=== PATIENT | male | born 1965 | race African-American/Black ===

== ENCOUNTER 2021-08-07 08:48 | Outpatient (REF) | payer OTHER, SELFPAY ==
--- NOTE | ~2021-08-07 | CT_ITS ---
EXAMINATION: CT ANGIOGRAM NECK WITH CONTRAST CT ANGIOGRAM BRAIN WITH CONTRAST CLINICAL INFORMATION: Occlusion and stenosis of the carotid artery. COMPARISON: Head and neck CTA 04/24/2020. TECHNIQUE: Test bolus sequences followed by intravenous administration 70 mL of Omnipaque 350. Helical imaging was performed in the axial plane from the thoracic inlet to the skull vertex. Delayed postcontrast imaging of the head was also performed. The data was processed at the nuclear medicine pet ct technologist workstation for generation of MIP sequences. Angled MIPs and volume rendered reformatted images were also generated at an offline 3D workstation under concurrent supervision. Stenoses are assessed in accordance with NASCET criteria unless otherwise indicated. This CT examination was performed using dose optimization techniques as appropriate, variously including the following: *Automated exposure control *Adjustment of mA and/or kV according to patient size (this includes techniques or standardized protocols for targeted exams where dose is matched to indication/reason for exam; i.e. extremities or head) *Use of iterative reconstruction technique FINDINGS: BRAIN: Interval development of a chronic-appearing infarct within the left frontal lobe anteriorly associated with volume loss as well as within the left precentral gyrus at the high convexity, both in the left MCA territory. There is background chronic microangiopathy. There is no intracranial hemorrhage, hydrocephalus, extra-axial surface collection, midline shift, or other herniation pattern. Nicole to white matter differentiation is diffusely maintained without evidence of an evolved acute territorial infarct. The basilar cisterns are preserved. No significant soft tissue abnormality. No acute osseous abnormality. Soft tissue within the right external auditory canal, most likely cerumen. Mild mucosal thickening within the right maxillary sinus which exhibits sclerotic wall thickening as the sequela of chronic sinusitis. CERVICAL SOFT TISSUES AND LUNG APICES: No significant soft tissue findings within the neck. Imaged upper lungs are clear. Multilevel cervical spondylosis. There is a stable enlarged submental lymph node measuring 1.3 cm in long transaxial dimension that is nonspecific. NECK CTA: [There is a classic 3 vessel configuration of the aortic arch. Proximal arch vessels are non-stenotic. The vertebral arteries are codominant. No significant ostial stenosis is visualized on either side. Both vertebral arteries are widely patent throughout their extracranial cervical course. The right common carotid artery, the right carotid bifurcation, and the right cervical internal carotid artery are widely patent. Mild partial reconstitution of the previously seen occluded left cervical internal carotid artery with faint contrast opacification seen throughout portions of the left cervical ICA which remains partially occluded. Eccentric lipid rich atherosclerotic plaque within the left common carotid artery resulting in mild luminal narrowing. BRAIN CTA: As on the previous study, the intracranial left internal carotid artery is partially occluded through the cavernous left ICA segment. Complete reconstitution of the left internal carotid artery at the level of the paraclinoid ICA segment. No acute arterial occlusions intracranially. One of the anterior left M3 MCA sylvian branches exhibits severe luminal narrowing throughout its course, new since the prior study. CT/CT angio head neck IMPRESSION: - Interval development of a chronic-appearing infarct within the left frontal lobe anteriorly associated with volume loss as well as within the left precentral gyrus at the high convexity, both in the left MCA territory. There is background chronic microangiopathy. - Mild partial reconstitution of the previously seen occluded left cervical internal carotid artery with faint contrast opacification seen throughout portions of the left cervical ICA which remains partially occluded. - As on the previous study, the intracranial left internal carotid artery is partially occluded through the cavernous left ICA segment. Complete reconstitution of the left internal carotid artery at the level of the paraclinoid ICA segment. - Eccentric lipid rich atherosclerotic plaque within the left common carotid artery resulting in mild luminal narrowing. - One of the anterior left M3 MCA sylvian branches exhibits severe luminal narrowing throughout its course, new since the prior study. - There is a stable enlarged submental lymph node measuring 1.3 cm in long transaxial dimension that is nonspecific.
[2021-08-07 10:34] LABS: Blood Urea Nitrogen 16 mg/dL (9-16); Estimated Glomerular Filt Rate > 60
[2021-08-07] MEDS: iohexoL 350 MG/ML 100 ML INFUS..BTL IV (12:07)
== END 2021-08-07 08:49 | disposition home or self-care (01) ==
LOC: HO.CT 08:48
PROVIDERS: PCP Internal Medicine; Visit Provider Internal Medicine
DX: I63.312 Cerebral infarction due to thrombosis of left middle cerebral artery (principal); I65.29 Occlusion and stenosis of unspecified carotid artery
CPT/HCPCS: 36415; 70496; 70498; 82565; 84520; Q9967

== ENCOUNTER → 2021-09-15 14:31 | Outpatient (BNVA) | payer OTHER, SELFPAY | PROVIDERS: PCP Internal Medicine; Visit Provider Surgery Vascular Surgery | DX: I63.232 Cerebral infarction due to unspecified occlusion or stenosis of left carotid arteries (principal) | CPT/HCPCS: 99202 ==

== ENCOUNTER 2021-09-18 08:00 | Outpatient (RCR) | payer OTHER, SELFPAY ==
--- NOTE | 2021-08-28 08:49 | MHC.PT.EP ---
[facility] [place] Office [place] Office [place] Office [address] Tj Heredia [address] [phone] F: [phone] F: [phone] F: [phone] F: [phone] Physical Therapy Plan of Care Date of Evaluation: Date of Surgery: N/A Diagnosis: chronic bilateral LBP without sciatica Assessment: pt's signs and symptoms consistent w/ hypomobility of PA movement of the thoracolumbar spine and weakness of the trunk extensors and upper abdominals. pt presents to physical therapy with pain, decreased range of motion, decreased strength, impaired functional mobility, impaired postural awareness, and gait deviations. pt is a good candidate for skilled PT due to age, potential remediation of impairments, typical disease/condition progression and prognosis, comorbidities, and motivation. pt would benefit from tailored strengthening and stretching exercise program, functional training, gait training, postural re-training, neuromuscular re-education, modalities as needed for pain, equipment safety demonstration. Frequency and Duration: The patient will be seen 2x/wk for 3 wks Short Term Goals: pt will be I w/ HEP to promote self-management of condition. pt will improve B thoracolumbar rotation by 25% to assist in work-related tasks. [facility]ci Goals: pt will improve upper abdominal and trunk extensor strength to 5/5 to promote functional strength for transitional movements from floor to standing. pt will report <3/10 low back pain w/ transitioning from quadruped to standing to promote ease in work-related tasks. Treatment Plan: Modalities to reduce pain, spasms and effusion. Manual therapy to restore motion and function. Therapeutic exercise to improve strength and flexibility. Neuromuscular re-education for posture and balance. Therapeutic activities to return to functional activities of daily living. Electronically signed by: Zahida Paris PT, DPT Please sign and return to therapist. Thank you for your referral.
--- NOTE | 2021-09-18 08:26 | MHC.PT.DC ---
[place] Office [place] Office [place] Office [address] Tj Heredia 140 [facility] [phone] F: [phone] F: [phone] F: [phone] F: [phone] Physical Therapy Discharge Report Diagnosis: chronic bilateral LBP without sciatica Date of Surgery: N/A Date of Evaluation: 08/28/21 Date of Discharge: 09/18/21 Treatments to Date: 7 Cancellations to Date: No Shows to Date: Discharge Status: Improved Function Independent with HEP Discharge Summary: The patient reported he has little to no pain when he has the kinesiotape applied to his low back. He is independent with his home exercise program including thoracolumbar and bilateral lower extremity stretches and core and pelvic stability exercises. He is discharged from this physical therapy plan of care. Electronically signed by: Zahida Paris PT, DPT Please sign and return to therapist. Thank you for your referral.
== END 2021-09-18 08:26 | disposition home or self-care (01) ==
LOC: HO.PT 08:00
PROVIDERS: PCP Internal Medicine; Visit Provider Internal Medicine
DX: M54.50 Low back pain, unspecified (principal)
CPT/HCPCS: 97110; 97140; 97150; 97162

== ENCOUNTER 2021-10-05 13:18 | Outpatient (REF) | payer OTHER, SELFPAY ==
--- NOTE | ~2021-10-05 | US_ITS ---
EXAMINATION: US EXTRACRANIAL CAROTID DUPLEX, BILATERAL CLINICAL INFORMATION: This is a 55-year-old male with cerebral infarction secondary to occlusion. Carotid artery disease. COMPARISON: None TECHNIQUE: Real-time ultrasound and Doppler techniques (integrating B-mode 2-D vascular images, Doppler spectral analysis and color-flow Doppler imaging) were utilized to interrogate the extracranial carotid arteries, the vertebral arteries and proximal subclavian arteries bilaterally. The degree of stenosis is determined by criteria similar to NASCET. FINDINGS: Right Side: 1. There is minimal atherosclerotic plaque seen in the bifurcation/proximal ICA region. 2. The common carotid artery PSV proximally is 122 cm/s and distally 101 cm/s. 3. The proximal internal carotid artery velocities are 107 cm/s systolic and 32 cm/s diastolic. 4. The proximal external carotid artery PSV is 128 cm/s. 5. The vertebral artery shows antegrade flow. 6. The subclavian artery waveforms are normal. Left Side: 1. There is minimal atherosclerotic plaque seen in the bifurcation/proximal ICA region. 2. The common carotid artery PSV proximally is 130 cm/s and distally 111 cm/s. 3. The proximal internal carotid artery velocities are 48 cm/s systolic and 6 cm/s diastolic. However, the mid and distal left internal carotid artery appears to be occluded. 4. The proximal external carotid artery PSV is 111 cm/s. 5. The vertebral artery shows antegrade flow. 6. The subclavian artery waveforms are normal. US/US carotid duplex BI IMPRESSION: 1. RIGHT: Minimal, non-hemodynamically significant stenosis of the proximal right internal carotid artery corresponding to a 0-49% stenosis by velocity criteria. 2. LEFT: Minimal, non-hemodynamically significant stenosis of the proximal left internal carotid artery corresponding to a 0-49% stenosis by velocity criteria. 3. The mid and distal left internal carotid artery appear to be occluded.
== END 2021-10-05 13:19 | disposition home or self-care (01) ==
LOC: HO.US 13:18
PROVIDERS: PCP Internal Medicine; Visit Provider Surgery Vascular Surgery
DX: I63.232 Cerebral infarction due to unspecified occlusion or stenosis of left carotid arteries (principal)
CPT/HCPCS: 93880

== ENCOUNTER → 2021-10-08 09:47 | Outpatient (BNVA) | payer OTHER, SELFPAY | PROVIDERS: PCP Internal Medicine; Visit Provider Surgery Vascular Surgery | DX: I63.232 Cerebral infarction due to unspecified occlusion or stenosis of left carotid arteries (principal) | CPT/HCPCS: 99212 ==

== ENCOUNTER 2021-10-26 12:18 | Outpatient (REF) | payer OTHER, SELFPAY | END 2021-10-26 12:19 | disposition home or self-care (01) | LOC: HO.XRAY 12:18 | PROVIDERS: PCP General Practice; Visit Provider General Practice | DX: Z13.89 Encounter for screening for other disorder (principal) ==

== ENCOUNTER 2021-10-26 12:21 | Outpatient (REF) | payer OTHER, SELFPAY ==
--- NOTE | ~2021-10-26 | XR_ITS ---
EXAMINATION: XR HAND, LEFT CLINICAL INFORMATION: Posterior hand swelling. COMPARISON: None TECHNIQUE: PA, lateral, and oblique views of the left hand. FINDINGS: Degenerative changes are present in the hands at the DIP joints with some osteophytes, subchondral cyst formation as well as some periarticular calcifications third and fourth digits. Degenerative changes also seen at the metacarpophalangeal joint of the fifth digit. Probable old healed boxer's fracture fifth metacarpal. No acute fracture. XR/XR hand LT min 3V IMPRESSION: Degenerative changes and old healed fracture as described above.
== END 2021-10-26 12:22 | disposition home or self-care (01) ==
LOC: HO.XRAY 12:21
PROVIDERS: PCP General Practice; Visit Provider General Practice
DX: M79.89 Other specified soft tissue disorders (principal)
CPT/HCPCS: 73130

== ENCOUNTER 2021-10-26 13:15 | Outpatient (REF) | payer OTHER, SELFPAY ==
--- NOTE | ~2021-10-26 | US_ITS ---
EXAMINATION: US VENOUS WITH DOPPLER UPPER EXTREMITY, LEFT CLINICAL INFORMATION: This is a 56-year-old male with sudden onset of left upper extremity swelling. COMPARISON: None TECHNIQUE: Ultrasound of the upper extremity is performed using compression sonography and color and pulse Doppler flow with assessment of augmentation of flow. There is also imaging and Doppler assessment of the jugular and subclavian veins. Spectral analysis with color-flow imaging is performed. FINDINGS: Respiratory variation, normal compression, and augmented flow are noted throughout the upper extremity including the axillary, brachial, cubital, and radial and ulnar veins. There is normal flow in the internal jugular and subclavian veins. There is no visible deep or superficial thrombophlebitis. If the patient's symptoms progress, a followup ultrasound in 5 -7 days might be of value to exclude proximal propagation from a nonvisualized distal arm vein. US/US venous duplex UE LT IMPRESSION: No DVT demonstrated in the left upper extremity
== END 2021-10-26 13:16 | disposition home or self-care (01) ==
LOC: HO.US 13:15
PROVIDERS: Visit Provider General Practice
DX: R60.0 Localized edema (principal); M79.89 Other specified soft tissue disorders
CPT/HCPCS: 73130; 93971

== ENCOUNTER 2022-02-04 18:43 | Emergency (ER) | payer OTHER, SELFPAY ==
--- NOTE | 2022-02-04 | ECG_ITS ---
Test Reason : dyspnea Blood Pressure : / mmHG Vent. Rate : 093 BPM Atrial Rate : 093 BPM P-R Int : 178 ms QRS Dur : 094 ms QT Int : 390 ms P-R-T Axes : 060 011 011 degrees QTc Int : 484 ms Normal sinus rhythm Prolonged QT Abnormal ECG When compared with ECG of 24-APR-2020 08:27, No significant change was found Referred By: Radha Sevilla Electronically Signed By:SOHAIL HERNANDEZ MD
--- NOTE | ~2022-02-04 | XR_ITS ---
EXAMINATION: XR CHEST CLINICAL INFORMATION: Shortness of breath. COMPARISON: 04/24/2020 TECHNIQUE: Frontal view of the chest was obtained. FINDINGS: No significant abnormality is noted involving the heart, lungs, mediastinum, bony thorax or soft tissues. XR/XR chest 1V IMPRESSION: Unremarkable examination.
[2022-02-04 18:47] VITALS: PULSE 112; RESP 28; O2SAT 96; BMI 25.7
--- NOTE | 2022-02-04 18:49 | ED.SOB ---
HPI - SOB/Dyspnea General Chief Complaint: Dyspnea Stated Complaint: SOB Time Seen by Provider: 02/04/22 18:45 Source: patient Mode of arrival: ambulatory Limitations: no limitations History of Present Illness HPI Narrative: This is a 56-year-old male past medical history significant for asthma, copd, htn,cva presenting to the emergency department shortness of breath. He tells me this feels like his typical asthma attack. He tried taking his inhaler with no relief. He is very short of breath upon his arrival, he was wheelchair it into the back room. Speaking in short sentences. He does not have history of intubation with asthma. Patient also tells me that he has been having a productive cough of white sputum for the past few days. He tells me the sputum is thick. He also reports on his way here he was vomiting because he was coughing so much. Denies chest pain, fevers, chills. MD elicited complaint: asthma attack Pertinent past history: asthma Onset (ago): hour(s) (2) Timing: constant Severity: severe Exacerbating factors: nothing Relieving factors: nothing Known history of: asthma Associated symptoms: cough Treatment prior to arrival: none Related Data Home Medications Medication Instructions Recorded Confirmed atorvastatin 40 mg tablet 40 mg PO BEDTIME 09/15/21 clopidogrel 75 mg tablet 75 mg PO DAILY 09/15/21 diltiazem HCl 180 mg 180 mg PO DAILY 09/15/21 capsule,extended release 24 hr ergocalciferol (vitamin D2) 1,250 1,250 mcg PO QWEEK 09/15/21 mcg (50,000 unit) capsule telmisartan 80 1 tab PO DAILY 09/15/21 mg-hydrochlorothiazide 25 mg tablet Previous Rx's Medication Instructions Recorded albuterol sulfate 90 mcg/actuation 2 inh INHALATION Q4-6H PRN #1 ea 02/04/22 breath activated powder inhaler prednisone 20 mg tablet 40 mg PO DAILY 5 Days #10 tab 02/04/22 Allergies Allergy/AdvReac Type Severity Reaction Status Date / Time No Known Allergies Allergy Verified 10/08/21 09:53 [No Known Allergies*] Review of Systems Review of Systems: Constitutional : No Weight loss, No Fever, No Chills, No Fatigue, No Malaise ENT/Mouth : No sore throat, No Rhinorrhea Eyes: No Eye Pain, No Swelling, No Redness Cardiovascular : No Chest Pain, + SOB, No Dyspnea on Exertion, No Orthopnea, No Edema, No Palpitations Respiratory : + Cough, + Sputum, No Wheezing Gastrointestinal : No Nausea, No Vomiting, No Diarrhea, No Constipation, No abdominal Pain, No Hematochezia, No Melena Genitourinary : No Dysuria, No Urinary Frequency, No Hematuria, Musculoskeletal : No joint pain, No Myalgias, No Joint Swelling Skin : No Skin Lesions, No rash Neuro : No Weakness, No Numbness, No Dizziness, No Headache Psych : No Anxiety/Panic, No Depression All other systems reviewed and are negative Yes all other systems are reviewed and are negative [facility] Past Medical History Attestation statement: The following information was validated with the patient. Source: old records reviewed and nursing notes reviewed Medical History Acute bilateral low back pain without sciatica Acute pain of left knee Adjustment disorder with anxious mood Allergic conjunctivitis of both eyes Chronic bilateral low back pain without sciatica COPD (chronic obstructive pulmonary disease) with chronic bronchitis CVA (cerebrovascular accident) Episodic tension-type headache, not intractable Essential hypertension Hypercholesteremia Mild intermittent asthma in adult without complication Stenosis of carotid artery Tobacco dependence Uncomplicated alcohol dependence Vitamin D deficiency Social History Social History Alcohol intake: current Alcohol intake frequency: 3 or more drinks per day Alcohol type: hard liquor Patient Tobacco Use Status: Current everyday Tobacco user Tobacco use type: Cigarette Cigarettes Per Day: 15 Use of substances other than those prescribed or required for medical reasons: No Advance Directives: No Physical Exam Vital Signs: Vital Signs: Last Vital Signs Temp 97.8 F 02/04/22 21:14 Pulse 74 02/04/22 21:14 Resp 12 02/04/22 21:14 BP 154/80 H 02/04/22 21:14 Pulse Ox 96 02/04/22 21:14 BMI result Body Mass Index 25.7 vss Appearance: Alert.? Oriented X3.? Mild respiratory distress.? Upon initial examination patient diaphoretic, increased work of breathing, labored breathing with tracheal tugging and use of accessory muscles. Head: Normocephalic, atraumatic, no step-offs or deformities Eyes: Pupils equal, round and reactive to light.? ENT: Pharynx normal.? Neck: Normal inspection.? Neck supple.? CVS: Normal heart rate and rhythm.? Pulses normal.? Respiratory: No respiratory distress.? Diminished breath sounds throughout with wheezing throughout both lung nguyễn, there also crackles noted in the right lower lobe. Abdomen: Soft and nontender.? Skin: Skin warm and dry.? Normal skin color.? Normal skin turgor.? Extremities: No lower extremity edema.? No calf ttp. 5/5 strength to bilateral upper and lower extremities Back: No midline tenderness, no C-spine tenderness, full range of motion, no CVA tenderness bilaterally Neuro: Oriented X 3.? No motor deficit.? No sensory deficit. CN 2-12 intact Course Reevaluation(s) Reevaluation #1: Patient's CBC at patient's baseline. No acute electrolyte abnormalities. Patient's alk-phos slightly elevated however he is not having abdominal pain to palpation. COVID negative. Chest x-ray is unremarkable no consolidations concerning for pneumonia. Patient with significant improvement after albuterol hour long. At this time I will order a DuoNeb. Sinus tach on the monitor. No acute distress. No able to speak in full sentences without distress. Time: 19:26 Reevaluation #2: Patient reports improvement after magnesium, Solu-Medrol, albuterol. Upon auscultation he is still wheezy and tight. Will order DuoNeb at this time. Patient tells me that he just got a phone call from [facility] stating that his medications were ready including his inhaler, nebulizers. I will give a DuoNeb. And re-evaluate patient. Time: 20:20 Reevaluation #3: Re-evaluated patient after DuoNeb. He is doing much better. He feels much better and ready to go home. His lungs with faint wheezing however much better than before. Good air movement. Patient not using accessory muscles for breathing, no longer having tracheal tugging. At this time patient will be discharged home. Will discharge him on a short course of prednisone for few days. Advised him to follow-up with his PCP. And return with new or worsening symptoms. Outlined worrisome signs and symptoms on discharge. Time: 21:47 MDM - SOB/Dyspnea MDM Narrative Medical decision making narrative: 184 56 yo m pmhx asthma, copd, htn,cva presents w/ sob, cough and post tussive emisis X2 hours. Upon initial examination patient appears diaphoretic with him labored breathing, using accessory muscles for breathing with tracheal tugging. Bilateral lung sounds diminished with wheezing and crackles to the right lower lobe. Regular rate fast rhythm likely sinus tachycardia. Abdomen soft nontender nondistended. Plan at this time is to give an hour long of albuterol. Followed by a DuoNeb. He will also be given Solu-Medrol and magnesium. Basic labs will be ordered as well. Medical Records Attestation: I reviewed the patient's medical records. Lab Data Attestation: I reviewed the patient's lab results. Result diagrams: 02/04/22 18:51 02/04/22 18:51 Labs: Lab Results 02/04/22 02/04/22 02/04/22 Range/Units 18:51 18:51 18:51 WBC 7.2 (4.8-10.8) X10*3/uL RBC 4.76 (4.60-5.80) X10*6/uL Hgb 13.9 L (14.0-18.0) g/dl Hct 41.7 L (42.0-52.0) % MCV 87.6 (80.0-98.0) fL MCH 29.2 (27.0-33.0) pg MCHC 33.3 (31.0-36.0) g/dl RDW 13.6 (11.0-16.0) % Plt Count 267 (160-400) X10*3/uL MPV 8.6 L (9.4-12.4) fL Immature Gran % (Auto) 0.1 (0.0-0.4) % Neut % (Auto) 41.8 L (45-73) % Lymph % (Auto) 43.0 H (20-40) % [place] % (Auto) 10.3 (2-11) % Eos % (Auto) 4.1 H (0-4) % Baso % (Auto) 0.7 (0-2) % Lymph # (Auto) 3.1 (1.2-4.9) X10*3/uL [place] # (Auto) 0.7 (0.1-1.2) X10*3/uL Eos # (Auto) 0.3 (0.0-0.4) X10*3/uL Baso # (Auto) 0.1 (0.0-0.2) X10*3/uL Abs Immat Gran (auto) 0.01 (0.00-0.03) X10*3/uL Absolute Neuts (auto) 3.0 (2.0-8.3) x10*3/uL Absolute Nucleated RBC 0.000 (0.0-0.012) X10*3/uL Nucleated RBC % (auto) 0.0 (0.0-0.2) /100WBC Sodium 139 (135-145) mmol/L Potassium 3.6 (3.3-5.1) mmol/L Chloride 100 (96-108) mmol/L Carbon Dioxide 29 (22-29) mmol/L Anion Gap 14 (12-20) BUN 17 H (9-16) mg/dL Creatinine 1.17 (0.5-1.4) mg/dL Estim Creat Clear Calc 75.5 Estimated GFR > 60 Random Glucose 115 (60-115) mg/dL Calcium 10.0 (8.4-10.2) mg/dL Total Bilirubin 0.9 (0.0-1.0) mg/dL AST 23 (5-37) U/L ALT 25 (0-40) U/L Alkaline Phosphatase 131 H (39-117) U/L Total Protein 8.3 H (6.5-8.0) g/dL Albumin 4.9 (3.5-5.0) g/dL COVID-19 (LEANN) Negative (Negative) COVID-19 Clin Com See Note ECG Data Attestation: I personally reviewed and interpreted this ECG as follows: ECG interpretation date: 02/04/22 ECG interpretation time: 19:02 Prior ECG tracings: available for review Interpretation: Ventricular rate of 93, CO normal, QRS normal, QT/QTC slightly prolonged. EKG shows normal sinus rhythm with poor R-wave progression which appears to be chronic. No acute findings. No ST elevations or inversions concerning for ischemia. No significant changes when compared to previous EKG from 2019 Critical Care Time Critical Care Time Critical Care Time: No Discharge Plan Discharge Clinical Impression: Asthma with exacerbation Patient Disposition: Home, Self-Care Instructions: Asthma (ED), How to Use a Breath-Activated Inhaler (ED), Wheezing (ED), How Your Lungs Work (ED) Additional Instructions: Take your medications as prescribed. If you were prescribed antibiotics today, it is important that you take your medication to their entirety, do not skip any doses, do not finish them early. Follow-up with your primary care provider this week. Return to the emergency department with new or worsening symptoms. Such as fevers, chills, chest pain, shortness of breath, nausea, vomiting, dizziness, headache, vision changes, lethargy In case of emergency call 911 Prescriptions: New albuterol sulfate 90 mcg/actuation aerosol powdr breath activated 2 inh inhalation Q4-6H PRN (Reason: shortness of breath or wheezing) Qty: 1 0RF prednisone 20 mg tablet 40 mg PO DAILY 5 Days Qty: 10 0RF Referrals: Physician,Unknown J [Primary Care Provider] - 2 days Stand Alone Forms: Work/School Release
[2022-02-04] MEDS: methylPREDNISolone Sod Succ 125 MG/2 ML VIAL IVPUSH (18:51)
[2022-02-04] MEDS: Magnesium Sulfate/H2O 2 GM/50 ML PIGGYBACK IV (18:52)
[2022-02-04 18:55] LABS: MANUAL DIFF FLAG NO
[2022-02-04] MEDS: Albuterol Sulfate (0.083%) 2.5 MG/3 ML VIAL.NEB 7.5 MG INHALE (18:55)
[2022-02-04 18:56] VITALS: PULSE 99; RESP 22; O2SAT 95
[2022-02-04 18:56] LABS: Basophils Absolute Auto 0.1 X10*3/uL (0.0-0.2); Basophils Percent Auto 0.7 % (0-2); Eosinophils Absolute Auto 0.3 X10*3/uL (0.0-0.4); Eosinophils Percent Auto 4.1 % (0-4); Hematocrit 41.7 % (42.0-52.0); Hemoglobin 13.9 g/dl (14.0-18.0); Imm Gran Abs Auto 0.01 X10*3/uL (0.00-0.03); Imm Gran Pct Auto 0.1 % (0.0-0.4); Lymphocytes Absolute Auto 3.1 X10*3/uL (1.2-4.9); Mean Corpuscular HGB Conc 33.3 g/dl (31.0-36.0); Mean Corpuscular Hemoglobin 29.2 pg (27.0-33.0); Mean Corpuscular Volume 87.6 fL (80.0-98.0); Mean Platelet Volume 8.6 fL (9.4-12.4); Monocytes Absolute Auto 0.7 X10*3/uL (0.1-1.2); Monocytes Percent Auto 10.3 % (2-11); Neutrophils Percent Auto 41.8 % (45-73); Platelet Count 267 X10*3/uL (160-400); Red Blood Count 4.76 X10*6/uL (4.60-5.80); Red Cell Distribution Width 13.6 % (11.0-16.0); White Blood Count 7.2 X10*3/uL (4.8-10.8)
[2022-02-04 19:10] LABS: COVID-19 Test Negative (Negative); IDNOW Serial# 55D5AD1C
[2022-02-04 19:12] LABS: Alanine Aminotransferase 25 U/L (0-40); Albumin Level 4.9 g/dL (3.5-5.0); Alkaline Phosphatase 131 U/L (39-117); Anion Gap 14 (12-20); Aspartate Amino Transferase 23 U/L (5-37); Bilirubin Total 0.9 mg/dL (0.0-1.0); Blood Urea Nitrogen 17 mg/dL (9-16); Carbon Dioxide 29 mmol/L (22-29); Chloride 100 mmol/L (96-108); Creatinine Clr Calc Pharmacy 75.5; Estimated Glomerular Filt Rate > 60; Glucose Random 115 mg/dL (60-115); Potassium 3.6 mmol/L (3.3-5.1); Sodium 139 mmol/L (135-145); Total Protein 8.3 g/dL (6.5-8.0)
[2022-02-04 20:30] VITALS: PULSE 99; RESP 18; O2SAT 95
[2022-02-04] MEDS: Albuterol/Iprat 2.5/0.5MG 3 ML AMPUL.NEB INHALE (20:30)
[2022-02-04 21:14] VITALS: BP 154/80; PULSE 74; RESP 12; TEMP 36.6; O2SAT 96
== END 2022-02-04 22:19 | disposition home or self-care (01) ==
PROVIDERS: Physician Assistant; Emergency Provider Emergency Medicine Emergency Medical Services
DX: J45.901 Unspecified asthma with (acute) exacerbation (principal); I10 Essential (primary) hypertension; Z86.73 Personal history of transient ischemic attack (TIA), and cerebral infarction without residual deficits; Z20.822 Contact with and (suspected) exposure to COVID-19
CPT/HCPCS: 71045; 80053; 85025; 87635; 93005; 94640; 94644; 96365; 96366; 96375; 99284; J2930; J3475

== ENCOUNTER 2022-03-09 11:13 | Outpatient (REF) | payer OTHER, SELFPAY ==
--- NOTE | ~2022-03-09 | XR_ITS ---
EXAMINATION: XR LUMBOSACRAL SPINE WITH OBLIQUES CLINICAL INFORMATION: Low back pain COMPARISON: None TECHNIQUE: AP, both oblique, and lateral views of the lumbar spine. Lateral view of the lumbosacral junction. FINDINGS: Bone alignment is normal. No fracture or dislocation is seen. There is degenerative spondylosis of the lower thoracic spine. There is lower lumbar spine facet arthritis. No pars defect is seen. XR/XR lumbar spine 4V min IMPRESSION: Degenerative changes.
== END 2022-03-09 11:14 | disposition home or self-care (01) ==
LOC: HO.XRAY 11:13
PROVIDERS: PCP Internal Medicine; Visit Provider Internal Medicine
DX: M54.50 Low back pain, unspecified (principal); S33.5XXD Sprain of ligaments of lumbar spine, subsequent encounter
CPT/HCPCS: 72110

== ENCOUNTER 2022-05-12 08:00 | Outpatient (RCR) | payer OTHER, SELFPAY ==
[2022-04-15 07:13] VITALS: BP 169/84
== END 2022-07-01 09:28 | disposition home or self-care (01) ==
LOC: HO.PT 08:00
PROVIDERS: PCP Internal Medicine; Visit Provider Internal Medicine
DX: S33.5XXD Sprain of ligaments of lumbar spine, subsequent encounter (principal)
CPT/HCPCS: 97110; 97140; 97161; 97530

== ENCOUNTER 2022-08-23 14:18 | Outpatient (REF) | payer OTHER, SELFPAY ==
--- NOTE | ~2022-08-23 | XR_ITS ---
EXAMINATION: XR LUMBOSACRAL SPINE WITH OBLIQUES CLINICAL INFORMATION: Low back pain. COMPARISON: None TECHNIQUE: AP, both oblique, and lateral views of the lumbar spine. Lateral view of the lumbosacral junction. FINDINGS: There is normal lumbar lordosis and spinal alignment. The vertebral bodies and intervertebral disc spaces are unremarkable. Moderate marginal osteophyte formation is seen in the inferior thoracic spine as well as at T12-L1. Mild bilateral facet arthropathy is seen from L3-4 and L5-S1. The neural foramina appear patent. The soft tissues are unremarkable. XR/XR lumbar spine 4V min IMPRESSION: Multilevel degenerative changes as detailed above without acute abnormality.
== END 2022-08-23 14:19 | disposition home or self-care (01) ==
LOC: HO.XRAY 14:18
PROVIDERS: Absent Provider Internal Medicine; PCP Internal Medicine; Visit Provider Internal Medicine
DX: M54.50 Low back pain, unspecified (principal)
CPT/HCPCS: 72110

== ENCOUNTER 2022-08-25 11:26 | Emergency (ER) | payer OTHER, SELFPAY ==
--- NOTE | ~2022-08-25 | XR_ITS ---
EXAMINATION: XR KNEE, RIGHT CLINICAL INFORMATION: Right knee pain and swelling. COMPARISON: None TECHNIQUE: Four views of the right knee. FINDINGS: No significant tricompartmental degenerative joint changes are seen. Mild degenerative spurring is seen off of the medial femoral condyle. There is no acute fracture or dislocation. There is a small to moderate suprapatellar joint effusion. Mild prepatellar soft tissue swelling is seen. XR/XR knee RT 3V IMPRESSION: Small to moderate suprapatellar joint effusion without acute underlying osseous abnormality. Mild degenerative spurring as detailed above.
[2022-08-25 13:06] VITALS: BP 147/74; PULSE 91; RESP 19; TEMP 37.4; O2SAT 97; BMI 31.8
--- NOTE | 2022-08-25 15:52 | ED_ITS ---
HPI - Extremity Injury (Lower) General Chief Complaint: Extremity Injury, Lower Stated Complaint: sever low back pain, R knee pain Time Seen by Provider: 08/25/22 14:48 Source: patient Mode of arrival: ambulatory History of Present Illness HPI Narrative: 56-year-old male with past medical history of back injury years ago, COPD, CVA, HTN, HLD, tobacco dependence, presenting to the ED complaining of severe right- sided low back pain radiating down RLE x days. Reports intermittent flares of back pain due to injury years ago after falling out of a dumpster. Denies new or recent injury, fall, trauma. Also reports intermittent swelling to right knee with increasing pain. Denies numbness, tingling, weakness, fever, urinary incontinence/retention. Has not taking anything for pain Onset (ago): day(s) Related Data Home Medications Medication Instructions Recorded Confirmed atorvastatin 40 mg tablet 40 mg PO BEDTIME 09/15/21 clopidogrel 75 mg tablet 75 mg PO DAILY 09/15/21 diltiazem HCl 180 mg 180 mg PO DAILY 09/15/21 capsule,extended release 24 hr ergocalciferol (vitamin D2) 1,250 1,250 mcg PO QWEEK 09/15/21 mcg (50,000 unit) capsule telmisartan 80 1 tab PO DAILY 09/15/21 mg-hydrochlorothiazide 25 mg tablet Previous Rx's Medication Instructions Recorded albuterol sulfate 90 mcg/actuation 2 inh inhalation Q4-6H PRN 02/04/22 breath activated powder inhaler shortness of breath or wheezing #1 ea prednisone 20 mg tablet 40 mg PO DAILY 5 days #10 tabs 02/04/22 cyclobenzaprine 10 mg tablet 10 mg PO TID PRN muscle spasm #14 08/25/22 tabs hydrocodone 5 mg-acetaminophen 325 1 tab PO Q8H PRN pain, severe 3 08/25/22 mg tablet days #9 tabs lidocaine 5 % topical patch 1 patch topical DAILY PRN pain #30 08/25/22 (Lidoderm) ea Allergies Allergy/AdvReac Type Severity Reaction Status Date / Time No Known Allergies Allergy Verified 10/08/21 09:53 [No Known Allergies*] Review of Systems Review of Systems: Constitutional: No Fever, No Chills ENT/Mouth: No Ear Pain, No Nasal Congestion, No Sinus Pain, No Rhinorrhea, No Swallowing Difficulty Cardiovascular: No Chest Pain, No SOB Respiratory: No Cough, No Sputum, No Wheezing Gastrointestinal: No Nausea, No Vomiting, No Diarrhea, No Constipation, No Abdominal pain Genitourinary: No Dysuria, No Urinary Frequency, No Hematuria, No Urinary Incontinence/retention, No Urgency, No Flank Pain Musculoskeletal: + joint pain, No Myalgias, + Joint Swelling Skin: No Skin Lesions, No rash Neuro: No Weakness, No Numbness, No Paresthesias Yes all other systems are reviewed and are negative Constitutional: Constitutional: Reports as per HPI Neurologic: Denies Sensory deficit (Neuro) [facility] Past Medical History Attestation statement: The following information was validated with the patient. Medical History Acute bilateral low back pain without sciatica Acute pain of left knee Adjustment disorder with anxious mood Allergic conjunctivitis of both eyes Chronic bilateral low back pain without sciatica COPD (chronic obstructive pulmonary disease) with chronic bronchitis CVA (cerebrovascular accident) Episodic tension-type headache, not intractable Essential hypertension Hypercholesteremia Mild intermittent asthma in adult without complication Stenosis of carotid artery Tobacco dependence Uncomplicated alcohol dependence Vitamin D deficiency Social History Social History Alcohol intake: current Alcohol intake frequency: 3 or more drinks per day Alcohol type: hard liquor Patient Tobacco Use Status: Current everyday Tobacco user Tobacco use type: Cigarette Cigarettes Per Day: 15 Advance Directives: No Advance Directives Information Provided: No Physical Exam Vital Signs: Vital Signs: Last Vital Signs Temp 99.3 F 08/25/22 13:06 Pulse 91 08/25/22 13:06 Resp 19 08/25/22 13:06 BP 147/74 H 08/25/22 13:06 Pulse Ox 97 08/25/22 13:06 O2 Del Method 08/25/22 13:06 BMI result Body Mass Index 31.8 Const: General: cooperative, healthy appearing and no acute distress Orientation/consciousness: patient oriented x3 Limitations: no limitations HEENT: Head: Yes normal to inspection and Yes atraumatic Ears: hearing grossly normal bilaterally General nose exam: Normal external nose present Face and sinus: Yes normal facial exam Eyes: General: appearance normal, both eyes and all related structures EOM: EOMs intact bilaterally Neck: Neck: Yes normal visual inspection and Yes no meningeal signs Resp: Effort & Inspection: normal respiratory effort and no respiratory distress Auscultation: clear to auscultation bilaterally Cardio: Rate: regular rate Heart sounds: S1 normal heart sound present and S2 normal heart sound present Peripheral pulses: Peripheral pulses 2+ throughout GI: Inspection: Yes normal to inspection Palpation (GI): Soft to palpation, nontender, no guarding and not rigid : General: Yes no CVA tenderness Back/Spine/Pelvis: Other: No midline thoracic/lumbar spinous tenderness/step-off or deformity. + right- side/lower lumbar MSK tenderness to palpation, reproducing subjective complaint Back: no CVA tenderness Skin: Rashes: no rashes Wounds: no wounds Neuro: Other: Strength intact throughout. No saddle anesthesia. Sensation intact to light touch. Neurovascular intact distally General: patient oriented x3, tone normal and no meningeal signs Motor exam (neuro): 5/5 motor strength present throughout Sensory Exam: No Sensory deficit (Neuro) Extrem: Other: Right knee mildly swollen, tender to palpation to superior aspect, full extension limited secondary to pain. Neurovascular intact distally. No erythema or warmth Course Course Course Narrative: XR lumbar spine 4V min IMPRESSION: Multilevel degenerative changes as detailed above without acute abnormality.? >> x-ray from 08/23 XR knee RT 3V IMPRESSION: Small to moderate suprapatellar joint effusion without acute underlying osseous abnormality. Mild degenerative spurring as detailed above. >> GLEN wrap applied for comfort and stability -1700--patient ambulated in the ED with slow steady limping gait MDM - Extremity Injury (Lower) MDM Narrative Medical decision making narrative: 56-year-old male with past medical history of back injury years ago, COPD, CVA, HTN, HLD, tobacco dependence, presenting to the ED complaining of severe right- sided low back pain radiating down RLE x days. On exam vital signs stable, NAD, nontoxic appearing, no midline spinous tenderness throughout, pain reproducible, right knee mildly swollen. Concern for MSK pain/strain vs sciatica. Low suspicion for cord compression, cauda equina, septic joint/arthritis or gout Plan: X-ray, pain control, reassess Medical Records Attestation: I reviewed the patient's medical records. Lab Data Attestation: I reviewed the patient's lab results. Discharge Plan Discharge Clinical Impression: Low back pain, Effusion of knee Patient Disposition: Home, Self-Care Instructions: Acute Low Back Pain (ED) Additional Instructions: Your back x-ray shows degenerative changes. Your knee x-ray shows a knee effusion, please follow-up with orthopedics and Spine Your pain is likely musculoskeletal Flexeril is a muscle relaxer, take at night as it makes you drowsy, do not driv e, drink alcohol, or operate machinery while taking it [place] is an opiate pain medication, take only when pain is severe for the next 3 days. Be aware [place] has Tylenol mixed in, do not exceed 4 g of Tylenol in 1 day Lidoderm patches are numbing patches, apply to painful area In addition take Tylenol at home If symptoms persist or worsen, pain becomes unbearable, you developed urinary retention or incontinence, or weakness return to the ED Prescriptions: New cyclobenzaprine 10 mg tablet 10 mg PO TID PRN (Reason: muscle spasm) Qty: 14 0RF hydrocodone-acetaminophen 5-325 mg tablet 1 tab PO Q8H PRN (Reason: pain, severe) 3 Days Qty: 9 0RF Rx Instructions: Partial Fill upon patient request. lidocaine [Lidoderm] 5 % adhesive patch,medicated 1 patch topical DAILY MDD remove after 12 hours PRN (Reason: pain) Qty: 30 0RF Rx Instructions: leave on most painful area for up to 12 hrs No Action albuterol sulfate 90 mcg/actuation aerosol powdr breath activated 2 inh inhalation Q4-6H PRN (Reason: shortness of breath or wheezing) Qty: 1 0RF prednisone 20 mg tablet 40 mg PO DAILY 5 Days Qty: 10 0RF Referrals: [facility] [Provider Group] Beata Hansen MD [Physician] -
[2022-08-25] MEDS: Cyclobenzaprine HCl 10 MG TABLET PO (16:18)
[2022-08-25] MEDS: oxyCODONE HCl Immed Release 5 MG TABLET PO (16:19)
[2022-08-25] MEDS: Ketorolac Tromethamine 30 MG/ML VIAL IM (16:19)
== END 2022-08-25 17:44 | disposition home or self-care (01) ==
PROVIDERS: Emergency Provider Emergency Medicine; PCP Internal Medicine
DX: M54.50 Low back pain, unspecified (principal); M25.461 Effusion, right knee; M25.561 Pain in right knee; I10 Essential (primary) hypertension; E78.5 Hyperlipidemia, unspecified; F17.210 Nicotine dependence, cigarettes, uncomplicated; Z86.73 Personal history of transient ischemic attack (TIA), and cerebral infarction without residual deficits; Z79.02 Long term (current) use of antithrombotics/antiplatelets; Z79.899 Other long term (current) drug therapy
CPT/HCPCS: 73562; 96372; 99283; 99284; J1885

== ENCOUNTER → 2022-08-31 07:54 | Outpatient (BNVA) | payer OTHER, SELFPAY | PROVIDERS: PCP Internal Medicine; Visit Provider Physician Assistant | DX: M54.50 Low back pain, unspecified (principal); M54.30 Sciatica, unspecified side; M51.36 Other intervertebral disc degeneration, lumbar region | CPT/HCPCS: 99202 ==

== ENCOUNTER → 2022-10-06 09:32 | Outpatient (BNVA) | payer OTHER, SELFPAY | PROVIDERS: PCP Internal Medicine; Visit Provider Anesthesiology | DX: M46.1 Sacroiliitis, not elsewhere classified (principal); M54.50 Low back pain, unspecified; G89.4 Chronic pain syndrome | CPT/HCPCS: 99202 ==

== ENCOUNTER 2022-10-11 14:39 | Outpatient (REF) | payer OTHER, SELFPAY ==
--- NOTE | ~2022-10-11 | US_ITS ---
EXAMINATION: US EXTRACRANIAL CAROTID DUPLEX, BILATERAL CLINICAL INFORMATION: Carotid stenosis COMPARISON: Ultrasound from 10/05/2021 and CTA from 08/07/2021 TECHNIQUE: Real-time ultrasound and Doppler techniques (integrating B-mode 2-D vascular images, Doppler spectral analysis and color-flow Doppler imaging) were utilized to interrogate the extracranial carotid arteries, the vertebral arteries and proximal subclavian arteries bilaterally. The degree of stenosis is determined by criteria similar to NASCET. FINDINGS: Right Side: 1. There is mild atherosclerotic plaque seen in the bifurcation/proximal ICA region. 2. The common carotid artery PSV proximally is 117 cm/s and distally 94 cm/s. 3. The proximal internal carotid artery velocities are 78 cm/s systolic and 11 cm/s diastolic. 4. The proximal external carotid artery PSV is 113 cm/s. 5. The vertebral artery shows antegrade flow. 6. The subclavian artery waveforms are normal. Left Side: 1. There is a large amount of noncalcified atherosclerotic plaque seen in the mid to distal ICA region. 2. The common carotid artery PSV proximally is 125 cm/s and distally 133 cm/s. 3. The proximal internal carotid artery velocities are 68 cm/s systolic and 12 cm/s diastolic. 4. The proximal external carotid artery PSV is 114 cm/s. 5. The vertebral artery shows antegrade flow. 6. The subclavian artery waveforms are 139. US/US carotid duplex BI IMPRESSION: 1. RIGHT: Minimal, non-hemodynamically significant stenosis of the proximal right internal carotid artery corresponding to a 0-49% stenosis by velocity criteria. 2. LEFT: Minimal, non-hemodynamically significant stenosis of the proximal left internal carotid artery corresponding to a 0-49% stenosis by velocity criteria. Large amount noncalcified plaque in the mid to distal internal carotid artery with normal velocities. The prior ultrasound demonstrated occlusion. Prior CTA demonstrated a string sign with critical stenosis. Given the discordant findings, further evaluation with CTA may be useful.
== END 2022-10-11 14:40 | disposition home or self-care (01) ==
LOC: HO.US 14:39
PROVIDERS: Visit Provider Surgery Vascular Surgery
DX: I63.232 Cerebral infarction due to unspecified occlusion or stenosis of left carotid arteries (principal)
CPT/HCPCS: 93880

== ENCOUNTER → 2022-10-18 10:57 | Outpatient (BNVA) | payer OTHER, SELFPAY | PROVIDERS: PCP Internal Medicine; Visit Provider Surgery Vascular Surgery | DX: I63.232 Cerebral infarction due to unspecified occlusion or stenosis of left carotid arteries (principal); M79.642 Pain in left hand | CPT/HCPCS: 99212 ==

== ENCOUNTER 2022-11-01 09:22 | Outpatient (REF) | payer OTHER, SELFPAY ==
--- NOTE | ~2022-11-01 | XR_ITS ---
EXAMINATION: XR HAND, LEFT CLINICAL INFORMATION: Pain left hand COMPARISON: Radiographs left hand 10/26/2021 TECHNIQUE: The left hand is imaged in 4 views. FINDINGS: Normal bony mineralization. No periarticular demineralization. No acute or healing fracture, dislocation, destructive process. Ulnar variance is neutral. Pronator quadratus fat pad appears normal. No carpal joint narrowing or erosive change or chondrocalcinosis. Again, there is probable old healed fracture 5th metacarpal. Narrowing of the fifth MCP joint with spurring base proximal phalanx is stable. No erosive change. Incidental tiny cyst head third metacarpal. The PIP joints are unremarkable. There are mild mild osteoarthritis involving the DIP joints. No erosive change. XR/XR hand LT min 3V IMPRESSION: 1. No acute or healing fracture, dislocation, destructive process. 2. 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 3. No erosive changes.
== END 2022-11-01 09:23 | disposition home or self-care (01) ==
LOC: HO.HOSX 09:22
PROVIDERS: Visit Provider Orthopaedic Surgery
DX: M79.642 Pain in left hand (principal)
CPT/HCPCS: 73130; 99202

== ENCOUNTER 2022-11-23 06:19 | Outpatient (REF) | payer OTHER, SELFPAY ==
--- NOTE | ~2022-11-23 | FL_ITS ---
EXAMINATION: XR FLUOROSCOPY WITH IMAGES CLINICAL INFORMATION: Sacroiliitis. COMPARISON: None. TECHNIQUE: Fluoroscopy Supervised By: Yanique Butler. Fluoroscopy Time: 0.4. Cumulative Dose: 20.5 mGy. DAP: 5.58 Gycm2. Images: 2. FINDINGS: There is a right and left needle positioned adjacent to the SI joints with contrast opacifying the soft tissues. No gross abnormality seen involving the iliac bones. FL/FL guidance in treatment room IMPRESSION: Fluoroscopy guidance was provided to referrer for bilateral SI joint injection.
== END 2022-11-23 06:20 | disposition home or self-care (01) ==
LOC: CF 06:19
PROVIDERS: Visit Provider Anesthesiology
DX: M46.1 Sacroiliitis, not elsewhere classified (principal)
CPT/HCPCS: 27096

== ENCOUNTER → 2022-11-25 10:13 | Outpatient (BNVA) | payer OTHER, SELFPAY | PROVIDERS: PCP Internal Medicine; Visit Provider Anesthesiology | DX: Z13.89 Encounter for screening for other disorder (principal) ==

== ENCOUNTER 2023-06-29 14:58 | Outpatient (REF) | payer OTHER, SELFPAY ==
--- NOTE | ~2023-06-29 | XR_ITS ---
EXAMINATION: XR KNEE, RIGHT CLINICAL INFORMATION: Acute right knee pain for 2 days. COMPARISON: None available. TECHNIQUE: Four views of the right knee. FINDINGS: Mild patellofemoral degenerative joint changes are seen with small marginal osteophyte formation. The femoral tibial joint spaces are unremarkable. There is a small to moderate spur off of the medial margin of the medial femoral condyle with no surrounding abnormality. There is a small to moderate suprapatellar joint effusion. The soft tissues are unremarkable. XR/XR knee RT 3V IMPRESSION: 1. Small to moderate suprapatellar joint effusion. No overt acute underlying osseous abnormality. 2. Mild patellofemoral degenerative joint changes. 3. Small to moderate spur off of the medial margin of the medial femoral condyle without surrounding abnormality.
== END 2023-06-29 14:59 | disposition home or self-care (01) ==
LOC: HO.HHCX 14:58
PROVIDERS: Visit Provider Student in an Organized Health Care Education/Training Program
DX: M25.561 Pain in right knee (principal)
CPT/HCPCS: 73562

== ENCOUNTER 2023-12-19 09:45 | Outpatient (REF) | payer OTHER, SELFPAY ==
--- NOTE | ~2023-12-19 | XR_ITS ---
EXAMINATION: XR CHEST CLINICAL INFORMATION: 5 week h/o productive cough, h/o COPD. COMPARISON: 02/04/2022 TECHNIQUE: 2 views of the chest were obtained. FINDINGS: Cardiac size has increased since 02/04/2022 with cardiomegaly present at this time. There is some mild increase in upper zone redistribution compared to the prior. There is a slight increase in fluid in the major and minor fissures. No pleural effusions. No focal consolidations or lung masses. The lungs are mildly hyperinflated consistent with given history of underlying COPD. XR/XR chest 2V IMPRESSION: Cardiomegaly with mild pulmonary vascular congestion.
[2023-12-19 20:13] LABS: Influenza A PCR NEGATIVE (Negative); Influenza B PCR NEGATIVE (Negative); Resp Syncy Virus RNA Qual PCR NEGATIVE (Negative); SARS COV2 PCR INHOUSE NEGATIVE (Negative)
== END 2023-12-19 09:46 | disposition home or self-care (01) ==
LOC: HO.HHCX 09:45
PROVIDERS: Visit Provider Emergency Medicine
DX: J44.1 Chronic obstructive pulmonary disease with (acute) exacerbation (principal); Z11.52 Encounter for screening for COVID-19
CPT/HCPCS: 0241U; 71046

== ENCOUNTER 2023-12-20 09:19 | Outpatient (REF) | payer OTHER, SELFPAY ==
[2023-12-20 10:45] LABS: B Type Natriuretic Peptide 1320 pg/mL (<100)
== END 2023-12-20 09:20 | disposition home or self-care (01) ==
LOC: HO.LAB 09:19
PROVIDERS: PCP Emergency Medicine; Visit Provider Emergency Medicine
DX: I10 Essential (primary) hypertension (principal); J44.1 Chronic obstructive pulmonary disease with (acute) exacerbation
CPT/HCPCS: 36415; 83880

== ENCOUNTER 2023-12-21 06:51 | Inpatient (IN) | payer OTHER, SELFPAY ==
[2023-12-21] VITALS (8 sets, daily range): BP systolic 101–154; BP diastolic 74–97; PULSE 85–108; RESP 16–26; TEMP 36.1–36.6; O2SAT 96–99; BMI 32.0
--- NOTE | ~2023-12-21 | XR_ITS ---
EXAMINATION: XR CHEST CLINICAL INFORMATION: Dyspnea COMPARISON: Chest x-ray of 12/19/2023, 02/04/2022, 04/24/2020 TECHNIQUE: Frontal view of the chest was obtained. FINDINGS: Cardiomediastinal silhouette is unchanged compared to last x-ray of 12/19/2023 with cardiomegaly. Lungs are symmetrically adequately expanded. No focal consolidation, changes of congestion, pleural effusions or pneumothorax. Visualized upper abdomen is unremarkable. XR/XR chest 1V IMPRESSION: Cardiomegaly which appears new compared to previous x-rays of 2021 and 2019. No radiographic evidence of changes of overt pulmonary edema or pneumonia. No acute pulmonary process.
--- NOTE | 2023-12-21 06:59 | ECG_ITS ---
Test Reason : DYSPNEA Blood Pressure : / mmHG Vent. Rate : 099 BPM Atrial Rate : 099 BPM P-R Int : 164 ms QRS Dur : 086 ms QT Int : 374 ms P-R-T Axes : 057 -33 072 degrees QTc Int : 479 ms Artifact Normal sinus rhythm Left axis deviation Minimal voltage criteria for LVH, may be normal variant ( [place] product ) ST & T wave abnormality, consider anterolateral ischemia Abnormal ECG When compared with ECG of 04-FEB-2022 18:51, Non-specific change in ST segment in Anterior leads T wave inversion now evident in Anterolateral leads Referred By: Generic ED Physician Electronically Signed By:Ángel Thacker
--- NOTE | 2023-12-21 07:00 | CA_ITS ---
Transthoracic Echocardiogram Patient (Last, First, Middle): Jaec Gonzales, Gender: Male Date of : 1965 Age: 58 Procedure Date: 12/21/2023 Procedure Type: Transthoracic Echocardiogram Location: ER Height: 182.88 cm Weight: 106.6 kg BSA: 2.28 m2 Heart Rate: bpm BP: 127 / 78 mmHg System Administrator: GILMER Referring MD: Naav TAYLOR Symptoms: SOB, ?CHF Study Quality: Good ECG Rhythm: Sinus Conclusions: - Mildly increased left ventricular cavity size. There is mildly increased left ventricular wall thickness. The left ventricular systolic function is mild to moderately decreased. The visually estimated ejection fraction is between 35-40%. - Elevated filling pressures. - Mildly increased right ventricular cavity size. There is normal right ventricular systolic function. - The left atrium is severely dilated. - There is mild aortic valve regurgitation. - Moderately elevated right atrial pressure. Mild pulmonary hypertension is present. - There is a small pericardial effusion. Findings Left Ventricle Mildly increased left ventricular cavity size. There is mildly increased left ventricular wall thickness. The left ventricular systolic function is mild to moderately decreased. The visually estimated ejection fraction is between 35-40%. There is no evidence of regional wall motion abnormalities. Abnormal diastolic function is noted. Spectral Doppler is indicative of a pseudonormal filling pattern. Elevated filling pressures. Right Ventricle Mildly increased right ventricular cavity size. There is normal right ventricular systolic function. Atria The left atrium is severely dilated. Aortic Valve There is a normal trileaflet aortic valve. There is no aortic valve stenosis. There is mild aortic valve regurgitation. Mitral Valve The mitral valve appears normal. There is trace mitral valve regurgitation. There is no mitral valve stenosis. Pulmonic Valve The pulmonic valve is normal. There is trace pulmonic valve regurgitation. Tricuspid Valve Normal tricuspid valve structure. There is moderate tricuspid valve regurgitation. Moderately elevated right atrial pressure. Mild pulmonary hypertension is present. Great Vessels All visible segments of the aorta are normal in size. The visualized portions of the pulmonary artery and branches are normal. Venous The inferior vena cava is dilated and collapses greater than 50% with inspiration. Pericardium/Pleural There is a small pericardial effusion. There are no definitive echocardiographic findings of tamponade physiology. Measurements 2D Linear Measurements IVSd: 1.28 0.6-0.9/0.6-1.0 cm LVIDd: 5.76 3.9-5.3/4.2-5.9 cm LVIDd Index: 2.53 2.4-3.2/2.2-3.1 cm/m2 LVIDs: 4.97 2.0-3.6 cm LVPWd: 1.30 0.7-1.1 cm Ao Root: 2.70 2.1-3.5 cm LA Diam: 5.30 2.7-3.8/3.0-4.0 cm LAIDs Index: 2.32 1.5-2.3 cm/m2 LV Mass: 404.55 67-162/88-224 g LV Mass Index: 177.43 43-95/49-115 g/m2 LVOT Diam: 2.10 3.0+(-)1.3 cm 2D Systolic Function EF 4C: 44.80 >55% EF 2C: 42.00 >55% EF BiP: 44.80 >55% Mitral Valve MV Pk E: 0.95 MV Decel Time: 180.00 E'Lateral: 8.59 E'Medial: 4.79 E/E' Med: 19.90 E/E' Lat: 11.10 PHT: 53.00 MVA PHT: 4.15 Decel Knott: 5.27 Aortic Valve AoV Pk Reji: 1.79 AoV Mn Reji: 1.22 AoV VTI: 0.35 AoV Pk Grad: 13.00 Aov Mn Grad: 7.00 NIKITA Cont.VTI: 1.87 LVOT LVOT Pk Reji: 1.07 LVOT Mn Reji: 0.72 LVOT VTI: 0.19 LVOT Pk Grad: 5.00 LVOT Mn Grad: 3.00 LVOT Diam: 2.10 LVOT Area: 3.46 Diastolic Function MV Pk E: 0.95 E'Medial: 4.79 E/E' Med: 19.90 E' Laterial: 8.59 E/E' Lat: 11.10 Right Ventricle TAPSE (mm): 27.00 TVS' Reji: 15.00 Tricuspid Valve TR Pk Reji: 2.96 TR Pk Grad: 35.00 RA Press: 3.00 RVSP: 46.00 Great Vessels Aorta Ao Root-2D: 2.70 2.0-3.7 cm Ao Asc: 3.40 2.1-3.4 cm Pulmonary Valve PV Pk Reji: 0.94 Peak PV Grad: 4.00 Updated in Other Vendor System with Status of Final Ángel Thacker MD electronically signed on 12/22/2023 3:28:35 PM with status of Final
--- NOTE | 2023-12-21 07:36 | ED.SOB ---
HPI - SOB/Dyspnea General Chief Complaint: Dyspnea Stated Complaint: xray needed for fluids in chest, sent by pcp Time Seen by Provider: 12/21/23 07:17 Source: patient Mode of arrival: ambulatory Limitations: no limitations History of Present Illness HPI Narrative: patient was told yesterday that he might have CHF, now with increasing shortness of breath. No chest pain MD elicited complaint: shortness of breath Timing: constant Severity: moderate Related Data Home Medications Medication Instructions Recorded Confirmed atorvastatin 40 mg tablet 40 mg PO BEDTIME 09/15/21 clopidogrel 75 mg tablet 75 mg PO DAILY 09/15/21 diltiazem HCl 180 mg 180 mg PO DAILY 09/15/21 capsule,extended release 24 hr ergocalciferol (vitamin D2) 1,250 1,250 mcg PO QWEEK 09/15/21 mcg (50,000 unit) capsule telmisartan 80 1 tab PO DAILY 09/15/21 mg-hydrochlorothiazide 25 mg tablet chlorzoxazone 250 mg tablet 0 mg PO 10/06/22 naproxen 500 mg tablet 500 mg PO BID 10/18/22 Previous Rx's Medication Instructions Recorded albuterol sulfate 90 mcg/actuation 2 inh inhalation Q4-6H PRN 02/04/22 breath activated powder inhaler shortness of breath or wheezing #1 ea cyclobenzaprine 10 mg tablet 10 mg PO TID PRN muscle spasm #14 08/25/22 tabs lidocaine 5 % topical patch 1 patch topical DAILY PRN pain #30 08/25/22 (Lidoderm) ea Allergies Allergy/AdvReac Type Severity Reaction Status Date / Time No Known Allergies Allergy Verified 12/21/23 06:54 [No Known Allergies*] Review of Systems Review of Systems: Yes all other systems are reviewed and are negative Neurologic: Denies Sensory deficit (Neuro) [facility] Past Medical History Medical History Vitamin D deficiency Hypercholesteremia Uncomplicated alcohol dependence Essential hypertension Mild intermittent asthma in adult without complication Stenosis of carotid artery Adjustment disorder with anxious mood Episodic tension-type headache, not intractable Chronic bilateral low back pain without sciatica Acute bilateral low back pain without sciatica CVA (cerebrovascular accident) Allergic conjunctivitis of both eyes Acute pain of left knee Tobacco dependence COPD (chronic obstructive pulmonary disease) with chronic bronchitis Social History Social History Alcohol intake: current Alcohol intake frequency: 3 or more drinks per day Alcohol type: hard liquor Patient Tobacco Use Status: Current everyday Tobacco user Tobacco use type: Cigarette Cigarettes Per Day: 15 Advance Directives: No Current occupational status: employed Current occupation: [employer] Physical Exam Vital Signs: Vital Signs: Last Vital Signs Temp 97 F 12/21/23 06:54 Pulse 95 12/21/23 07:53 Resp 18 12/21/23 07:53 BP 128/81 12/21/23 07:53 Pulse Ox 97 12/21/23 07:53 O2 Del Method Room Air 12/21/23 07:53 BMI result Body Mass Index 32.0 Const: Other: slightly short of breath General: healthy appearing Nutritional Appearance: average body habitus Orientation/consciousness: oriented to person and patient oriented x3 Limitations: no limitations HEENT: Head: Yes normal to inspection Ears: external ears normal General nose exam: Normal external nose present Mouth: Normal oral and palatal mucosa present and oropharynx normal Throat: Yes posterior oropharynx normal Eyes: General: appearance normal, both eyes and all related structures Neck: Other: supple Neck: Yes normal visual inspection Chest: Chest palpation & inspection: normal inspection of the chest Resp: Auscultation: clear to auscultation bilaterally Cardio: Jugular venous distension: no JVD Rate: regular rate Rhythm: regular rhythm Heart sounds: S1 normal heart sound present and S2 normal heart sound present GI: Inspection: Yes normal to inspection Palpation (GI): Soft to palpation, nontender and No hepatosplenomegaly present Auscultation: normal bowel sounds : General: Yes no CVA tenderness Back/Spine/Pelvis: Back: no CVA tenderness Skin: General skin exam: no rashes or lesions noted Neuro: General: oriented to person and patient oriented x3 Cranial nerves: Yes CN's II-XII intact bilaterally Motor exam (neuro): 5/5 motor strength present throughout Sensory Exam: No Sensory deficit (Neuro) Extrem: General: Yes normal to inspection Psych: Appearance: grossly normal Course Reevaluation(s) Reevaluation #1: patient with abnormal EKG, borderline troponin, large heart and edema on xray will admit Time: 10:45 Reevaluation #2: I spent 40 minutes of critical care, with interventions, assessments, speaking to patient, consultants, and family. Time: 10:49 Medications Administered Generic Name Dose Route Start Last Admin Trade Name Freq PRN Reason Stop Dose Admin Aspirin 162 mg 12/21/23 09:00 12/21/23 07:55 Aspirin Enteric Coated 81 Mg Tablet. PO 162 mg DAILY MOHAN Administration Discontinued Medications Generic Name Dose Route Start Last Admin Trade Name Freq PRN Reason Stop Dose Admin Furosemide 20 mg 12/21/23 07:27 12/21/23 07:51 Furosemide 20 Mg/2 Ml Vial IVPUSH 12/21/23 07:28 20 mg ONCE ONE Administration Protocol Nitroglycerin 1 inch 12/21/23 07:27 12/21/23 07:50 Nitroglycerin 2 % Oint 1 Gm Packet TRANSDERMA 12/21/23 07:28 1 inch ONCE ONE Administration Medical Decision Making Differential Diagnosis Differential Diagnoses: The differential diagnosis associated with the presentation includes (cardiac ischemia, CHF, pneumonia, HTN were all considered) Admission/Observation Consideration of admission/observation: Escalation of care including admission/observation considered (upon arrival admission was considered) Lab Data 12/21/23 07:30 12/21/23 07:30 Labs: Lab Results 12/21/23 Range/Units 07:30 WBC 6.6 (4.8-10.8) X10*3/uL RBC 4.35 L (4.60-5.80) X10*6/uL Hgb 13.0 L (14.0-18.0) g/dl Hct 39.1 L (42.0-52.0) % MCV 89.9 (80.0-98.0) fL MCH 29.9 (27.0-33.0) pg MCHC 33.2 (31.0-36.0) g/dl RDW 14.7 (11.0-16.0) % Plt Count 304 (160-400) X10*3/uL MPV 8.6 L (9.4-12.4) fL Immature Gran % (Auto) 0.3 (0.0-0.4) % Neut % (Auto) 73.6 H (45-73) % Lymph % (Auto) 14.4 L (20-40) % [place] % (Auto) 11.1 H (2-11) % Eos % (Auto) 0.3 (0-4) % Baso % (Auto) 0.3 (0-2) % Lymph # (Auto) 1.0 L (1.2-4.9) X10*3/uL [place] # (Auto) 0.7 (0.1-1.2) X10*3/uL Eos # (Auto) 0.0 (0.0-0.4) X10*3/uL Baso # (Auto) 0.0 (0.0-0.2) X10*3/uL Abs Immat Gran (auto) 0.02 (0.00-0.03) X10*3/uL Absolute Neuts (auto) 4.9 (2.0-8.3) x10*3/uL Absolute Nucleated RBC 0.000 (0.0-0.012) X10*3/uL Nucleated RBC % (auto) 0.0 (0.0-0.2) /100WBC Sodium 137 (135-145) mmol/L Potassium 4.7 (3.3-5.1) mmol/L Chloride 103 (96-108) mmol/L Carbon Dioxide 27 (22-29) mmol/L Anion Gap 12 (12-20) BUN 24 H (9-16) mg/dL Creatinine 1.31 (0.5-1.4) mg/dL Estim Creat Clear Calc 75.7 Estimated GFR 56 Random Glucose 129 H (60-115) mg/dL Calcium 8.9 D (8.4-10.2) mg/dL Troponin I High Sens 34.8 (<3.5-35.0) ng/L B-Natriuretic Peptide 1093 H (<100) pg/mL Independent Interpretation I performed an independent interpretation of an: EKG (sinus tachycardia rate 100, flipped ts v3-v6) and Plain X-Ray (Cardiomegally interstitial edema) External Record Review External record reviewed: Outpatient record Prescription Management I considered prescription management with: Antibiotic (no evidence of pneumonia) Chronic Conditions Patient?s care impacted by: Hypertension Discharge Plan Discharge Clinical Impression: Congestive heart failure, Acute electrocardiography changes Patient Disposition: Admitted As Inpatient Prescriptions: No Action cyclobenzaprine 10 mg tablet 10 mg PO TID PRN (Reason: muscle spasm) Qty: 14 0RF lidocaine [Lidoderm] 5 % adhesive patch,medicated 1 patch topical DAILY MDD remove after 12 hours PRN (Reason: pain) Qty: 30 0RF Rx Instructions: leave on most painful area for up to 12 hrs albuterol sulfate 90 mcg/actuation aerosol powdr breath activated 2 inh inhalation Q4-6H PRN (Reason: shortness of breath or wheezing) Qty: 1 0RF telmisartan-hydrochlorothiazid 80-25 mg tablet 1 tab PO DAILY ergocalciferol (vitamin D2) 1,250 mcg (50,000 unit) capsule 1,250 mcg PO QWEEK clopidogrel 75 mg tablet 75 mg PO DAILY atorvastatin 40 mg tablet 40 mg PO BEDTIME diltiazem HCl 180 mg capsule,extended release 24hr 180 mg PO DAILY chlorzoxazone 250 mg tablet 0 mg PO naproxen 500 mg tablet 500 mg PO BID
[2023-12-21 07:38] LABS: MANUAL DIFF FLAG NO
[2023-12-21 07:43] LABS: Basophils Percent Auto 0.3 % (0-2); Eosinophils Percent Auto 0.3 % (0-4); Hematocrit 39.1 % (42.0-52.0); Imm Gran Abs Auto 0.02 X10*3/uL (0.00-0.03); Imm Gran Pct Auto 0.3 % (0.0-0.4); Lymphocytes Percent Auto 14.4 % (20-40); Mean Corpuscular HGB Conc 33.2 g/dl (31.0-36.0); Mean Corpuscular Hemoglobin 29.9 pg (27.0-33.0); Mean Corpuscular Volume 89.9 fL (80.0-98.0); Mean Platelet Volume 8.6 fL (9.4-12.4); Monocytes Absolute Auto 0.7 X10*3/uL (0.1-1.2); Monocytes Percent Auto 11.1 % (2-11); Neutrophils Absolute Auto 4.9 x10*3/uL (2.0-8.3); Neutrophils Percent Auto 73.6 % (45-73); Platelet Count 304 X10*3/uL (160-400); Red Blood Count 4.35 X10*6/uL (4.60-5.80); Red Cell Distribution Width 14.7 % (11.0-16.0); White Blood Count 6.6 X10*3/uL (4.8-10.8)
[2023-12-21] MEDS: Nitroglycerin 2 % Oint 1 GM Packet 1 INCH TRANSDERMA (07:50)
[2023-12-21] MEDS: Furosemide 20 MG/2 ML VIAL IVPUSH (07:51)
[2023-12-21] MEDS: Aspirin Enteric Coated 81 MG TABLET.DR 162 MG PO (07:55)
[2023-12-21 08:00] LABS: Anion Gap 12 (12-20); Blood Urea Nitrogen 24 mg/dL (9-16); Calcium 8.9 mg/dL (8.4-10.2); Carbon Dioxide 27 mmol/L (22-29); Chloride 103 mmol/L (96-108); Creatinine Clr Calc Pharmacy 75.7; Estimated Glomerular Filt Rate 56; Glucose Random 129 mg/dL (60-115); Potassium 4.7 mmol/L (3.3-5.1); Sodium 137 mmol/L (135-145)
[2023-12-21 08:07] LABS: B Type Natriuretic Peptide 1093 pg/mL (<100)
[2023-12-21 08:08] LABS: Troponin-I High Sensitivity 34.8 ng/L (<3.5-35.0)
--- NOTE | 2023-12-21 11:17 | P.HPHOSP_ITS ---
<Statement entered by Reina Perkins MD - 12/21/23 16:09> the patient was seen and evaluated with BRANDON Matthew. I agree with his note, assessment and plan with the following. In summary, A 58 YO male w PMH of?HTN, HLD, CVA in 2022 secondary to carotid artery stenosis, COPD, who presents with progressive KAISER, SOB for the last 4-5 weeks. Denies any chest pain or palpitations. Admitted for treatment and further workup of cardiomegaly and new onset CHF. New onset CHF elevated BNP, CXR with new cardiomegaly and increase markings Lasix 20 mg IV b.i.d. Daily weights, low-salt diet, I\O Echo Cardiology consult Tele monitoring Rest of evaluations by BRANDON note. History of Present Illness Date of Service: 12/21/23 Attending physician on admission: Reina Perkins Chief Complaint: SOB Pt is a 58-year-old male with a PMH significant for?HTN, HLD, CVA in 2022 secondary to carotid artery stenosis, chronic lower back pain, and nicotine dependence who presents to the ED after blood work found elevated BNP of 1320. Patient states for the past 5 weeks has felt increasingly short of breath and KAISER. States this is especially apparent when walking fast or going up flights of stairs. Currently has to stop and rest after going up 1-2 flights. Patient eventually saw PCP 2 days ago on Tuesday for symptoms, where blood work found elevated BNP. Patient was called and told to present to the ED for further evaluation. Has also been having cough for the past 2 weeks occasionally productive of clear sputum. Denies orthopnea, any lower leg edema. Complains of chronic back pain and lower right and left side pain for the past 2 weeks. Chronic morning N/V that has been ongoing for years. No chest pain/pressure, palpitations. Denies fever, chills, abd pain. Pt reports currently smoking half a pack of cigarettes daily and drinking no more than two beers on most days. In the ED pt was afebrile but tachycardic up to 108, tachypneic up to 26, and slightly hypertensive at 154/97, satting at 96% on RA. Labs were significant for slightly elevated creatinine of 1.31, BNP yesterday of 1320 and today 1093, and initial troponin 34.8 with repeat flat at 30.0, otherwise largely unremarkable. No leukocytosis. Stable normocytic anemia of 13.0 39.1. No electrolyte abnormalities. CXR showed cardiomegaly which appears new compared to previous x-rays in 2021 and 2019. Did not find any radiographic evidence of overt pulmonary edema or pneumonia, no acute pulmonary process. EKG demonstrated normal sinus rhythm with T-wave inversions in anterior lateral leads, but no evidence of significant ST elevations or depressions. Pt was treated with furosemide 20 mg IV, aspirin, and nitroglycerin patch. Pt will be admitted to the hospital for treatment and further workup of cardiomegaly and new onset CHF. Review of Systems 2 Review of Systems: Increasing SOB, KAISER Cough occasionally productive clear sputum Left and right side pain Chronic lower back pain Chronic nausea and vomiting mostly in the mornings Denies orthopnea, LLE No fever, chills, abdominal pain PMFSH Medical History Vitamin D deficiency Hypercholesteremia Uncomplicated alcohol dependence Essential hypertension Mild intermittent asthma in adult without complication Stenosis of carotid artery Adjustment disorder with anxious mood Episodic tension-type headache, not intractable Chronic bilateral low back pain without sciatica Acute bilateral low back pain without sciatica CVA (cerebrovascular accident) Allergic conjunctivitis of both eyes Acute pain of left knee Tobacco dependence COPD (chronic obstructive pulmonary disease) with chronic bronchitis Social History Alcohol intake: current Alcohol intake frequency: 3 or more drinks per day Alcohol type: hard liquor Patient Tobacco Use Status: Current everyday Tobacco user Tobacco use type: Cigarette Cigarettes Per Day: 15 Advance Directives: No Current occupational status: employed Current occupation: [employer] Allergies Allergy/AdvReac Type Severity Reaction Status Date / Time No Known Allergies Allergy Verified 12/21/23 06:54 [No Known Allergies*] Active Medications: Current Medications Aspirin (Aspirin Enteric Coated 81 Mg Tablet.) 162 mg PO DAILY MOHAN Last Admin: 12/21/23 07:55 Dose: 162 mg Home Medications Medication Instructions Recorded Confirmed Last Taken Type atorvastatin 40 mg tablet 40 mg PO BEDTIME 09/15/21 12/21/23 Unknown History clopidogrel 75 mg tablet 75 mg PO DAILY 09/15/21 12/21/23 12/21/23 History aspirin 81 mg tablet,delayed 81 mg PO DAILY 12/21/23 12/21/23 12/21/23 History release cefuroxime axetil 500 mg tablet 500 mg PO BID 12/21/23 12/21/23 12/21/23 History fluticasone propionate 230 2 puff inhalation DAILY 12/21/23 12/21/23 12/21/23 History mcg-salmeterol 21 mcg/actuation HFA inhaler (Advair HFA) nicotine (polacrilex) 4 mg buccal 4 mg PO Q2H PRN Nicotine Cravings 12/21/23 12/21/23 12/21/23 History lozenge prednisone 20 mg tablet 40 mg PO DAILY 12/21/23 12/21/23 12/21/23 History tiotropium bromide 2.5 2 puff inhalation DAILY 12/21/23 12/21/23 12/21/23 History mcg/actuation mist for inhalation (Spiriva Respimat) vitamin B complex 1 cap PO DAILY 12/21/23 12/21/23 12/21/23 History Physical Exam 2 Vital Signs and Narrative: Vital Signs: Last Vital Signs Temp 97 F 12/21/23 06:54 Pulse 95 12/21/23 07:53 Resp 18 12/21/23 07:53 BP 128/81 12/21/23 07:53 Pulse Ox 97 12/21/23 07:53 O2 Del Method Room Air 12/21/23 07:53 BMI result Body Mass Index 32.0 Constitutional: Alert, in no acute distress. Mental Status: Oriented to person, place and time. Eyes: Pupils are equal, round, and reactive to light. Ear, Nose, and Throat: Oropharynx clear, mucous membranes moist. Ears and nose without deformities. Trachea midline. Respiratory: Mild diffuse bilateral expiratory wheezing. Cardiovascular: S1, S2 regular. No murmurs, rubs, or gallops. Gastrointestinal: Abdomen soft, non-tender, non-distended. Normal bowel sounds. Neurologic: Cranial nerves II-XII are grossly intact bilaterally. No focal neurological deficits. Moves all extremities spontaneously. Skin: Warm, dry. Musculoskeletal: No cyanosis or clubbing. Extremities: 1+ bilateral pitting edema. Psychiatric: Normal mood and affect. Results Labs 12/21/23 07:30 12/21/23 07:30 Labs: Laboratory Results - last 24 hr 12/21/23 07:30 MCV 89.9 MCH 29.9 MCHC 33.2 RDW 14.7 Plt Count 304 MPV 8.6 L Immature Gran % (Auto) 0.3 Neut % (Auto) 73.6 H Lymph % (Auto) 14.4 L [place] % (Auto) 11.1 H Eos % (Auto) 0.3 Baso % (Auto) 0.3 Lymph # (Auto) 1.0 L [place] # (Auto) 0.7 Eos # (Auto) 0.0 Baso # (Auto) 0.0 Abs Immat Gran (auto) 0.02 Absolute Neuts (auto) 4.9 Absolute Nucleated RBC 0.000 Nucleated RBC % (auto) 0.0 Anion Gap 12 Estim Creat Clear Calc 75.7 Estimated GFR 56 Random Glucose 129 H Calcium 8.9 D B-Natriuretic Peptide 1093 H Imaging Radiologist's Impressions: Impressions Chest X-Ray 12/21/23 07:23 IMPRESSION: Cardiomegaly which appears new compared to previous x-rays of 2021 and 2019. No radiographic evidence of changes of overt pulmonary edema or pneumonia. No acute pulmonary process. Assessment and Plan (1) Congestive heart failure: Qualifiers: Heart failure chronicity: acute Heart failure type: unspecified Qualified Code(s): I50.9 - Heart failure, unspecified Status: Acute Plan Pt is a 58-year-old male with a PMH significant for?HTN, HLD, CVA in 2022 secondary to carotid artery stenosis, COPD, chronic lower back pain, and nicotine dependence who presents to the ED after blood work found elevated BNP of 1320. Patient states for the past 5 weeks has felt increasingly short of breath and KAISER. Pt will be admitted to the hospital for treatment and further workup of cardiomegaly and new onset CHF. New onset CHF Patient with increased SOB, dyspnea, LLE, elevated BNP, CXR with new cardiomegaly, no overt edema Will treat with Lasix 20 mg IV b.i.d. Follow lytes, mag, I/O Daily weights, low-salt diet Echocardiogram Cardiology consult Monitor on telemetry HLD/CVA Continue aspirin, statin, Plavix COPD Mild wheezing, not in acute exacerbation Continue home inhalers, prednisone Nicotine dependence Continue home NRT Full Code Attending:?Dr. Perkins DVT Prophylaxis: Lovenox Pt will require a hospitalization of at least two nights for treatment of? with . Quality Stroke Does the patient have a stroke diagnosis?: No VTE Prior VTE?: No VTE Risk Level:: Medical - moderate - high VTE Device Contraindication: Treatment Not Indicated VTE Drug Contraindication: N/A - Med Ordered
--- NOTE | 2023-12-21 13:23 | PC.NURSE ---
patient is sitting up in bed, currently has no complaints or concerns. respirations equal and unlabored. patient ambulates to the bathroom with steady gait. skin warm, dry and intact. patient is on tele monitor normal sinus rhythm. IV patent, 20# R wrist. call green within reach, able to make needs known.
--- NOTE | 2023-12-21 13:23 | PHA.MEDREC ---
Pharmacy Consult ? Medication Reconciliation Pharmacy has completed the medication reconciliation. Spoke to patient at bedside, states he has a recent prescription for diltiazem as well as telmisartan/HCTZ but did not pick them up fro [facility] pharmacy yet. Provider notified.
--- NOTE | 2023-12-21 14:17 | PM.CNCAR ---
History of Present Illness History of Present Illness Date of Service: 12/21/23 Requesting physician: Nava Wilson Chief complaint: New onset CHF Narrative: [age] year gentleman who we have been asked to see for new onset congestive heart failure. He has background history of hypertension and previous stroke. He is active smoker and has history of alcohol use. He is saying that he has been drinking up to 3 beers a day and was drinking more than that before and was drinking hard liquor 2. He said that he got sick approximately for 5 weeks ago and initially it was a bronchitis which she did not recover from. He has been getting shortness of breath and cough and cough is worse when he is laying down. He also wakes up panicking and clinical story appears to be consistent with PND. He has significantly elevated BNP of 1093. He was given IV diuretics. He is denying any significant chest discomfort but has pain in both flanks currently and it appears to be musculoskeletal as it is worse with movement and moving his torso. High sensitive troponin levels are 30. EKG reviewed which is showing sinus rhythm at 99 beats per minute, left axis deviation, lateral T-wave inversions. Minimal voltage criteria for LVH. [facility] Past Medical History Medical History Vitamin D deficiency Hypercholesteremia Uncomplicated alcohol dependence Essential hypertension Mild intermittent asthma in adult without complication Stenosis of carotid artery Adjustment disorder with anxious mood Episodic tension-type headache, not intractable Chronic bilateral low back pain without sciatica Acute bilateral low back pain without sciatica CVA (cerebrovascular accident) Allergic conjunctivitis of both eyes Acute pain of left knee Tobacco dependence COPD (chronic obstructive pulmonary disease) with chronic bronchitis Social History Social History Alcohol intake: current Alcohol intake frequency: 3 or more drinks per day Alcohol type: hard liquor Patient Tobacco Use Status: Current everyday Tobacco user Tobacco use type: Cigarette Cigarettes Per Day: 15 Advance Directives: No Current occupational status: employed Current occupation: [email or web address] Allergies Allergy/AdvReac Type Severity Reaction Status Date / Time No Known Allergies Allergy Verified 12/21/23 06:54 [No Known Allergies*] Active Medications: Current Medications Acetaminophen (Acetaminophen 325 Mg Tablet) 650 mg PO Q6H PRN PRN Reason: Pain, Mild (Pain Scale 1-3) Aspirin (Aspirin Enteric Coated 81 Mg Tablet.) 162 mg PO DAILY [facility] Last Admin: 12/21/23 07:55 Dose: 162 mg Benzonatate (Benzonatate 100 Mg Capsule) 100 mg PO TID PRN PRN Reason: Cough Docusate Sodium (Docusate Sodium 100 Mg Capsule) 100 mg PO DAILY PRN PRN Reason: Constipation Enoxaparin Sodium (Enoxaparin Sodium 40 Mg/0.4 Ml Syringe) 40 mg SUBCUT Q24H [facility] Furosemide (Furosemide 20 Mg Tablet) 20 mg PO BID@0900,1800 [facility]; Protocol Melatonin (Melatonin 3 Mg Tablet) 6 mg PO BEDTIME PRN PRN Reason: Insomnia Ondansetron HCl (Ondansetron Hcl 4 Mg/2 Ml Vial) 4 mg IVPUSH Q8H PRN PRN Reason: Nausea and Vomiting Sodium Chloride (0.9 % Sodium Chloride Flush 3 Ml Syringe) 3 ml IVFLUSH QSHIFT [facility] Home Medications Medication Instructions Recorded Confirmed Last Taken Type atorvastatin 40 mg tablet 40 mg PO BEDTIME 09/15/21 12/21/23 Unknown History clopidogrel 75 mg tablet 75 mg PO DAILY 09/15/21 12/21/23 12/21/23 History aspirin 81 mg tablet,delayed 81 mg PO DAILY 12/21/23 12/21/23 12/21/23 History release cefuroxime axetil 500 mg tablet 500 mg PO BID 12/21/23 12/21/23 12/21/23 History fluticasone propionate 230 2 puff inhalation DAILY 12/21/23 12/21/23 12/21/23 History mcg-salmeterol 21 mcg/actuation HFA inhaler (Advair HFA) nicotine (polacrilex) 4 mg buccal 4 mg PO Q2H PRN Nicotine Cravings 12/21/23 12/21/23 12/21/23 History lozenge prednisone 20 mg tablet 40 mg PO DAILY 12/21/23 12/21/23 12/21/23 History tiotropium bromide 2.5 2 puff inhalation DAILY 12/21/23 12/21/23 12/21/23 History mcg/actuation mist for inhalation (Spiriva Respimat) vitamin B complex 1 cap PO DAILY 12/21/23 12/21/23 12/21/23 History Physical Exam Vital Signs: Vital Signs: Last Vital Signs Temp 97.8 F 12/21/23 13:05 Pulse 91 12/21/23 13:05 Resp 18 12/21/23 13:05 BP 127/78 12/21/23 13:05 Pulse Ox 97 12/21/23 13:05 O2 Del Method Room Air 12/21/23 13:05 BMI result Body Mass Index 32.0 GENERAL APPEARANCE: in no acute distress, pleasant. NECK: no carotid bruit, + jugular venous distention. Positive hepatojugular reflux. SKIN: no suspicious lesions, warm and dry. HEART: no murmurs, regular rate and rhythm. LUNGS: Bilateral expiratory wheezes. ABDOMEN: soft, nontender. EXTREMITIES: no edema. PERIPHERAL PULSES: equal. NEUROLOGIC: No gross deficits, AAO X 3 Objective Labs and Meds 12/21/23 07:30 12/21/23 07:30 Lab results: Laboratory Results - last 24 hr 12/21/23 12/21/23 07:30 11:05 WBC 6.6 RBC 4.35 L Hgb 13.0 L Hct 39.1 L MCV 89.9 MCH 29.9 MCHC 33.2 RDW 14.7 Plt Count 304 MPV 8.6 L Immature Gran % (Auto) 0.3 Neut % (Auto) 73.6 H Lymph % (Auto) 14.4 L [place] % (Auto) 11.1 H Eos % (Auto) 0.3 Baso % (Auto) 0.3 Lymph # (Auto) 1.0 L [place] # (Auto) 0.7 Eos # (Auto) 0.0 Baso # (Auto) 0.0 Abs Immat Gran (auto) 0.02 Absolute Neuts (auto) 4.9 Absolute Nucleated RBC 0.000 Nucleated RBC % (auto) 0.0 Sodium 137 Potassium 4.7 Chloride 103 Carbon Dioxide 27 Anion Gap 12 BUN 24 H Creatinine 1.31 Estim Creat Clear Calc 75.7 Estimated GFR 56 Random Glucose 129 H Calcium 8.9 D Troponin I High Sens 34.8 30.0 B-Natriuretic Peptide 1093 H Imaging Radiologist's impression: Impressions Chest X-Ray 12/21/23 07:23 IMPRESSION: Cardiomegaly which appears new compared to previous x-rays of 2021 and 2019. No radiographic evidence of changes of overt pulmonary edema or pneumonia. No acute pulmonary process. Assessment and Plan (1) Congestive heart failure: Status: Acute Plan [age] year gentleman with background history of tobacco use, alcohol use and previous CVA who is presenting for shortness of breath ongoing for 5 weeks. Clinical story is consistent with heart failure. He has elevated BNP also. Agree with IV diuretics. Add losartan 25 mg once a day. Do not start any beta-guille yet. We will check echocardiogram to assess for any cardiomyopathy given his history of alcohol use. We will titrate medications further based on echo findings. He has some lateral T-wave inversions and changes consistent with left ventricular hypertrophy. Do not recommend starting heparin drip currently. Thank you for allowing me to participate in the care of your patient. Please feel free to contact me if you have any questions. Procedures Date of Service Date of Service: 12/21/23
[2023-12-21] MEDS: Losartan Potassium 25 MG TABLET PO (15:31)
[2023-12-21] MEDS: Enoxaparin Sodium 40 MG/0.4 ML SYRINGE SUBCUT (15:32)
[2023-12-21] MEDS: Furosemide 20 MG TABLET PO (18:00)
[2023-12-21] MEDS: Atorvastatin Calcium 40 MG TABLET PO (22:52)
[2023-12-21] MEDS: cefuroxime axetiL 500 MG TABLET PO (22:52)
[2023-12-22] VITALS (8 sets, daily range): BP systolic 117–133; BP diastolic 74–85; PULSE 79–99; RESP 16–20; TEMP 36.2–37.3; O2SAT 95–98
[2023-12-22] MEDS: Acetaminophen 325 MG TABLET 650 MG PO ×3 (03:13→22:45)
[2023-12-22] MEDS: Tiotropium Bromide 2.5 mcg 1 PUFF/2.5 MCG MIST.INHAL 2 PUFF INHALE (07:36)
[2023-12-22] MEDS: Fluticasone/Vilanterol 200/25 BLST.W.DEV 1 PUFF INHALE (07:36)
[2023-12-22 09:17] LABS: Anion Gap 14 (12-20); Blood Urea Nitrogen 20 mg/dL (9-16); Carbon Dioxide 29 mmol/L (22-29); Chloride 102 mmol/L (96-108); Creatinine Clr Calc Pharmacy 71.4; Estimated Glomerular Filt Rate 52; Glucose Random 103 mg/dL (60-115); Magnesium 2.2 mg/dL (1.6-2.6); Potassium 4.1 mmol/L (3.3-5.1); Sodium 141 mmol/L (135-145)
[2023-12-22] MEDS: Clopidogrel Bisulfate 75 MG TABLET PO (10:13)
[2023-12-22] MEDS: Multivitamin TABLET 1 TAB PO (10:13)
[2023-12-22] MEDS: cefuroxime axetiL 500 MG TABLET PO ×2 (10:13→22:45)
[2023-12-22] MEDS: predniSONE 20 MG TABLET 40 MG PO (10:13)
[2023-12-22] MEDS: Losartan Potassium 25 MG TABLET PO (10:13)
[2023-12-22] MEDS: 0.9 % Sodium Chloride Flush 3 ML SYRINGE IVFLUSH ×2 (10:14→13:40)
[2023-12-22] MEDS: Furosemide 20 MG TABLET PO (10:14)
[2023-12-22] MEDS: Aspirin Enteric Coated 81 MG TABLET.DR PO (10:45)
--- NOTE | 2023-12-22 10:45 | PM.DS ---
DS: Providers Provider Date of Service: 12/23/23 Date of admission: 12/21/23 13:48 Primary care physician: Shell Cardenas MD Consults: 12/21/23 13:48 Consult to Cardiology Routine Consulting Provider: [facility] Reason for consultation: New cardiomegaly, likley new onset CHF DS: Diagnosis Discharge Diagnosis (1) Congestive heart failure: Status: Acute DS: Summary Hospital Course Hospital Course: Admission note HPI Pt is a 58-year-old male with a PMH significant for?HTN, HLD, CVA in 2022 secondary to carotid artery stenosis, chronic lower back pain, and nicotine dependence who presents to the ED after blood work found elevated BNP of 1320. Patient states for the past 5 weeks has felt increasingly short of breath and [place]. States this is especially apparent when walking fast or going up flights of stairs. Currently has to stop and rest after going up 1-2 flights. Patient eventually saw PCP 2 days ago on Tuesday for symptoms, where blood work found elevated BNP. Patient was called and told to present to the ED for further evaluation. Has also been having cough for the past 2 weeks occasionally productive of clear sputum. Denies orthopnea, any lower leg edema. Complains of chronic back pain and lower right and left side pain for the past 2 weeks. Chronic morning N/V that has been ongoing for years. No chest pain/pressure, palpitations. Denies fever, chills, abd pain. Pt reports currently smoking half a pack of cigarettes daily and drinking no more than two beers on most days. In the ED pt was afebrile but tachycardic up to 108, tachypneic up to 26, and slightly hypertensive at 154/97, satting at 96% on RA. Labs were significant for slightly elevated creatinine of 1.31, BNP yesterday of 1320 and today 1093, and initial troponin 34.8 with repeat flat at 30.0, otherwise largely unremarkable. No leukocytosis. Stable normocytic anemia of 13.0 39.1. No electrolyte abnormalities. CXR showed cardiomegaly which appears new compared to previous x-rays in 2021 and 2019. Did not find any radiographic evidence of overt pulmonary edema or pneumonia, no acute pulmonary process. EKG demonstrated normal sinus rhythm with T-wave inversions in anterior lateral leads, but no evidence of significant ST elevations or depressions. Pt was treated with furosemide 20 mg IV, aspirin, and nitroglycerin patch. Pt will be admitted to the hospital for treatment and further workup of cardiomegaly and new onset CHF. Hospital course The patient was admitted for evidence of New onset CHF with evidence of cardiomegaly and increase markings on CXR along with elevated BNP. Treated with Lasix IV with fair response as the patient was able to ambulate on room air with no reported dyspnea or chest heaviness. Evaluated by marble [employer]ra[employer] worker who recommended qutiing smoking and alcohol along with starting Losartan. Echo was done showing LVH and decrease EF 30-40%. Spironolactone and Jardiance were added to his medications. To follow with cardiology as outpatient. Start Losartan 25 mg daily for blood pressure control Start Furosemide 20 mg daily Spironolactone and Jardiance as prescribed Monitor your weight at home Quit smoking and drinking Follow with dr Thacker as outpatient. Time Attestation Discharge coordination time: Greater than 30 minutes Quality: Safe Use of Opioids Does Pt have an Active Cancer Diagnosis on the Problem List?: No Quality: Stroke Does the patient have a stroke diagnosis?: No Physical Exam Vital Signs: Vital Signs: Last Vital Signs Temp 98.9 F 12/22/23 07:45 Pulse 84 12/22/23 07:45 Resp 20 12/22/23 07:45 BP 124/81 12/22/23 07:45 Pulse Ox 97 12/22/23 07:45 O2 Del Method Room Air 12/22/23 07:45 BMI result Body Mass Index 32.0 Const: Other: Constitutional : Awake, interactive, not in distress Neck : Normal inspection, Supple Cardiovascular : RRR, no JVP, no lower extremity edema Respiratory : good bilateral air entry, no crackles, wheezes or rhonchi Gastrointestinal: soft, lax, Normal bowel sounds, Non tender Skin : Warm, Dry Neurological : Alert & oriented x3, No focal deficit DS: Data Data Completed and Pending Labs on day of discharge: Laboratory Results - last 24 hr 12/21/23 12/22/23 12/22/23 11:05 06:17 06:21 Hold Purple Top SEE NOTE Sodium 141 Potassium 4.1 Chloride 102 Carbon Dioxide 29 Anion Gap 14 BUN 20 H Creatinine 1.39 Estim Creat Clear Calc 71.4 Estimated GFR 52 Random Glucose 103 Calcium 9.0 Magnesium 2.2 Troponin I High Sens 30.0 Imaging Chest x-ray: Radiologist's impression: ITS Impressions Chest X-Ray 12/21/23 07:23 IMPRESSION: Cardiomegaly which appears new compared to previous x-rays of 2021 and 2019. No radiographic evidence of changes of overt pulmonary edema or pneumonia. No acute pulmonary process. Discharge Plan Discharge Anticipated Discharge Date/Time: 12/22/23 10:41 Patient Disposition: Home, Self-Care Discharge Diagnosis: Acute heart failure exacerbation Referrals: Shell Key MD [Primary Care Provider] - 1 Week Discharge Medications: New losartan 25 mg Tablet 25 mg PO DAILY Qty: 90 0RF Protocol: Hold for SBP< HOLD for SBP < : 90 furosemide 20 mg Tablet 20 mg PO DAILY Qty: 90 0RF Protocol: Hold for SBP< HOLD for SBP < : 90 spironolactone 25 mg Tablet 25 mg PO DAILY Qty: 90 0RF Protocol: Hold for SBP< HOLD for SBP < : 90 Jardiance 10 mg Tablet 10 mg PO DAILY Qty: 30 0RF Continued albuterol sulfate 90 mcg/actuation aerosol powdr breath activated 2 inh inhalation Q4-6H PRN (Reason: shortness of breath or wheezing) Qty: 1 0RF prednisone 20 mg tablet 40 mg PO DAILY cefuroxime axetil 500 mg tablet 500 mg PO BID nicotine (polacrilex) 4 mg lozenge 4 mg PO Q2H PRN (Reason: Nicotine Cravings) fluticasone propion-salmeterol [Advair HFA] 230-21 mcg/actuation HFA aerosol inhaler 2 puff inhalation DAILY Spiriva Respimat 2.5 mcg/actuation mist 2 puff inhalation DAILY aspirin 81 mg Tablet,Delayed Release (Dr/Ec) 81 mg PO DAILY vitamin B complex Capsule 1 cap PO DAILY clopidogrel 75 mg tablet 75 mg PO DAILY atorvastatin 40 mg tablet 40 mg PO BEDTIME Discharge Orders: Discharge Order (Routine); Ordered 12/23/23 Ordered By: Reina Perkins Diet: Low salt diet Activity on Discharge: As tolerated Stand Alone Forms: Patient Portal Discharge page Care Plan Goals: Read below Health Concerns: Read below Plan of Treatment: Read below Assessment: You were admitted to the hospital for evaluation of difficulties breathing. found to have evidence of heart failure exacerbation. Evaluated by marble [employer] worker and had Echo done. Start Losartan 25 mg daily for blood pressure control Start Furosemide 20 mg daily Spironolactone and Jardiance as prescribed Monitor your weight at home Quit smoking and drinking Follow with dr Thacker as outpatient.
--- NOTE | 2023-12-22 13:24 | P.PNIM_ITS ---
Subjective Subjective Date of Service: 12/22/23 Interval History: seen and evaluated feels better, not back to normal self yet denies chest pain dyspnea on exertion still Review of Systems Review of Systems: Yes all other systems are reviewed and are negative Physical Exam 2 Vital Signs: Vital Signs: Last Vital Signs Temp 97.9 F 12/22/23 12:00 Pulse 85 12/22/23 12:00 Resp 20 12/22/23 12:00 BP 126/74 12/22/23 12:00 Pulse Ox 96 12/22/23 12:00 O2 Del Method Room Air 12/22/23 12:00 BMI result Body Mass Index 32.0 Const: Other: Constitutional : Awake, interactive, not in distress Neck : Normal inspection, Supple Cardiovascular : RRR, no JVP, no lower extremity edema Respiratory : good bilateral air entry, basal fine crackles, no wheezes or rhonchi Gastrointestinal: soft, lax, Normal bowel sounds, Non tender Skin : Warm, Dry Neurological : Alert & oriented x3, No focal deficit Objective Data Active Medications Acetaminophen (Acetaminophen 325 Mg Tablet) 650 mg PO Q6H PRN PRN Reason: Pain, Mild (Pain Scale 1-3) Last Admin: 12/22/23 10:16 Dose: 650 mg Documented By: ELEANOR Albuterol Sulfate (Albuterol Sulfate 90 Mcg 8 Gm Inhaler) 2 puff INHALE Q4H PRN PRN Reason: shortness of breath or wheezing Aspirin (Aspirin Enteric Coated 81 Mg Tablet.) 81 mg PO DAILY [facility] Last Admin: 12/22/23 10:45 Dose: 81 mg Documented By: ELEANOR Atorvastatin Calcium (Atorvastatin Calcium 40 Mg Tablet) 40 mg PO BEDTIME [facility] Last Admin: 12/21/23 22:52 Dose: 40 mg Documented By: LAFLAMC Benzonatate (Benzonatate 100 Mg Capsule) 100 mg PO TID PRN PRN Reason: Cough Cefuroxime Axetil (Cefuroxime Axetil 500 Mg Tablet) 500 mg PO BID [facility] Last Admin: 12/22/23 10:13 Dose: 500 mg Documented By: ELEANOR Clopidogrel Bisulfate (Clopidogrel Bisulfate 75 Mg Tablet) 75 mg PO DAILY [facility] Last Admin: 12/22/23 10:13 Dose: 75 mg Documented By: ELEANOR Docusate Sodium (Docusate Sodium 100 Mg Capsule) 100 mg PO DAILY PRN PRN Reason: Constipation Enoxaparin Sodium (Enoxaparin Sodium 40 Mg/0.4 Ml Syringe) 40 mg SUBCUT Q24H [facility] Last Admin: 12/21/23 15:32 Dose: 40 mg Documented By: SINDY Fluticasone/Vilanterol (Fluticasone/Vilanterol 200/25 Blst.W.Dev) 1 puff [facility] Last Admin: 12/22/23 07:36 Dose: 1 puff Documented By: [facility] Furosemide (Furosemide 20 Mg Tablet) 20 mg PO BID@0900,1800 [facility]; Protocol Last Admin: 12/22/23 10:14 Dose: 20 mg Documented By: ELEANOR Losartan Potassium (Losartan Potassium 25 Mg Tablet) 25 mg PO DAILY [facility]; Protocol Last Admin: 12/22/23 10:13 Dose: 25 mg Documented By: ELEANOR Melatonin (Melatonin 3 Mg Tablet) 6 mg PO BEDTIME PRN PRN Reason: Insomnia Multivitamins/Vitamin C (Multivitamin Tablet) 1 tab PO DAILY [facility] Last Admin: 12/22/23 10:13 Dose: 1 tab Documented By: ELEANOR Nicotine Polacrilex (Nicotine Polacrilex Lozenge 4 Mg Lozenge) 4 mg BUCCAL Q2H PRN PRN Reason: Nicotine Cravings Ondansetron HCl (Ondansetron Hcl 4 Mg/2 Ml Vial) 4 mg IVPUSH Q8H PRN PRN Reason: Nausea and Vomiting Prednisone (Prednisone 20 Mg Tablet) 40 mg PO DAILY [facility] Last Admin: 12/22/23 10:13 Dose: 40 mg Documented By: ELEANOR Sodium Chloride (0.9 % Sodium Chloride Flush 3 Ml Syringe) 3 ml IVFLUSH QSHIFT [facility] Last Admin: 12/22/23 10:14 Dose: 3 ml Documented By: ELEANOR Tiotropium [place] (Tiotropium [place] 2.5 Mcg 1 Puff/2.5 Mcg Mist.Inhal) 2 puff INHALE RDAILY [facility] Last Admin: 12/22/23 07:36 Dose: 2 puff Documented By: WAI Labs 12/21/23 07:30 12/22/23 06:21 Labs: Laboratory Results - last 24 hr 12/22/23 12/22/23 06:17 06:21 Hold Purple Top SEE NOTE Anion Gap 14 Estim Creat Clear Calc 71.4 Estimated GFR 52 Random Glucose 103 Calcium 9.0 Magnesium 2.2 Assessment and Plan (1) Congestive heart failure: Status: Acute Plan Pt is a 58-year-old male with a PMH significant for?HTN, HLD, CVA in 2022 secondary to carotid artery stenosis, COPD, chronic lower back pain, and nicotine dependence who presents to the ED after blood work found elevated BNP of 1320. Patient states for the past 5 weeks has felt increasingly short of breath and [place]. Pt will be admitted to the hospital for treatment and further workup of cardiomegaly and new onset CHF. New onset CHF improving but still dyspneic with exertion Lasix IV I/O low-salt diet Echocardiogram pending Cardiology input appreciated Monitor on telemetry HLD/CVA Continue aspirin, statin, Plavix COPD Mild wheezing, not in acute exacerbation Continue home inhalers, prednisone Nicotine dependence Continue home NRT Full Code DVT Prophylaxis: Lovenox Pt will require a hospitalization of overnight for treatment of?heart failure pending ECHO and clinical improvement . Quality Stroke Does the patient have a stroke diagnosis?: No VTE Prior VTE?: No VTE Risk Level:: Medical - moderate - high VTE Device Contraindication: Treatment Not Indicated VTE Drug Contraindication: N/A - Med Ordered
[2023-12-22] MEDS: Furosemide 20 MG/2 ML VIAL IVPUSH (13:39)
[2023-12-22] MEDS: Enoxaparin Sodium 40 MG/0.4 ML SYRINGE SUBCUT (13:40)
--- NOTE | 2023-12-22 15:18 | PM.PNCARD ---
Subjective Subjective Date of Service: 12/22/23 Interval history: Seen examined at bedside. Feeling better. Physical Exam Vital Signs: Last Vital Signs Temp 97.9 F 12/22/23 12:00 Pulse 85 12/22/23 12:00 Resp 20 12/22/23 12:00 BP 126/74 12/22/23 12:00 Pulse Ox 96 12/22/23 12:00 O2 Del Method Room Air 12/22/23 12:00 BMI result Body Mass Index 32.0 GENERAL APPEARANCE: in no acute distress, pleasant. NECK: no carotid bruit, no significant JVD today. SKIN: no suspicious lesions, warm and dry. HEART: no murmurs, regular rate and rhythm. LUNGS: Clear to auscultation. ABDOMEN: soft, nontender. EXTREMITIES: no edema. PERIPHERAL PULSES: equal. NEUROLOGIC: No gross deficits, AAO X 3 Objective Labs and Meds 12/21/23 07:30 12/22/23 06:21 Lab results: Laboratory Results - last 24 hr 12/22/23 12/22/23 06:17 06:21 Hold Purple Top SEE NOTE Sodium 141 Potassium 4.1 Chloride 102 Carbon Dioxide 29 Anion Gap 14 BUN 20 H Creatinine 1.39 Estim Creat Clear Calc 71.4 Estimated GFR 52 Random Glucose 103 Calcium 9.0 Magnesium 2.2 Progress Note: A&P Assessment and plan (1) Congestive heart failure: Status: Acute Plan [age] year gentleman presenting with congestive heart failure on background of alcohol use. Clinically was overloaded and has been on IV diuretics. I think he can be changed to oral diuretics at this stage 40 mg once a day. Continue with losartan and titrate based on elevated blood pressures. He is due to get echocardiography. We will review that and give further recommendations. Thank you for allowing me to participate in the care of your patient. Please feel free to contact me if you have any questions. Time Spent With Patient Time: Total time managing care of this patient today ____ minutes. Progress Note: Quality Stroke Does the patient have a stroke diagnosis?: No Procedures Date of Service Date of Service: 12/22/23
--- NOTE | 2023-12-22 15:29 | MHC.CM.PN ---
EMR REVIEWED, CM MET W/PT WHO REPORTS HE LIVES ALONE W/HIS CAT AND DOG, PT IS FULLY INDEP AND HAS A CANE AT HOME FOR WHEN HIS KNEE ACTS UP AND HAS A NURSE CM THROUGH [facility] THAT SEE PT EVERY 2-3MOS, PT'S GOAL IS HOME W/NO SERVICES. PT VERIFIES PCP ON FILE IS CORRECT AND HAS BEEN EDUCATED AND DCLINED TO COMPLETE A HCP.
[2023-12-22] MEDS: Spironolactone 25 MG TABLET PO (17:33)
[2023-12-22] MEDS: Atorvastatin Calcium 40 MG TABLET PO (22:46)
[2023-12-23 03:15] VITALS: BP 137/87; PULSE 90; RESP 16; TEMP 36.6; O2SAT 99
[2023-12-23 07:07] VITALS: BP 130/82; PULSE 88; RESP 19; TEMP 36.6; O2SAT 94
[2023-12-23 07:22] LABS: Anion Gap 15 (12-20); Blood Urea Nitrogen 14 mg/dL (9-16); Calcium 8.8 mg/dL (8.4-10.2); Carbon Dioxide 29 mmol/L (22-29); Chloride 102 mmol/L (96-108); Creatinine Clr Calc Pharmacy 84.8; Estimated Glomerular Filt Rate > 60; Glucose Random 90 mg/dL (60-115); Magnesium 2.3 mg/dL (1.6-2.6); Sodium 142 mmol/L (135-145)
[2023-12-23 07:47] LABS: B Type Natriuretic Peptide 537 pg/mL (<100)
[2023-12-23] MEDS: Tiotropium Bromide 2.5 mcg 1 PUFF/2.5 MCG MIST.INHAL 2 PUFF INHALE (08:03)
[2023-12-23] MEDS: Fluticasone/Vilanterol 200/25 BLST.W.DEV 1 PUFF INHALE (08:03)
[2023-12-23 08:04] VITALS: PULSE 88; RESP 19; O2SAT 97
[2023-12-23] MEDS: Aspirin Enteric Coated 81 MG TABLET.DR PO (08:55)
[2023-12-23] MEDS: Furosemide 20 MG TABLET PO (08:56)
[2023-12-23] MEDS: Multivitamin TABLET 1 TAB PO (08:56)
[2023-12-23] MEDS: Losartan Potassium 25 MG TABLET PO (08:56)
[2023-12-23] MEDS: Clopidogrel Bisulfate 75 MG TABLET PO (08:56)
[2023-12-23] MEDS: cefuroxime axetiL 500 MG TABLET PO (08:56)
[2023-12-23] MEDS: Acetaminophen 325 MG TABLET 650 MG PO (08:57)
[2023-12-23] MEDS: Spironolactone 25 MG TABLET PO (08:57)
[2023-12-23] MEDS: predniSONE 20 MG TABLET 40 MG PO (08:57)
[2023-12-23] MEDS: 0.9 % Sodium Chloride Flush 3 ML SYRINGE IVFLUSH (09:08)
[2023-12-23] MEDS: Empagliflozin 10 MG TABLET PO (09:49)
--- NOTE | 2023-12-23 11:07 | MHC.CM.PN ---
PT MEDICALLY CLEARED FOR DC HOME SELF CARE AND WILL ARRANGE HIS RIDE HOME.
--- NOTE | 2023-12-23 11:54 | PM.PNCARD ---
Subjective Subjective Date of Service: 12/23/23 Interval history: Seen examined at bedside. Feeling better. ECHO showed [id number] LV dysfunction with mild LV dilation. Discussed the echo findings with him in detail. Physical Exam Vital Signs: Last Vital Signs Temp 97.8 F 12/23/23 07:07 Pulse 88 12/23/23 08:04 Resp 19 12/23/23 08:04 BP 130/82 12/23/23 07:07 Pulse Ox 94 12/23/23 07:07 O2 Del Method Room Air 12/23/23 07:07 BMI result Body Mass Index 32.0 GENERAL APPEARANCE: in no acute distress, pleasant. NECK: no carotid bruit, no significant JVD today. SKIN: no suspicious lesions, warm and dry. HEART: no murmurs, regular rate and rhythm. LUNGS: Clear to auscultation. ABDOMEN: soft, nontender. EXTREMITIES: no edema. PERIPHERAL PULSES: equal. NEUROLOGIC: No gross deficits, AAO X 3 Objective Labs and Meds 12/21/23 07:30 12/23/23 06:14 Lab results: Laboratory Results - last 24 hr 12/23/23 06:14 Sodium 142 Potassium 4.0 Chloride 102 Carbon Dioxide 29 Anion Gap 15 BUN 14 Creatinine 1.17 Estim Creat Clear Calc 84.8 Estimated GFR > 60 Random Glucose 90 Calcium 8.8 Magnesium 2.3 B-Natriuretic Peptide 537 H Progress Note: A&P Assessment and plan (1) Congestive heart failure: Status: Acute (2) Cardiomyopathy: Status: Acute Plan [age] year gentleman who is background of alcoholism presenting with shortness of breath and congestive heart failure. Echocardiography has shown [id number] LV dysfunction. He has been diuresed and has been started on spironolactone, losartan and Lasix. Added Jardiance-caused can be checked and if it is too expensive then this can be stopped. Clinically stable and improving. We can start beta-guille as outpatient. He needs to abstain completely from alcohol at this stage. This was discussed with the patient. Thank you for allowing me to participate in the care of your patient. Please feel free to contact me if you have any questions. Time Spent With Patient Time: Total time managing care of this patient today ____ minutes. Progress Note: Quality Stroke Does the patient have a stroke diagnosis?: No Procedures Date of Service Date of Service: 12/23/23
== END 2023-12-23 12:00 | disposition home or self-care (01) | DRG 194 ==
LOC: HO.ED 10:50 → HO.EDOVER 13:54 → HO.IMC 19:17
PROVIDERS: Admitting Provider Student in an Organized Health Care Education/Training Program; Emergency Provider Emergency Medicine; PCP Internal Medicine; Visit Provider Student in an Organized Health Care Education/Training Program
DX: I11.0 Hypertensive heart disease with heart failure (principal); I42.9 Cardiomyopathy, unspecified; D64.9 Anemia, unspecified; E78.5 Hyperlipidemia, unspecified; F10.20 Alcohol dependence, uncomplicated; M54.59 Other low back pain; G89.29 Other chronic pain; J44.9 Chronic obstructive pulmonary disease, unspecified; F17.210 Nicotine dependence, cigarettes, uncomplicated; J45.20 Mild intermittent asthma, uncomplicated; Z71.6 Tobacco abuse counseling; Z86.73 Personal history of transient ischemic attack (TIA), and cerebral infarction without residual deficits; Z79.51 Long term (current) use of inhaled steroids; Z79.02 Long term (current) use of antithrombotics/antiplatelets; Z79.52 Long term (current) use of systemic steroids; Z79.82 Long term (current) use of aspirin; Z79.899 Other long term (current) drug therapy
CPT/HCPCS: 36415; 71045; 80048; 83735; 83880; 84484; 85025; 93005; 93306; 94640; 99285; J1650; J1940

== ENCOUNTER → 2023-12-21 13:48 | Outpatient (BNV) | payer OTHER, SELFPAY | PROVIDERS: Admitting Provider Student in an Organized Health Care Education/Training Program; Emergency Provider Emergency Medicine; PCP Internal Medicine; Visit Provider Internal Medicine Cardiovascular Disease | DX: I50.9 Heart failure, unspecified (principal); R94.31 Abnormal electrocardiogram [ECG] [EKG] | CPT/HCPCS: 93010; 93306; 99223; 99231; 99232 ==

== ENCOUNTER → 2023-12-21 13:48 | Outpatient (BNV) | payer OTHER, SELFPAY | PROVIDERS: Admitting Provider Student in an Organized Health Care Education/Training Program; Emergency Provider Emergency Medicine; PCP Internal Medicine; Visit Provider Student in an Organized Health Care Education/Training Program | DX: I50.9 Heart failure, unspecified (principal); J44.9 Chronic obstructive pulmonary disease, unspecified | CPT/HCPCS: 99223; 99232; 99239 ==

== ENCOUNTER 2024-01-06 14:13 | Outpatient (REF) | payer OTHER, SELFPAY ==
[2024-01-06 16:32] LABS: Anion Gap 17 (12-20); Blood Urea Nitrogen 51 mg/dL (9-16); Calcium 9.6 mg/dL (8.4-10.2); Carbon Dioxide 22 mmol/L (22-29); Chloride 96 mmol/L (96-108); Estimated Glomerular Filt Rate 46; Glucose Random 114 mg/dL (60-115); Potassium 4.1 mmol/L (3.3-5.1); Sodium 131 mmol/L (135-145)
[2024-01-06 16:49] LABS: TSH reflex Free T4 0.71 uIU/mL (0.32-4.0); Vitamin D 25-OH Total 20.7 ng/mL (>30)
== END 2024-01-06 14:14 | disposition home or self-care (01) ==
LOC: HO.HHCL 14:13
PROVIDERS: Visit Provider Internal Medicine
DX: E55.9 Vitamin D deficiency, unspecified (principal); I11.0 Hypertensive heart disease with heart failure; I50.21 Acute systolic (congestive) heart failure
CPT/HCPCS: 36415; 80048; 82306; 84443

== ENCOUNTER 2024-01-09 07:03 | Outpatient (REF) | payer OTHER, SELFPAY ==
[2024-01-09 08:37] LABS: B Type Natriuretic Peptide 50 pg/mL (<100)
[2024-01-09 08:41] LABS: Cholesterol 150 mg/dL (<200); HDL Cholesterol 40 mg/dL (>40); LDL Cholesterol Calculated 95 mg/dL (<100); Triglycerides 76 mg/dL (<150)
[2024-01-09 09:58] LABS: Reflex LDLD? No
== END 2024-01-09 07:04 | disposition home or self-care (01) ==
LOC: HO.LAB 07:03
PROVIDERS: PCP Internal Medicine; Visit Provider Internal Medicine
DX: I11.0 Hypertensive heart disease with heart failure (principal); I50.21 Acute systolic (congestive) heart failure
CPT/HCPCS: 36415; 80061; 83880

== ENCOUNTER 2024-01-31 13:08 | Outpatient (REF) | payer OTHER, SELFPAY ==
[2024-01-31 16:33] LABS: Anion Gap 12 (12-20); Blood Urea Nitrogen 18 mg/dL (9-16); Calcium 9.6 mg/dL (8.4-10.2); Carbon Dioxide 27 mmol/L (22-29); Chloride 104 mmol/L (96-108); Estimated Glomerular Filt Rate > 60; Glucose Random 87 mg/dL (60-115); Potassium 4.2 mmol/L (3.3-5.1); Sodium 139 mmol/L (135-145)
== END 2024-01-31 13:09 | disposition home or self-care (01) ==
LOC: HO.HHCL 13:08
PROVIDERS: Visit Provider Internal Medicine
DX: I10 Essential (primary) hypertension (principal)
CPT/HCPCS: 36415; 80048

== ENCOUNTER 2024-02-06 10:42 | Outpatient (REF) | payer OTHER, SELFPAY ==
--- NOTE | ~2024-02-06 | US_ITS ---
EXAMINATION: US VENOUS WITH DOPPLER UPPER EXTREMITY, RIGHT CLINICAL INFORMATION: Swelling of right upper extremity. Tenderness, status post cardiac catheterization on 02/01/2024. COMPARISON: Left upper extremity venous ultrasound from 10/26/2021. TECHNIQUE: Ultrasound of the right upper extremity is performed using compression sonography and color and pulse Doppler flow with assessment of augmentation of flow. There is also imaging and Doppler assessment of the jugular and subclavian veins. Spectral analysis with color-flow imaging is performed. FINDINGS: The grayscale and color Doppler images show normal appearance of the right internal jugular, subclavian and axillary veins. The brachial, basilic and cephalic veins are patent. Incidentally noted is a duplicated appearance of the brachial vessels. The cephalic vein is seen within the forearm and it branches off of the basilic vein. The radial and ulnar veins are compressible. An elbow joint effusion is identified. US/US venous duplex UE RT IMPRESSION: * No evidence of superficial or deep vein thrombosis in the right upper extremity. * A nonspecific right elbow joint effusion is identified.
== END 2024-02-06 10:43 | disposition home or self-care (01) ==
LOC: HO.US 10:42
PROVIDERS: PCP Internal Medicine; Visit Provider Internal Medicine
DX: R22.31 Localized swelling, mass and lump, right upper limb (principal)
CPT/HCPCS: 93971

== ENCOUNTER 2024-04-03 09:48 | Outpatient (REF) | payer OTHER, SELFPAY ==
--- NOTE | ~2024-04-03 | XR_ITS ---
EXAMINATION: XR SHOULDER, RIGHT XR ELBOW, RIGHT CLINICAL INFORMATION: Right arm swelling, mass, lump, elbow effusion. Recent infection. Pain. COMPARISON: None. TECHNIQUE: AP, Grashey, scapular Y, and axillary views of the right shoulder. AP, bilateral oblique, and lateral views of the right elbow. FINDINGS: Right shoulder: No acute fracture or dislocation. Mild acromioclavicular joint space narrowing with marginal osteophytes. Lateral subacromial spurring. No glenohumeral joint space narrowing or marginal osteophytes. No osseous erosion. No abnormal soft tissue calcification. Right elbow: No acute fracture or dislocation. Mild ulnotrochlear joint space narrowing with small marginal osteophytes. Small radial head marginal osteophytes. No concerning lytic or blastic osseous lesion. No abnormal soft tissue calcification. Probable elbow joint effusion. XR/XR shoulder RT min 2V IMPRESSION: RIGHT SHOULDER: [id number] acromioclavicular osteoarthritis with lateral subacromial spurring. RIGHT ELBOW: No acute fracture or dislocation. Mild ulnotrochlear and glenohumeral osteoarthritis. Probable elbow joint effusion. If there is persistent clinical concern, cross-sectional imaging such as ultrasound or MRI could help further evaluate.
--- NOTE | ~2024-04-03 | XR_ITS ---
EXAMINATION: XR SHOULDER, RIGHT XR ELBOW, RIGHT CLINICAL INFORMATION: Right arm swelling, mass, lump, elbow effusion. Recent infection. Pain. COMPARISON: None. TECHNIQUE: AP, Grashey, scapular Y, and axillary views of the right shoulder. AP, bilateral oblique, and lateral views of the right elbow. FINDINGS: Right shoulder: No acute fracture or dislocation. Mild acromioclavicular joint space narrowing with marginal osteophytes. Lateral subacromial spurring. No glenohumeral joint space narrowing or marginal osteophytes. No osseous erosion. No abnormal soft tissue calcification. Right elbow: No acute fracture or dislocation. Mild ulnotrochlear joint space narrowing with small marginal osteophytes. Small radial head marginal osteophytes. No concerning lytic or blastic osseous lesion. No abnormal soft tissue calcification. Probable elbow joint effusion. XR/XR elbow RT min 3V IMPRESSION: RIGHT SHOULDER: [id number] acromioclavicular osteoarthritis with lateral subacromial spurring. RIGHT ELBOW: No acute fracture or dislocation. Mild ulnotrochlear and glenohumeral osteoarthritis. Probable elbow joint effusion. If there is persistent clinical concern, cross-sectional imaging such as ultrasound or MRI could help further evaluate.
== END 2024-04-03 09:49 | disposition home or self-care (01) ==
LOC: HO.HHCX 09:48
PROVIDERS: Visit Provider Internal Medicine
DX: M67.813 Other specified disorders of tendon, right shoulder (principal); M25.421 Effusion, right elbow
CPT/HCPCS: 73030; 73080

== ENCOUNTER 2024-09-13 14:00 | Outpatient (RCR) | payer OTHER, SELFPAY ==
--- NOTE | 2024-08-14 14:56 | MHC.PT.EP ---
[facility] [place] [facility] [place] Office [place] Office [address] [phone] F: [phone] F: [phone] F: [phone] F: [phone] Physical Therapy Plan of Care Date of Evaluation: 08/14/24 Date of Surgery: Diagnosis: Bilateral knee OA (RS) Assessment: Patient is a pleasant 59 y.o. male who is referred to PT by Dr. Shell Fang MD,with Dx of BILATERAL osteoarthritis of knees. Patient impairments include pain in knees, weakness in hips and knees, limited AROM in ankles and knees, antalgic gait. Patient current functional limitations are prolonged walking, kneeling, squatting, stairs. Patient will benefit from skilled PT to address aforementioned impairments and functional limitations to meet established goals. Frequency and Duration: The patient will be seen 1-2x/week for 4 weeks Short Term Goals: 2 weeks Patient demonstrates consistency and independence with HEP to self manage symptoms. 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 Patient presents with increased glute med strength 4+/5 bilaterally to improve squat mechanics for home and work tasks. Treatment Plan: Modalities to reduce pain, spasms and effusion. Manual therapy to restore motion and function. Therapeutic exercise to improve strength and flexibility. Neuromuscular re-education for posture and balance. Therapeutic activities to return to functional activities of daily living. Electronically signed by: Stewart Juarez, PT, DPT Please sign and return to therapist. Thank you for your referral.
--- NOTE | 2024-10-31 10:14 | MHC.PT.DC ---
[facility] [place] Office [place] Office [place] Office [address] [phone] F: [phone] F: [phone] F: [phone] F: [phone] Physical Therapy Discharge Report Diagnosis: Bilateral knee OA (RS) Date of Surgery: Date of Evaluation: 08/14/24 Date of Discharge: 10/31/24 Treatments to Date: 4 Cancellations to Date: 40 No Shows to Date: Discharge Status: Independent with HEP Patient Elected to Stop Discharge Summary: Jace was last seen for PT on 09/13/24, the assessment reads, Continued table exercises today with good tolerance. Progressed SLR and LAQ with 3# weights and SL clamshells to GTB. Pt required cues for decreased breath holding during exercise. Initiated standing exercise with wall sit - pt reported mild pulling at medial R knee. Continue to progress standing ex as tolerable. He did not make any more FUP appointments after this session and is therefore discharged from PT. Electronically signed by: Stewart Juarez, PT, DPT Please sign and return to therapist. Thank you for your referral.
== END 2024-10-31 10:16 | disposition home or self-care (01) ==
LOC: HO.PT 14:00
PROVIDERS: PCP Internal Medicine; Visit Provider Internal Medicine
DX: M17.10 Unilateral primary osteoarthritis, unspecified knee (principal)
CPT/HCPCS: 97110; 97161

== ENCOUNTER 2024-10-05 11:03 | Outpatient (REF) | payer OTHER, SELFPAY ==
[2024-10-05 13:55] LABS: Alanine Aminotransferase 35 U/L (0-40); Albumin Level 4.7 g/dL (3.5-5.0); Alkaline Phosphatase 132 U/L (39-117); Anion Gap 15 (12-20); Aspartate Amino Transferase 31 U/L (5-37); Bilirubin Total 0.8 mg/dL (0.0-1.0); Blood Urea Nitrogen 27 mg/dL (9-16); Calcium 9.8 mg/dL (8.4-10.2); Carbon Dioxide 25 mmol/L (22-29); Chloride 102 mmol/L (96-108); Cholesterol 146 mg/dL (<200); Estimated Glomerular Filt Rate 48; Glucose Random 196 mg/dL (60-115); HDL Cholesterol 32 mg/dL (>40); LDL Cholesterol Calculated 81 mg/dL (<100); Potassium 4.6 mmol/L (3.3-5.1); Sodium 137 mmol/L (135-145); Triglycerides 168 mg/dL (<150)
[2024-10-05 14:23] LABS: Vitamin D 25-OH Total 20.8 ng/mL (>30)
[2024-10-05 15:57] LABS: Reflex LDLD? No
== END 2024-10-05 11:04 | disposition home or self-care (01) ==
LOC: HO.HHCL 11:03
PROVIDERS: Visit Provider Internal Medicine
DX: M19.029 Primary osteoarthritis, unspecified elbow (principal); I10 Essential (primary) hypertension
CPT/HCPCS: 36415; 80053; 80061; 82306

== ENCOUNTER 2024-10-29 10:22 | Outpatient (REF) | payer OTHER, SELFPAY ==
[2024-10-29 11:58] LABS: Anion Gap 18 (12-20); Blood Urea Nitrogen 36 mg/dL (9-16); Carbon Dioxide 25 mmol/L (22-29); Chloride 98 mmol/L (96-108); Estimated Glomerular Filt Rate 37; Glucose Random 370 mg/dL (60-115); Potassium 4.1 mmol/L (3.3-5.1); Sodium 137 mmol/L (135-145)
== END 2024-10-29 10:23 | disposition home or self-care (01) ==
LOC: HO.HHCL 10:22
PROVIDERS: Visit Provider Internal Medicine
DX: I10 Essential (primary) hypertension (principal)
CPT/HCPCS: 36415; 80048

== ENCOUNTER 2024-11-01 12:41 | Outpatient (REF) | payer OTHER, SELFPAY ==
--- NOTE | ~2024-11-01 | US_ITS ---
EXAMINATION: US SOFT TISSUE HEAD/NECK CLINICAL INFORMATION: Left-sided neck/supraclavicular mass, rule out abscess. ?Other mass. COMPARISON: None available. TECHNIQUE: Linear transducer grayscale and color Doppler examination of the left neck/supraclavicular area was performed in the region of a palpable lump. Images were supplemented by color Doppler. FINDINGS: Examination of the left supraclavicular region of interest demonstrates 2, somewhat pulliam-shaped, heterogeneously hypoechoic structures demonstrating internal flow and probable compressed fatty dany. One of these measures 2.0 x 2.0 x 2.9 cm, and the other measures 3.2 x 2.4 x 2.3 cm. The findings are nonspecific. Differential diagnosis includes, but is not limited to, adenopathy. Recommend clinical correlation. If further imaging is clinically desired, CT scan with contrast may be of use. US/US soft tiss head and/or neck IMPRESSION: Findings as above. Electronically signed by: Giovani Redd MD 11/02/2024 10:49 AM [facility] [place]
== END 2024-11-01 12:42 | disposition home or self-care (01) ==
LOC: HO.US 12:41
PROVIDERS: PCP Internal Medicine; Visit Provider Internal Medicine
DX: R22.1 Localized swelling, mass and lump, neck (principal)
CPT/HCPCS: 76536

== ENCOUNTER 2024-11-06 14:57 | Inpatient (IN) | payer OTHER, SELFPAY ==
--- NOTE | ~2024-11-06 | CT_ITS ---
EXAMINATION: CT ABDOMEN AND PELVIS WITH CONTRAST CLINICAL INFORMATION: Lymphadenopathy COMPARISON: None available. TECHNIQUE: Multidetector volumetric images were obtained from the superior aspect of the liver through the pubic symphysis following administration 85 mL of Omnipaque 350 intravenous contrast. Sagittal and coronal reformatted images were obtained on the technologist's workstation. Oral contrast: No This CT examination was performed using dose optimization techniques as appropriate, variously including the following: *Automated exposure control *Adjustment of mA and/or kV according to patient size (this includes techniques or standardized protocols for targeted exams where dose is matched to indication/reason for exam; i.e. extremities or head) *Use of iterative reconstruction technique DLP: 568 mGy-cm FINDINGS: LUNG BASES: The visualized lung bases are unremarkable. LIVER, GALLBLADDER, AND BILIARY TREE: The liver is normal in size, shape, and attenuation. No focal hepatic lesion or biliary ductal dilatation is present. Small dependent gallstones observed in the gallbladder lumen. PANCREAS: Unremarkable. SPLEEN: Unremarkable. ADRENAL GLANDS: Unremarkable. KIDNEYS AND URETERS: No nephrolithiasis or hydronephrosis. Small bilateral renal cysts, for which no further follow-up recommended. BLADDER: Unremarkable. GASTROINTESTINAL TRACT: Colonic diverticula without any inflammatory changes. Distal ileum and appendix unremarkable. Small sliding type hiatal hernia. No small bowel obstructive process or abnormal omental thickening. ABDOMINAL WALL: Small bilateral fatty inguinal hernias. Small fatty umbilical hernia. LYMPH NODES: Small periportal and retroperitoneal nodes. VASCULAR: Atherosclerotic changes. PELVIC VISCERA: Unremarkable. OSSEOUS STRUCTURES: Spondylitic change without any acute compression fractures. Slight retrolisthesis L5-S1. Small sclerotic focus centrally in the right iliac wing likely representing a small bone island. CT/CT abdomen pelvis w IV con IMPRESSION: No suspiciously enlarged lymphadenopathy. Small cholelithiasis. Other incidental findings as noted above. Fleischner guidelines were followed. Electronically signed by: Lizandro Kenyon MD 11/08/2024 03:21 PM [facility] [place]
--- NOTE | ~2024-11-06 | CT_ITS ---
EXAMINATION: CT CHEST WITH CONTRAST CLINICAL INFORMATION: Cervical lymphadenopathy COMPARISON: CT soft tissue neck from 11/06/2024 TECHNIQUE: Multidetector volumetric CT imaging of the chest was obtained after the administration of 85 mL of Omnipaque 350 intravenous contrast without immediate adverse reactions. Axial MIP volume rendering provided. Sagittal and coronal reformatted images were obtained. This CT examination was performed using dose optimization techniques as appropriate, variously including the following: *Automated exposure control *Adjustment of mA and/or kV according to patient size (this includes techniques or standardized protocols for targeted exams where dose is matched to indication/reason for exam; i.e. extremities or head) *Use of iterative reconstruction technique DLP: 746 mGy-cm FINDINGS: LUNGS: The lungs are clear with no evidence of inflammation or suspicious nodules. Subpleural calcified nodules seen in the left lower lobe MEDIASTINUM: Left supraclavicular lymphadenopathy is partially visualized. Please refer to CT soft tissue neck for further details. No mediastinal or hilar lymphadenopathy. Heart is normal in size. Pericardium is normal. Thoracic aorta is normal in caliber PLEURA: There is no pleural effusion. No pleural mass or thickening. AXILLA: No lymphadenopathy. UPPER ABDOMEN: Liver is decreased in density consistent with hepatic steatosis. OSSEOUS STRUCTURES: Unremarkable. CT/CT chest w IV con IMPRESSION: 1. No acute process. No suspicious pulmonary nodules. 2. Left supraclavicular lymphadenopathy is partially visualized. 3. Hepatic steatosis. Electronically signed by: Tony Manzano MD 11/08/2024 04:44 PM [facility] [place]
--- NOTE | ~2024-11-06 | CT_ITS ---
EXAMINATION: CT SOFT TISSUE NECK WITHOUT CONTRAST CLINICAL INFORMATION: Left-sided neck mass. Recent dental procedure. COMPARISON: CTA head and neck from 08/07/2021 TECHNIQUE: Multidetector helical imaging was performed in the axial plane without intravenous contrast. Multiple axial reformats and coronal/sagittal reconstructions were created the technologist workstation for review. This CT examination was performed using dose optimization techniques as appropriate, variously including the following: *Automated exposure control. *Adjustment of mA and/or kV according to patient size (this includes techniques or standardized protocols for targeted exams where dose is matched to indication/reason for exam; i.e. extremities or head). *Use of iterative reconstruction technique. DLP: 790 mGy-cm FINDINGS: No significant cutaneous thickening or subcutaneous inflammation. Heterogeneous left supraclavicular and left level Vb lymphadenopathy, some of which appear centrally necrotic, measuring up to 2.9 cm. Moderate surrounding fat stranding in this distribution. Moderate prevertebral edema from C2-C5. No additional discrete fluid collection within the deep tissues of the neck. The premaxillary, retromaxillary, pterygopalatine fossa, orbital apical, parapharyngeal, and prelaryngeal adipose tissue is maintained. Normal appearance of the parotid, submandibular, and thyroid glands. Scattered subcentimeter lymph nodes bilaterally, none of which are pathologically enlarged. No demonstrated focal lesion or abnormal enhancement within the intrinsic tissues of the tongue or floor of mouth. Normal mucosal contours of the pharynx and larynx. Normal appearance of the hyoid bone, thyroid cartilage, or cartilaginous trachea. The airways remains widely patent. No radiopaque foreign bodies. The atlantooccipital and atlantoaxial articulations remain well aligned. Mild reversal the normal cervical lordosis centered on C5-C6. No evidence of acute fracture or subluxation of the cervical spine. The vertebral body heights are maintained. Moderate degenerative disc disease from C5-C7. Facet and uncovertebral joint arthropathy leads to osseous encroachment on the neural foramina from C2-T1. The visualized portion of the skull base is without significant abnormalities. Mild mucosal thickening of the paranasal sinuses. The mastoid air cells and middle ear cavities are clear. Persistent socket of the maxillary left 3rd molar. Additional mild multifocal odontogenic enamel erosions and periapical lucencies. CT Upper Chest: The visualized lung apices and upper mediastinum are within normal limits. CT/CT soft tissue neck wo IV con IMPRESSION: Heterogeneous left supraclavicular and left level lymphadenopathy (some of which appear centrally necrotic) measuring up to 2.9 cm. Moderate prevertebral edema from C2-C5. No demonstrated discrete fluid collection within the deep tissues of the neck. There is a persistent socket of the maxillary left 3rd molar, although is not clear that the aforementioned abnormalities represent direct sequela. The etiology of this overall picture is nonspecific and could represent an underlying infectious/inflammatory process although metastatic disease remains a consideration. No demonstrated additional discrete drainable fluid collection. Electronically signed by: Christiano Winter DO 11/06/2024 08:40 PM EST
[2024-11-06 16:02] VITALS: BP 144/72; PULSE 90; RESP 20; TEMP 37.2; O2SAT 98; BMI 33.4
[2024-11-06 16:29] LABS: MANUAL DIFF FLAG NO
[2024-11-06 16:34] LABS: Basophils Percent Auto 0.6 % (0-2); Eosinophils Absolute Auto 0.2 X10*3/uL (0.0-0.4); Eosinophils Percent Auto 2.2 % (0-4); Hematocrit 32.2 % (42.0-52.0); Hemoglobin 11.3 g/dl (14.0-18.0); Imm Gran Abs Auto 0.02 X10*3/uL (0.00-0.03); Imm Gran Pct Auto 0.3 % (0.0-0.4); Lymphocytes Percent Auto 28.8 % (20-40); Mean Corpuscular HGB Conc 35.1 g/dl (31.0-36.0); Mean Corpuscular Volume 85.4 fL (80.0-98.0); Monocytes Absolute Auto 0.8 X10*3/uL (0.1-1.2); Monocytes Percent Auto 11.6 % (2-11); Neutrophils Absolute Auto 3.9 x10*3/uL (2.0-8.3); Neutrophils Percent Auto 56.5 % (45-73); Platelet Count 255 X10*3/uL (160-400); Red Blood Count 3.77 X10*6/uL (4.60-5.80); Red Cell Distribution Width 12.2 % (11.0-16.0); White Blood Count 6.9 X10*3/uL (4.8-10.8)
[2024-11-06 16:58] LABS: Anion Gap 17 (12-20); Blood Urea Nitrogen 46 mg/dL (9-16); Calcium 9.7 mg/dL (8.4-10.2); Carbon Dioxide 23 mmol/L (22-29); Chloride 95 mmol/L (96-108); Creatinine Clr Calc Pharmacy 41.6; Estimated Glomerular Filt Rate 28; Glucose Random 569 mg/dL (60-115); Potassium 4.6 mmol/L (3.3-5.1); Sodium 130 mmol/L (135-145)
[2024-11-06 17:28] LABS: Albumin Level 4.3 g/dL (3.5-5.0); Aspartate Amino Transferase 17 U/L (5-37); Bilirubin Direct 0.1 mg/dL (0.0-0.5); Bilirubin Total 0.3 mg/dL (0.0-1.0); Total Protein 7.9 g/dL (6.5-8.0)
--- NOTE | 2024-11-06 17:36 | ED_ITS ---
HPI - General Adult General Chief complaint: General Medical Stated complaint: Swelling L side of neck Time Seen by Provider: 11/06/24 17:37 Source: patient Mode of arrival: ambulatory Limitations: no limitations History of Present Illness ED Provider: Татьяна Mathis NP HPI narrative: Patient is a 59-year-old male who presents emergency department for evaluation coming from his primary care doctor's office today. He denies a diagnosed history of diabetes. However he does admit that he has had increased thirst, increased urination as well as increased hunger recently though he can not tell me for exactly how long. He reports that he had a dental procedure done in August of 2024, reportedly around that time is having elevated blood glucose levels. He states he is not currently on any diabetes medications orally nor insulin. He states that ?my doctor ordered some. ? but is unclear whether this face from today's visit or in the past. He reports with his dental procedure in August they had removed the left upper molar, possible #16 and has been having swelling to this area ever since. Swelling has increased and is now extending to the left lateral side of his neck with a palpable lump. Areas become increasingly more painful and he endorses occasional or shortness breath associated with this. He does admit to having a ?heart attack? about 5 months ago states he was seen here at [facility] [place] for a few days and ultimately sent home, denies having any cardiac catheterization. Reports that he has been compliant with his medications as prescribed from that visit. Related Data Home Medications ?Medication ?Instructions ?Recorded ?Confirmed atorvastatin 40 mg tablet 40 mg PO DAILY 09/15/21 11/06/24 clopidogrel 75 mg tablet 75 mg PO DAILY 09/15/21 11/06/24 aspirin 81 mg tablet,delayed 81 mg PO DAILY 12/21/23 11/06/24 release tiotropium bromide 2.5 2 puff inhalation DAILY 12/21/23 11/06/24 mcg/actuation mist for inhalation (Spiriva Respimat) vitamin B complex 1 cap PO DAILY 12/21/23 11/06/24 metoprolol succinate 25 mg 25 mg PO DAILY 11/06/24 11/06/24 tablet,extended release 24 hr Previous Rx's ?Medication ?Instructions ?Recorded albuterol sulfate 90 mcg/actuation 2 inh inhalation Q4-6H PRN 02/04/22 breath activated powder inhaler shortness of breath or wheezing #1 ea furosemide 20 mg tablet 20 mg PO DAILY #90 tabs 12/22/23 losartan 25 mg tablet 25 mg PO DAILY #90 tabs 12/22/23 empagliflozin 10 mg tablet 10 mg PO DAILY #30 tabs 12/23/23 (Jardiance) spironolactone 25 mg tablet 25 mg PO DAILY #90 tabs 12/23/23 Allergies Allergy/AdvReac Type Severity Reaction Status Date / Time No Known Allergies Allergy Verified 11/06/24 16:03 [No Known Allergies*] Review of Systems 2 Review of Systems: Yes all other systems are reviewed and are negative [facility] Past Medical History Attestation statement: The following information was validated with the patient. Source: old records reviewed Medical History Congestive heart failure Vitamin D deficiency Hypercholesteremia Uncomplicated alcohol dependence Essential hypertension Mild intermittent asthma in adult without complication Stenosis of carotid artery Adjustment disorder with anxious mood Episodic tension-type headache, not intractable Chronic bilateral low back pain without sciatica Acute bilateral low back pain without sciatica CVA (cerebrovascular accident) Allergic conjunctivitis of both eyes Acute pain of left knee Tobacco dependence COPD (chronic obstructive pulmonary disease) with chronic bronchitis Social History Social History Alcohol intake: current Alcohol intake frequency: 3 or more drinks per day Alcohol type: hard liquor Comment: Pt oob and amb. ad mag, steady on feet Patient Tobacco Use Status: Tobacco use Unknown Tobacco use type: Cigarette Cigarettes Per Day: 15 Smoked in Last 30 Days: No Use of substances other than those prescribed or required for medical reasons: No Advance Directives: No Advance Directives Information Provided: No Nutrition Risks: No Nutritional Risk service: No Current occupational status: employed Current occupation: [id number] Physical Exam ED Vital Signs: Vital Signs - 24 hr 11/06/24 16:02 11/06/24 18:32 11/06/24 21:13 Temperature 98.9 F 98.0 F 98.1 F Pulse Rate 90 82 81 Respiratory Rate 20 18 16 Blood Pressure 144/72 H 145/85 H 135/79 Pulse Oximetry 98 97 97 Oxygen Delivery Method Room Air Room Air Room Air BMI result Body Mass Index 33.4 Appearance: Alert.?Oriented to person, place and time. No acute distress.?Normal affect. Eyes: Pupils equal, round and reactive to light.? ENT: Pharynx normal.??Multiple missing teeth. The patient of prior dental extraction appears to be without visible abscess or erythema to the gums. The vehicle tissue appears swollen but is soft on palpation. Lower palate is soft accordingly. No tonsillar hypertrophy or exudates. Uvula is midline. No trismus. No drooling. Neck: Normal inspection.? Neck supple.?? Full range of motion. Visibly swollen on the left. CVS: Heart sounds normal. Normal heart rate and rhythm.? Pulses normal.?? Respiratory: No respiratory distress.? Lung sounds clear to auscultation bilaterally?? Abdomen: Abdomen rounded, semifirm, nontender. Normoactive bowel sounds. ?? Skin: Skin warm and dry.? Normal skin color.? ?? Extremities: No lower extremity edema.? No calf ttp? Neuro: Moves all extremities spontaneously. Sensation intact bilaterally. CN II- XII intact. No focal neuro deficits. Ambulates with normal steady gait. Course Course Course Narrative: This is an RME: Additional HPI, ROS, PE not included below will be deferred to primary provider. RME assessment and note performed by: Kayce Brownlee PA-C This is a 59-year-old male, with a history of diabetes, who presents emergency department with complaints of left-sided neck swelling. Patient reports that he a dental procedure done in August, and has had increased swelling to the left side of his neck. Patient with palpable left-sided neck mass noted. He also reports increased shortness for breath and pain to this area. Expect his called in and there was concern for an abscess. Plan: Labs, +/- CT neck Reevaluation(s) Reevaluation #1: CT soft tissue neck revealing heterogeneous left sided lymphadenopathy some of which appear to be centrally necrotic measuring up to 2.9 cm with prevertebral edema from C2-C5 without demonstrated fluid collection in the deep tissue. There is a persistent socket of the maxillary left 3rd molar although not clear may represent direct sequela (this is the location where he had recent extraction as per HPI). Radiologist impression maybe that this is nonspecific versus underlying infectious/inflammatory process but can not exclude metastatic disease. He has full range of motion to the neck no stiffness or rigidity, no midline cervical spine tenderness, but does endorse pain to the left side with range of motion. Inflammatory markers are notably elevated with ESR of 74 and CRP 10.72. Given his new onset uncontrolled diabetes would benefit from inpatient admission for IV antibiotics further management. Will speak with hospitalist. Covering with clindamycin at this time. No lactic acidosis. Glucose is downtrending. Beta hydroxy is not elevated. Medications Administered Generic Name Dose Route Start Last Admin Trade Name Frederek PRN Reason Stop Dose Admin Ceftriaxone Sodium 2 gm 11/06/24 22:00 11/06/24 22:05 Ceftriaxone Sodium 2 Gm Vial IVPUSH 2 gm Q24H MOHAN Administration Metronidazole 500 mg in 100 mls @ 100 mls/hr 11/06/24 22:00 11/06/24 23:13 Flagyl IV Infused Q8H MOHAN Infusion Insulin Glargine 15 unit 11/06/24 21:40 11/06/24 22:06 Insulin Glargine,Hum.Rec.Anlog 100 Unit/Ml 10 Ml Vial SUBCUT 15 unit BEDTIME MOHAN Administration Oxycodone HCl 5 mg 11/06/24 21:31 11/06/24 22:26 Oxycodone Hcl Immed Release 5 Mg Tablet PO 5 mg Q6H PRN Administration Pain, Severe (Pain Scale 7-10) Sodium Chloride 3 ml 11/07/24 00:00 11/06/24 23:23 0.9 % Sodium Chloride Flush 3 Ml Syringe IVFLUSH 3 ml QSHIFT MOHAN Administration Discontinued Medications Generic Name Dose Route Start Last Admin Trade Name Freq PRN Reason Stop Dose Admin Albuterol/Ipratropium 3 ml 11/06/24 21:40 11/06/24 21:50 Albuterol/Iprat 2.5/0.5mg 3 Ml Ampul.Neb INHALE 11/06/24 21:41 3 ml ONCE STA Administration Sodium Chloride 1,000 mls @ 999 mls/hr 11/06/24 21:00 11/06/24 23:14 Ns IV 11/06/24 22:00 Infused .Q1H1M MOHAN Infusion Clindamycin Phosphate 300 mg in 50 mls @ 100 mls/hr 11/06/24 20:55 11/06/24 21:46 Cleocin IV 11/06/24 21:24 Infused ONCE ONE Infusion Insulin Human Lispro 8 unit 11/06/24 21:36 11/06/24 22:06 Insulin Lispro 100 Unit/Ml 3 Ml Vial SUBCUT 11/06/24 21:37 8 unit ONCE STA Administration Insulin Human Regular 5 unit 11/06/24 17:57 11/06/24 18:22 Insulin Regular, Human 100 Unit/Ml 10 Ml Vial IVPUSH 11/06/24 17:58 5 unit ONCE ONE Administration Medical Decision Making Medical Decision Making [facility] Narrative: Patient is a 59-year-old male with past medical history of CHF, hyperlipidemia, hypertension, asthma, carotid stenosis, CVA (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 for which she states he was seen in this hospital for, most recent hospitalization appears to be consistent with a CHF admission rather than ID. he presents today for evaluation of swelling to the left neck and increasing pain and shortness of breath as per HPI. Appears to be new onset diabetes, at least within the past 3 weeks by his account, has not been taking any medications outpatient for management of this. Will obtain CBC to evaluate for leukocytosis/ anemia, CMP and lipase to evaluate for abnormal electrolytes /abnormal renal function/ abnormal hepatic/biliary function, CT soft tissue neck, venous gas and beta hydroxybutyrate. Given point of care glucose with notable hyperglycemia, planning for insulin administration. Differential Diagnosis Differential Diagnoses: The differential diagnosis associated with the presentation includes (Dental abscess, Napoleon's angina, cellulitis, new onset diabetes, DKA) Admission/Observation Consideration of admission/observation: Escalation of care including admission/observation considered Consult Healthcare Provider Management of the patient was discussed with: Hospitalist Admitted to medicine service, spoke with hospitalist Dr. Jacobo Acevedo. Odontogenic infection new onset diabetic with uncontrolled hyperglycemia, initiated with Clinda in ED Lab Data [facility] Lab Attestation statement: I reviewed the patient's lab results. CBC is without leukocytosis, normocytic anemia that does not meet transfusion criteria, hemoglobin down approximately 2 point since 12/17/2023 no social is of active bleeding. No thrombocytopenia. Electrolytes revealing likely a pseudohyponatremia in the setting of non-anion gap hyperglycemia; serum sodium of 130, serum glucose 569, corrected sodium of 137 however will obtain urine studies including urine sodium urine osmole and serum osmolality for further clarification. New onset diabetes, not on any current treatment. KATHLEEN with BUN of 46, creatinine 2.4 (compared to 1.86 8 days ago), EGFR 28 11/06/24 16:25 11/06/24 16:25 Labs: Lab Results 11/06/24 11/06/24 11/06/24 Range/Units 16:25 18:01 18:14 WBC 6.9 (4.8-10.8) X10*3/uL RBC 3.77 L (4.60-5.80) X10*6/uL Hgb 11.3 L (14.0-18.0) g/dl Hct 32.2 L (42.0-52.0) % MCV 85.4 (80.0-98.0) fL MCH 30.0 (27.0-33.0) pg MCHC 35.1 (31.0-36.0) g/dl RDW 12.2 (11.0-16.0) % Plt Count 255 (160-400) X10*3/uL MPV 9.0 L (9.4-12.4) fL Immature Gran % (Auto) 0.3 (0.0-0.4) % Neut % (Auto) 56.5 (45-73) % Lymph % (Auto) 28.8 (20-40) % Oliver % (Auto) 11.6 H (2-11) % Eos % (Auto) 2.2 (0-4) % Baso % (Auto) 0.6 (0-2) % Lymph # (Auto) 2.0 (1.2-4.9) X10*3/uL Oliver # (Auto) 0.8 (0.1-1.2) X10*3/uL Eos # (Auto) 0.2 (0.0-0.4) X10*3/uL Baso # (Auto) 0.0 (0.0-0.2) X10*3/uL Abs Immat Gran (auto) 0.02 (0.00-0.03) X10*3/uL Absolute Neuts (auto) 3.9 (2.0-8.3) x10*3/uL Absolute Nucleated RBC 0.000 (0.0-0.012) X10*3/uL Nucleated RBC % (auto) 0.0 (0.0-0.2) /100WBC ESR 74 H (0-15) MM/HR VBG pH (7.32-7.43) VBG pCO2 mmHg VBG pO2 mmHg VBG HCO3 (22-26) mmol/L VBG O2 Saturation % VBG Base Excess mmol/L Sodium 130 L (135-145) mmol/L Potassium 4.6 (3.3-5.1) mmol/L Chloride 95 L (96-108) mmol/L Carbon Dioxide 23 (22-29) mmol/L Anion Gap 17 (12-20) BUN 46 H (9-16) mg/dL Creatinine 2.40 H (0.5-1.4) mg/dL Estim Creat Clear Calc 41.6 Estimated GFR 28 POC Glucose 450 H* (60-115) mg/dL Random Glucose 569 H* (60-115) mg/dL Osmolality 309 H (281-305) mosm/kg Lactic Acid (0.5-2.0) mmol/L Calcium 9.7 (8.4-10.2) mg/dL Total Bilirubin 0.3 (0.0-1.0) mg/dL Direct Bilirubin 0.1 (0.0-0.5) mg/dL AST 17 (5-37) U/L ALT 18 (0-40) U/L Alkaline Phosphatase 143 H (39-117) U/L C-Reactive Protein 10.72 H (< or = 0.50) mg/dL Total Protein 7.9 (6.5-8.0) g/dL Albumin 4.3 (3.5-5.0) g/dL Beta-Hydroxybutyrate 0.23 (0.02-0.27) mmol/L Urine Color Urine Appearance Urine pH (5.0-9.0) Ur Specific [place] (1.005-1.025) Urine Protein (Neg-Trace) mg/dL Urine Glucose (UA) (Negative) mg/dL Urine Ketones (Negative) mg/dL Urine Blood (Negative) Urine Nitrite (Negative) Ur Leukocyte Esterase (Negative) Urine RBC (0-2) /HPF Urine WBC (0-5) /HPF Ur Squamous Epith Cells (0-2) /HPF Urine Bacteria (None Seen) Hyaline Casts (0-2) /LPF Urine Osmolality (373-1093) mosm/kg Ur Random Sodium mmol/L 11/06/24 11/06/24 11/06/24 Range/Units 18:15 18:23 19:08 WBC (4.8-10.8) X10*3/uL RBC (4.60-5.80) X10*6/uL Hgb (14.0-18.0) g/dl Hct (42.0-52.0) % MCV (80.0-98.0) fL MCH (27.0-33.0) pg MCHC (31.0-36.0) g/dl RDW (11.0-16.0) % Plt Count (160-400) X10*3/uL MPV (9.4-12.4) fL Immature Gran % (Auto) (0.0-0.4) % Neut % (Auto) (45-73) % Lymph % (Auto) (20-40) % Oliver % (Auto) (2-11) % Eos % (Auto) (0-4) % Baso % (Auto) (0-2) % Lymph # (Auto) (1.2-4.9) X10*3/uL Oliver # (Auto) (0.1-1.2) X10*3/uL Eos # (Auto) (0.0-0.4) X10*3/uL Baso # (Auto) (0.0-0.2) X10*3/uL Abs Immat Gran (auto) (0.00-0.03) X10*3/uL Absolute Neuts (auto) (2.0-8.3) x10*3/uL Absolute Nucleated RBC (0.0-0.012) X10*3/uL Nucleated RBC % (auto) (0.0-0.2) /100WBC ESR (0-15) MM/HR VBG pH 7.36 (7.32-7.43) VBG pCO2 39 mmHg VBG pO2 188 mmHg VBG HCO3 22 (22-26) mmol/L VBG O2 Saturation 100.0 % VBG Base Excess -2.2 mmol/L Sodium (135-145) mmol/L Potassium (3.3-5.1) mmol/L Chloride (96-108) mmol/L Carbon Dioxide (22-29) mmol/L Anion Gap (12-20) BUN (9-16) mg/dL Creatinine (0.5-1.4) mg/dL Estim Creat Clear Calc Estimated GFR POC Glucose 411 H* (60-115) mg/dL Random Glucose (60-115) mg/dL Osmolality (281-305) mosm/kg Lactic Acid 0.8 (0.5-2.0) mmol/L Calcium (8.4-10.2) mg/dL Total Bilirubin (0.0-1.0) mg/dL Direct Bilirubin (0.0-0.5) mg/dL AST (5-37) U/L ALT (0-40) U/L Alkaline Phosphatase (39-117) U/L C-Reactive Protein (< or = 0.50) mg/dL Total Protein (6.5-8.0) g/dL Albumin (3.5-5.0) g/dL Beta-Hydroxybutyrate (0.02-0.27) mmol/L Urine Color Urine Appearance Urine pH (5.0-9.0) Ur Specific [place] (1.005-1.025) Urine Protein (Neg-Trace) mg/dL Urine Glucose (UA) (Negative) mg/dL Urine Ketones (Negative) mg/dL Urine Blood (Negative) Urine Nitrite (Negative) Ur Leukocyte Esterase (Negative) Urine RBC (0-2) /HPF Urine WBC (0-5) /HPF Ur Squamous Epith Cells (0-2) /HPF Urine Bacteria (None Seen) Hyaline Casts (0-2) /LPF Urine Osmolality (373-1093) mosm/kg Ur Random Sodium mmol/L 11/06/24 Range/Units 20:11 WBC (4.8-10.8) X10*3/uL RBC (4.60-5.80) X10*6/uL Hgb (14.0-18.0) g/dl Hct (42.0-52.0) % MCV (80.0-98.0) fL MCH (27.0-33.0) pg MCHC (31.0-36.0) g/dl RDW (11.0-16.0) % Plt Count (160-400) X10*3/uL MPV (9.4-12.4) fL Immature Gran % (Auto) (0.0-0.4) % Neut % (Auto) (45-73) % Lymph % (Auto) (20-40) % Oliver % (Auto) (2-11) % Eos % (Auto) (0-4) % Baso % (Auto) (0-2) % Lymph # (Auto) (1.2-4.9) X10*3/uL Oliver # (Auto) (0.1-1.2) X10*3/uL Eos # (Auto) (0.0-0.4) X10*3/uL Baso # (Auto) (0.0-0.2) X10*3/uL Abs Immat Gran (auto) (0.00-0.03) X10*3/uL Absolute Neuts (auto) (2.0-8.3) x10*3/uL Absolute Nucleated RBC (0.0-0.012) X10*3/uL Nucleated RBC % (auto) (0.0-0.2) /100WBC ESR (0-15) MM/HR VBG pH (7.32-7.43) VBG pCO2 mmHg VBG pO2 mmHg VBG HCO3 (22-26) mmol/L VBG O2 Saturation % VBG Base Excess mmol/L Sodium (135-145) mmol/L Potassium (3.3-5.1) mmol/L Chloride (96-108) mmol/L Carbon Dioxide (22-29) mmol/L Anion Gap (12-20) BUN (9-16) mg/dL Creatinine (0.5-1.4) mg/dL Estim Creat Clear Calc Estimated GFR POC Glucose (60-115) mg/dL Random Glucose (60-115) mg/dL Osmolality (281-305) mosm/kg Lactic Acid (0.5-2.0) mmol/L Calcium (8.4-10.2) mg/dL Total Bilirubin (0.0-1.0) mg/dL Direct Bilirubin (0.0-0.5) mg/dL AST (5-37) U/L ALT (0-40) U/L Alkaline Phosphatase (39-117) U/L C-Reactive Protein (< or = 0.50) mg/dL Total Protein (6.5-8.0) g/dL Albumin (3.5-5.0) g/dL Beta-Hydroxybutyrate (0.02-0.27) mmol/L Urine Color Yellow Urine Appearance Clear Urine pH 5.5 (5.0-9.0) Ur Specific [place] 1.025 (1.005-1.025) Urine Protein Negative (Neg-Trace) mg/dL Urine Glucose (UA) >=1000 H (Negative) mg/dL Urine Ketones Negative (Negative) mg/dL Urine Blood Negative (Negative) Urine Nitrite Negative (Negative) Ur Leukocyte Esterase Negative (Negative) Urine RBC 0-2 (0-2) /HPF Urine WBC 0-5 (0-5) /HPF Ur Squamous Epith Cells 0-2 (0-2) /HPF Urine Bacteria None Seen (None Seen) Hyaline Casts 0-2 (0-2) /LPF Urine Osmolality 612 (373-1093) mosm/kg Ur Random Sodium 25.0 mmol/L Radiology Impression Discussion of test interpretation with radiology: I have reviewed the radiologist's reading. Radiologist Impression: CT/CT soft tissue neck wo IV con IMPRESSION: Heterogeneous left supraclavicular and left level lymphadenopathy (some of which appear centrally necrotic) measuring up to 2.9 cm. Moderate prevertebral edema from C2-C5. No demonstrated discrete fluid collection within the deep tissues of the neck. There is a persistent socket of the maxillary left 3rd molar, although is not clear that the aforementioned abnormalities represent direct sequela. The etiology of this overall picture is nonspecific and could represent an underlying infectious/inflammatory process although metastatic disease remains a consideration. No demonstrated additional discrete drainable fluid collection. External Record Review External record reviewed: Inpatient record and Outpatient record Discharge Plan Discharge Clinical Impression: Odontogenic infection of jaw, Uncontrolled type 2 diabetes mellitus with hyperglycemia, KATHLEEN (acute kidney injury) Patient Disposition: Admitted As Inpatient
[2024-11-06 17:49] LABS: Alanine Aminotransferase 18 U/L (0-40); Alkaline Phosphatase 143 U/L (39-117)
[2024-11-06 18:10] LABS: Glucose, Whole Blood 450 mg/dL (60-115)
[2024-11-06] MEDS: Insulin Regular, Human 100 UNIT/ML 10 ML VIAL IVPUSH (18:22)
[2024-11-06 18:26] LABS: Venous Blood Gas Refer to POC result
[2024-11-06 18:28] LABS: VBG Base Excess -2.2 mmol/L; VBG HCO3 22 mmol/L (22-26); VBG pCO2 39 mmHg; VBG pH 7.36 (7.32-7.43); VBG pO2 188 mmHg
[2024-11-06 18:32] VITALS: BP 145/85; PULSE 82; RESP 18; TEMP 36.7; O2SAT 97
[2024-11-06 18:38] LABS: C Reactive Protein 10.72 mg/dL (< or = 0.50)
[2024-11-06 18:39] LABS: Beta-Hydroxybutyrate 0.23 mmol/L (0.02-0.27)
[2024-11-06 18:40] LABS: Osmolality, Serum 309 mosm/kg (281-305)
[2024-11-06 18:41] LABS: Lactic Acid 0.8 mmol/L (0.5-2.0)
[2024-11-06 19:11] LABS: Glucose, Whole Blood 411 mg/dL (60-115)
--- NOTE | 2024-11-06 19:16 | PC.NURSE ---
Patient awake and alert. skin pwd, resp even and non labored, speaking in full, clear sentences. NSR via tele. c/o swelling to left side of neck x 3 weeks, denies fevers or chills, states that the pressure from the swelling causes him to feel SOB, no tracheal deviation noted, airway patent w/no edema. patient medicated by previous RN for hyperglycemia, continuing to monitor blood sugar levels. pt aware of plan of care.
[2024-11-06 19:21] LABS: Erythrocyte Sedimentation Rate 74 MM/HR (0-15)
[2024-11-06 20:30] LABS: Appearance Urine Clear; Color Urine Yellow; Glucose Urine UA >=1000 mg/dL (Negative); Leukocyte Esterase Urine Negative (Negative); Nitrite Urine Negative (Negative); PH 5.5 (5.0-9.0); Specific Gravity - Urine 1.025 (1.005-1.025); UMIC TRIGGER UACC YES; Urine Blood Negative (Negative); Urine Ketones Negative (Negative); Urine Protein Negative (Neg-Trace)
[2024-11-06 20:36] LABS: Osmolality Urine 612 mosm/kg (373-1093)
--- NOTE | 2024-11-06 21:08 | PC.NURSE ---
clindamycin not available in ED pyxis, pharmacy called at this time to bring med.
[2024-11-06 21:13] VITALS: BP 135/79; PULSE 81; RESP 16; TEMP 36.7; O2SAT 97
[2024-11-06] MEDS: 0.9 % Sodium Chloride 1,000 ML 999 ML IV (21:13)
[2024-11-06] MEDS: Clindamycin Phosphate/D5W 300 MG/50 ML PIGGYBACK 100 MG IV (21:16)
--- NOTE | 2024-11-06 21:21 | PC.NURSE ---
IV fluids and IV antiobiotics infusing per order. patient aware and agreeable to plan of care for admission
--- NOTE | 2024-11-06 21:40 | PM.IMHP ---
History of Present Illness Date of Service: 11/06/24 Attending physician on admission: Home Acevedo Chief Complaint: Neck pain Jace Gonzales is a 59 years old man with past medical history significant for CAD, HFrEF (echo November 2023 EF 35-40%), CKD, COPD and hypertension presents to the emergency department complaining of 3 weeks history of left neck pain. He underwent a left upper teeth procedure in August. He also complaining of frontal headache. Denies fever or chills. Denies difficulty swallowing or shortness on breath. He did complain of occasional cough and some shortness of breath. He stated that he has a history of diabetes but has not been taking anything for this. He denied any acute gastrointestinal genitourinary symptoms except for increased urinary frequency. He has been very thirsty daily. He is a tobacco smoker smoked 1 pack every 2 days. Denied illicit drug use or alcohol abuse. In the ED, he was found to have stable vital signs. Blood workup showed no leukocytosis. Hemoglobin is 11.3 and platelets are normal. Venous blood gases normal. Creatinine is 2.40 (1.86 -8 days ago). Glucose was initially 411 most recent 1 is 365. Osmolality 309. There are no significant electrolyte imbalances. LFTs are normal except for mildly elevated alk-phos 143. UA showed no evidence of UTI. Soft tissue neck CT scan showed heterogeneous lispro clavicular and left level lymphadenopathy supple which appears centrally necrotic and periventricular edema (C2-C5); etiology is nonspecific and could represent underlying infectious/inflammatory process without discrete drainable fluid collection. It also showed persistent socket of the left 3rd molar. ED tx: Insulin R 5 mg IV, NS 1 L bolus, clindamycin 300 mg IV Review of Systems Review of Systems: All 12 systems were reviewed and normal except as noted in HPI. [facility] Medical History Congestive heart failure Vitamin D deficiency Hypercholesteremia Uncomplicated alcohol dependence Essential hypertension Mild intermittent asthma in adult without complication Stenosis of carotid artery Adjustment disorder with anxious mood Episodic tension-type headache, not intractable Chronic bilateral low back pain without sciatica Acute bilateral low back pain without sciatica CVA (cerebrovascular accident) Allergic conjunctivitis of both eyes Acute pain of left knee Tobacco dependence COPD (chronic obstructive pulmonary disease) with chronic bronchitis Social History Alcohol intake: current Alcohol intake frequency: 3 or more drinks per day Alcohol type: hard liquor Comment: Pt oob and amb. ad mag, steady on feet Patient Tobacco Use Status: Tobacco use Unknown Tobacco use type: Cigarette Cigarettes Per Day: 15 Smoked in Last 30 Days: No Use of substances other than those prescribed or required for medical reasons: No Advance Directives: No Advance Directives Information Provided: No service: No Current occupational status: employed Current occupation: [employer] Allergies Allergy/AdvReac Type Severity Reaction Status Date / Time No Known Allergies Allergy Verified 11/06/24 16:03 [No Known Allergies*] Active Medications: Current Medications Acetaminophen (Acetaminophen 325 Mg Tablet) 975 mg PO Q6H PRN PRN Reason: Pain, Mild (Pain Scale 1-3), fever or headache Albuterol/Ipratropium (Albuterol/Iprat 2.5/0.5mg 3 Ml Ampul.Neb) 3 ml INHALE ONCE STA Stop: 11/06/24 21:41 Ceftriaxone Sodium (Ceftriaxone Sodium 2 Gm Vial) 2 gm IVPUSH Q24H MOHAN Glucose (Glucose Gel 15 Gm Gel..Gram.) 15 gm PO Q15M PRN; Protocol PRN Reason: per Hypoglycemia Standing Ord. Sodium Chloride (Ns) 1,000 mls @ 999 mls/hr IV .Q1H1M MOHAN Stop: 11/06/24 22:00 Last Admin: 11/06/24 21:13 Dose: 999 mls/hr Metronidazole (Flagyl) 500 mg in 100 mls @ 100 mls/hr IV Q8H MOHAN Sodium Chloride (Ns) 1,000 mls @ 999 mls/hr IV .Q1H1M MOHAN Stop: 11/06/24 22:45 Dextrose (D10) 250 mls @ 750 mls/hr IV Q15M PRN; Protocol PRN Reason: per Hypoglycemia Standing Ord. Insulin Glargine (Insulin Glargine,Hum.Rec.Anlog 100 Unit/Ml 10 Ml Vial) 15 unit SUBCUT BEDTIME MOHAN Insulin Human Lispro (Insulin Lispro 100 Unit/Ml 3 Ml Vial) 0 unit SUBCUT QIDACHS MOHAN; Protocol Melatonin (Melatonin 3 Mg Tablet) 6 mg PO BEDTIME PRN PRN Reason: Insomnia Oxycodone HCl (Oxycodone Hcl Immed Release 5 Mg Tablet) 5 mg PO Q6H PRN PRN Reason: Pain, Severe (Pain Scale 7-10) Sodium Chloride (0.9 % Sodium Chloride Flush 3 Ml Syringe) 3 ml IVFLUSH QSHIFT [facility] Home Medications ?Medication ?Instructions ?Recorded ?Confirmed ?Last Taken ?Type atorvastatin 40 mg tablet 40 mg PO BEDTIME 09/15/21 12/21/23 Unknown History clopidogrel 75 mg tablet 75 mg PO DAILY 09/15/21 12/21/23 12/21/23 History aspirin 81 mg tablet,delayed 81 mg PO DAILY 12/21/23 12/21/23 12/21/23 History release cefuroxime axetil 500 mg tablet 500 mg PO BID 12/21/23 12/21/23 12/21/23 History fluticasone propionate 230 2 puff inhalation DAILY 12/21/23 12/21/23 12/21/23 History mcg-salmeterol 21 mcg/actuation HFA inhaler (Advair HFA) nicotine (polacrilex) 4 mg buccal 4 mg PO Q2H PRN Nicotine Cravings 12/21/23 12/21/23 12/21/23 History lozenge prednisone 20 mg tablet 40 mg PO DAILY 12/21/23 12/21/23 12/21/23 History tiotropium bromide 2.5 2 puff inhalation DAILY 12/21/23 12/21/23 12/21/23 History mcg/actuation mist for inhalation (Spiriva Respimat) vitamin B complex 1 cap PO DAILY 12/21/23 12/21/23 12/21/23 History metoprolol succinate 25 mg 25 mg PO DAILY 11/06/24 Unknown History tablet,extended release 24 hr Physical Exam Vital Signs and Narrative: Vital Signs: Last Vital Signs Temp 98.1 F 11/06/24 21:13 Pulse 81 11/06/24 21:13 Resp 16 11/06/24 21:13 BP 135/79 11/06/24 21:13 Pulse Ox 97 11/06/24 21:13 O2 Del Method Room Air 11/06/24 21:13 BMI result Body Mass Index 33.4 Constitutional - Awake and Alert, No apparent distress. Afebrile. Pleasant and cooperative. HEENT - PER, EOMI. Left neck swelling and tender to palpation. Supraclavicular lymph node palpable. Heart - RRR, No murmurs. Lungs - Normal lung expansion, Normal respiratory effort, No respiratory distress. Mildly tachypneic. End expiratory wheezes. No crackles. No wheezing. Abdomen - NT / ND; +BS; No rebound or guarding Extremities - no calf tenderness bilaterally, no swelling Musculoskeletal - Normal inspection, normal ROM Skin - Warm/Dry Neurological - Alert & oriented x3. No focal weakness grossly noted. Normal speech. Psychological - Appropriate affect Results Labs 11/06/24 16:25 11/06/24 16:25 Labs: Laboratory Results - last 24 hr 11/06/24 11/06/24 11/06/24 16:25 18:01 18:14 MCV 85.4 MCH 30.0 MCHC 35.1 RDW 12.2 Plt Count 255 MPV 9.0 L Immature Gran % (Auto) 0.3 Neut % (Auto) 56.5 Lymph % (Auto) 28.8 Hall % (Auto) 11.6 H Eos % (Auto) 2.2 Baso % (Auto) 0.6 Lymph # (Auto) 2.0 Hall # (Auto) 0.8 Eos # (Auto) 0.2 Baso # (Auto) 0.0 Abs Immat Gran (auto) 0.02 Absolute Neuts (auto) 3.9 Absolute Nucleated RBC 0.000 Nucleated RBC % (auto) 0.0 ESR 74 H VBG pH VBG pCO2 VBG pO2 VBG HCO3 VBG O2 Saturation VBG Base Excess Anion Gap 17 Estim Creat Clear Calc 41.6 Estimated GFR 28 POC Glucose 450 H* Random Glucose 569 H* Osmolality 309 H Lactic Acid Calcium 9.7 Total Bilirubin 0.3 Direct Bilirubin 0.1 AST 17 ALT 18 Alkaline Phosphatase 143 H C-Reactive Protein 10.72 H Total Protein 7.9 Albumin 4.3 Beta-Hydroxybutyrate 0.23 Urine Color Urine Appearance Urine pH Ur Specific [place] Urine Protein Urine Glucose (UA) Urine Ketones Urine Blood Urine Nitrite Ur Leukocyte Esterase Urine Osmolality Ur Random Sodium 11/06/24 11/06/24 11/06/24 18:15 18:23 19:08 MCV MCH MCHC RDW Plt Count MPV Immature Gran % (Auto) Neut % (Auto) Lymph % (Auto) Hall % (Auto) Eos % (Auto) Baso % (Auto) Lymph # (Auto) Hall # (Auto) Eos # (Auto) Baso # (Auto) Abs Immat Gran (auto) Absolute Neuts (auto) Absolute Nucleated RBC Nucleated RBC % (auto) ESR VBG pH 7.36 VBG pCO2 39 VBG pO2 188 VBG HCO3 22 VBG O2 Saturation 100.0 VBG Base Excess -2.2 Anion Gap Estim Creat Clear Calc Estimated GFR POC Glucose 411 H* Random Glucose Osmolality Lactic Acid 0.8 Calcium Total Bilirubin Direct Bilirubin AST ALT Alkaline Phosphatase C-Reactive Protein Total Protein Albumin Beta-Hydroxybutyrate Urine Color Urine Appearance Urine pH Ur Specific [place] Urine Protein Urine Glucose (UA) Urine Ketones Urine Blood Urine Nitrite Ur Leukocyte Esterase Urine Osmolality Ur Random Sodium 11/06/24 20:11 MCV MCH MCHC RDW Plt Count MPV Immature Gran % (Auto) Neut % (Auto) Lymph % (Auto) Hall % (Auto) Eos % (Auto) Baso % (Auto) Lymph # (Auto) Hall # (Auto) Eos # (Auto) Baso # (Auto) Abs Immat Gran (auto) Absolute Neuts (auto) Absolute Nucleated RBC Nucleated RBC % (auto) ESR VBG pH VBG pCO2 VBG pO2 VBG HCO3 VBG O2 Saturation VBG Base Excess Anion Gap Estim Creat Clear Calc Estimated GFR POC Glucose Random Glucose Osmolality Lactic Acid Calcium Total Bilirubin Direct Bilirubin AST ALT Alkaline Phosphatase C-Reactive Protein Total Protein Albumin Beta-Hydroxybutyrate Urine Color Yellow Urine Appearance Clear Urine pH 5.5 Ur Specific [place] 1.025 Urine Protein Negative Urine Glucose (UA) >=1000 H Urine Ketones Negative Urine Blood Negative Urine Nitrite Negative Ur Leukocyte Esterase Negative Urine Osmolality 612 Ur Random Sodium 25.0 Imaging Radiologist's Impressions: Impressions Soft Tissue Neck CT 11/06/24 18:05 IMPRESSION: Heterogeneous left supraclavicular and left level lymphadenopathy (some of which appear centrally necrotic) measuring up to 2.9 cm. Moderate prevertebral edema from C2-C5. No demonstrated discrete fluid collection within the deep tissues of the neck. There is a persistent socket of the maxillary left 3rd molar, although is not clear that the aforementioned abnormalities represent direct sequela. The etiology of this overall picture is nonspecific and could represent an underlying infectious/inflammatory process although metastatic disease remains a consideration. No demonstrated additional discrete drainable fluid collection. Electronically signed by: Christiano Winter DO 11/06/2024 08:40 PM EST Assessment and Plan (1) Odontogenic infection of jaw: Status: Acute (2) Uncontrolled type 2 diabetes mellitus with hyperglycemia: Status: Acute Plan Jace Gonzales is a 59 y/o man admitted with: Left neck swelling secondary to odontogenic infection. Admit to hospitalist service. Start IV antibiotic therapy with Flagyl and ceftriaxone. Blood cultures obtained -will follow results. Uncontrolled type 2 diabetes mellitus. BG checks every 3 hours x2 than before meals at bedtime. Start treatment with Lantus and insulin sliding scale. Continue glimepiride Check hemoglobin A1c. Acute on chronic kidney disease, likely multifactorial: Increased urinary frequency due to hyperglycemia + use combination of spironolactone, furosemide and losartan. Hold meds for now. Received 1 L NS in ED. Continue to monitor renal function. Avoid nephrotoxic agents such as NSAIDs. Hyperlipidemia. Continue statin. Essential hypertension. Continue metoprolol. Restart losartan spironolactone after renal function improvement. HFrEF (echo November 2023 EF 35-40%). Furosemide on hold due to KATHLEEN. Continue metoprolol. COPD. Currently mild wheezing. Bronchodilator therapy. Continue Spiriva. CAD. Continue Plavix and statin. DVT prophylaxis: Only SCDs as the patient takes Plavix Code status: Full Patient will need hospitalization for at least 2 midnights for odontogenic infection treatment with IV antibiotic therapy in the setting of uncontrolled diabetes (immunocompromised state) Quality Stroke Does the patient have a stroke diagnosis?: No VTE Prior VTE?: No VTE Risk Level:: Medical - moderate - high VTE Device Contraindication: Treatment Not Indicated VTE Drug Contraindication: N/A - Med Ordered
[2024-11-06] MEDS: Albuterol/Iprat 2.5/0.5MG 3 ML AMPUL.NEB INHALE (21:50)
[2024-11-06 21:51] LABS: Glucose, Whole Blood 365 mg/dL (60-115)
[2024-11-06 21:52] VITALS: PULSE 82; RESP 18; O2SAT 95
[2024-11-06 21:56] LABS: Bacteria Urine None Seen (None Seen); Hyaline Casts Urine 0-2 /LPF (0-2); RBC Urine 0-2 /HPF (0-2); Squamous Epithelial Cell Urine 0-2 /HPF (0-2); WBC Urine 0-5 /HPF (0-5)
[2024-11-06] MEDS: metroNIDAZOLE/NS 500 MG/100 ML PIGGYBACK 100 MG IV (22:05)
[2024-11-06] MEDS: cefTRIAXone sodium 2 GM VIAL IVPUSH (22:05)
[2024-11-06] MEDS: Insulin Lispro 100 UNIT/ML 3 ML VIAL 8 UNIT SUBCUT (22:06)
[2024-11-06] MEDS: Insulin Glargine,Hum.rec.anlog 100 UNIT/ML 10 ML VIAL 15 UNIT SUBCUT (22:06)
[2024-11-06] MEDS: oxyCODONE HCl Immed Release 5 MG TABLET PO (22:26)
[2024-11-06 22:27] VITALS: BP 136/82; PULSE 89; RESP 18; O2SAT 97
--- NOTE | 2024-11-06 22:27 | PHA.MEDREC ---
Addendum entered by Devonte Nguyen [facility] 11/06/24 22:37: MED REC CHECKED BY [facility] Original Note: Pharmacy Consult ? Medication Reconciliation Pharmacy has completed the medication reconciliation. Spoke with rico and he confirmed his medications. He confirmed he has not started taking the Glimperide 1mg tab and that it is still waiting for him at the pharmacy. I asked about the Metoprolol Succinate 25mg tab he was not so sure if he was taking that medication or not, looking in claims it was filled in February for 90 days, June for 90 days and September for 90 days, I confirmed that on the med rec since it has been consistently filled. He confirmed he took his medications this morning.
[2024-11-06 23:22] VITALS: BP 131/77; PULSE 87; RESP 16; TEMP 36.6; O2SAT 95
[2024-11-06] MEDS: 0.9 % Sodium Chloride Flush 3 ML SYRINGE IVFLUSH (23:23)
[2024-11-06 23:28] LABS: Glucose, Whole Blood 337 mg/dL (60-115)
--- NOTE | 2024-11-06 23:33 | PC.NURSE ---
report given to Lola GARCIA in ED overflow for patient transfer
[2024-11-07 04:29] LABS: MANUAL DIFF FLAG NO
[2024-11-07 04:30] LABS: Basophils Percent Auto 0.7 % (0-2); Eosinophils Absolute Auto 0.1 X10*3/uL (0.0-0.4); Eosinophils Percent Auto 3.1 % (0-4); Hemoglobin 11.1 g/dl (14.0-18.0); Imm Gran Abs Auto 0.01 X10*3/uL (0.00-0.03); Imm Gran Pct Auto 0.2 % (0.0-0.4); Lymphocytes Absolute Auto 1.2 X10*3/uL (1.2-4.9); Lymphocytes Percent Auto 27.3 % (20-40); Mean Corpuscular HGB Conc 34.7 g/dl (31.0-36.0); Mean Corpuscular Hemoglobin 29.8 pg (27.0-33.0); Monocytes Absolute Auto 0.5 X10*3/uL (0.1-1.2); Monocytes Percent Auto 11.9 % (2-11); Neutrophils Absolute Auto 2.5 x10*3/uL (2.0-8.3); Neutrophils Percent Auto 56.8 % (45-73); Platelet Count 263 X10*3/uL (160-400); Red Blood Count 3.72 X10*6/uL (4.60-5.80); Red Cell Distribution Width 12.3 % (11.0-16.0); White Blood Count 4.5 X10*3/uL (4.8-10.8)
[2024-11-07 04:46] LABS: Anion Gap 12 (12-20); Blood Urea Nitrogen 32 mg/dL (9-16); Calcium 9.3 mg/dL (8.4-10.2); Carbon Dioxide 22 mmol/L (22-29); Chloride 105 mmol/L (96-108); Creatinine Clr Calc Pharmacy 74.6; Estimated Glomerular Filt Rate 54; Glucose Random 264 mg/dL (60-115); Potassium 4.2 mmol/L (3.3-5.1); Sodium 135 mmol/L (135-145)
[2024-11-07] MEDS: metroNIDAZOLE/NS 500 MG/100 ML PIGGYBACK 100 MG IV ×3 (05:14→21:36)
[2024-11-07 05:40] VITALS: BP 133/79; PULSE 73; RESP 18; TEMP 37; O2SAT 97
[2024-11-07 07:14] LABS: Estimated Average Glucose 255 mg/dL; Hemoglobin A1C 255.8168 umol/L; Hemoglobin A1c % 10.5 % (<6.0); Total Hemoglobin (HGBA1C) 2809.1505 umol/L
[2024-11-07 07:34] LABS: Glucose, Whole Blood 240 mg/dL (60-115)
[2024-11-07] MEDS: Insulin Lispro 100 UNIT/ML 3 ML VIAL SUBCUT ×4 (07:53→21:35)
[2024-11-07] MEDS: 0.9 % Sodium Chloride Flush 3 ML SYRINGE IVFLUSH ×2 (07:55→17:03)
[2024-11-07 08:56] VITALS: BP 136/73; PULSE 87; RESP 20; O2SAT 98
[2024-11-07] MEDS: Furosemide 20 MG TABLET PO (09:17)
[2024-11-07] MEDS: Tiotropium Bromide 2.5 mcg 1 PUFF/2.5 MCG MIST.INHAL 2 PUFF INHALE (09:17)
[2024-11-07] MEDS: Clopidogrel Bisulfate 75 MG TABLET PO (09:17)
[2024-11-07] MEDS: Spironolactone 25 MG TABLET PO (09:18)
[2024-11-07] MEDS: Multivitamin TABLET 1 TAB PO (09:19)
[2024-11-07] MEDS: Aspirin Enteric Coated 81 MG TABLET.DR PO (09:19)
[2024-11-07] MEDS: Metoprolol Succinate ER 25 MG TAB.ER.24H PO (09:19)
[2024-11-07] MEDS: Atorvastatin Calcium 40 MG TABLET PO (09:20)
[2024-11-07 09:23] VITALS: PULSE 97; RESP 16; O2SAT 100
[2024-11-07] MEDS: vancomycin/NS 2,000 MG/500 ML PLAST..BAG 250 MG IV (09:37)
[2024-11-07] MEDS: Losartan Potassium 25 MG TABLET PO (09:40)
--- NOTE | 2024-11-07 10:36 | PHA.PROG ---
Admission Date/Time: November 06, 2024 21:32 Indication: Skin Weight in k.584 kg Serum Creatinine - Last 168 Hours 11/06/24 11/07/24 16:25 03:56 Creatinine 2.40 H 1.34 Estimated CrCl and GFR - Last 168 Hours 11/06/24 11/07/24 16:25 03:56 Estim Creat Clear Calc 41.6 74.6 Estimated GFR 28 54 Vancomycin Loading Dose: 2,000 mg Current Vancomycin Dosing Regimen: 1,500 mg q24h Vancomycin Monitoring using AUC goal of 400 - 600 range with trough as surrogate marker: 410, predicted trough 11.8 Date and Time for next Vancomycin Level to be drawn: 11/10 @ 0700 Pharmacist Comments on Vancomycin Plan: Vancomycin dosing will take advantage of [employer] as a clinical decision support tool that uses Bayesian modeling to calculate individual patient's pharmacokinetic parameters and forecast the patient's drug concentration time course with the target goal AUC 24 range of 400 - 600 mg/L/hr.
[2024-11-07 11:28] LABS: Glucose, Whole Blood 262 mg/dL (60-115)
[2024-11-07 11:39] VITALS: BP 136/71; PULSE 77; RESP 17; TEMP 36.8; O2SAT 97
--- NOTE | 2024-11-07 12:51 | MHC.CM.PN ---
PT LIVES ALONE IS INDEPENDENT WILL NOT NEED SERVIES WHEN DCD HAS OWN RIDE HOME
--- NOTE | 2024-11-07 13:09 | P.PNIM_ITS ---
Subjective Subjective Date of Service: 11/07/24 Interval History: Seen and evaluated feels better but still reporting pain and decrease ROM to left of his neck no fever or chills no swallowing\breathing problems Review of Systems Review of Systems: Yes all other systems are reviewed and are negative Physical Exam 2 Vital Signs: Vital Signs: Last Vital Signs Temp 98.3 F 11/07/24 11:39 Pulse 77 11/07/24 11:39 Resp 17 11/07/24 11:39 BP 136/71 11/07/24 11:39 Pulse Ox 97 11/07/24 11:39 O2 Del Method Room Air 11/07/24 11:39 BMI result Body Mass Index 33.4 Const: Other: Constitutional : Awake, interactive, not in distress Neck : Normal inspection, Supple, enlarged left sided lymph nodes and swelling in left side of neck, no tenderness , erythema or drainage noted Cardiovascular : RRR, no JVP, no lower extremity edema Respiratory : good bilateral air entry, no crackles, wheezes or rhonchi Gastrointestinal: soft, lax, Normal bowel sounds, Non tender Skin : Warm, Dry Neurological : Alert & oriented x3, No focal deficit Objective Data Active Medications Acetaminophen (Acetaminophen 325 Mg Tablet) 975 mg PO Q6H PRN PRN Reason: Pain, Mild (Pain Scale 1-3), fever or headache Albuterol Sulfate (Albuterol Sulfate 90 Mcg 8 Gm Inhaler) 2 puff INHALE Q4H PRN PRN Reason: shortness of breath or wheezing Aspirin (Aspirin Enteric Coated 81 Mg Tablet.) 81 mg PO DAILY [facility] Last Admin: 11/07/24 09:19 Dose: 81 mg Documented By: FERNANDO Atorvastatin Calcium (Atorvastatin Calcium 40 Mg Tablet) 40 mg PO DAILY [facility] Last Admin: 11/07/24 09:20 Dose: 40 mg Documented By: FERNANDO Ceftriaxone Sodium (Ceftriaxone Sodium 2 Gm Vial) 2 gm IVPUSH Q24H [facility] Last Admin: 11/06/24 22:05 Dose: 2 gm Documented By: MATTY Clopidogrel Bisulfate (Clopidogrel Bisulfate 75 Mg Tablet) 75 mg PO DAILY [facility] Last Admin: 11/07/24 09:17 Dose: 75 mg Documented By: FERNANDO Furosemide (Furosemide 20 Mg Tablet) 20 mg PO DAILY [facility]; Protocol Last Admin: 11/07/24 09:17 Dose: 20 mg Documented By: FERNANDO Glucose (Glucose Gel 15 Gm Gel..Gram.) 15 gm PO Q15M PRN; Protocol PRN Reason: per Hypoglycemia Standing Ord. Metronidazole (Flagyl) 500 mg in 100 mls @ 100 mls/hr IV Q8H [facility] Last Infusion: 11/07/24 06:14 Dose: Infused Documented By: BRODY Dextrose (D10) 250 mls @ 750 mls/hr IV Q15M PRN; Protocol PRN Reason: per Hypoglycemia Standing Ord. Vancomycin HCl 1,500 mg/ (Sodium Chloride) 500 mls @ 333.333 mls/hr IV Q24H [facility] Insulin Glargine (Insulin Glargine,Hum.Rec.Anlog 100 Unit/Ml 10 Ml Vial) 15 unit SUBCUT BEDTIME [facility] Last Admin: 11/06/24 22:06 Dose: 15 unit Documented By: MATTY Insulin Human Lispro (Insulin Lispro 100 Unit/Ml 3 Ml Vial) 0 unit SUBCUT QIDACHS [facility]; Protocol Last Admin: 11/07/24 11:33 Dose: 6 unit Documented By: FERNANDO Losartan Potassium (Losartan Potassium 25 Mg Tablet) 25 mg PO DAILY [facility]; Protocol Last Admin: 11/07/24 09:40 Dose: 25 mg Documented By: FERNANDO Melatonin (Melatonin 3 Mg Tablet) 6 mg PO BEDTIME PRN PRN Reason: Insomnia Metoprolol Succinate (Metoprolol Succinate Er 25 Mg Tab.Er.24h) 25 mg PO DAILY [facility]; Protocol Last Admin: 11/07/24 09:19 Dose: 25 mg Documented By: FERNANDO Multivitamins/Vitamin C (Multivitamin Tablet) 1 tab PO DAILY [facility] Last Admin: 11/07/24 09:19 Dose: 1 tab Documented By: FERNANDO Oxycodone HCl (Oxycodone Hcl Immed Release 5 Mg Tablet) 5 mg PO Q6H PRN PRN Reason: Pain, Severe (Pain Scale 7-10) Last Admin: 11/06/24 22:26 Dose: 5 mg Documented By: MATTY Pharmacy Consult (Consult Rx Vancomycin Dosing) 1 each MISCELLANE DAILY PRN PRN Reason: Consult order Sodium Chloride (0.9 % Sodium Chloride Flush 3 Ml Syringe) 3 ml IVFLUSH QSHIFT [facility] Last Admin: 11/07/24 07:55 Dose: 3 ml Documented By: FERNANDO Spironolactone (Spironolactone 25 Mg Tablet) 25 mg PO DAILY [facility]; Protocol Last Admin: 11/07/24 09:18 Dose: 25 mg Documented By: FERNANDO Tiotropium Tony (Tiotropium Tony 2.5 Mcg 1 Puff/2.5 Mcg Mist.Inhal) 2 puff INHALE RDAILY [facility] Last Admin: 11/07/24 09:17 Dose: 2 puff Documented By: FERNANDO Labs 11/07/24 03:56 11/07/24 03:56 Labs: Laboratory Results - last 24 hr 11/06/24 11/06/24 11/06/24 16:25 18:01 18:14 MCV 85.4 MCH 30.0 MCHC 35.1 RDW 12.2 Plt Count 255 MPV 9.0 L Immature Gran % (Auto) 0.3 Neut % (Auto) 56.5 Lymph % (Auto) 28.8 [place] % (Auto) 11.6 H Eos % (Auto) 2.2 Baso % (Auto) 0.6 Lymph # (Auto) 2.0 [place] # (Auto) 0.8 Eos # (Auto) 0.2 Baso # (Auto) 0.0 Abs Immat Gran (auto) 0.02 Absolute Neuts (auto) 3.9 Absolute Nucleated RBC 0.000 Nucleated RBC % (auto) 0.0 ESR 74 H VBG pH VBG pCO2 VBG pO2 VBG HCO3 VBG O2 Saturation VBG Base Excess Anion Gap 17 Estim Creat Clear Calc 41.6 Estimated GFR 28 POC Glucose 450 H* Random Glucose 569 H* Estimat Average Glucose Hemoglobin A1c % Osmolality 309 H Lactic Acid Calcium 9.7 Total Bilirubin 0.3 Direct Bilirubin 0.1 AST 17 ALT 18 Alkaline Phosphatase 143 H C-Reactive Protein 10.72 H Total Protein 7.9 Albumin 4.3 Beta-Hydroxybutyrate 0.23 Urine Color Urine Appearance Urine pH Ur Specific [place] Urine Protein Urine Glucose (UA) Urine Ketones Urine Blood Urine Nitrite Ur Leukocyte Esterase Urine RBC Urine WBC Ur Squamous Epith Cells Urine Bacteria Hyaline Casts Urine Osmolality Ur Random Sodium 11/06/24 11/06/24 11/06/24 18:15 18:23 19:08 MCV MCH MCHC RDW Plt Count MPV Immature Gran % (Auto) Neut % (Auto) Lymph % (Auto) [place] % (Auto) Eos % (Auto) Baso % (Auto) Lymph # (Auto) [place] # (Auto) Eos # (Auto) Baso # (Auto) Abs Immat Gran (auto) Absolute Neuts (auto) Absolute Nucleated RBC Nucleated RBC % (auto) ESR VBG pH 7.36 VBG pCO2 39 VBG pO2 188 VBG HCO3 22 VBG O2 Saturation 100.0 VBG Base Excess -2.2 Anion Gap Estim Creat Clear Calc Estimated GFR POC Glucose 411 H* Random Glucose Estimat Average Glucose Hemoglobin A1c % Osmolality Lactic Acid 0.8 Calcium Total Bilirubin Direct Bilirubin AST ALT Alkaline Phosphatase C-Reactive Protein Total Protein Albumin Beta-Hydroxybutyrate Urine Color Urine Appearance Urine pH Ur Specific [place] Urine Protein Urine Glucose (UA) Urine Ketones Urine Blood Urine Nitrite Ur Leukocyte Esterase Urine RBC Urine WBC Ur Squamous Epith Cells Urine Bacteria Hyaline Casts Urine Osmolality Ur Random Sodium 11/06/24 11/06/24 11/06/24 20:11 21:45 23:21 MCV MCH MCHC RDW Plt Count MPV Immature Gran % (Auto) Neut % (Auto) Lymph % (Auto) [place] % (Auto) Eos % (Auto) Baso % (Auto) Lymph # (Auto) [place] # (Auto) Eos # (Auto) Baso # (Auto) Abs Immat Gran (auto) Absolute Neuts (auto) Absolute Nucleated RBC Nucleated RBC % (auto) ESR VBG pH VBG pCO2 VBG pO2 VBG HCO3 VBG O2 Saturation VBG Base Excess Anion Gap Estim Creat Clear Calc Estimated GFR POC Glucose 365 H* 337 H Random Glucose Estimat Average Glucose Hemoglobin A1c % Osmolality Lactic Acid Calcium Total Bilirubin Direct Bilirubin AST ALT Alkaline Phosphatase C-Reactive Protein Total Protein Albumin Beta-Hydroxybutyrate Urine Color Yellow Urine Appearance Clear Urine pH 5.5 Ur Specific [place] 1.025 Urine Protein Negative Urine Glucose (UA) >=1000 H Urine Ketones Negative Urine Blood Negative Urine Nitrite Negative Ur Leukocyte Esterase Negative Urine RBC 0-2 Urine WBC 0-5 Ur Squamous Epith Cells 0-2 Urine Bacteria None Seen Hyaline Casts 0-2 Urine Osmolality 612 Ur Random Sodium 25.0 11/07/24 11/07/24 11/07/24 03:56 07:30 11:24 MCV 86.0 MCH 29.8 MCHC 34.7 RDW 12.3 Plt Count 263 MPV 9.0 L Immature Gran % (Auto) 0.2 Neut % (Auto) 56.8 Lymph % (Auto) 27.3 [place] % (Auto) 11.9 H Eos % (Auto) 3.1 Baso % (Auto) 0.7 Lymph # (Auto) 1.2 [place] # (Auto) 0.5 Eos # (Auto) 0.1 Baso # (Auto) 0.0 Abs Immat Gran (auto) 0.01 Absolute Neuts (auto) 2.5 Absolute Nucleated RBC 0.000 Nucleated RBC % (auto) 0.0 ESR VBG pH VBG pCO2 VBG pO2 VBG HCO3 VBG O2 Saturation VBG Base Excess Anion Gap 12 Estim Creat Clear Calc 74.6 Estimated GFR 54 POC Glucose 240 H 262 H Random Glucose 264 H Estimat Average Glucose 255 Hemoglobin A1c % 10.5 H Osmolality Lactic Acid Calcium 9.3 Total Bilirubin Direct Bilirubin AST ALT Alkaline Phosphatase C-Reactive Protein Total Protein Albumin Beta-Hydroxybutyrate Urine Color Urine Appearance Urine pH Ur Specific [place] Urine Protein Urine Glucose (UA) Urine Ketones Urine Blood Urine Nitrite Ur Leukocyte Esterase Urine RBC Urine WBC Ur Squamous Epith Cells Urine Bacteria Hyaline Casts Urine Osmolality Ur Random Sodium Assessment and Plan (1) KATHLEEN (acute kidney injury): Status: Acute (2) Odontogenic infection of jaw: Status: Acute (3) Uncontrolled type 2 diabetes mellitus with hyperglycemia: Status: Acute (4) Odontogenic infection of jaw: Status: Acute Plan Jace Gonzales is a 59 y/o man admitted with: Left neck swelling secondary to odontogenic infection CT reported Heterogeneous left supraclavicular and left level lymphadenopathy measuring up to 2.9 cm. Moderate prevertebral edema from C2-C5. No demonstrated discrete fluid collection within the deep tissues of the neck IV antibiotic therapy with Vancomycin, Flagyl and ceftriaxone. Blood cultures pending Vancomycin trough Uncontrolled type 2 diabetes mellitus with hyperglycemia Lantus and insulin sliding scale. Continue glimepiride hemoglobin A1c. 10.7 Acute on chronic kidney disease, likely multifactorial: improving use combination of spironolactone, furosemide and losartan. Hold Avoid nephrotoxic agents such as NSAIDs. Hyperlipidemia. Continue statin. Essential hypertension. Continue metoprolol. Restart losartan spironolactone after renal function improvement. HFrEF (echo November 2023 EF 35-40%). Furosemide on hold due to KATHLEEN. Continue metoprolol. COPD. Currently mild wheezing. Bronchodilator therapy. Continue Spiriva. CAD. Continue Plavix and statin. DVT prophylaxis: Lovenox Code status: Full Patient will need hospitalization overnight for odontogenic infection treatment with IV antibiotic therapy in the setting of uncontrolled diabetes Quality Stroke Does the patient have a stroke diagnosis?: No VTE Prior VTE?: No VTE Risk Level:: Medical - moderate - high VTE Device Contraindication: Treatment Not Indicated VTE Drug Contraindication: N/A - Med Ordered
[2024-11-07] MEDS: Enoxaparin Sodium 40 MG/0.4 ML SYRINGE SUBCUT (14:00)
[2024-11-07 17:02] LABS: Glucose, Whole Blood 183 mg/dL (60-115)
[2024-11-07 21:09] LABS: Glucose, Whole Blood 266 mg/dL (60-115)
[2024-11-07] MEDS: Insulin Glargine,Hum.rec.anlog 100 UNIT/ML 10 ML VIAL 15 UNIT SUBCUT (21:35)
[2024-11-07] MEDS: cefTRIAXone sodium 2 GM VIAL IVPUSH (21:35)
--- NOTE | 2024-11-07 21:52 | PC.NURSE ---
Pt medicated per [facility] Plan of care ongoing.
[2024-11-07 22:00] VITALS: BP 142/74; PULSE 75; RESP 16; TEMP 37.2; O2SAT 97
[2024-11-07] MEDS: Nicotine 21 MG PATCH.TD24 TRANSDERMA (22:45)
--- NOTE | 2024-11-07 22:47 | PC.NURSE ---
Pt requested and nicotine patch given Plan of care ongoing.
[2024-11-08] VITALS (10 sets, daily range): BP systolic 118–160; BP diastolic 58–97; PULSE 65–102; RESP 16–18; TEMP 36.1–37.3; O2SAT 94–98; BMI 33.5
[2024-11-08] MEDS: metroNIDAZOLE/NS 500 MG/100 ML PIGGYBACK 100 MG IV ×3 (05:51→21:06)
[2024-11-08 05:56] LABS: Basophils Percent Auto 0.5 % (0-2); Eosinophils Absolute Auto 0.1 X10*3/uL (0.0-0.4); Eosinophils Percent Auto 1.9 % (0-4); Hematocrit 34.4 % (42.0-52.0); Imm Gran Abs Auto 0.02 X10*3/uL (0.00-0.03); Imm Gran Pct Auto 0.3 % (0.0-0.4); Lymphocytes Absolute Auto 1.5 X10*3/uL (1.2-4.9); Lymphocytes Percent Auto 21.1 % (20-40); MANUAL DIFF FLAG NO; Mean Corpuscular HGB Conc 34.9 g/dl (31.0-36.0); Mean Corpuscular Hemoglobin 29.9 pg (27.0-33.0); Mean Corpuscular Volume 85.6 fL (80.0-98.0); Mean Platelet Volume 8.4 fL (9.4-12.4); Monocytes Absolute Auto 0.9 X10*3/uL (0.1-1.2); Monocytes Percent Auto 11.8 % (2-11); Neutrophils Absolute Auto 4.7 x10*3/uL (2.0-8.3); Neutrophils Percent Auto 64.4 % (45-73); Platelet Count 288 X10*3/uL (160-400); Red Blood Count 4.02 X10*6/uL (4.60-5.80); Red Cell Distribution Width 12.3 % (11.0-16.0); White Blood Count 7.3 X10*3/uL (4.8-10.8)
[2024-11-08] MEDS: oxyCODONE HCl Immed Release 5 MG TABLET PO ×2 (05:58→23:08)
--- NOTE | 2024-11-08 06:01 | PC.NURSE ---
Pt reporting 7/10 headache and right hand pain. Plan of care ongoing.
[2024-11-08 06:11] LABS: Anion Gap 14 (12-20); Blood Urea Nitrogen 19 mg/dL (9-16); Calcium 9.7 mg/dL (8.4-10.2); Carbon Dioxide 24 mmol/L (22-29); Chloride 107 mmol/L (96-108); Estimated Glomerular Filt Rate > 60; Glucose Random 179 mg/dL (60-115); Potassium 4.3 mmol/L (3.3-5.1); Sodium 141 mmol/L (135-145)
--- NOTE | 2024-11-08 06:45 | PC.NURSE ---
Pt requested and given warm blanket Plan of care ongoing.
[2024-11-08 07:48] LABS: Glucose, Whole Blood 190 mg/dL (60-115)
[2024-11-08 07:59] LABS: Glucose, Whole Blood 177 mg/dL (60-115)
--- NOTE | 2024-11-08 08:30 | HE.PHANOTE ---
Vanco dose adjustment based on scr dose continued at 1500 q 24h. Next level 11/09 @ 0700
[2024-11-08] MEDS: Furosemide 20 MG TABLET PO (08:36)
[2024-11-08] MEDS: vancomycin HCL 1,500 MG in 0.9 % Sodium Chloride 500 ML 333.33 MG IV (08:36)
[2024-11-08] MEDS: Insulin Lispro 100 UNIT/ML 3 ML VIAL SUBCUT ×4 (08:36→20:54)
[2024-11-08] MEDS: Losartan Potassium 25 MG TABLET PO (08:36)
[2024-11-08] MEDS: Atorvastatin Calcium 40 MG TABLET PO (08:36)
[2024-11-08] MEDS: Multivitamin TABLET 1 TAB PO (08:36)
[2024-11-08] MEDS: Aspirin Enteric Coated 81 MG TABLET.DR PO (08:36)
[2024-11-08] MEDS: Metoprolol Succinate ER 25 MG TAB.ER.24H PO (08:37)
[2024-11-08] MEDS: Clopidogrel Bisulfate 75 MG TABLET PO (08:37)
[2024-11-08] MEDS: Spironolactone 25 MG TABLET PO (08:37)
[2024-11-08] MEDS: 0.9 % Sodium Chloride Flush 3 ML SYRINGE IVFLUSH ×3 (08:42→23:10)
[2024-11-08] MEDS: Tiotropium Bromide 2.5 mcg 1 PUFF/2.5 MCG MIST.INHAL 2 PUFF INHALE (09:05)
--- NOTE | 2024-11-08 11:30 | HO.PM.IMPN ---
Subjective Subjective Date of Service: 11/08/24 Interval History: Seen and evaluated reporting pain and decrease ROM to left of his neck no fever or chills no swallowing\breathing problems Review of Systems Review of Systems: Yes all other systems are reviewed and are negative Physical Exam Vital Signs: Vital Signs: Last Vital Signs Temp 98.6 F 11/08/24 08:10 Pulse 97 11/08/24 09:06 Resp 16 11/08/24 09:06 BP 145/80 H 11/08/24 08:10 Pulse Ox 98 11/08/24 08:10 O2 Del Method Room Air 11/08/24 08:10 BMI result Body Mass Index 33.5 Const: Other: Constitutional : Awake, interactive, not in distress Neck : Normal inspection, Supple, enlarged left sided lymph nodes and swelling in left side of neck, no tenderness , erythema or drainage noted Cardiovascular : RRR, no JVP, no lower extremity edema Respiratory : good bilateral air entry, no crackles, wheezes or rhonchi Gastrointestinal: soft, lax, Normal bowel sounds, Non tender Skin : Warm, Dry Neurological : Alert & oriented x3, No focal deficit Objective Data Active Medications Acetaminophen (Acetaminophen 325 Mg Tablet) 975 mg PO Q6H PRN PRN Reason: Pain, Mild (Pain Scale 1-3), fever or headache Albuterol Sulfate (Albuterol Sulfate 90 Mcg 8 Gm Inhaler) 2 puff INHALE Q4H PRN PRN Reason: shortness of breath or wheezing Aspirin (Aspirin Enteric Coated 81 Mg Tablet.) 81 mg PO DAILY [facility] Last Admin: 11/08/24 08:36 Dose: 81 mg Documented By: FERNANDO Atorvastatin Calcium (Atorvastatin Calcium 40 Mg Tablet) 40 mg PO DAILY [facility] Last Admin: 11/08/24 08:36 Dose: 40 mg Documented By: FERNANDO Ceftriaxone Sodium (Ceftriaxone Sodium 2 Gm Vial) 2 gm IVPUSH Q24H [facility] Last Admin: 11/07/24 21:35 Dose: 2 gm Documented By: MILEY Clopidogrel Bisulfate (Clopidogrel Bisulfate 75 Mg Tablet) 75 mg PO DAILY [facility] Last Admin: 11/08/24 08:37 Dose: 75 mg Documented By: FERNANDO Enoxaparin Sodium (Enoxaparin Sodium 40 Mg/0.4 Ml Syringe) 40 mg SUBCUT Q24H [facility] Last Admin: 11/07/24 14:00 Dose: 40 mg Documented By: FERNANDO Furosemide (Furosemide 20 Mg Tablet) 20 mg PO DAILY [facility]; Protocol Last Admin: 11/08/24 08:36 Dose: 20 mg Documented By: FERNANDO Glucose (Glucose Gel 15 Gm Gel..Gram.) 15 gm PO Q15M PRN; Protocol PRN Reason: per Hypoglycemia Standing Ord. Metronidazole (Flagyl) 500 mg in 100 mls @ 100 mls/hr IV Q8H [facility] Last Infusion: 11/08/24 06:54 Dose: Infused Documented By: MILEY Dextrose (D10) 250 mls @ 750 mls/hr IV Q15M PRN; Protocol PRN Reason: per Hypoglycemia Standing Ord. Vancomycin HCl 1,500 mg/ (Sodium Chloride) 500 mls @ 333.333 mls/hr IV Q24H [facility] Last Infusion: 11/08/24 10:08 Dose: Infused Documented By: FERNANDO Insulin Glargine (Insulin Glargine,Hum.Rec.Anlog 100 Unit/Ml 10 Ml Vial) 15 unit SUBCUT BEDTIME [facility] Last Admin: 11/07/24 21:35 Dose: 15 unit Documented By: MILEY Insulin Human Lispro (Insulin Lispro 100 Unit/Ml 3 Ml Vial) 0 unit SUBCUT QIDACHS [facility]; Protocol Last Admin: 11/08/24 08:36 Dose: 2 unit Documented By: FERNANDO Losartan Potassium (Losartan Potassium 25 Mg Tablet) 25 mg PO DAILY [facility]; Protocol Last Admin: 11/08/24 08:36 Dose: 25 mg Documented By: FERNANDO Melatonin (Melatonin 3 Mg Tablet) 6 mg PO BEDTIME PRN PRN Reason: Insomnia Metoprolol Succinate (Metoprolol Succinate Er 25 Mg Tab.Er.24h) 25 mg PO DAILY [facility]; Protocol Last Admin: 11/08/24 08:37 Dose: 25 mg Documented By: FERNANDO Multivitamins/Vitamin C (Multivitamin Tablet) 1 tab PO DAILY [facility] Last Admin: 11/08/24 08:36 Dose: 1 tab Documented By: FERNANDO Oxycodone HCl (Oxycodone Hcl Immed Release 5 Mg Tablet) 5 mg PO Q6H PRN PRN Reason: Pain, Severe (Pain Scale 7-10) Last Admin: 11/08/24 05:58 Dose: 5 mg Documented By: MILEY Pharmacy Consult (Consult Rx Vancomycin Dosing) 1 each MISCELLANE DAILY PRN PRN Reason: Consult order Sodium Chloride (0.9 % Sodium Chloride Flush 3 Ml Syringe) 3 ml IVFLUSH QSHIFT [facility] Last Admin: 11/08/24 08:42 Dose: 3 ml Documented By: FERNANDO Spironolactone (Spironolactone 25 Mg Tablet) 25 mg PO DAILY [facility]; Protocol Last Admin: 11/08/24 08:37 Dose: 25 mg Documented By: FERNANDO Tiotropium [place] (Tiotropium [place] 2.5 Mcg 1 Puff/2.5 Mcg Mist.Inhal) 2 puff INHALE RDAILY [facility] Last Admin: 11/08/24 09:05 Dose: 2 puff Documented By: NATHANIEL Labs 11/08/24 05:47 11/08/24 05:47 Labs: Laboratory Results - last 24 hr 11/07/24 11/07/24 11/08/24 16:56 21:02 05:47 MCV 85.6 MCH 29.9 MCHC 34.9 RDW 12.3 Plt Count 288 MPV 8.4 L Immature Gran % (Auto) 0.3 Neut % (Auto) 64.4 Lymph % (Auto) 21.1 [place] % (Auto) 11.8 H Eos % (Auto) 1.9 Baso % (Auto) 0.5 Lymph # (Auto) 1.5 [place] # (Auto) 0.9 Eos # (Auto) 0.1 Baso # (Auto) 0.0 Abs Immat Gran (auto) 0.02 Absolute Neuts (auto) 4.7 Absolute Nucleated RBC 0.000 Nucleated RBC % (auto) 0.0 Anion Gap 14 Estim Creat Clear Calc 84.0 Estimated GFR > 60 POC Glucose 183 H 266 H Random Glucose 179 H Calcium 9.7 11/08/24 11/08/24 07:05 07:56 MCV MCH MCHC RDW Plt Count MPV Immature Gran % (Auto) Neut % (Auto) Lymph % (Auto) [place] % (Auto) Eos % (Auto) Baso % (Auto) Lymph # (Auto) [place] # (Auto) Eos # (Auto) Baso # (Auto) Abs Immat Gran (auto) Absolute Neuts (auto) Absolute Nucleated RBC Nucleated RBC % (auto) Anion Gap Estim Creat Clear Calc Estimated GFR POC Glucose 190 H 177 H Random Glucose Calcium Microbiology Microbiology Results: Microbiology 11/06/24 18:16 Blood Culture - Preliminary Blood - Venous No growth after 24 hours. 11/06/24 18:13 Blood Culture - Preliminary Blood - Venous No growth after 24 hours. Assessment and Plan (1) KATHLEEN (acute kidney injury): Status: Acute (2) Odontogenic infection of jaw: Status: Acute (3) Uncontrolled type 2 diabetes mellitus with hyperglycemia: Status: Acute (4) Lymphadenopathy of head and neck: Status: Acute Plan Jace Gonzales is a 59 y/o man admitted with: Left neck swelling secondary to odontogenic infection\possible underlying malignancy CT reported Heterogeneous left supraclavicular and left level lymphadenopathy measuring up to 2.9 cm. Moderate prevertebral edema from C2-C5. No demonstrated discrete fluid collection within the deep tissues of the neck IV antibiotic therapy with Vancomycin, Flagyl and ceftriaxone. Blood cultures pending Vancomycin trough To do CT chest\Abd with IV contrast to r\o any possible malignancy Uncontrolled type 2 diabetes mellitus with hyperglycemia Lantus and insulin sliding scale. Continue glimepiride hemoglobin A1c. 10.7 Acute on chronic kidney disease, likely multifactorial: improving use combination of spironolactone, furosemide and losartan. Hold Avoid nephrotoxic agents such as NSAIDs. Hyperlipidemia. Continue statin. Essential hypertension. Continue metoprolol. Restart losartan spironolactone after renal function improvement. HFrEF (echo November 2023 EF 35-40%). Furosemide on hold due to KATHLEEN. Continue metoprolol. COPD. Currently mild wheezing. Bronchodilator therapy. Continue Spiriva. CAD. Continue Plavix and statin. DVT prophylaxis: Lovenox Code status: Full Patient will need hospitalization overnight for odontogenic infection treatment with IV antibiotic therapy in the setting of uncontrolled diabetes pending CT scans and further work up Quality Stroke Does the patient have a stroke diagnosis?: No VTE Prior VTE?: No VTE Risk Level:: Medical - moderate - high VTE Device Contraindication: Treatment Not Indicated VTE Drug Contraindication: N/A - Med Ordered
[2024-11-08 11:53] LABS: Glucose, Whole Blood 276 mg/dL (60-115)
[2024-11-08] MEDS: iohexoL 350 MG/ML 75 ML INFUS..BTL 85 ML IV (12:17)
[2024-11-08] MEDS: Enoxaparin Sodium 40 MG/0.4 ML SYRINGE SUBCUT (14:05)
[2024-11-08 16:32] LABS: Glucose, Whole Blood 178 mg/dL (60-115)
[2024-11-08 20:30] LABS: Glucose, Whole Blood 241 mg/dL (60-115)
[2024-11-08] MEDS: Insulin Glargine,Hum.rec.anlog 100 UNIT/ML 10 ML VIAL 15 UNIT SUBCUT (20:54)
[2024-11-08] MEDS: cefTRIAXone sodium 2 GM VIAL IVPUSH (21:02)
[2024-11-08] MEDS: Albuterol Sulfate 90 MCG 8 GM INHALER 2 PUFF INHALE (21:55)
[2024-11-09 03:51] VITALS: BP 129/68; PULSE 76; RESP 16; TEMP 36.6; O2SAT 98
[2024-11-09] MEDS: metroNIDAZOLE/NS 500 MG/100 ML PIGGYBACK 100 MG IV (05:06)
[2024-11-09 06:13] LABS: MANUAL DIFF FLAG NO
[2024-11-09 06:20] LABS: Basophils Percent Auto 0.7 % (0-2); Eosinophils Absolute Auto 0.1 X10*3/uL (0.0-0.4); Eosinophils Percent Auto 2.5 % (0-4); Hematocrit 31.6 % (42.0-52.0); Hemoglobin 10.7 g/dl (14.0-18.0); Imm Gran Abs Auto 0.01 X10*3/uL (0.00-0.03); Imm Gran Pct Auto 0.2 % (0.0-0.4); Lymphocytes Absolute Auto 1.5 X10*3/uL (1.2-4.9); Lymphocytes Percent Auto 25.8 % (20-40); Mean Corpuscular HGB Conc 33.9 g/dl (31.0-36.0); Mean Corpuscular Volume 85.6 fL (80.0-98.0); Mean Platelet Volume 8.9 fL (9.4-12.4); Monocytes Absolute Auto 0.9 X10*3/uL (0.1-1.2); Monocytes Percent Auto 15.1 % (2-11); Neutrophils Absolute Auto 3.1 x10*3/uL (2.0-8.3); Neutrophils Percent Auto 55.7 % (45-73); Platelet Count 287 X10*3/uL (160-400); Red Blood Count 3.69 X10*6/uL (4.60-5.80); Red Cell Distribution Width 12.4 % (11.0-16.0); White Blood Count 5.6 X10*3/uL (4.8-10.8)
[2024-11-09 06:33] LABS: Creatinine Clr Calc Pharmacy 81.4; Estimated Glomerular Filt Rate 60
[2024-11-09 06:36] LABS: Anion Gap 13 (12-20); Blood Urea Nitrogen 14 mg/dL (9-16); Calcium 9.2 mg/dL (8.4-10.2); Carbon Dioxide 20 mmol/L (22-29); Chloride 104 mmol/L (96-108); Creatinine Clr Calc Pharmacy 84.9; Estimated Glomerular Filt Rate > 60; Glucose Random 217 mg/dL (60-115); Sodium 133 mmol/L (135-145)
[2024-11-09 06:55] VITALS: BP 136/74; PULSE 82; RESP 17; TEMP 36.5; O2SAT 94
[2024-11-09 07:04] LABS: Glucose, Whole Blood 176 mg/dL (60-115)
[2024-11-09] MEDS: Insulin Lispro 100 UNIT/ML 3 ML VIAL SUBCUT (07:35)
[2024-11-09] MEDS: Spironolactone 25 MG TABLET PO (07:36)
[2024-11-09] MEDS: Multivitamin TABLET 1 TAB PO (07:36)
[2024-11-09] MEDS: Atorvastatin Calcium 40 MG TABLET PO (07:36)
[2024-11-09] MEDS: Metoprolol Succinate ER 25 MG TAB.ER.24H PO (07:36)
[2024-11-09] MEDS: Clopidogrel Bisulfate 75 MG TABLET PO (07:37)
[2024-11-09] MEDS: Furosemide 20 MG TABLET PO (07:37)
[2024-11-09] MEDS: Aspirin Enteric Coated 81 MG TABLET.DR PO (07:37)
[2024-11-09] MEDS: Losartan Potassium 25 MG TABLET PO (07:37)
[2024-11-09] MEDS: 0.9 % Sodium Chloride Flush 3 ML SYRINGE IVFLUSH (07:38)
[2024-11-09] MEDS: vancomycin HCL 1,500 MG in 0.9 % Sodium Chloride 500 ML 333.3 MG IV (07:43)
[2024-11-09] MEDS: Tiotropium Bromide 2.5 mcg 1 PUFF/2.5 MCG MIST.INHAL 2 PUFF INHALE (08:12)
[2024-11-09 08:13] VITALS: PULSE 82; RESP 17; O2SAT 97
--- NOTE | 2024-11-09 08:49 | HE.PHANOTE ---
IV to PO Conversion Reviewed 11/09/24 @ 0800 Metronidazole IV 500 mg Q8H Currently Afebrile, WBC WNL, tolerating diet and PO medications Switch to Metronidazole 500 mg Q8H starting 11/09 @ 1300 Aby Muniz, NishD
--- NOTE | 2024-11-09 10:44 | PM.DS ---
DS: Providers Provider Date of Service: 11/09/24 Date of admission: 11/06/24 21:32 Date of discharge: 11/09/24 Primary care physician: Shell Fang MD DS: Diagnosis Discharge Diagnosis (1) KATHLEEN (acute kidney injury): Status: Acute (2) Odontogenic infection of jaw: Status: Acute (3) Uncontrolled type 2 diabetes mellitus with hyperglycemia: Status: Acute (4) Lymphadenopathy of head and neck: Status: Acute DS: Summary Hospital Course Hospital Course: Admission note HPI Jace Gonzales is a 59 years old man with past medical history significant for CAD, HFrEF (echo November 2023 EF 35-40%), CKD, COPD and hypertension presents to the emergency department complaining of 3 weeks history of left neck pain. He underwent a left upper teeth procedure in August. He also complaining of frontal headache. Denies fever or chills. Denies difficulty swallowing or shortness on breath. He did complain of occasional cough and some shortness of breath. He stated that he has a history of diabetes but has not been taking anything for this. He denied any acute gastrointestinal genitourinary symptoms except for increased urinary frequency. He has been very thirsty daily. He is a tobacco smoker smoked 1 pack every 2 days. Denied illicit drug use or alcohol abuse. In the ED, he was found to have stable vital signs. Blood workup showed no leukocytosis. Hemoglobin is 11.3 and platelets are normal. Venous blood gases normal. Creatinine is 2.40 (1.86 -8 days ago). Glucose was initially 411 most recent 1 is 365. Osmolality 309. There are no significant electrolyte imbalances. LFTs are normal except for mildly elevated alk-phos 143. UA showed no evidence of UTI. Soft tissue neck CT scan showed heterogeneous lispro clavicular and left level lymphadenopathy supple which appears centrally necrotic and periventricular edema (C2-C5); etiology is nonspecific and could represent underlying infectious/inflammatory process without discrete drainable fluid collection. It also showed persistent socket of the left 3rd molar. Hospital course The patient was admitted to the hospital for evaluation of Left neck swelling secondary to odontogenic infection post teeth procedure in August. CT reported Heterogeneous left supraclavicular and left level lymphadenopathy measuring up to 2.9 cm. Moderate prevertebral edema from C2-C5. No demonstrated discrete fluid collection within the deep tissues of the neck with no reported abscess formation. treated with IV antibiotic therapy with Vancomycin, Flagyl and ceftriaxone with fair response over the course of hospital stay as Blood cultures remained negative with improvement in pain and neck range of motion. CT chest\Abd with IV contrast was done to evaluate for any possible malignancy which came back negative for any masses or suspecious growth. Will continue antibiotic treatment with Doxycycline and Augmentin for 1 more week. He was also noted to have Uncontrolled type 2 diabetes mellitus with hyperglycemia with HbA1c of 10.7. better controlled with Lantus and insulin sliding scale along with home medication Jardiance. To be discharged on Insulin lantus 15 units, sliding scale insulin and Metformin with a plan to follow with PCP for further adjustments. He was also noted to have Acute on chronic kidney disease, likely multifactorial from use combination of spironolactone, furosemide and losartan which were held with good response as Creatinine improved back to baseline. Discharge plan Continue antibiotics for 1 more week Start Insulin as prescribed Start Metformin twice a day Can use Ibuprofen\Tylenol for pain Follow with Dentist as needed Follow with PCP for further adjustments of home medications come back to ED for any fever, swallowing problem or increase neck pain Time Attestation Discharge Coordination Time (in mins): 36 Quality: Safe Use of Opioids Does Pt have an Active Cancer Diagnosis on the Problem List?: No Quality: Stroke Does the patient have a stroke diagnosis?: No Physical Exam Vital Signs: Vital Signs: Last Vital Signs Temp 97.7 F 11/09/24 06:55 Pulse 82 11/09/24 08:13 Resp 17 11/09/24 08:13 BP 136/74 11/09/24 06:55 Pulse Ox 94 11/09/24 06:55 O2 Del Method Room Air 11/09/24 06:55 BMI result Body Mass Index 33.5 Const: Other: Constitutional : Awake, interactive, not in distress Neck : Normal inspection, Supple, improved ROM to left side, enlarged left sided lymph nodes in left side of neck, no tenderness , erythema or drainage noted Cardiovascular : RRR, no JVP, no lower extremity edema Respiratory : good bilateral air entry, no crackles, wheezes or rhonchi Gastrointestinal: soft, lax, Normal bowel sounds, Non tender Skin : Warm, Dry Neurological : Alert & oriented x3, No focal deficit DS: Data Data Completed and Pending Labs on day of discharge: Laboratory Results - last 24 hr 11/08/24 11/08/24 11/08/24 11:25 16:07 20:16 WBC RBC Hgb Hct MCV MCH MCHC RDW Plt Count MPV Immature Gran % (Auto) Neut % (Auto) Lymph % (Auto) [place] % (Auto) Eos % (Auto) Baso % (Auto) Lymph # (Auto) [place] # (Auto) Eos # (Auto) Baso # (Auto) Abs Immat Gran (auto) Absolute Neuts (auto) Absolute Nucleated RBC Nucleated RBC % (auto) Sodium Potassium Chloride Carbon Dioxide Anion Gap BUN Creatinine Estim Creat Clear Calc Estimated GFR POC Glucose 276 H 178 H 241 H Random Glucose Calcium 11/09/24 11/09/24 11/09/24 05:40 05:40 05:40 WBC 5.6 RBC 3.69 L Hgb 10.7 L Hct 31.6 L MCV 85.6 MCH 29.0 MCHC 33.9 RDW 12.4 Plt Count 287 MPV 8.9 L Immature Gran % (Auto) 0.2 Neut % (Auto) 55.7 Lymph % (Auto) 25.8 [place] % (Auto) 15.1 H Eos % (Auto) 2.5 Baso % (Auto) 0.7 Lymph # (Auto) 1.5 [place] # (Auto) 0.9 Eos # (Auto) 0.1 Baso # (Auto) 0.0 Abs Immat Gran (auto) 0.01 Absolute Neuts (auto) 3.1 Absolute Nucleated RBC 0.000 Nucleated RBC % (auto) 0.0 Sodium 133 L Potassium 4.0 Chloride 104 Carbon Dioxide 20 L Anion Gap 13 BUN 14 Creatinine 1.23 1.18 Estim Creat Clear Calc 81.4 84.9 Estimated GFR 60 POC Glucose Random Glucose Calcium 11/09/24 11/09/24 05:40 06:59 WBC RBC Hgb Hct MCV MCH MCHC RDW Plt Count MPV Immature Gran % (Auto) Neut % (Auto) Lymph % (Auto) [place] % (Auto) Eos % (Auto) Baso % (Auto) Lymph # (Auto) [place] # (Auto) Eos # (Auto) Baso # (Auto) Abs Immat Gran (auto) Absolute Neuts (auto) Absolute Nucleated RBC Nucleated RBC % (auto) Sodium Potassium Chloride Carbon Dioxide Anion Gap BUN Creatinine Estim Creat Clear Calc Estimated GFR > 60 POC Glucose 176 H Random Glucose 217 H Calcium 9.2 Preliminary micro results at discharge 11/06/24 18:16 Blood Culture - Preliminary Blood - Venous No growth after 48 hours. 11/06/24 18:13 Blood Culture - Preliminary Blood - Venous No growth after [address] scan - chest: Radiologist's impression: ITS Impressions Soft Tissue Neck CT 11/06/24 18:05 IMPRESSION: Heterogeneous left supraclavicular and left level lymphadenopathy (some of which appear centrally necrotic) measuring up to 2.9 cm. Moderate prevertebral edema from C2-C5. No demonstrated discrete fluid collection within the deep tissues of the neck. There is a persistent socket of the maxillary left 3rd molar, although is not clear that the aforementioned abnormalities represent direct sequela. The etiology of this overall picture is nonspecific and could represent an underlying infectious/inflammatory process although metastatic disease remains a consideration. No demonstrated additional discrete drainable fluid collection. Electronically signed by: Christiano Winter DO 11/06/2024 08:40 PM [facility] CT[facility] CHEST IMPRESSION: 1. No acute process. No suspicious pulmonary nodules. 2. Left supraclavicular lymphadenopathy is partially visualized. 3. Hepatic steatosis. CT Abdomen IMPRESSION: No suspiciously enlarged lymphadenopathy. Small cholelithiasis. Discharge Plan Discharge Anticipated Discharge Date/Time: 11/09/24 10:25 Patient Disposition: Home, Self-Care Discharge Diagnosis: Infection of molar and jaw Uncontrolled diabetes type 2 Referrals: Shell Fang MD [Primary Care Provider] - 1 Week Discharge Medications: New amoxicillin-pot clavulanate 875-125 mg tablet 1 tab PO BID Qty: 14 0RF doxycycline monohydrate 100 mg capsule 100 mg PO BID Qty: 14 0RF insulin glargine 100 unit/mL (3 mL) insulin pen 15 unit subcut QAM Qty: 15 0RF metformin 500 mg tablet 500 mg PO BIDWMEAL Qty: 60 0RF insulin lispro [Humalog KwikPen Insulin] 100 unit/mL insulin pen See Protocol subcut USEASDIRECTD Qty: 15 0RF Protocol: Insulin Correction Scale Less than or equal to 110 ---- Give (units): 0 111 to 150 Give (units): 0 151 to 200 Give (units): 2 201 to 250 Give (units): 4 251 to 300 Give (units): 6 301 to 350 Give (units): 8 Greater than 350 Give (units): 10 Call MD if Blood Glucose > : 350 (DME) blood-glucose meter [FreeStyle Lite Meter] Kit See Rx Instructions .ROUTE .MEDSUPPLY Qty: 1 0RF Rx Instructions: As directed (DME) lancets Misc See Rx Instructions .ROUTE .MEDSUPPLY Qty: 100 0RF Rx Instructions: 4 times daily (DME) pen needle, diabetic [Pen Needle] 31 gauge x 5/16 needle See Rx Instructions .ROUTE .MEDSUPPLY Qty: 1200 0RF Rx Instructions: As directed, QID (DME) FreeStyle Lite Strips Strip See Rx Instructions .ROUTE .MEDSUPPLY Qty: 100 0RF Rx Instructions: QID Continued albuterol sulfate 90 mcg/actuation aerosol powdr breath activated 2 inh inhalation Q4-6H PRN (Reason: shortness of breath or wheezing) Qty: 1 0RF Spiriva Respimat 2.5 mcg/actuation mist 2 puff inhalation DAILY aspirin 81 mg Tablet,Delayed Release (Dr/Ec) 81 mg PO DAILY vitamin B complex Capsule 1 cap PO DAILY losartan 25 mg Tablet 25 mg PO DAILY Qty: 90 0RF Protocol: Hold for SBP< HOLD for SBP < : 90 furosemide 20 mg Tablet 20 mg PO DAILY Qty: 90 0RF Protocol: Hold for SBP< HOLD for SBP < : 90 spironolactone 25 mg Tablet 25 mg PO DAILY Qty: 90 0RF Protocol: Hold for SBP< HOLD for SBP < : 90 Jardiance 10 mg Tablet 10 mg PO DAILY Qty: 30 0RF metoprolol succinate 25 mg tablet extended release 24 hr 25 mg PO DAILY clopidogrel 75 mg tablet 75 mg PO DAILY atorvastatin 40 mg tablet 40 mg PO DAILY Discharge Orders: Discharge Order (Routine); Ordered 11/09/24 Ordered By: Reina Perkins Diet: Diabetic diet Activity on Discharge: As tolerated Stand Alone Forms: Patient Portal Discharge page Print Language: Jamaican Care Plan Goals: Continue antibiotics for 1 more week Start Insulin as prescribed Start Metformin twice a day Can use Ibuprofen\Tylenol for pain Follow with Dentist as needed Follow with PCP for further adjustments of home medications come back to ED for any fever, swallowing problem or increase neck pain Health Concerns: Jaw infection Uncontrolled diabetes Plan of Treatment: Antibiotics Insulin Assessment: as above Patient Instructions: Foot Care for People with Diabetes (DC), Type 2 Diabetes in Adults: New Diagnosis (DC), Meal Planning with Diabetes Exchanges (DC), Diabetes and Exercise (DC), Type 2 Diabetes Management for Adults (DC)
--- NOTE | 2024-11-09 10:55 | MHC.CM.PN ---
PT DCD HOME SELF CARE
--- NOTE | 2024-11-09 13:16 | P.CDIM_ITS ---
PROVIDER RESPONSE TEXT: To clarify, the appropriate diagnosis supported by the clinical indicators: CKD, please provide stage: CKD2 QUERY TEXT: PHYSICIAN'S DOCUMENTATION REQUEST Date of Query: 11/08/2024 11:51 AM EST Patient Name: Jace Gonzales Admit Date: 11/07/2024 Dear Reina Perkins MD, A review of the medical record indicates additional documentation may be needed. Please review below and update the documentation accordingly. Clinical Indicators: Progress notes within the Plan: Acute on chronic kidney disease, likely multifactorial. Improving. Use combination of spironolactone, furosemide and losartan. Avoid nephrotoxic agents such as NSAIDS. Please clarify which of the following accurately represents the patient's stage of the noted CKD: CKD, please provide stage 1, 2, 3a, 3b, 4 etc. Other (explain) Clinically unable to determine (explain) Thank you, Jaleesa Hernandez, CCS, CDIS Use of terms such as suspected, likely, concern for, or probable (associated with a specific diagnosi s that is being evaluated, monitored, or treated as if it exists) are acceptable and can be coded in the inpatient se tting, when documented at the time of discharge. Please use your independent medical judgment in providing your response. THIS QUERY IS PART OF THE PERMANENT MEDICAL RECORD
== END 2024-11-09 11:03 | disposition home or self-care (01) | DRG 721 ==
LOC: HO.ED 18:37 → HO.EDOVER 22:11 → HO.S3 11-08 07:27
PROVIDERS: Nurse Practitioner Family; Physician Assistant Medical; Admitting Provider Internal Medicine; Emergency Provider Emergency Medicine; PCP Internal Medicine; Visit Provider Student in an Organized Health Care Education/Training Program
DX: T81.40XA Infection following a procedure, unspecified, initial encounter (principal); N17.9 Acute kidney failure, unspecified; I13.0 Hypertensive heart and chronic kidney disease with heart failure and stage 1 through stage 4 chronic kidney disease, or unspecified chronic kidney disease; E11.22 Type 2 diabetes mellitus with diabetic chronic kidney disease; I50.22 Chronic systolic (congestive) heart failure; M27.2 Inflammatory conditions of jaws; F17.210 Nicotine dependence, cigarettes, uncomplicated; J44.9 Chronic obstructive pulmonary disease, unspecified; E11.65 Type 2 diabetes mellitus with hyperglycemia; N18.2 Chronic kidney disease, stage 2 (mild); E78.5 Hyperlipidemia, unspecified; I25.10 Atherosclerotic heart disease of native coronary artery without angina pectoris; Z71.6 Tobacco abuse counseling; Z79.02 Long term (current) use of antithrombotics/antiplatelets; Z79.82 Long term (current) use of aspirin; Z79.84 Long term (current) use of oral hypoglycemic drugs; Z79.899 Other long term (current) drug therapy
CPT/HCPCS: 36415; 70490; 71260; 74177; 80048; 80076; 81001; 82010; 82565; 82803; 82947; 83036; 83605; 83930; 83935; 84300; 85025; 85652; 86140; 87040; 94640; 99285; J0696; J0736; J1650; J1836; J3370; J3371; Q9967

== ENCOUNTER → 2024-11-06 21:32 | Outpatient (BNV) | payer OTHER, SELFPAY | PROVIDERS: Admitting Provider Internal Medicine; Emergency Provider Emergency Medicine; PCP Internal Medicine; Visit Provider Internal Medicine | DX: M27.2 Inflammatory conditions of jaws (principal); E11.65 Type 2 diabetes mellitus with hyperglycemia; N17.9 Acute kidney failure, unspecified | CPT/HCPCS: 99222; 99232 ==

== ENCOUNTER 2024-11-19 10:50 | Outpatient (REF) | payer OTHER, SELFPAY ==
[2024-11-19 13:51] LABS: MANUAL DIFF FLAG NO
[2024-11-19 14:06] LABS: Basophils Absolute Auto 0.1 X10*3/uL (0.0-0.2); Basophils Percent Auto 1.3 % (0-2); Eosinophils Absolute Auto 0.1 X10*3/uL (0.0-0.4); Eosinophils Percent Auto 2.1 % (0-4); Hematocrit 35.5 % (42.0-52.0); Hemoglobin 11.6 g/dl (14.0-18.0); Imm Gran Abs Auto 0.01 X10*3/uL (0.00-0.03); Imm Gran Pct Auto 0.2 % (0.0-0.4); Lymphocytes Absolute Auto 1.6 X10*3/uL (1.2-4.9); Lymphocytes Percent Auto 30.3 % (20-40); Mean Corpuscular HGB Conc 32.7 g/dl (31.0-36.0); Mean Corpuscular Hemoglobin 28.9 pg (27.0-33.0); Mean Corpuscular Volume 88.5 fL (80.0-98.0); Mean Platelet Volume 8.5 fL (9.4-12.4); Monocytes Absolute Auto 0.5 X10*3/uL (0.1-1.2); Monocytes Percent Auto 8.7 % (2-11); Neutrophils Absolute Auto 3.1 x10*3/uL (2.0-8.3); Neutrophils Percent Auto 57.4 % (45-73); Platelet Count 432 X10*3/uL (160-400); Red Blood Count 4.01 X10*6/uL (4.60-5.80); Red Cell Distribution Width 12.7 % (11.0-16.0); White Blood Count 5.3 X10*3/uL (4.8-10.8)
[2024-11-19 14:26] LABS: Anion Gap 14 (12-20); Blood Urea Nitrogen 15 mg/dL (9-16); Calcium 10.2 mg/dL (8.4-10.2); Carbon Dioxide 25 mmol/L (22-29); Chloride 103 mmol/L (96-108); Estimated Glomerular Filt Rate > 60; Glucose Random 166 mg/dL (60-115); Lactate Dehydrogenase 397 U/L (118-273); Potassium 4.2 mmol/L (3.3-5.1); Sodium 138 mmol/L (135-145)
[2024-11-19 17:27] LABS: Erythrocyte Sedimentation Rate 58 MM/HR (0-15)
[2024-11-19 23:45] LABS: Thyroid Stimulating Hormone 0.68 uIU/mL (0.32-4.0)
[2024-11-20 00:30] LABS: Free T4 (Free Thyroxine) 1.13 ng/dL (0.71-1.85); T4 Thyroxine 7.4 ug/dL (4.5-12.0)
[2024-11-21 06:53] LABS: Triiodothyronine T3 Free 3.6 pg/mL (2.3-4.2); Triiodothyronine T3 Total 97 ng/dL (76-181)
[2024-11-22 01:57] LABS: TSpotTB Invalid (Negative)
[2024-11-22 14:06] LABS: Syphilis Screen Nonreactive (Nonreactive)
[2024-11-22 14:45] LABS: HIV AB/AG Nonreactive (Nonreactive); HIV Num 1 0.06 S/CO (0.00-0.99)
== END 2024-11-19 10:51 | disposition home or self-care (01) ==
LOC: HO.HHCL 10:50
PROVIDERS: Visit Provider Internal Medicine
DX: E11.8 Type 2 diabetes mellitus with unspecified complications (principal); R22.1 Localized swelling, mass and lump, neck
CPT/HCPCS: 36415; 80048; 83615; 84436; 84439; 84443; 84480; 84481; 85025; 85652; 86481; 86780; 87389

== ENCOUNTER 2024-12-07 10:32 | Outpatient (REF) | payer OTHER, SELFPAY ==
[2024-12-07 11:41] LABS: MANUAL DIFF FLAG NO
[2024-12-07 11:49] LABS: Basophils Percent Auto 0.7 % (0-2); Eosinophils Absolute Auto 0.2 X10*3/uL (0.0-0.4); Hematocrit 34.1 % (42.0-52.0); Hemoglobin 11.3 g/dl (14.0-18.0); Imm Gran Abs Auto 0.01 X10*3/uL (0.00-0.03); Imm Gran Pct Auto 0.2 % (0.0-0.4); Lymphocytes Absolute Auto 1.5 X10*3/uL (1.2-4.9); Lymphocytes Percent Auto 28.1 % (20-40); Mean Corpuscular HGB Conc 33.1 g/dl (31.0-36.0); Mean Corpuscular Hemoglobin 29.4 pg (27.0-33.0); Mean Corpuscular Volume 88.6 fL (80.0-98.0); Mean Platelet Volume 8.8 fL (9.4-12.4); Monocytes Absolute Auto 0.6 X10*3/uL (0.1-1.2); Monocytes Percent Auto 10.6 % (2-11); Neutrophils Absolute Auto 3.1 x10*3/uL (2.0-8.3); Neutrophils Percent Auto 57.4 % (45-73); Platelet Count 270 X10*3/uL (160-400); Red Blood Count 3.85 X10*6/uL (4.60-5.80); Red Cell Distribution Width 13.7 % (11.0-16.0); White Blood Count 5.4 X10*3/uL (4.8-10.8)
[2024-12-07 11:53] LABS: Rheumatoid Factor < 13.0 IU/mL (<15.0)
[2024-12-07 11:56] LABS: C Reactive Protein 3.57 mg/dL (< or = 0.50); Uric Acid 6.6 mg/dL (3.4-7.0)
[2024-12-07 12:27] LABS: Erythrocyte Sedimentation Rate 45 MM/HR (0-15)
[2024-12-07 12:28] LABS: HBS Num1 48.11 mIU/mL (0-7.99); HBc Num1 9.53 S/CO (0.00-0.79); HBsAGNum1 0.53 S/CO (0.00-0.99); Hepatitis A Antibody IgM 0.19 Index (0-0.79); Hepatitis B Surface Antigen Negative (Negative); ~HepC Num1 0.11 S/CO (0.00-0.79); ~Hepatitis A Antibody IgM Nonreactive (Nonreactive); ~Hepatitis B Surface Antibody REACTIVE (Nonreactive); ~Hepatitis C Antibody Nonreactive (Nonreactive)
[2024-12-07 13:43] LABS: HBc Num2 9.51 S/CO; HBc Num3 10.06 S/CO; Hepatitis B Core Antibody Reactive (Nonreactive)
[2024-12-09 02:58] LABS: Hepatitis B Core Antibody IgM NON-REACTIVE (NON-REACTIVE)
[2024-12-10 14:43] LABS: Anti Nuclear Antibody Screen NEGATIVE (NEGATIVE)
== END 2024-12-07 10:33 | disposition home or self-care (01) ==
LOC: HO.HHCL 10:32
PROVIDERS: Visit Provider Internal Medicine
DX: M13.0 Polyarthritis, unspecified (principal); Z11.59 Encounter for screening for other viral diseases; Z72.89 Other problems related to lifestyle
CPT/HCPCS: 36415; 84550; 85025; 85652; 86038; 86140; 86431; 86704; 86705; 86706; 86709; 86803; 87340

== ENCOUNTER 2024-12-24 09:36 | Emergency (ER) | payer OTHER, SELFPAY ==
--- NOTE | ~2024-12-24 | CT_ITS ---
CLINICAL HISTORY: L neck swelling, r o edema vs abscess CT SOFT TISSUE NECK WITH CONTRAST Comparison: CT/SR - CT SOFT TISSUE NECK WO IV CON - 11/06/24 18:05 EST Findings: There is an old left MCA territory infarct. Known occluded left intracranial ICA segments. No prevertebral fluid. Epiglottis is within normal limits. Pharyngeal mucosal space and parapharyngeal fat are intact. Multiple enlarged lymph nodes in the left supraclavicular region are smaller and appear fewer in number. There is less edema in the surrounding fat. 1.8 cm in short axis dimension lymph node on coronal image 38 previously measured 4.2 cm. 1.5 cm lymph node on axial image 298 measured 1.9 cm on prior study. Stable 2 cm lymph node on axial image 362. Grossly patent internal jugular veins. Salivary glands are within normal limits. No sialoliths. No suspicious thyroid nodules. Visualized lung apices are clear. No acute fracture or dislocation. IMPRESSION: 1. No wall enhancing fluid collection to suggest the presence of an abscess. 2. Persistent left supraclavicular lymphadenopathy with mild improvement. The largest lymph node currently measures 2 cm in short axis dimension. Inflammatory/infectious etiology, metastatic disease or hematologic malignancy is included in the differential. This document has been electronically signed by: Dia Vyas DO on 12/24/2024 18:52:40
[2024-12-24 10:12] VITALS: BP 131/73; PULSE 85; RESP 16; TEMP 36.1; O2SAT 100; BMI 32.4
[2024-12-24 11:07] LABS: MANUAL DIFF FLAG NO
[2024-12-24 11:09] LABS: Basophils Absolute Auto 0.1 X10*3/uL (0.0-0.2); Basophils Percent Auto 0.9 % (0-2); Eosinophils Absolute Auto 0.2 X10*3/uL (0.0-0.4); Eosinophils Percent Auto 2.6 % (0-4); Hematocrit 36.6 % (42.0-52.0); Hemoglobin 12.1 g/dl (14.0-18.0); Imm Gran Abs Auto 0.01 X10*3/uL (0.00-0.03); Imm Gran Pct Auto 0.2 % (0.0-0.4); Lymphocytes Absolute Auto 1.6 X10*3/uL (1.2-4.9); Lymphocytes Percent Auto 28.1 % (20-40); Mean Corpuscular HGB Conc 33.1 g/dl (31.0-36.0); Mean Corpuscular Hemoglobin 29.4 pg (27.0-33.0); Mean Corpuscular Volume 88.8 fL (80.0-98.0); Mean Platelet Volume 8.4 fL (9.4-12.4); Monocytes Absolute Auto 0.5 X10*3/uL (0.1-1.2); Monocytes Percent Auto 9.3 % (2-11); Neutrophils Absolute Auto 3.4 x10*3/uL (2.0-8.3); Neutrophils Percent Auto 58.9 % (45-73); Platelet Count 286 X10*3/uL (160-400); Red Blood Count 4.12 X10*6/uL (4.60-5.80); White Blood Count 5.8 X10*3/uL (4.8-10.8)
[2024-12-24 11:24] LABS: Alanine Aminotransferase 26 U/L (0-40); Albumin Level 4.4 g/dL (3.5-5.0); Alkaline Phosphatase 120 U/L (39-117); Anion Gap 10 (12-20); Aspartate Amino Transferase 18 U/L (5-37); Bilirubin Direct 0.2 mg/dL (0.0-0.5); Bilirubin Total 0.6 mg/dL (0.0-1.0); Blood Urea Nitrogen 15 mg/dL (9-16); C Reactive Protein 1.54 mg/dL (< or = 0.50); Calcium 9.7 mg/dL (8.4-10.2); Carbon Dioxide 26 mmol/L (22-29); Chloride 108 mmol/L (96-108); Creatinine Clr Calc Pharmacy 99.6; Estimated Glomerular Filt Rate > 60; Glucose Random 105 mg/dL (60-115); Magnesium 1.9 mg/dL (1.6-2.6); Sodium 140 mmol/L (135-145); Total Protein 7.9 g/dL (6.5-8.0)
[2024-12-24 11:47] LABS: Erythrocyte Sedimentation Rate 25 MM/HR (0-15)
[2024-12-24 11:48] LABS: Monotest Negative (Negative)
--- NOTE | 2024-12-24 16:18 | ED.NECK ---
HPI - Neck Pain/Injury General Chief Complaint: Neck Pain/Injury Stated Complaint: neck pain sent from [facility] walk in care Time Seen by Provider: 12/24/24 16:16 Source: patient, RN notes reviewed and old records reviewed Mode of arrival: ambulatory History of Present Illness ED Provider: Essie Espinosa PA-C HPI Narrative: 59-year-old male with a past medical history of diabetes, HLD, ETOH dependence, HTN, CVA, COPD, asthma, carotid artery stenosis, presenting to the ED sent in from [facility] complaining of left-sided neck pain and swelling x 6 days. Admits to similar symptoms in the past, was admitted to our hospital last month for similar symptoms, s/p found to have odontogenic infection s/p dental procedure. Denies fever, chills, difficulty or inability to swallow, ear pain, recent dental procedures, sore throat, SOB, trauma. Related Data Home Medications ?Medication ?Instructions ?Recorded ?Confirmed atorvastatin 40 mg tablet 40 mg PO DAILY 09/15/21 11/06/24 clopidogrel 75 mg tablet 75 mg PO DAILY 09/15/21 11/06/24 aspirin 81 mg tablet,delayed 81 mg PO DAILY 12/21/23 11/06/24 release tiotropium bromide 2.5 2 puff inhalation DAILY 12/21/23 11/06/24 mcg/actuation mist for inhalation (Spiriva Respimat) vitamin B complex 1 cap PO DAILY 12/21/23 11/06/24 metoprolol succinate 25 mg 25 mg PO DAILY 11/06/24 11/06/24 tablet,extended release 24 hr Previous Rx's ?Medication ?Instructions ?Recorded albuterol sulfate 90 mcg/actuation 2 inh inhalation Q4-6H PRN 02/04/22 breath activated powder inhaler shortness of breath or wheezing #1 ea furosemide 20 mg tablet 20 mg PO DAILY #90 tabs 12/22/23 losartan 25 mg tablet 25 mg PO DAILY #90 tabs 12/22/23 empagliflozin 10 mg tablet 10 mg PO DAILY #30 tabs 12/23/23 (Jardiance) spironolactone 25 mg tablet 25 mg PO DAILY #90 tabs 12/23/23 amoxicillin 875 mg-potassium 1 tab PO BID #14 tabs 11/09/24 clavulanate 125 mg tablet blood sugar diagnostic (FreeStyle #100 ea 11/09/24 Lite Strips) blood-glucose meter (FreeStyle #1 ea 11/09/24 Lite Meter kit) doxycycline monohydrate 100 mg 100 mg PO BID #14 caps 11/09/24 capsule insulin glargine 100 unit/mL (3 15 unit (0.15 mL) subcut QAM #15 mL 11/09/24 mL) subcutaneous pen insulin regular human 100 unit/mL See Protocol subcut USEASDIRECTD 11/09/24 (3 mL) subcutaneous pen (Novolin R #15 mL FlexPen) lancets #100 ea 11/09/24 metformin 500 mg tablet 500 mg PO BIDWMEAL #60 tabs 11/09/24 pen needle, diabetic 31 gauge x #1,200 ea 11/09/2404/12 (Pen Needle) Allergies Allergy/AdvReac Type Severity Reaction Status Date / Time No Known Allergies Allergy Verified 12/24/24 10:16 [No Known Allergies*] Review of Systems Review of Systems: Yes all other systems are reviewed and are negative Constitutional: Constitutional: Reports as per [facility] Past Medical History Attestation statement: The following information was validated with the patient. Source: old records reviewed Medical History Uncontrolled type 2 diabetes mellitus with hyperglycemia Congestive heart failure Vitamin D deficiency Hypercholesteremia Uncomplicated alcohol dependence Essential hypertension Mild intermittent asthma in adult without complication Stenosis of carotid artery Adjustment disorder with anxious mood Episodic tension-type headache, not intractable Chronic bilateral low back pain without sciatica Acute bilateral low back pain without sciatica CVA (cerebrovascular accident) Allergic conjunctivitis of both eyes Acute pain of left knee Tobacco dependence COPD (chronic obstructive pulmonary disease) with chronic bronchitis Social History Social History Household Members: None Housing: Apartment Do you presently have visiting nurse or other home services: No Alcohol intake: current Alcohol intake frequency: 3 or more drinks per day Alcohol type: hard liquor Comment: Pt oob and amb. ad mag, steady on feet Patient Tobacco Use Status: Current everyday Tobacco user Tobacco use type: Cigarette Cigarettes Per Day: 10 Smoked in Last 30 Days: Yes Use of substances other than those prescribed or required for medical reasons: No Advance Directives: No Advance Directives Information Provided: No Do you have a plan to hurt others: No Plan service: No Current occupational status: employed Current occupation: [employer] Physical Exam Vital Signs: Vital Signs: Last Vital Signs Temp 98.2 F 12/24/24 18:53 Pulse 72 12/24/24 18:53 Resp 14 12/24/24 18:53 BP 131/66 12/24/24 18:53 Pulse Ox 96 12/24/24 18:53 O2 Del Method Room Air 12/24/24 18:53 BMI result Body Mass Index 32.4 Const: General: cooperative, healthy appearing and no acute distress Orientation/consciousness: patient oriented x3 Limitations: no limitations HEENT: Other: Poor dentition. No appreciable dental/gingival cellulitis, inflammation, fluctuance or induration Head: Yes normal to inspection and Yes atraumatic Ears: hearing grossly normal bilaterally, external ears normal, TM's normal bilaterally, mastoids normal and periauricular adenopathy on the left General nose exam: Normal external nose present Face and sinus: Yes normal facial exam Mouth: no drooling, no trismus and No restricted motion Teeth and gingiva: poor dentition Throat: Yes posterior oropharynx normal, Yes tonsils normal, Yes uvula midline, No peritonsillar mass, No uvula laterally displaced and No uvular edema Eyes: General: appearance normal, both eyes and all related structures EOM: EOMs intact bilaterally Neck: Other: + left-sided anterior cervical lymphadenopathy and superficial clavicular mobile lymph node palpated. Nontender. No erythema No overt swelling appreciated Neck: Yes normal visual inspection, Yes no meningeal signs and Yes lymphadenopathy Resp: Effort & Inspection: normal respiratory effort, not labored, no respiratory distress and no stridor Auscultation: clear to auscultation bilaterally and no wheezes Cardio: Rate: regular rate Heart sounds: S1 normal heart sound present and S2 normal heart sound present Skin: Rashes: no rashes Wounds: no wounds Neuro: General: patient oriented x3, tone normal and no meningeal signs Cranial nerves: Yes CN's II-XII intact bilaterally Gait exam (Neuro): Normal gait present Extrem: General: Yes normal to inspection Course Course Course Narrative: -no leukocytosis. H&H at patient's baseline. ESR/CRP mildly elevated, however improved from priors. -Monospot negative -1900--CT soft tissue neck w IV con IMPRESSION: 1. No wall enhancing fluid collection to suggest the presence of an abscess. 2. Persistent left supraclavicular lymphadenopathy with mild improvement. The largest lymph node currently measures 2 cm in short axis dimension. Inflammatory/infectious etiology, metastatic disease or hematologic malignancy is included in the differential. Results discussed with patient, will discharge home with p.o. Augmentin and close ENT/PCP follow-up. Patient was supplied with copy of CT results. Discussed worrisome signs and symptoms and strict return precautions, and when to return to the emergency department. They verbalized understanding and feel safe for discharge at this time. Medications Administered Discontinued Medications Generic Name Dose Route Start Last Admin Trade Name Freq PRN Reason Stop Dose Admin Ampicillin Sodium/Sulbactam 100 mls @ 200 mls/hr 12/24/24 16:34 12/24/24 18:44 Sodium 3 gm/ Sodium Chloride IV 12/24/24 17:03 Infused ONCE ONE Infusion Iohexol 65 ml 12/24/24 17:35 12/24/24 17:35 Iohexol 350 Mg/Ml 100 Ml Infus..Btl IV 12/24/24 17:36 65 ml ONCE ONE Administration Medical Decision Making Medical Decision Making [facility] Narrative: 59-year-old male with a past medical history of diabetes, HLD, ETOH dependence, HTN, CVA, COPD, asthma, carotid artery stenosis, presenting to the ED sent in from [facility] complaining of left-sided neck pain and swelling x 6 days. On exam vital signs stable, NAD, nontoxic appearing, no over neck swelling appreciated. + left-sided preauricular and anterior cervical chain lymphadenopathy noted with supraclavicular inflamed mobile lymph node. Talking in complete sentences. No stridor. No respiratory distress. Concern for lymphadenopathy vs deeper infection including cellulitis/edema or abscess. No evidence of BUNDLE PACKER/retropharyngeal abscess. No evidence of intraoral infection or abscess at this time Plan: Labs, neck CT, empiric IV antibiotics, re-evaluate Please refer to course for remaining clinical decision making, interpretation of labs/imaging results, and discussions with consultants and/or family members. Differential Diagnosis Differential Diagnoses: The differential diagnosis associated with the presentation includes As above Admission/Observation Consideration of admission/observation: Escalation of care including admission/observation considered Lab Data [facility] Lab Attestation statement: I reviewed the patient's lab results. 12/24/24 11:03 12/24/24 11:03 Labs: Lab Results 12/24/24 Range/Units 11:03 WBC 5.8 (4.8-10.8) X10*3/uL RBC 4.12 L (4.60-5.80) X10*6/uL Hgb 12.1 L (14.0-18.0) g/dl Hct 36.6 L (42.0-52.0) % MCV 88.8 (80.0-98.0) fL MCH 29.4 (27.0-33.0) pg MCHC 33.1 (31.0-36.0) g/dl RDW 14.0 (11.0-16.0) % Plt Count 286 (160-400) X10*3/uL MPV 8.4 L (9.4-12.4) fL Immature Gran % (Auto) 0.2 (0.0-0.4) % Neut % (Auto) 58.9 (45-73) % Lymph % (Auto) 28.1 (20-40) % [place] % (Auto) 9.3 (2-11) % Eos % (Auto) 2.6 (0-4) % Baso % (Auto) 0.9 (0-2) % Lymph # (Auto) 1.6 (1.2-4.9) X10*3/uL [place] # (Auto) 0.5 (0.1-1.2) X10*3/uL Eos # (Auto) 0.2 (0.0-0.4) X10*3/uL Baso # (Auto) 0.1 (0.0-0.2) X10*3/uL Abs Immat Gran (auto) 0.01 (0.00-0.03) X10*3/uL Absolute Neuts (auto) 3.4 (2.0-8.3) x10*3/uL Absolute Nucleated RBC 0.000 (0.0-0.012) X10*3/uL Nucleated RBC % (auto) 0.0 (0.0-0.2) /100WBC ESR 25 H (0-15) MM/HR Sodium 140 (135-145) mmol/L Potassium 4.0 (3.3-5.1) mmol/L Chloride 108 (96-108) mmol/L Carbon Dioxide 26 (22-29) mmol/L Anion Gap 10 L (12-20) BUN 15 (9-16) mg/dL Creatinine 0.99 (0.5-1.4) mg/dL Estim Creat Clear Calc 99.6 Estimated GFR > 60 Random Glucose 105 (60-115) mg/dL Calcium 9.7 (8.4-10.2) mg/dL Magnesium 1.9 (1.6-2.6) mg/dL Total Bilirubin 0.6 (0.0-1.0) mg/dL Direct Bilirubin 0.2 (0.0-0.5) mg/dL AST 18 (5-37) U/L ALT 26 (0-40) U/L Alkaline Phosphatase 120 H (39-117) U/L C-Reactive Protein 1.54 H (< or = 0.50) mg/dL Total Protein 7.9 (6.5-8.0) g/dL Albumin 4.4 (3.5-5.0) g/dL Monoscreen Negative (Negative) Independent Interpretation I performed an independent interpretation of an: CT Scan Radiology Impression Discussion of test interpretation with radiology: I have reviewed the radiologist's reading. External Record Review External record reviewed: Inpatient record, Office record, Outpatient record, Prior outpatient labs, Prior outpatient radiology, Primary care record and Outside ED record Tests considered The following testing was considered but not selected: As above Prescription Management I considered prescription management with: Pain Medication and Antibiotic Chronic Conditions Patient?s care impacted by: Hypertension and Other Social Determinants Patient?s care significantly limited by Social Determinants of Health including: Other Social Determinant of Health Discharge Plan Discharge Clinical Impression: Lymphadenopathy Patient Disposition: Still a Patient Instructions: Lymphadenopathy (ED) Additional Instructions: Your blood work is reassuring Please take antibiotics until completion Please have close follow-up with your doctor If her symptoms persist or worsen, you have fever, difficulty or inability to swallow return to the emergency department Prescriptions: No Action albuterol sulfate 90 mcg/actuation aerosol powdr breath activated 2 inh inhalation Q4-6H PRN (Reason: shortness of breath or wheezing) Qty: 1 0RF Spiriva Respimat 2.5 mcg/actuation mist 2 puff inhalation DAILY aspirin 81 mg Tablet,Delayed Release (Dr/Ec) 81 mg PO DAILY vitamin B complex Capsule 1 cap PO DAILY losartan 25 mg Tablet 25 mg PO DAILY Qty: 90 0RF Protocol: Hold for SBP< HOLD for SBP < : 90 furosemide 20 mg Tablet 20 mg PO DAILY Qty: 90 0RF Protocol: Hold for SBP< HOLD for SBP < : 90 spironolactone 25 mg Tablet 25 mg PO DAILY Qty: 90 0RF Protocol: Hold for SBP< HOLD for SBP < : 90 Jardiance 10 mg Tablet 10 mg PO DAILY Qty: 30 0RF metoprolol succinate 25 mg tablet extended release 24 hr 25 mg PO DAILY amoxicillin-pot clavulanate 875-125 mg tablet 1 tab PO BID Qty: 14 0RF doxycycline monohydrate 100 mg capsule 100 mg PO BID Qty: 14 0RF insulin glargine 100 unit/mL (3 mL) insulin pen 15 unit subcut QAM Qty: 15 0RF metformin 500 mg tablet 500 mg PO BIDWMEAL Qty: 60 0RF (DME) blood-glucose meter [FreeStyle Lite Meter] Kit See Rx Instructions .ROUTE .MEDSUPPLY Qty: 1 0RF Rx Instructions: As directed (DME) lancets Misc See Rx Instructions .ROUTE .MEDSUPPLY Qty: 100 0RF Rx Instructions: 4 times daily (DME) pen needle, diabetic [Pen Needle] 31 gauge x 5/16 needle See Rx Instructions .ROUTE .MEDSUPPLY Qty: 1200 0RF Rx Instructions: As directed, QID (DME) FreeStyle Lite Strips Strip See Rx Instructions .ROUTE .MEDSUPPLY Qty: 100 0RF Rx Instructions: QID Novolin R FlexPen 100 unit/mL (3 mL) insulin pen See Protocol subcut USEASDIRECTD Qty: 15 0RF Protocol: Insulin Correction Scale Less than or equal to 110 ---- Give (units): 0 111 to 150 Give (units): 0 151 to 200 Give (units): 2 201 to 250 Give (units): 4 251 to 300 Give (units): 6 301 to 350 Give (units): 8 Greater than 350 Give (units): 10 Call MD if Blood Glucose > : 350 clopidogrel 75 mg tablet 75 mg PO DAILY atorvastatin 40 mg tablet 40 mg PO DAILY Referrals: Shell Fang MD [Primary Care Provider] - 3 days Armando Powell [Physician] - 1 week Print Language: Citizen Of [place]
[2024-12-24 16:33] VITALS: BP 137/76; PULSE 86; RESP 15; TEMP 36.7; O2SAT 100
[2024-12-24] MEDS: iohexoL 350 MG/ML 100 ML INFUS..BTL 65 ML IV (17:35)
[2024-12-24] MEDS: Ampicillin Sodium/Sulbactam Na 3 GM in 0.9 % Sodium Chloride 100 ML IV (18:05)
[2024-12-24 18:53] VITALS: BP 131/66; PULSE 72; RESP 14; TEMP 36.8; O2SAT 96
--- OUTSIDE RECORDS SUMMARY | 2024-12-24 19:54 | XMS_ITS | Encounter Summary ---
Author Organization [employer] Address [address] [facility] 7t [place] [address] Care Team Providers Care Hyperion Essbase Developer Name Role Phone Shell Fang MD Primary Care Provider + Reason for Visit * Reason Onset Date Comments insurance 12/07/2024 Encounter Details Date Type Department Care Team ([facility] st Contact Info) Description 12/07/2024 Telephone [facility] MEDICINE [address] [place], [place] [phone] Shell Fang MD [address] [place], [place] [phone] insurance Social History Tobacco Use Types Packs/Day Years Used Date Smoking Tobacco: Every Day Cigarettes Passive Smoke Exposure: Past Smokeless Tobacco: Never Alcohol Use Standard Drinks/Week Comments Yes 7 (1 standard drink = 0.6 oz pur e alcohol) Housing Stability Answer Date Recorded What is your housing situation today? I have merrill freeman 01/03/[address] you li ve. Do you have problems with any of the following? None of the above 01/03/2024 Food Insecurity Answer Date Recorded Within the past 12 months, y ou worried that your food would run out before you got money to buy more: Often true 01/03/2024 Within the past 12 months,th e food you bought just didn't last and you didn't have enough money to get more: Often true 04/2024 Transportation Answer Date Recorded In the past 12 months, has l ack of transportation kept you from medical appts, meetings, work or from getting things needed for daily living? No 01/03/2024 Utilities Answer Date Recorded In the past 12 months, has t he electric, gas, oil or water company threatened to shut off services in your home? No 01/03/2024 Depression Answer Date Recorded Patient Health Questionnaire-2 Score 0 01/06/2024 Sex and Gender Information Value Date Recorded Sex Assigned at Male 09/27/2022 10:16 AM EDT Legal Sex Male 10:16 AM EDT Gender Identity Male 09/27/2022 10:16 AM EDT Sexual Orientation Straight 09/27/2022 10 :16 AM EDT documented as of this encounter Miscellaneous Notes * Telephone Encounter - Brenna Jhonny - 12/07/2024 9:29 AM EST Pt walked in with [facility] insurance , pt says it wont be active until the , I told pt he wont beable to seen today and we would need to rs appt , pt went to insurance enrollment and Sherlyn came and said to add hsn partial that he has and he can be seen today. * Telephone Encounter - Danielle Sherry - 12/07/2024 8:53 AM EST Fd called pt. Pt informed me he has a new health insurance and that he will be bringing on his new insurance card so we can scan it on our system. documented in this encounter Plan of Treatment Upcoming Encounters Date Type Department Care Team (Late st Contact Info) Description 01/24/2025 9:00 AM EST Office Visit [facility] ADULT DENTAL [address] [place] [address] Rachelle Lindsay 01/31/2025 9:00 AM EST Office Visit [facility] ADULT DENTAL [address] [place] [address] Rachelle Lindsay 02/07/2025 11:15 AM EDT Office Visit [facility] [address] [place] [address] Shell Fang MD [address] [place] [address] documented as of this encounter Visit Diagnoses Not on filedocumented in this encounter Care Teams Hyperion Essbase Developer Relationship Specialty Start Date End Date Shell Fang MD [address] [place] [phone] PCP - General Family Medicine 07/21/18 documented as of this encounter
--- OUTSIDE RECORDS SUMMARY | 2024-12-24 19:54 | XMS_ITS | Encounter Summary ---
Author Organization [employer] Address [address] [facility] 7t [place] [address] Care Team Providers Care Cycle Manager Name Role Phone Shell Fang MD Primary Care Provider + Encounter Details Date Type Department Care Team (Latest Contact Info) Description 12/07/2024 Travel Social History Tobacco Use Types Packs/Day Years [...] AM EDT documented as of this encounter Plan of Treatment Upcoming Encounters Date Type Department Care Team (Late st Contact Info) Description 01/24/2025 9:00 AM EST Office Visit [facility] ADULT DENTAL [address] [place] [address] Angélica Rachelle 01/31/2025 9:00 AM EST Office Visit [facility] ADULT DENTAL [address] [place] [address] Lindsay, Rachelle 02/07/2025 11:15 AM EDT Office Visit [facility] MEDICINE [address] [place] [phone] Shell Fang MD [address] [place] [phone] documented as of this encounter Visit Diagnoses Not on filedocumented in this encounter Care Teams Cycle Manager Relationship Specialty Start Date End Date Shell Fang MD [address] [place] [phone] PCP - General Family Medicine 07/21/18 documented as of this encounter
--- OUTSIDE RECORDS SUMMARY | 2024-12-24 19:54 | XMS_ITS | Encounter Summary ---
Author Organization [employer] Address [address] [facility] 7t [place] [address] Care Team Providers Care Cycle Analyst Name Role Phone Shell Fang MD Primary Care Provider + Encounter Details Date Type Department Care Team (Late st Contact Info) Description 02/08/[address] [facility] [address] [place] [address] Alfa Mcwilliams MD [address] [place] [address] Social History Tobacco Use Types Packs/Day Years Used Date Smoking Tobacco: Every Day Cigarettes Passive Smoke Exposure: Past Smokeless Tobacco: Never Alcohol Use Standard Drinks/Week Comments Yes 2 (1 standard drink = 0.6 oz pur e alcohol) every day Housing Stability Answer Date Recorded What is [...] Description 01/24/2025 9:00 AM EST Office Visit [facility] [address] [place] [address] Rachelle Lindsay 01/31/2025 9:00 AM EST Office Visit [facility] [address] [place] [address] Rachelle Lindsay 02/07/2025 11:15 AM EDT Office Visit [facility] [address] [place] [phone] Shell Fang MD [address] [place] [phone] documented as of this encounter Visit Diagnoses Not on filedocumented in this encounter Care Teams Cycle Analyst Relationship Specialty Start Date End Date Shell Fang MD [address] [place] [phone] PCP - General Family Medicine 07/21/18 documented as of this encounter
--- OUTSIDE RECORDS SUMMARY | 2024-12-24 19:54 | XMS_ITS | Encounter Summary ---
Author Organization [employer] Address [address] [facility] 7t [place] [address] Care Team Providers Care Bandsaw Operator Name Role Phone Shell Fang MD Primary Care Provider + Encounter Details Date Type Department Care Team (Late st Contact Info) Description 05/12/2023 Abstract [facility] MEDICINE [address] [place] [phone] Shell Fang MD [address] [place] [address] [phone] Social History Tobacco Use Types Packs/Day Years Used Date Smoking Tobacco: Never Assessed Sex and Gender Information Value Date Recorded Sex Assigned at Male 09/27/2022 10:16 AM EDT Legal Sex Male 10:16 AM EDT Gender Identity Male 09/27/2022 10:16 AM EDT Sexual Orientation Straight 09/27/2022 10 :16 AM EDT documented as of this encounter Plan of Treatment Upcoming Encounters Date Type Department Care Team (Late st Contact Info) Description 01/24/2025 9:00 AM EST Office Visit [facility] ADULT DENTAL [address] [place] [phone] Rachelle Lindsay 01/31/2025 9:00 AM EST Office Visit [facility] ADULT DENTAL [address] [place] [phone] Rachelle Lindsay 02/07/2025 11:15 AM EDT Office Visit [facility] MEDICINE [address] [place] [phone] Shell Fang MD [address] [place] [phone] documented as of this encounter Procedures Procedure Name Priority Date/Time Associated Diagnosis Comments COLONOSCOPY Routine 07/12/2015 1:55 PM EDT documented in this encounter Results * Colonoscopy (07/12/2015 1:55 PM EDT) Colonoscopy Normal Normal Narrative Cherie Infante - 07/12/2015 1:55 PM EDT Recommended 5 year follow up ( [facility]) us Historical Provider HEALTH MAINTENANCE Edited Result - Final documented in this encounter Visit Diagnoses Not on filedocumented in this encounter Care Teams Bandsaw Operator Relationship Specialty Start Date End Date Shell Fang MD [address] [place] [phone] PCP - General Family Medicine 07/21/18 documented as of this encounter
--- OUTSIDE RECORDS SUMMARY | 2024-12-24 19:54 | XMS_ITS | Encounter Summary ---
Author Organization [employer] Address [address] [facility] 7t [place] [address] Care Team Providers Care Community Sports Coordinator Name Role Phone Shell Fang MD Primary Care Provider + Reason for Visit * Reason Comments Med Refill Encounter Details Date Type Department Care Team ([facility] st Contact Info) Description 03/05/2024 Refill [facility] MEDICINE [address] [place], [place] [phone] Shell Fang MD [address] [place], [place] [phone] Mixed hyperlipidemia Social History Tobacco Use Types Packs/Day Years [...] t he electric, gas, oil or water [employer] threatened to shut off services in your [...] Description 01/24/2025 9:00 AM EST Office Visit [facility] ADULT DENTAL [address] [place] [phone] Rachelle Lindsay 01/31/2025 9:00 AM EST Office Visit [facility] ADULT DENTAL [address] [place] [address] Rachelle Lindsay 02/07/2025 11:15 AM EDT Office Visit [facility] MEDICINE [address] [place] [phone] Shell Fang MD [address] [place] [phone] documented as of this encounter Visit Diagnoses Diagnosis Mixed hyperlipidemia documented in this encounter Care Teams Community Sports Coordinator Relationship Specialty Start Date End Date Shell Fang MD [address] [place] [phone] PCP - General Family Medicine 07/21/18 documented as of this encounter
--- OUTSIDE RECORDS SUMMARY | 2024-12-24 19:54 | XMS_ITS | Encounter Summary ---
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) (Primary Dx); Primary hypertension; Polyarthritis; Flexural eczema; Acute systolic congestive heart failure (CMS/HCC); 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); Alcohol dependence with unspecified alcohol-induced disorder (CMS/HCC) Social History Tobacco Use Types Packs/Day Years Used Date Smoking Tobacco: Every Day Cigarettes Passive Smoke Exposure: Past Smokeless Tobacco: Never Tobacco Cessation:Ready to Q uit: Not Asked; Counseling Given: Not Answered Alcohol Use Standard Drinks/Week Comments Yes 7 [...] AM EDT documented as of this encounter Last Filed Vital Signs Vital Sign Reading Time Taken Comments Blood Pressure 127/75 12/07/2024 9:37 AM EST Pulse 85 12/07/2024 9:37 AM EST Temperature 35.7 ??C (96.3 ??F) 12/07/2024 9:37 AM ES T Respiratory Rate - - Oxygen Saturation 99% 12/07/2024 9:37 AM EST Inhaled Oxygen Concentration - - Weight 110 kg (242 lb 2 oz) 12/07/2024 9:[address] Height 175.3 cm (5' 9 ) 12/07/2024 9:37 AM EST Body Mass Index 35.76 12/07/2024 9:37 AM EST documented in this encounter Progress Notes * Shell Fang MD - 12/07/2024 9:45 AM EST SUBJECTIVE: Jace Gonzales is a 59 y.o. year old male who presents for follow up HTN and DM. Denies recentillness, injury, or hospitalization. Patient mentions to be taking all of his medication. He states to be unsure if he has been taking Atorvastatin. At home his FBS range from 80-140 and RBS 190s. Patient states to take every morning his Spiriva medication and Albuterol occasionally. He mentions to smoke half a pack of cigarettes per day and he drinks a pack of beer occasionally. Acute Concerns: Patient states to have inflammation on knees, hands and elbow. He states to be sleeping a flat position and denies chest pain, shortness of breath. He mentions to take Tylenol OTC to help with the pain. 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 ([facility]) Chronic low back pain Acute low back pain Carotid artery stenosis Allergic conjunctivitis Alcohol dependence ([facility]) Adjustment disorder with anxious mood Essential hypertension Pure hypercholesterolemia Tobacco dependence syndrome Acute systolic congestive heart failure ([facility]) Tendinosis of right shoulder Right elbow pain Arthritis of elbow Arthritis of knee Severe dental caries Non-restorable tooth Neck mass Diabetes mellitus type 2 with complications ([facility]) Uncomplicated asthma Stage 3b chronic kidney disease ([facility]) Dental abscess KATHLEEN (acute kidney injury) ([facility]) Polyarthritis Flexural eczema No family history on file. Review of Systems Constitutional: Negative for chills, fatigue and fever. HENT: Negative for congestion, ear pain, nosebleeds, rhinorrhea, sinus pressure, sore throat and trouble swallowing. Eyes: Negative for pain and discharge. Respiratory: Negative for cough, chest tightness and shortness of breath. Cardiovascular: Negative for chest pain, palpitations and leg swelling. Gastrointestinal: Negative for blood in stool, constipation, diarrhea and nausea. Endocrine: Negative for polydipsia and polyuria. Genitourinary: Negative for difficulty urinating, frequency and genital sores. Musculoskeletal: Positive for arthralgias and joint swelling. Negative for back pain and neck pain. Skin: Negative for rash. Allergic/Immunologic: Negative for environmental allergies. Neurological: Negative for dizziness, seizures, weakness, light-headedness and headaches. Hematological: Negative for adenopathy. Psychiatric/Behavioral: Negative for agitation, behavioral problems, self-injury and suicidal ideas. OBJECTIVE: Vitals: 12/07/24 0937 BP: 127/75 Pulse: 85 Temp: 96.3 ??F (35.7 ??C) SpO2: 99% Physical Exam Constitutional: Appearance: Normal appearance. HENT: Right Ear: Tympanic membrane and ear canal normal. Left Ear: Tympanic membrane and ear canal normal. Mouth/Throat: Mouth: Mucous membranes are moist. Pharynx: No oropharyngeal exudate or posterior oropharyngeal erythema. Eyes: Pupils: Pupils are equal, round, and reactive to light. Cardiovascular: Rate and Rhythm: Normal rate and regular rhythm. Heart sounds: No murmur heard. Pulmonary: Breath sounds: Normal breath sounds. No wheezing. Abdominal: General: Bowel sounds are normal. Palpations: Abdomen is soft. Tenderness: There is no abdominal tenderness. Musculoskeletal: General: Normal range of motion. Right elbow: Swelling present. Tenderness present in medial epicondyle. Right hand: Swelling and bony tenderness (mcp joints) present. Left hand: Swelling and bony tenderness (mcp joints) present. Cervical back: Normal range of motion. No tenderness. Right knee: Swelling present. Tenderness present over the patellar tendon. Skin: General: Skin is warm. Neurological: General: No focal deficit present. Mental Status: He is alert and oriented to person, place, and time. Psychiatric: Mood and Affect: Mood normal. 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 A1c FU at next visit. Lantus was recently increased to 8 units. Continue on metformin, Amaryl, and Jardiance. Counseled re more frequent low calorie/carb meals. Check fgstk once daily Encouraged physical activity as tolerated. FU in 3 months. Relevant Orders POCT Glucose (Completed) HTN (hypertension) Controlled. Compliant w/meds Continue Losartan + Metoprolol + Spironolactone + Lasix. Counseled re low salt diet/increase moderate physical activity. Check home BP BIW and prn CP/HOUSE/[facility] Non smoking patient. Follow up in 3 months. Polyarthritis Patient has significant swelling of elbow MCP, rule out inflammatory arthritis, gout? Ordered labs and FU results. Take Tylenol 650 TID PRN pain. Relevant Orders SHELL Screen,IFA, with Reflex to Titer and Pattern (Completed) Sed Rate by Modified Westergren (Completed) C-reactive Protein (Completed) Rheumatoid Factor (Completed) Uric acid (Completed) CBC auto differential (Completed) Hepatitis Panel, General (Completed) Flexural eczema Most likely due to cold, dry weather. Use OTC moisturizer plus steroid cream PRN. Acute systolic congestive heart failure ([facility]) No S/S of CHF at this time. FU Cardiology. Continue on Lasix, Losartan, Spironolactone, and Metoprolol. 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) Patient seems to be doing well on Spiriva. Use Albuterol PRN cough or SOB. I advised him to quit smoking. Prescription for nicotine patch sent to pharmacy. Pt will have Covid and Influenza vaccine today. Alcohol dependence ([facility]) Counseled to cut down on alcohol intake including beer. I discussed AUD program but the patient is not interested at this time. Follow Up: Current Outpatient Medications on File Prior to Visit Medication Sig Dispense Refill Alcohol Swabs 70 % pads Use to test blood sugar 1x times daily 100 each 0 atorvastatin (Lipitor) 40 MG tablet TAKE 1 TABLET BY MOUTH EVERY DAY IN THE MORNING (Patient not taking: Reported on 11/30/2024) 90 tablet 1 B-D ULTRAFINE III SHORT PEN 31G X 8 MM misc Use four times a day as directed with insulin (Patient not taking: Reported on 11/30/2024) Blood Glucose Monitoring Suppl (CloutStyle [place] Lite) w/Device kit Use to test blood sugar 1x times daily 1 kit 0 chlorhexidine (Peridex) 0.12 % solution Use 15ml twice daily to swish the mouth ensuring it comes in contact with all tooth surfaces and gums. Do not swallow the rinse. 473 mL 0 clopidogrel (Plavix) 75 MG tablet TAKE 1 TABLET (75 MG) BY MOUTH IN THE MORNING 90 tablet 1 empagliflozin (Jardiance) 10 MG Take 1 tablet (10 mg) by mouth Once per day. 30 tablet 11 fluticasone-salmeterol (Advair HFA) 230-21 MCG/ACT inhaler TAKE 2 PUFFS BY MOUTH TWICE A DAY IN THEMORNING AND IN THE EVENING 12 g 3 FREESTYLE LITE test strip Use to test blood sugar 1x times daily 100 each 11 furosemide (Lasix) 20 MG tablet Take 1 tablet (20 mg) by mouth in the morning. 30 tablet 11 glimepiride (Amaryl) 1 MG tablet Take 1 tablet (1 mg) by mouth with breakfast and with evening meal. 60 tablet 3 insulin glargine (Lantus) 100 UNIT/ML pen Inject 15 Units under the skin in the morning. Lancets misc Use to test blood sugar 1x times daily 100 each 11 losartan (Cozaar) 50 MG tablet Take 1 tablet (50 mg) by mouth Once per day. 90 tablet 3 metFORMIN (Glucophage) 500 MG tablet Take 1 tablet by mouth with breakfast and with evening meal. metoprolol succinate XL (Toprol-XL) 25 MG 24 hr tablet Take 1 tablet by mouth Once per day. nicotine polacrilex (Commit) 4 MG lozenge Dissolve 1 lozenge (4 mg) in the mouth every 2 (two) hours if needed for smoking cessation. 100 lozenge 0 Spacer/Aero-Holding Chambers (OptiChamber Cyndi) misc 1 each every 4 (four) hours if needed (asthma). 1 each 0 spironolactone (Aldactone) 25 MG tablet Take 1 tablet (25 mg) by mouth in the morning. 30 tablet 11 tiotropium (Spiriva Respimat) 2.5 MCG/ACT inhaler Inhale 2 puffs Once per day. 4 each 11 Ventolin HFA 108 (90 Base) MCG/ACT inhaler TAKE 2 PUFFS BY MOUTH EVERY 4 TO 6 HOURS NEEDED 18 g 5 [DISCONTINUED] Acetaminophen Extra Strength 500 MG tablet TAKE 1 TABLET BY MOUTH EVERY 6 HOURS NEEDED FOR PAIN 120 tablet 0 [DISCONTINUED] naproxen (Naprosyn) 500 MG tablet TAKE 1 TABLET BY MOUTH TWICE A DAY NEEDED FOR PAIN WITH FOOD (Patient not taking: Reported on 11/30/2024) 40 tablet 0 No current facility-administered medications on file prior to visit. I, Tessa Jimenez, am serving as a scribe to document services personally performed by Dr. Shell Fang, based on the patient's response to questions by provider and provider's statements to me. documented in this encounter Miscellaneous Notes * Patient Education Note - Shell Fang MD - 12/07/2024 2:59 PM EST Images from the original note were not included. Patient Education Table of Contents Hemoglobin A1C Test To view videos and all your education online visit, [email or web address] or scan this QR code with your smartphone. Access to this content will in one year. Hemoglobin A1C Test Why am I having this test? You may have the hemoglobin A1C test (A1C test) done to: Check your risk for developing diabetes. Diagnose diabetes. Check the long-term control of blood sugar (glucose) in people who have diabetes and help make treatment decisions. This test may be done with other blood glucose tests, such as fasting blood glucose and oral glucose tolerance tests. What is being tested? Hemoglobin is a type of protein in the blood that carries oxygen. Glucose attaches to hemoglobin toform glycated hemoglobin. This test checks the amount of glycated hemoglobin in your blood. This soha good indicator of the average amount of glucose in your blood during the past 2?3 months. What kind of sample is taken? A blood sample is required for this test. It is usually collected by inserting a needle into a blood vessel. Tell a health care provider about: All medicines you are taking, including vitamins, herbs, eye drops, creams, and rfcx-shj-qjztjdq medicines. Any blood disorders you have. Any surgeries you have had. Any medical conditions you have. Whether you are or may be . How are the results reported? Your results will be reported as a percentage indicating how much of your hemoglobin has glucose attached to it. Your health care provider will compare your results to normal ranges established aftertesting a large group of people (reference ranges). Reference ranges may vary among labs and hospitals. For this test, common reference ranges are: Adult or child without diabetes: 4?5.6%. Adult or child with prediabetes: 5.7%?6.4%. Adult or child with diabetes: 6.5% or higher. What do the results mean? If you do not have diabetes: A result within the reference range means that you are not at high risk for diabetes. A result of 5.7?6.4% means that you have a high risk of developing diabetes, and you have prediabetes. Having prediabetes puts you at risk for developing type 2 diabetes. You may have more tests, including a repeat A1C test. Results of 6.5% or higher on two separate A1C tests mean that you have diabetes. You may have more tests to confirm the diagnosis. If you have diabetes: A result of 7% usually means that your diabetes is under control. A result of less than 7% also means that diabetes is under control. This result may be an appropriate goal for those for whom there is a low risk of low blood sugar (hypoglycemia). A result of less than 8% may also mean that diabetes is under control. This result may be an appropriate goal for those who do not benefit from more blood glucose control or who are at high risk for hypoglycemia. Abnormally low A1C values may be caused by: . Severe blood loss. Receiving donated blood (transfusions). Low red blood cell count (anemia). Long-term kidney failure. Some unusual forms (variants) of hemoglobin. Talk with your health care provider about what your results mean. Questions to ask your health care provider Ask your health care provider, or the department that is doing the test: When will my results be ready? How will I get my results? What are my treatment options? What other tests do I need? What are my next steps? Summary The A1C test is done to check your risk for developing diabetes, diagnose diabetes, and check the long-term control of blood sugar (glucose) in people who have diabetes and help make treatment decisions. Hemoglobin is a type of protein in the blood that carries oxygen. Glucose attaches to hemoglobin toform glycated hemoglobin. This test checks the amount of glycated hemoglobin in your blood. Talk with your health care provider about what your results mean. This information is not intended to replace advice given to you by your health care provider. Make sure you discuss any questions you have with your health care provider. Document Released: 2005-12-06 Document Updated: 2023-06-21 Document Reviewed: 2022-12-29 [employer] Patient Education ? 2023 [employer] * Assessment & Plan Note - Nancy Fernandez - 12/07/2024 1:02 PM ESTAssociated Problem(s): HTN (hypertension) Controlled. Compliant w/meds Continue Losartan + Metoprolol + Spironolactone + Lasix. Counseled re low salt diet/increase moderate physical activity. Check home BP BIW and prn CP/HOUSE/[facility] Non smoking patient. Follow up in 3 months. * Assessment & Plan Note - Tessa Jimenez MA - 12/07/2024 11:14 AM EST Associated Problem(s): Alcohol dependence (CMS/HCC) Counseled to cut down on alcohol intake including beer. I discussed AUD program but the patient is not interested at this time. * Assessment & Plan Note - Tessa Jimenez MA - 12/07/2024 11:12 AM EST Associated Problem(s): Flexural eczema Most likely due to cold, dry weather. Use OTC moisturizer plus steroid cream PRN. * Assessment & Plan Note - Tessa Jimenez MA - 12/07/2024 11:11 AM EST Associated Problem(s): 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) Better controlled. A1c FU at next visit. Lantus was recently increased to 8 units. Continue on metformin, Amaryl, and Jardiance. Counseled re more frequent low calorie/carb meals. Check fgstk once daily Encouraged physical activity as tolerated. FU in 3 months. * Assessment & Plan Note - Tessa Jimenez MA - 12/07/2024 11:08 AM EST Associated Problem(s): Polyarthritis Patient has significant swelling of elbow MCP, rule out inflammatory arthritis, gout? Ordered labs and FU results. Take Tylenol 650 TID PRN pain. * Assessment & Plan Note - Tessa Jimenez MA - 12/07/2024 11:06 AM EST Associated Problem(s): Acute systolic congestive heart failure (CMS/HCC) No S/S of CHF at this time. FU Cardiology. Continue on Lasix, Losartan, Spironolactone, and Metoprolol. * Assessment & Plan Note - Tessa Jimenez MA - 12/07/2024 11:05 AM EST Associated Problem(s): 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) Patient seems to be doing well on Spiriva. Use Albuterol PRN cough or SOB. I advised him to quit smoking. Prescription for nicotine patch sent to pharmacy. Pt will have Covid and Influenza vaccine today. documented in this encounter Plan of Treatment Upcoming Encounters Date Type Department Care Team (Late st Contact Info) Description 01/24/2025 9:00 AM EST Office Visit [facility] ADULT DENTAL [address] [place] [address] Rachelle Lindsay 01/31/2025 9:00 AM EST Office Visit [facility] ADULT DENTAL [address] [place] [address] Rachelle Lindsay 02/07/2025 11:15 AM EDT Office Visit [facility] MEDICINE [address] [place] [address] Shell Fang MD [address] [place] [address] documented as of this encounter Procedures Procedure Name Priority Date/Time Associated Diagnosis Comments HEPATITIS PANEL, GENERAL Routine 12/07/2024 10:40 AM EST Polyarthritis CBC WITH AUTO DIFFERENTIAL Routine 12/07/2024 10:40 AM EST Polyarthritis SED RATE BY MODIFIED WESTERGREN Routine 12/07/2024 10:40 AM EST Polyarthritis RHEUMATOID FACTOR Routine 12/07/2024 10: 40 AM EST Polyarthritis C-REACTIVE PROTEIN Routine 12/07/2024 10 :40 AM EST Polyarthritis SHELL SCREEN, IFA, W/REFL TITER AND PATTERN Routine 12/07/2024 10:40 AM EST Polyarthritis URIC ACID Routine 12/07/2024 10:40 AM EST Polyarthritis POCT GLUCOSE Routine 12/07/2024 9:38 AM EST 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) documented in this encounter Results * Hepatitis Panel, General (12/07/2024 10:40 AM EST) Hepatitis A IgM Nonreactive Nonreactive [facility] Comment:IgM antibodies to HOUSE V not detected; does not exclude earlyacute or recovered HAV infection. ~Hepatitis B Surface Antibody REACTIVE Nonreactive [facility] Comment:REACTIVE: > 11.99 mI U/mL Hepatitis B Core Antibody Reactive Nonreactive [facility] Comment:Presumptive evidence of anti-HBc. Hepatitis C Antibody Nonreactive Nonreactive [facility] Comment:Antibodies to HCV no t detected; does not exclude early acuteHCV infection. Hepatitis B Surface Ag Negative Negative [facility] Blood 12/07/2024 10:4 0 AM EST 12/07/2024 11:38 AM EST us Shell Fang MD LAB BLOOD ORDERABLES Fin al Result [facility] [address] [place] [phone] * (ABNORMAL) CBC auto differential (12/07/2024 10:40 AM EST) White Blood Count 5.4 4.8 - 10.8 X10*3/uL [facility] Red Blood Count 3.85(L) 4.60 - 5.80 X10*6/uL [facility] Hemoglobin 11.3(L) 14.0 - 18.0 g/dl [facility] Hematocrit 34.1(L) 42.0 - 52.0 % [facility] Mean Corpuscular Volume 88.6 80.0 - 98.0 fL [facility] Mean Corpuscular Hemoglobin 29.4 27.0 - 33.0 pg [facility] Mean Corpuscular HGB Conc 33.1 31.0 - 36.0 g/dl [facility] Red Cell Distribution Width 13.7 11.0 - 16.0 % [facility] Platelet Count 270 160 - 400 X10*3/uL [facility] Mean Platelet Volume 8.8(L) 9.4 - 12.4 fL [facility] Neutrophils Percent Auto 57.4 45 - 73 % [facility] Imm Gran Pct Auto 0.2 0.0 - 0.4 % [facility] Lymphocytes Percent Auto 28.1 20 - 40 % [facility] Monocytes Percent Auto 10.6 2 - 11 % [facility] Eosinophils Percent Auto 3.0 0 - 4 % [facility] Basophils Percent Auto 0.7 0 - 2 % [facility] NRBC Pct Auto 0.0 0.0 - 0.2 /100WBC [facility] Neutrophils Absolute Auto 3.1 2.0 - 8.3 x10*3/uL [facility] Imm Gran Abs Auto 0.01 0.00 - 0.03 X10*3/uL [facility] Lymphocytes Absolute Auto 1.5 1.2 - 4.9 X10*3/uL [facility] Monocytes Absolute Auto 0.6 0.1 - 1.2 X10*3/uL [facility] Eosinophils Absolute Auto 0.2 0.0 - 0.4 X10*3/uL [facility] Basophils Absolute Auto 0.0 0.0 - 0.2 X10*3/uL [facility] NRBC Abs Auto 0.000 0.0 - 0.012 X10*3/uL [facility] Blood Venous blood specimen / Unknown 12/07/2024 10:40 AM EST 12/07/2024 11:38 AM EST Shell Fang MD LAB BLOOD ORDERABLES Fin al Result Performing Organization Address [facility] Co de Phone Number [facility] [address] [place] [phone] * Uric acid (12/07/2024 10:40 AM EST) Uric Acid 6.6 3.4 - 7.0 mg/dL [facility] Blood Venous blood specimen / Unknown 12/07/2024 10:40 AM EST 12/07/2024 11:38 AM EST Shell Fang MD LAB BLOOD ORDERABLES Fin al Result Performing Organization Address [facility] Co de Phone Number [facility] [address] [place] [phone] * Rheumatoid Factor (12/07/2024 10:40 AM EST) Rheumatoid Factor <13.0 <15.0 IU/mL [facility] Blood Venous blood specimen / Unknown 12/07/2024 10:40 AM EST 12/07/2024 11:38 AM EST Shell Fang MD LAB BLOOD ORDERABLES Fin al Result Performing Organization Address [facility] Co de Phone Number [facility] [address] [place] [phone] * (ABNORMAL) C-reactive Protein (12/07/2024 10:40 AM EST) C Reactive Protein 3.57(H) < or = 0.50 mg/dL [facility] Blood Venous blood specimen / Unknown 12/07/2024 10:40 AM EST 12/07/2024 11:38 AM EST Shell Fang MD LAB BLOOD ORDERABLES Fin al Result Performing Organization Address [facility] Co de Phone Number [facility] [address] [place] [phone] * (ABNORMAL) Sed Rate by Modified Westergren (12/07/2024 10:40 AM EST) Erythrocyte Sedimentation Rate 45(H) 0 - 15 MM/HR [facility] [facility] Comment:Patients with polycy themia and many hemoglobin abnormalitiesmay have depressed sed rates whereas patients with anemiamay have elevated sed rates. Blood Venous blood specimen / Unknown 12/07/2024 10:40 AM EST 12/07/2024 11:38 AM EST Shell Fang MD LAB BLOOD ORDERABLES Fin al Result Performing Organization Address [facility] de Phone Number [facility] [address] [place] [address] [phone] * SHELL Screen,IFA, with Reflex to Titer and Pattern (12/07/2024 10:40 AM EST) Anti Nuclear Antibody Screen NEGATIVE NEGATIVE [facility] Comment:SHELL IFA is a first l ine screen for detecting thepresence of up to approximately 150 autoantibodies invarious autoimmune diseases. A negative SHELL IFA resultsuggests an SHELL-associated autoimmune disease is notpresent at this time, but is not definitive. If thereis high clinical suspicion for Sjogren's syndrome,testing for anti-SS-A/Ro antibody should be considered.Anti-Dayana-1 antibody should be considered for clinicallysuspected inflammatory myopathies.AC-0: NegativeInternational Consensus on SHELL Patterns(https://doi.org/10.1515/vjts-0367-4767)For additional information, please refer tohttp://education.MyRepublic/faq/MUF983(This link is being provided for informational/educational purposes only.)THIS TEST WAS PERFORMED AT:[employer] [place] [phone] ABARCA MD SHELL Titer TNP [facility] SHELL Pattern TNP [facility] SHELL TITER 2 (REF LAB) [facility] 2 [facility] 3 [facility] SHELL PATTERN 3 [facility] Blood Venous blood specimen / Unknown 12/07/2024 10:40 AM EST 12/07/2024 11:38 AM EST Shell Fang MD LAB BLOOD ORDERABLES Fin al Result [facility] [address] [place] [phone] * POCT Glucose (12/07/2024 9:38 AM EST) Glucose Blood, POC 113 60 - 200 mg/dL QC Media Lot # [id number] Lot# Expiration Date Blood Capillary blood specimen / Unknown 12/07/2024 9:38 AM EST Shell Fang MD POINT OF CARE TEST ENTER /EDIT ORDERABLES Final Result documented in this encounter Visit Diagnoses Diagnosis 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)- Primary Primary hypertension Unspecified essential hypertension Polyarthritis Unspecified polyarthropathy or polyarthritis, site unspecified Flexural eczema Other atopic dermatitis and related conditions Acute systolic congestive heart failure (CMS/HCC) 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
--- OUTSIDE RECORDS SUMMARY | 2024-12-24 19:54 | XMS_ITS | Encounter Summary ---
Author Organization [employer] Address [address] [facility] 7t [place] [address] Care Team Providers Care Grit Removal Operator Name Role Phone Shell Fnag MD Primary Care Provider + Encounter Details Date Type Department Care Team (Late st Contact Info) Description 02/03/2023 Orders Only [facility] [address] [place] [address] Marija Carlson LPN Social History Tobacco Use Types Packs/Day Years [...] Description 01/24/2025 9:00 AM EST Office Visit [facility] [address] [place] [address] Rachelle Lindsay 01/31/2025 9:00 AM EST Office Visit [facility] [address] [place] [address] Rachelle Lindsay 02/07/2025 11:15 AM EDT Office Visit [facility] [address] [place] [address] Shell Fang MD [address] [place] [address] documented as of this encounter Visit Diagnoses Not on filedocumented in this encounter Care Teams Grit Removal Operator Relationship Specialty Start Date End Date Shell Fang MD [address] [place] [phone] PCP - General Family Medicine 07/21/18 documented as of this encounter
--- OUTSIDE RECORDS SUMMARY | 2024-12-24 19:54 | XMS_ITS | Encounter Summary ---
Author Organization [employer] Address 75 [facility] 7t [place] [address] Care Team Providers Care Pump Machine Operator Name Role Phone Shell Fang MD Primary Care Provider + Reason for Visit * Reason Onset Date Comments Medication Question 11/16/2024 Encounter Details Date Type Department Care Team ([facility] Contact Info) Description 11/16/2024 Telephone [facility] [address] [place] [address] Lo Bowman DDS [address] [place], [place] [phone] Medication Question Social History Tobacco Use Types Packs/Day Years Used Date Smoking Tobacco: Every Day Cigarettes Passive Smoke Exposure: Past Smokeless Tobacco: Never Alcohol Use Standard Drinks/Week Comments Yes 3 (1 standard drink = 0.6 oz pur [...] encounter Miscellaneous Notes * Telephone Encounter - Peña Ferrer - 11/16/2024 5:13 PM EST Tc from patients states was seen today by Dr Matta and was to get prescribed Oral Rinse. Patient states that she needs it corinne . Out reach call made to adult road consultant- no supervisor picking crew . VM left and text sent aswell . documented in this encounter Plan of Treatment Upcoming Encounters Date Type Department Care Team (Late st Contact Info) Description 01/24/2025 9:00 AM EST Office Visit [facility] [address] [place] [address] Rachelle Lindsay 01/31/2025 9:00 AM EST Office Visit [facility] [address] [place] [address] Rachelle Lindsay 02/07/2025 11:15 AM EDT Office Visit [facility] [address] [place] [phone] Shell Fang MD [address] [place] [address] documented as of this encounter Visit Diagnoses Not on filedocumented in this encounter Care Teams Pump Machine Operator Relationship Specialty Start Date End Date Shell Fang MD [address] [place] [phone] PCP - General Family Medicine 07/21/18 documented as of this encounter
--- OUTSIDE RECORDS SUMMARY | 2024-12-24 19:54 | XMS_ITS | Encounter Summary ---
Author Organization [employer] Address [address] [facility] 7t [place] [address] Care Team Providers Care Student Outreach Coordinator Name Role Phone Shell Fang MD Primary Care Provider + Reason for Visit * Reason Comments Med Refill Encounter Details Date Type Department Care Team ([facility] st Contact Info) Description 12/09/2024 Refill [facility] [address] [place], [place] [phone] Shell Fang MD [address] [place], [place] [phone] Cerebrovascular accident (CVA) due to thrombosis of left middle cerebral artery (CMS/HCC) Social History Tobacco Use Types Packs/Day [...] Description 01/24/2025 9:00 AM EST Office Visit [facility] [address] [place] [address] Rachelle Lindsay 01/31/2025 9:00 AM EST Office Visit [facility] [address] [place] [phone] Rachelle Lindsay 02/07/2025 11:15 AM EDT Office Visit [facility] [address] [place] [phone] Shell Fang MD [address] [place] [phone] documented as of this encounter Visit Diagnoses Diagnosis Cerebrovascular accident (CVA) due to thrombosis of left middle cerebral artery (CMS/HCC) documented in this encounter Care Teams Student Outreach Coordinator Relationship Specialty Start Date End Date Shell Fang MD [address] [place] [phone] PCP - General Family Medicine 07/21/18 documented as of this encounter
--- OUTSIDE RECORDS SUMMARY | 2024-12-24 19:54 | XMS_ITS | Encounter Summary ---
Author Organization [employer] Address [address] [place] [address] 7t [place] [address] Care Team Providers Care Teacher Of The Emotionally Disturbed Name Role Phone Shell Fang MD Primary Care Provider + Encounter Details Date Type Department Care Team (Late st Contact Info) Description 11/19/2022 Orders Only [facility] [address] [place] [address] Yanique Leigh LPN Social History Tobacco Use Types Packs/Day [...] Description 01/24/2025 9:00 AM EST Office Visit [facility] ADULT DENT[facility] [address] [place] [address] Rachelle Lindsay 01/31/2025 9:00 AM EST Office Visit [facility] AD[facility] [address] [place] [address] Rachelle Lindsay 02/07/2025 11:15 AM EDT Office Visit [facility] [address] [place] [address] Shell Fang MD [address] [place] [address] documented as of this encounter Visit Diagnoses Not on filedocumented in this encounter Care Teams Teacher Of The Emotionally Disturbed Relationship Specialty Start Date End Date Shell Fang MD [address] [place] [phone] PCP - General Family Medicine 07/21/18 documented as of this encounter
--- OUTSIDE RECORDS SUMMARY | 2024-12-24 19:54 | XMS_ITS | Encounter Summary ---
Author Organization [employer] Address 75 [facility] 7t [place] [address] Care Team Providers Care Ambulance Driver Name Role Phone Shell Fang MD Primary Care Provider + Reason for Visit * Reason Onset Date Comments Chart prep 12/06/2024 Encounter Details Date Type Department Care Team ([facility] st Contact Info) Description 12/06/2024 Telephone [facility] [address] [place], [place] [phone] Pamela Jean MA Chart prep Social History Tobacco Use Types Packs/Day Years [...] encounter Miscellaneous Notes * Telephone Encounter - Pamela Jean MA - 12/06/2024 1:40 PM EST Chart Prep Labs: done Images: done Vaccines due: yes Referrals: pending appt Screenings: eye exam , Foot Exam Overdue care gaps: Glucose documented in this encounter Plan of Treatment Upcoming Encounters Date Type Department Care Team (Late st Contact Info) Description 01/24/2025 9:00 AM EST Office Visit [facility] ADULT DENTAL [address] [place] [phone] Rachelle Lindsay 01/31/2025 9:00 AM EST Office Visit [facility] ADULT DENTAL [address] [place] [phone] Rachelle Lindsay 02/07/2025 11:15 AM EDT Office Visit [facility] MED[facility] [address] [place] [phone] Shell Fang MD [address] [place] [phone] documented as of this encounter Visit Diagnoses Not on filedocumented in this encounter Care Teams Ambulance Driver Relationship Specialty Start Date End Date Shell Fang MD [address] [place] [phone] PCP - General Family Medicine 07/21/18 documented as of this encounter
--- OUTSIDE RECORDS SUMMARY | 2024-12-24 19:54 | XMS_ITS | Encounter Summary ---
Author Organization [employer] Address [address] [facility] 7t [place] [address] Care Team Providers Care Cryogenics Engineer Name Role Phone Shell Fang MD Primary Care Provider + Encounter Details Date Type Department Care Team ([facility] st Contact Info) Description 12/07/2024 Orders Only [facility] MED[facility] [address] [place], [place] [phone] Shell Fang MD [address] [place] [address] Social History Tobacco Use Types Packs/Day Years [...] Description 01/24/2025 9:00 AM EST Office Visit [facility] ADULT DENTAL [address] [place] [phone] Angélica Rachelle 01/31/2025 9:00 AM EST Office Visit [facility] ADULT DENTAL [address] [place] [phone] Angélica, Rachelle 02/07/2025 11:15 AM EDT Office Visit [facility] MEDICINE [address] [place] [address] [phone] Shell Fang MD [address] [place] [phone] documented as of this encounter Procedures Procedure Name Priority Date/Time Associated Diagnosis Comments HEPATITIS B CORE ANTIBODY (IGM) Routine 12/07/2024 10:40 AM EST documented in this encounter Results * Hepatitis B Core??Antibody (IgM) (12/07/2024 10:40 AM EST) Hepatitis B Core Antibody IgM NON-REACTI VE NON-REACTI VE [facility] Comment:For additional infor mation, please refer tohttp://education.[employer]/faq/SMV047(This link is being provided for informational/educational purposes only.)THIS TEST WAS PERFORMED AT:[employer] [place] [id number] ABARCA MD 12/07/2024 10:4 0 AM EST 12/07/2024 11:38 AM EST us Shell Fang MD LAB BLOOD ORDERABLES Fin al Result [facility] [address] [place] [phone] [phone] documented in this encounter Visit Diagnoses Not on filedocumented in this encounter Care Teams Cryogenics Engineer Relationship Specialty Start Date End Date Shell Fang MD [address] [place] [phone] PCP - General Family Medicine 07/21/18 documented as of this encounter
--- OUTSIDE RECORDS SUMMARY | 2024-12-24 19:54 | XMS_ITS | Encounter Summary ---
Author Organization [employer] Address [address] [facility] 7t [place] [address] Care Team Providers Care Word Processing Specialist Name Role Phone Shell Fang MD Primary Care Provider + Encounter Details Date Type Department Care Team (Late st Contact Info) Description 04/03/2024 Orders Only [facility] [address] [place] [address] Katherin Patricia MA Effusion of right elbow Social History Tobacco Use Types Packs/Day Years Used Date Smoking Tobacco: Every Day Cigarettes Passive Smoke Exposure: Past Smokeless Tobacco: Never Alcohol Use Standard Drinks/Week Comments Yes 5 (1 standard drink = 0.6 oz pur [...] Description 01/24/2025 9:00 AM EST Office Visit [facility] [address] [place] [address] Rachelle Lindsay 01/31/2025 9:00 AM EST Office Visit [facility] [address] [place] [address] Adi Lindsaysa 02/07/2025 11:15 AM EDT Office Visit [facility] [address] [place] [address] Shell Fang MD [address] [place] [phone] Scheduled Orders Name Type Priority Associated Diagnoses Orde r Schedule XR Elbow 3+ Views Right Imaging Routine Effusion of right elbow Expected: 04/03/2024, Expires: 04/03/2025 documented as of this encounter Visit Diagnoses Diagnosis Effusion of right elbow documented in this encounter Care Teams Word Processing Specialist Relationship Specialty Start Date End Date Shell Fang MD [address] [place] [phone] PCP - General Family Medicine 07/21/18 documented as of this encounter
--- OUTSIDE RECORDS SUMMARY | 2024-12-24 19:54 | XMS_ITS | Encounter Summary ---
Author Organization [employer] Address [address] [place] [address] 7[place] [address] Care Team Providers Care Bread Supervisor Name Role Phone Shell Fang MD Primary Care Provider + Reason for Visit * Reason Onset Date Comments Med Refill 02/03/2023 Encounter Details Date Type Department Care Team ([facility] st Contact Info) Description 02/03/2023 Telephone [facility] [address] [place], [place] [phone] Shell Fang MD [address] [place] [address] Med Refill Social History Tobacco Use Types Packs/Day Years Used Date Smoking Tobacco: Never Assessed Sex and Gender Information Value Date Recorded Sex Assigned at Male 09/27/2022 10:16 AM EDT Legal Sex Male 10:16 AM EDT Gender Identity Male 09/27/2022 10:16 AM EDT Sexual Orientation Straight 09/27/2022 10 :16 AM EDT documented as of this encounter Miscellaneous Notes * Telephone Encounter - Marija Carlson LPN - 02/03/2023 4:10 PM EST Medication queued to provider awaiting approval. * Telephone Encounter - Kimber Sanchez - 02/03/2023 4:07 PM EST Tc elizabeth houser requesting status med refill on Ventolin HFA 108 (90 Base) MCG/ACT inhaler Please sent to [facility]/pharmacy #[id number] - [place] - [address] [facility] documented in this encounter Plan of Treatment Upcoming Encounters Date Type Department Care Team (Late st Contact Info) Description 01/24/2025 9:00 AM EST Office Visit [facility] [address] [place] [address] Angélica, Rachelle 01/31/2025 9:00 AM EST Office Visit [facility] [address] [place] [address] Angélica, Rachelle 02/07/2025 11:15 AM EDT Office Visit [facility] [address] [place] [address] Shell Fang MD [address] [place] [phone] documented as of this encounter Visit Diagnoses Not on filedocumented in this encounter Care Teams Bread Supervisor Relationship Specialty Start Date End Date Shell Fang MD [address] [place] [phone] PCP - General Family Medicine 07/21/18 documented as of this encounter
--- OUTSIDE RECORDS SUMMARY | 2024-12-24 19:55 | XMS_ITS | Encounter Summary ---
Author Organization [employer] Address [address] [place] [address] 7t [place] [address] Care Team Providers Care Assistant Produce Manager Name Role Phone Shell Fang MD Primary Care Provider + Encounter Details Date Type Department Care Team (Late st Contact Info) Description 06/20/2023 Orders Only [facility] [address] [place] [phone] Yanique Leigh LPN Social History Tobacco Use [...] Description 01/24/2025 9:00 AM EST Office Visit [facility] [address] [place] [address] Rachelle Lindsay 01/31/2025 9:00 AM EST Office Visit [facility] [address] [place] [address] Rachelle Lindsay 02/07/2025 11:15 AM EDT Office Visit [facility] [address] [place] [phone] Shell Fang MD [address] [place] [phone] documented as of this encounter Visit Diagnoses Not on filedocumented in this encounter Care Teams Assistant Produce Manager Relationship Specialty Start Date End Date Shell Fang MD [address] [place] [phone] PCP - General Family Medicine 07/21/18 documented as of this encounter
--- OUTSIDE RECORDS SUMMARY | 2024-12-24 19:55 | XMS_ITS | Encounter Summary ---
Author Organization [employer] Address [address] [facility] 7t [place] [address] Care Team Providers Care Linter Saw Sharpener Name Role Phone Shell Fang MD Primary Care Provider + Reason for Visit * Reason Comments Routine Cleaning Dental Exam Encounter Details Date Type Department Care Team ([facility] st Contact Info) Description 11/30/2024 2:00 PM EST Office Visit [facility] ADULT DENTAL [address], [place] [phone] Rachelle Lindsay Dental calculus (Primary Dx); Dental plaque Social History Tobacco Use Types Packs/Day Years [...] Sign Reading Time Taken Comments Blood Pressure 170/82 11/30/2024 2:05 PM EST Pulse - - Temperature - - Respiratory Rate - - Oxygen Saturation - - Inhaled Oxygen Concentration - - Weight - - Height - - Body Mass Index - - documented in this encounter Progress Notes * Irvin Gonzáles DMD - 11/30/2024 2:00 PM EST C/C: dental exam I.O.E: erythematous and edematous gingiva, gen plaque and calculus accumulation, mobile #17, brokentooth#2 E.O.E: wnl OCS: wnl Head and neck: wnl Radiographic: gen moderate to localized advanced periodontal bone loss, gen calculus accumulation, broken tooth with carious tooth#2 Dx: gen chronic moderate to localized advanced periodontitis, broken tooth with carious tooth#2 Tx: prophy, recall exam, filling #2, exo#17 with O.S. Wendy * Rachelle Lindsay - 11/30/2024 2:00 PM EST Patient ID: Jace Gonzales is a 59 y.o. male. Time Out: Timeout Date: 11/30/24, Timeout Time: 1403 (Dental Prophy Adult) Location: [facility] Tooth: Maxilla and Mandible Procedure: Exam, X-rays, and Prophylaxis Verified the above with patient, engineer first assistant, and provider. Confirmed via patient's chart, intraorally and by radiographs. Fusing Machine Tender: not applicable Medical Hx: Vitals: Blood pressure (!) 170/82. Medications, Med Hx reviewed with patient and updated in chart. Treatment Provided Dental procedures in this visit D1110 - PROPHYLAXIS - ADULT (Completed) Service provider: Rachelle Lindsay Billing provider: Irvin Gonzáles DMD D0210 - INTRAORAL - COMPLETE SERIES OF RADIOGRAPHIC IMAGES (Completed) Service provider: Rachelle Lindsay Billing provider: Irvin Gonzáles DMD D1330 - ORAL HYGIENE INSTRUCTIONS (Completed) Service provider: Rachelle Lindsay Billing provider: Irvin Gonzáles DMD D9450 - CASE PRESENTATION, DETAILED AND EXTENSIVE TREATMENT PLANNING (Completed) Service provider: Rachelle Lindsay Billing provider: Irvin Gonzáles DMD D0120 - PERIODIC ORAL EVALUATION - ESTABLISHED PATIENT (Completed) Service provider: Irvin Gonzáles DMD Billing provider: Irvin Gonzáles DMD Instruments Used: Ultrasonic Scalers and Prophy angle Fluoride: N/A Oral Cancer Screening: No lesions Head/Neck Exam: Lower left mandibular swelling along the sternocleidomastoid muscle. Patient has appointment on 12/07/2024 with primary care to follow up. Calculus: Moderate, Generalized, and Subgingival Plaque: Light and Generalized Stain: Heavy and Generalized Bleeding: Light and Generalized Gingiva: Perio Charting Completed, Recession- generalized, and Erythematous OH: Poor Perio Chart: Completed Patient presents with periodontal disease. Calculus present Subgingivally, Supragingivally, and Generalized that can be seen radiographically. BOP: Generalized and Moderate Exudate: Not Present Mobility: Grade II and On teeth # 17 Generalized Probing Depths Range: 4 to 7 mm Recession: Generalized ranging from 2 to 5 mm. Gingiva: Inflamed and Rolled margins Bone loss visible radiographically: Generalized Pre Authorization requested for SRP. SRP treatment needed to promote gingival health, arrest disease progression of periodontal disease and prevent tooth loss. Provider: Rachelle Lindsay Oral hygiene instructions provided to patient including brushing technique and flossing. Recommendations: [place] two times daily, modified ascencio technique, Floss daily, Electric toothbrush, Soft bristle toothbrush, [place] Tongue, Anti-sensitivity toothpaste Recall Frequency: 6 mo NV: 6mrc Hygienist: Rachelle Lindsay RDH Cosigned by Irvin Gonzáles DMD at 12/03/2024 8:09 AM EST documented in this encounter Plan of Treatment Upcoming Encounters Date Type Department Care Team (Late st Contact Info) Description 01/24/2025 9:00 AM EST Office Visit [facility] ADULT DENTAL [address] [place] [address] Rachelle Lindsay 01/31/2025 9:00 AM EST Office Visit [facility] ADULT DENTAL [address] [place] [address] Rachelle Lindsay 02/07/2025 11:15 AM EDT Office Visit [facility] MEDICINE [address] [place] [address] Shell Fang MD [address] [place] [address] Scheduled Orders Name Type Priority Associated Diagnoses Orde r Schedule 2 DO 2 DO AMALGAM - 2 SURFACES, PRIMARY OR PERMANENT Dental Routine [address] arting 11/30/2024 UR UR PERIODONTAL SCALING AND ROOT PLANING - 1 TO 3 TEETH PER QUADRANT Dental Routine [address] arting 11/30/2024 UL UL PERIODONTAL SCALING AND ROOT PLANING - 1 TO 3 TEETH PER QUADRANT Dental Routine [address] arting 11/30/2024 LL LL PERIODONTAL SCALING AND ROOT PLANING - 1 TO 3 TEETH PER QUADRANT Dental Routine [address] arting 11/30/2024 LR LR PERIODONTAL SCALING AND ROOT PLANING - 1 TO 3 TEETH PER QUADRANT Dental Routine [address] arting 11/30/2024 17 17 EXTRACTION, ERUPTED TOOTH OR EXPOSED ROOT (ELEVATION AND/OR FORCEPS REMOVAL) Dental Routine 1 Occurrences s tarting 11/30/2024 documented as of this encounter Procedures Procedure Name Priority Date/Time Associated Diagnosis Comments PROPHYLAXIS - ADULT Routine 11/30/2024 2 :00 PM EST Dental calculus Dental plaque PERIODIC ORAL EVALUATION - ESTABLISHED PATIENT Routine 11/30/2024 2:00 PM EST ORAL HYGIENE INSTRUCTIONS Routine 2024 2:00 PM EST Dental calculus Dental plaque DIAGNOSTIC - DIAGNOSTIC IMAGING - INTRAORAL - COMPREHENSIVE SERIES OF RADIOGRAPHIC IMAGES Routine 11/30/2024 2:00 PM EST ADJUNCTIVE GENERAL SERVICES - PROFESSIONAL VISITS - CASE PRESENTATION, SUBSEQUENT TO DETAILED AND EXTENSIVE TREATMENT PLANNING Routine 11/30/2024 2:00 PM EST documented in this encounter Visit Diagnoses Diagnosis Dental calculus- Primary Accretions on teeth Dental plaque Accretions on teeth documented in this encounter Care Teams Linter Saw Sharpener Relationship Specialty Start Date End Date Shell Fang MD [address] [place] [phone] PCP - General Family Medicine 07/21/18 documented as of this encounter
--- OUTSIDE RECORDS SUMMARY | 2024-12-24 19:55 | XMS_ITS | Encounter Summary ---
Author Organization [employer] Address [address] [facility] 7 [place] [address] Care Team Providers Care Bowling Ball Grader And Marker Name Role Phone Shell Fang MD Primary Care Provider + Reason for Visit * Reason Comments Med Refill Encounter Details Date Type Department Care Team ([facility] st Contact Info) Description 11/22/2024 Refill [facility] MEDICINE [address] [place], [place] [phone] Shell Fang MD [address] [place] [address] Cerebrovascular accident (CVA) due to thrombosis of [...] Description 01/24/2025 9:00 AM EST Office Visit [facility] ADULT DENTAL [address] [place] [address] Rachelle Lindsay 01/31/2025 9:00 AM EST Office Visit [facility] ADULT DENTAL [address] [place] [address] Rachelle Lindsay 02/07/2025 11:15 AM EDT Office Visit [facility] MEDICINE [address] [place] [address] Shell Fang MD [address] [place] [phone] documented as of this encounter Visit Diagnoses Diagnosis Cerebrovascular accident (CVA) due to thrombosis of left middle cerebral artery (CMS/HCC) documented in this encounter Care Teams Bowling Ball Grader And Marker Relationship Specialty Start Date End Date Shell Fang MD [address] [place] [phone] PCP - General Family Medicine 07/21/18 documented as of this encounter
--- OUTSIDE RECORDS SUMMARY | 2024-12-24 19:55 | XMS_ITS | Encounter Summary ---
Author Organization [employer] Address [address] [place] [address] 7t [place] [address] Care Team Providers Care Flexographic Press Set Up Operator Name Role Phone Shell Fang MD Primary Care Provider + Reason for Visit * Reason Comments Med Refill Encounter Details Date Type Department Care Team (Late st Contact Info) Description 06/29/2023 Refill [facility] [address] [place] [phone] Marija Taylor DO [address] [place] [address] Uncomplicated asthma, unspecified asthma severity, unspecified whether persistent Social History Tobacco Use Types Packs/Day Years Used Date Smoking Tobacco: Every Day Cigarettes Passive Smoke Exposure: Past Smokeless Tobacco: Never Sex and Gender Information Value Date Recorded Sex Assigned at Male 09/27/2022 10:16 AM EDT Legal Sex Male 10:16 AM EDT Gender Identity Male 09/27/2022 10:16 AM EDT Sexual Orientation Straight 09/27/2022 10 :16 AM EDT documented as of this encounter Plan of Treatment Upcoming Encounters Date Type Department Care Team (Late st Contact Info) Description 01/24/2025 9:00 AM EST Office Visit [facility] ADULT DENTAL [address] [place] [address] Rachelle Lindsay 01/31/2025 9:00 AM EST Office Visit [facility] [address] [place] [address] Rachelle Lindsay 02/07/2025 11:15 AM EDT Office Visit [facility] [address] [place] [address] Shell Fang MD [address] [place] [address] documented as of this encounter Visit Diagnoses Diagnosis Uncomplicated asthma, unspecified asthma severity, unspecified whether persistent documented in this encounter Care Teams Flexographic Press Set Up Operator Relationship Specialty Start Date End Date Shell Fang MD [address] [place] [address] PCP - General Family Medicine 07/21/18 documented as of this encounter
--- OUTSIDE RECORDS SUMMARY | 2024-12-24 19:55 | XMS_ITS | Encounter Summary ---
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 At last appointment ([facility] on 11/19/24), pt's BS noted to be 249. Recommendations made on that day were: Lantus to 6 then 10u in the next 2w, he's to fu with RN in 2w to continue adjusting med if tolerated. Hold off on Short acting insulin now (he hasn't even picked it up from pharmacy yet) Continue metformin 500 mg bid and Amaryl (plan to dc in the future as we adjust other meds, if possible) Start Jardiance 10mg for cardiorenal protection, will adjust to GFR . Pt reports compliance with Diabetes medication regimen. Pt denies any excessive thirst, dizziness, increased urination or feelingshaky. O: Last A1C was 10.4 on 11/19/2024. Patient presented with BS home readings (did not bring BS meter): 11/19/24: at 9am 156 11/20/24: at 6:45am 157 At 1:15pm at 115 11/21/24: at 7am 134 11/22/24: at 7:15am 115 at 12pm 96 at 4pm 61 at 5:30pm 115 at 8:30pm 92 11/23/24: at 7am 126 at 11:30am at 156 11/24/24: at 9am 137 at 1pm 96 at 2:15pm 97 at 4pm 93 11/25/24: at 10:30am 120 at 3pm 69 11/26/24: at 6am 115 Patient confirms reading this AM was fasting. Patient had been taking 6U of lantus from 11/19-11/25and this morning 11/26/24 patient took 10U lantus. A: Compliance with Diabetes Medication Regimen. P: Today's findings reviewed with PCP (Dr. Fang). Orders for patient are: Lantus at 8U every morning, continue metformin 500 mg BID, Amaryl 1mg BID and Jardiance 10mg daily. Patient is to follow up with PCP on 12/07/24. Patient advised to follow a low sugar/fat diet, exercise as tolerated, monitor blood sugar daily and bring glucometer to PCP appointment on 12/07/24 for review. Signs and symptoms of hypo/hyperglycemia reviewed. Patient agrees with plan and verbalized understanding. Fadumo Gallagher RN documented in this encounter Plan of Treatment Upcoming Encounters Date Type Department Care Team (Late st Contact Info) Description 01/24/2025 9:00 AM EST Office Visit [facility] ADULT D[facility] [address] [place] [address] Rachelle Lindsay 01/31/2025 9:00 AM EST Office Visit [facility] [address] [place] [address] Angélica Rachelle 02/07/2025 11:15 AM EDT Office Visit [facility] [address] [place] [address] Shell Fang MD [address] [place] [phone] documented as of this encounter Visit Diagnoses Diagnosis Diabetes mellitus type 2 with complications (CMS/[facility]ER[facility]) documented in this encounter Care Teams Ems Coordinator Relationship Specialty Start Date End Date Shell Fang MD [address] [place] [phone] PCP - General Family Medicine 07/21/18 documented as of this encounter
--- OUTSIDE RECORDS SUMMARY | 2024-12-24 19:55 | XMS_ITS | Encounter Summary ---
Author Organization [employer] Address [address] [facility] 7t [place] [address] Care Team Providers Care Associate Professor Of Geology Name Role Phone Shell Fang MD Primary Care Provider + Encounter Details Date Type Department Care Team (Late st Contact Info) Description 12/19/2023 Orders Only [facility] [address] [place] [phone] Alfa Mcwilliams MD [address] [place] [address] Hypertension, unspecified type (Primary Dx); Chronic obstructive pulmonary disease with acute exacerbation (CMS/HCC) Social History Tobacco Use Types Packs/Day [...] Description 01/24/2025 9:00 AM EST Office Visit [facility] ADULT DENTAL [address] [place] [address] Rachelle Lindsay 01/31/2025 9:00 AM EST Office Visit [facility] ADULT DENTAL [address] [place] [address] Rachelle Lindsay 02/07/2025 11:15 AM EDT Office Visit [facility] MEDICINE [address] [place] [address] Shell Fang MD [address] [place] [address] documented as of this encounter Procedures Procedure Name Priority Date/Time Associated Diagnosis Comments B TYPE NATRIURETIC PEPTIDE (BNP) Routine 12/20/2023 9:33 AM EST Hypertension, unspecified type Chronic obstructive pulmonary disease with acute exacerbation (CMS/HCC) documented in this encounter Results * (ABNORMAL) B Type Natriuretic Peptide (BNP) (12/20/2023 9:33 AM EST) B Type Natriuretic Peptide 1,320(H) <100 pg/mL [facility] Comment:For those patients w ho are being treated with Natrecor(nesiritide, recombinant BNP), BNP testing should beperformed at least two hours post treatment in order toensure that only endogenous levels of BNP are detected. Blood Venous blood specimen / Unknown 12/20/2023 9:33 AM EST 12/20/2023 9:33 AM EST us Alfa Mcwilliams MD LAB BLOOD ORDERABLES Final Resul t [facility] [address] [place] [phone] documented in this encounter Visit Diagnoses Diagnosis Hypertension, unspecified type- Primary Chronic obstructive pulmonary disease with acute exacerbation (CMS/HCC) documented in this encounter Care Teams Associate Professor Of Geology Relationship Specialty Start Date End Date Shell Fang MD [address] [place] [address] PCP - General Family Medicine 07/21/18 documented as of this encounter
--- OUTSIDE RECORDS SUMMARY | 2024-12-24 19:55 | XMS_ITS | Encounter Summary ---
Author Organization [employer] Address [address] [facility] 7t [place] [address] Care Team Providers Care Cook Relief Name Role Phone Shell Fang MD Primary Care Provider + Encounter Details Date Type Department Care Team (Latest Contact Info) Description 11/26/2024 Travel Social History Tobacco Use Types Packs/Day [...] 01/24/2025 9:00 AM EST Office Visit [facility] [address] [place] [address] Lindsay, Rachelle 01/31/2025 9:00 AM EST Office Visit [facility] [address] [place] [address] Lindsay, Rachelle 02/07/2025 11:15 AM EDT Office Visit [facility] [address] [place] [address] Shell Fang MD [address] [place] [address] documented as of this encounter Visit Diagnoses Not on filedocumented in this encounter Care Teams Cook Relief Relationship Specialty Start Date End Date Shell Fang MD [address] [place] [phone] PCP - General Family Medicine 07/21/18 documented as of this encounter
--- OUTSIDE RECORDS SUMMARY | 2024-12-24 19:55 | XMS_ITS | Encounter Summary ---
Author Organization [employer] Address [address] [facility] 7 [place] [address] Care Team Providers Care Flea Market Seller Name Role Phone Shell Fang MD Primary Care Provider + Reason for Visit * Reason Comments Pre-visit Planning SDOH screening compl eted on 01/03/2024 Encounter Details Date Type Department Care Team ([facility] st Contact Info) Description 11/29/2024 Patient Outreach [facility] MED[facility]INE [address] [place] [address] Shell Fang MD [address] [place] [address] Pre-visit Planning (SDOH screening completed on 01/03/2024) Social History Tobacco Use Types Packs/Day Years [...] as of this encounter Progress Notes * Soledad Araiza - 11/29/2024 2:57 PM EST CC Soledad placed successful outbound call to patient for pre-visit planning. Patient name and confirmed. Patient confirms appt date and time, and has transportation. Biggest concern for appointment at this time is none Patient advised to bring to appointment a photo id and insurance card. Appropriate screenings completed in anticipation of appointment. documented in this encounter Plan of Treatment Upcoming Encounters Date Type Department Care Team (Late st Contact Info) Description 01/24/2025 9:00 AM EST Office Visit [facility] ADULT DENTAL [address] [place] [address] Rachelle Lindsay 01/31/2025 9:00 AM EST Office Visit [facility] ADULT DENTAL [address] [place] [phone] Rachelle Lindsay 02/07/2025 11:15 AM EDT Office Visit [facility] MED[facility]INE [address] [place] [address] Shell Fang MD [address] [place] [address] documented as of this encounter Visit Diagnoses Not on filedocumented in this encounter Care Teams Flea Market Seller Relationship Specialty Start Date End Date Shell Fang MD [address] [place] [phone] PCP - General Family Medicine 07/21/18 documented as of this encounter
--- OUTSIDE RECORDS SUMMARY | 2024-12-24 19:55 | XMS_ITS | Encounter Summary ---
Author Organization [employer] Address [address] [facility] 7t [place] [address] Care Team Providers Care Second Crusher Name Role Phone Shell Fang MD Primary Care Provider + Encounter Details Date Type Department Care Team ([facility] st Contact Info) Description 11/27/2024 Telephone [facility] MEDICINE [address] [place], [place] [phone] Shell Fang MD [address] [place] [address] Social History Tobacco Use Types Packs/Day Years [...] Telephone Encounter - Pamela Jean MA - 11/27/2024 9:59 AM EST Tc to [facility] re message, new lab order will be needed. Will inform PCP. * Telephone Encounter - Pamela Jean MA - 11/27/2024 9:57 AM EST ----- Message from Shell Fang MD sent at 11/26/2024 5:49 PM EST ----- Tb test is invalid due to test control failure. Please call [facility] labs and tell them to fu with patient to repeat lab. documented in this encounter Plan of Treatment Upcoming Encounters Date Type Department Care Team (Late st Contact Info) Description 01/24/2025 9:00 AM EST Office Visit [facility] ADULT DENTAL [address] [place] [address] Rachelle Lindsay 01/31/2025 9:00 AM EST Office Visit [facility] ADULT DENTAL [address] [place] [address] Rachelle Lindsay 02/07/2025 11:15 AM EDT Office Visit [facility] MEDICINE [address] [place] [address] Shell Fang MD [address] [place] [address] documented as of this encounter Visit Diagnoses Not on filedocumented in this encounter Care Teams Second Crusher Relationship Specialty Start Date End Date Shell Fang MD [address] [place] [address] PCP - General Family Medicine 07/21/18 documented as of this encounter
--- OUTSIDE RECORDS SUMMARY | 2024-12-24 19:55 | XMS_ITS | Encounter Summary ---
Author Organization [employer] Address 75 [facility] 7 [place] [address] Care Team Providers Care Research Study Assistant Name Role Phone Shell Fang MD Primary Care Provider + Reason for Visit * Reason Comments Med Refill Encounter Details Date Type Department Care Team ([facility] st Contact Info) Description 11/27/2024 Refill [facility] MEDICINE [address] [place], [place] [phone] Shell Fang MD [address] [place] [address] Cerebrovascular accident (CVA) due to thrombosis of [...] Description 01/24/2025 9:00 AM EST Office Visit [facility] ADULT DENTAL [address] [place] [address] Rachelle Lindsay 01/31/2025 9:00 AM EST Office Visit [facility] ADULT DENTAL [address] [place] [address] Rachelle Lindsay 02/07/2025 11:15 AM EDT Office Visit [facility] MEDICINE [address] [place] [phone] Shell Fang MD [address] [place] [address] documented as of this encounter Visit Diagnoses Diagnosis Cerebrovascular accident (CVA) due to thrombosis of left middle cerebral artery (CMS/HCC) documented in this encounter Care Teams Research Study Assistant Relationship Specialty Start Date End Date Shell Fang MD [address] [place] [phone] PCP - General Family Medicine 07/21/18 documented as of this encounter
--- OUTSIDE RECORDS SUMMARY | 2024-12-24 19:55 | XMS_ITS | Encounter Summary ---
Author Organization [employer] Address [address] [facility] [address] [place] [address] Care Team Providers Care Security Operations Center Operator Name Role Phone Shell Fang MD Primary Care Provider + Encounter Details Date Type Department Care Team (Late st Contact Info) Description 12/24/2024 Orders Only GENERIC EXTERNAL DATA DEPARTMENT Provider, Generic External Data Social History Tobacco Use Types Packs/Day Years [...] Description 01/24/2025 9:00 AM EST Office Visit [facility] [address] [place] [address] Rachelle Lindsay 01/31/2025 9:00 AM EST Office Visit [facility] [address] [place] [address] Rachelle Lindsay 02/07/2025 11:15 AM EDT Office Visit [facility] [address] [place] [address] Shell Fang MD [address] [place], [place] [phone] documented as of this encounter Procedures Procedure Name Priority Date/Time Associated Diagnosis Comments CT SOFT TISSUE NECK W CONTRAST Routine 12/24/2024 6:52 PM EST CBC WITH AUTO DIFFERENTIAL Routine 12/24/2024 11:03 AM EST MONONUCLEOSIS TEST, QUALITATIVE Routine 12/24/2024 11:03 AM EST SED RATE BY MODIFIED WESTERGREN Routine 12/24/2024 11:03 AM EST C-REACTIVE PROTEIN Routine 12/24/2024 11 :03 AM EST MAGNESIUM Routine 12/24/2024 11:03 AM EST HEPATIC FUNCTION PANEL Routine 11:03 AM EST BASIC METABOLIC PANEL Routine 12/24/2024 11:03 AM EST documented in this encounter Results * CT Soft Tissue Neck w/ Contrast (12/24/2024 6:52 PM EST) Anatomical Region Laterality Modality Head, Neck Computed Tomogra phy 12/24/2024 6:52 PM EST Narrative 12/24/2024 6:54 PM EST ? [facility] ?[address] ?[place] [address] ? CT Scan Report ? Signed ? Patient: Christian,Jace ?MR#: [id number] ?? [id number] ? : 1965 ?Acct:[id number] ? Age/Sex: 59 / M ?ADM Date: 12/24/24 ? Loc: HO.ED ? Attending Dr: ? Ordering Physician: Essie Espinosa ?? Date of Service: 12/24/24 ?? Procedure(s): CT soft tissue neck w IV con ?? Accession Number(s): [id number] ? cc: Shell Fang MD; Essie Espinosa ? Report Number: ?? [id number]: Total DLP = ??805.00 mGy-cm ? CLINICAL HISTORY: L neck swelling, r o edema vs abscess ? CT SOFT TISSUE NECK WITH CONTRAST ? Comparison: CT/SR - CT SOFT TISSUE NECK WO IV CON - 11/06/24 18:05 EST ? Findings: ?? There is an old left MCA territory infarct. 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 ?? No prevertebral fluid. Epiglottis is within normal limits. Pharyngeal ?? mucosal space and parapharyngeal fat are intact. ?? Multiple enlarged lymph nodes in the left supraclavicular region are ?? smaller and appear fewer in number. There is less edema in the surrounding ?? fat. 1.8 cm in short axis dimension lymph node on coronal image 38 ?? previously measured 4.2 cm. 1.5 cm lymph node on axial image 298 measured ?? 1.9 cm on prior study. Stable 2 cm lymph node on axial image 362. ?? Grossly patent internal jugular veins. ?? Salivary glands are within normal limits. No sialoliths. ?? No suspicious thyroid nodules. ? Visualized lung apices are clear. ?? No acute fracture or dislocation. ? IMPRESSION: ?? 1. No wall enhancing fluid collection to suggest the presence of an ?? abscess. ?? 2. Persistent left supraclavicular lymphadenopathy with mild improvement. ?? The largest lymph node currently measures 2 cm in short axis dimension. ?? Inflammatory/infectious etiology, metastatic disease or hematologic ?? malignancy is included in the differential. ? This document has been electronically signed by: Dia Vyas, DO on ?? 12/24/2024 18:52:40 ? Dictated By: ?Dia Vyas MD ? Signed By: ?<Electronically signed by Dia Vyas MD in OV> ?12/24/241852 ? DD/ 51 ? TD/TT: 12/24/241851 ? Pharmacovigilance Specialist: ? Procedure Note Donotuseinterpreter, Image - 12/24/[address] [address] [address] Scan Report Signed Patient: Kole Gonzales#: [id number] : 1965Acct:[id number] Age/Sex: 59 / MADM Date: 12/24/24 Loc: HO.ED Attending Dr: Ordering Physician: Essie Espinosa Date of Service: 12/24/24 Procedure(s): CT soft tissue neck w IV con Accession Number(s): [id number] cc: Shell Fang MD; Essie Espinosa Report Number: [id number]: Total DLP = 805.00 mGy-cm CLINICAL HISTORY: L neck swelling, r o edema vs abscess CT SOFT TISSUE NECK WITH CONTRAST Comparison: CT/SR - CT SOFT TISSUE NECK WO IV CON - 11/06/24 18:05 EST Findings: There is an old left MCA territory infarct. Known occluded left intracranial ICA segments. No prevertebral fluid. Epiglottis is within normal limits. Pharyngeal mucosal space and parapharyngeal fat are intact. Multiple enlarged lymph nodes in the left supraclavicular region are smaller and appear fewer in number. There is less edema in the surrounding fat. 1.8 cm in short axis dimension lymph node on coronal image 38 previously measured 4.2 cm. 1.5 cm lymph node on axial image 298 measured 1.9 cm on prior study. Stable 2 cm lymph node on axial image 362. Grossly patent internal jugular veins. Salivary glands are within normal limits. No sialoliths. No suspicious thyroid nodules. Visualized lung apices are clear. No acute fracture or dislocation. IMPRESSION: 1. No wall enhancing fluid collection to suggest the presence of an abscess. 2. Persistent left supraclavicular lymphadenopathy with mild improvement. The largest lymph node currently measures 2 cm in short axis dimension. Inflammatory/infectious etiology, metastatic disease or hematologic malignancy is included in the differential. This document has been electronically signed by: Dia Vyas DO on 12/24/2024 18:52:40 Dictated By: Dia Vyas MD Signed By: <Electronically signed by Dia Vyas MD in OV> 12/24/241852 DD/ 51 TD/TT: 12/24/241851 Pharmacovigilance Specialist: [facility] External Provider IMG CT PROCEDURES Final Result * Mononucleosis Test, Qualitative (12/24/2024 11:03 AM EST) Monotest Negative Negative [facility] 12/24/2024 11:0 3 AM EST 12/24/2024 11:06 AM EST Generic External Data Provider LAB BLOOD ORDERAB LES Final Result Performing Organization Address [facility] Co de Phone Number [facility] [address] [place] [address] [phone] * (ABNORMAL) Sed Rate by Modified Regisren (12/24/2024 11:03 AM EST) Erythrocyte Sedimentation Rate 25(H) 0 - 15 MM/HR [facility] Comment:Patients with polycy themia and many hemoglobin abnormalitiesmay have depressed sed rates whereas patients with anemiamay have elevated sed rates. 12/24/2024 11:0 3 AM EST 12/24/2024 11:06 AM EST Generic External Data Provider LAB BLOOD ORDERAB LES Final Result Performing Organization Address [facility] Co de Phone Number [facility] [address] [place] [phone] * (ABNORMAL) C-reactive Protein (12/24/2024 11:03 AM EST) [facility] C Reactive Protein 1.54(H) < or = 0.50 mg/dL [facility] 12/24/2024 11:0 3 AM EST 12/24/2024 11:06 AM EST Generic External Data Provider LAB BLOOD ORDERAB LES Final Result Performing Organization Address [facility] Co de Phone Number [facility] [address] [place] [phone] * Magnesium (12/24/2024 11:03 AM EST) [facility] Magnesium 1.9 1.6 - 2.6 mg/dL [facility] 12/24/2024 11:0 3 AM EST 12/24/2024 11:06 AM EST Generic External Data Provider LAB BLOOD ORDERAB LES Final Result Performing Organization Address [facility] de Phone Number [facility] [address] [place] [phone] * (ABNORMAL) Basic Metabolic Panel (12/24/2024 11:03 AM EST) [facility] Sodium 140 135 - 145 mmol/L [facility] Potassium 4.0 3.3 - 5.1 mmol/L [facility] Chloride 108 96 - 108 mmol/L [facility] Carbon Dioxide 26 22 - 29 mmol/L [facility] Anion Gap 10(L) 12 - 20 [facility] Urea Nitrogen (BUN) 15 9 - 16 mg/dL [facility] Creatinine, Serum 0.99 0.5 - 1.4 mg/dL [facility] Creatinine Clr Calc Pharmacy 99.6 [facility] Comment:eGFR (calculated fro m the MDRD study equation) and eCrCl(calculated from the Cockcroft-Gault equation) are based ondifferent parameters and may not yield comparable results.If eCrCl result is absurd, please check patient'sheight/weight. Estimated Glomerular Filt Rate >60 [facility] Comment:Chronic Kidney Disea se: Estimated GFR < 60 mL/min/1.74p4Umtppw Kidney Disease: Estimated GFR < 15 mL/min/1.73m2 Glucose 105 60 - 115 mg/dL [facility] Calcium 9.7 8.4 - 10.2 mg/dL [facility] 12/24/2024 11:0 3 AM EST 12/24/2024 11:06 AM EST Generic External Data Provider LAB BLOOD ORDERAB LES Final Result Performing Organization Address [facility] de Phone Number [facility] [address] [place] [phone] * (ABNORMAL) Hepatic Function Panel (12/24/2024 11:03 AM EST) Bilirubin, Total 0.6 0.0 - 1.0 mg/dL [facility] Bilirubin, Direct 0.2 0.0 - 0.5 mg/dL [facility] Aspartate Amino Transferase 18 5 - 37 U/L [facility] Alanine Aminotransferase 26 0 - 40 U/L [facility] Total Protein 7.9 6.5 - 8.0 g/dL [facility] Albumin Level 4.4 3.5 - 5.0 g/dL [facility] Alkaline Phosphatase 120(H) 39 - 117 U/L [facility] 12/24/2024 11:0 3 AM EST 12/24/2024 11:06 AM EST Generic External Data Provider LAB BLOOD ORDERAB LES Final Result Performing Organization Address [facility] Co de Phone Number [facility] [address] [place] [phone] * (ABNORMAL) CBC auto differential (12/24/2024 11:03 AM EST) White Blood Count 5.8 4.8 - 10.8 X10*3/uL [facility] Red Blood Count 4.12(L) 4.60 - 5.80 X10*6/uL [facility] Hemoglobin 12.1(L) 14.0 - 18.0 g/dl [facility] Hematocrit 36.6(L) 42.0 - 52.0 % [facility] Mean Corpuscular Volume 88.8 80.0 - 98.0 fL [facility] Mean Corpuscular Hemoglobin 29.4 27.0 - 33.0 pg [facility] Mean Corpuscular HGB Conc 33.1 31.0 - 36.0 g/dl [facility] Red Cell Distribution Width 14.0 11.0 - 16.0 % [facility] Platelet Count 286 160 - 400 X10*3/uL [facility] Mean Platelet Volume 8.4(L) 9.4 - 12.4 fL [facility] Neutrophils Percent Auto 58.9 45 - 73 % [facility] Imm Gran Pct Auto 0.2 0.0 - 0.4 % [facility] Lymphocytes Percent Auto 28.1 20 - 40 % [facility] Monocytes Percent Auto 9.3 2 - 11 % [facility] Eosinophils Percent Auto 2.6 0 - 4 % [facility] Basophils Percent Auto 0.9 0 - 2 % [facility] NRBC Pct Auto 0.0 0.0 - 0.2 /100WBC [facility] Neutrophils Absolute Auto 3.4 2.0 - 8.3 x10*3/uL [facility] Imm Gran Abs Auto 0.01 0.00 - 0.03 X10*3/uL [facility] Lymphocytes Absolute Auto 1.6 1.2 - 4.9 X10*3/uL [facility] Monocytes Absolute Auto 0.5 0.1 - 1.2 X10*3/uL [facility] Eosinophils Absolute Auto 0.2 0.0 - 0.4 X10*3/uL [facility] Basophils Absolute Auto 0.1 0.0 - 0.2 X10*3/uL [facility] NRBC Abs Auto 0.000 0.0 - 0.012 X10*3/uL [facility] 12/24/2024 11:0 3 AM EST 12/24/2024 11:06 AM EST us Generic External Data Provider LAB BLOOD ORDERAB LES Final Result Performing Organization Address City/State/[facility] Co de Phone Number [facility] [address] [place] [phone] documented in this encounter Visit Diagnoses Not on filedocumented in this encounter Care Teams Security Operations Center Operator Relationship Specialty Start Date End Date Shell Fang MD [address] [place] [phone] PCP - General Family Medicine 07/21/18 documented as of this encounter
--- OUTSIDE RECORDS SUMMARY | 2024-12-24 19:55 | XMS_ITS | Encounter Summary ---
Author Organization [employer] Address [address] [facility] [address] [place] [address] Care Team Providers Care Skill Labor Name Role Phone Shell Fang MD Primary Care Provider + Reason for Visit * Reason Onset Date Comments Med Refill 10/30/2024 Encounter Details Date Type Department Care Team ([facility] st Contact Info) Description 10/30/2024 Telephone [facility] [address] [place], [place] [phone] Shell Fang MD [address] [place] [address] Med Refill Social History Tobacco Use Types [...] encounter Miscellaneous Notes * Telephone Encounter - Floridalma Kovacs RN - 11/06/2024 1:13 PM EST RN called pt, pt is c/o voice changes and sore throat. SOB on exertion and elevate BS in 300s, Pt will come in to be seen today in [facility] to review elevated BS and SOB on exertion wiper below message from PCP ----- Message from Shell Fang MD sent at 11/06/2024 12:49 PM EST ----- Neck US on 11/01 showed neck nodules likely c/w lymphadenopathies. Please call patient and tell him that they seem to be lymph nodes that sometimes come up with infections around the area or other inflammatory processes. Please ask him re sxs pain, fever, chills, voice changes, worsening SOB, if he has anything that can not wait until next appt, please schedule a sick visit on that regard, otherwise I will fu next month and evaluate if he needs surgical referral vs additional imaging. Please tell him to get new set of labs before his appt w me so that we can review POC. * Telephone Encounter - Marija Carlson LPN - 10/30/2024 8:56 AM EST Medications were sent to [facility] #[id number] on 10/29/24. * Telephone Encounter - Alvino Nguyen - 10/30/2024 8:36 AM EST TC from pt requesting medication refill. 1- Medications needing refill : fluticasone-salmeterol (Advair HFA) 230-21 MCG/ACT inhaler 2-Ventolin HFA 108 (90 Base) MCG/ACT inhaler 3-tiotropium (Spiriva Respimat) 2.5 MCG/ACT inhaler To be sent to: [facility]/pharmacy #[id number] documented in this encounter Plan of Treatment Upcoming Encounters Date Type Department Care Team (Late st Contact Info) Description 01/24/2025 9:00 AM EST Office Visit [facility] [address] [place] [phone] Rachelle Lindsay 01/31/2025 9:00 AM EST Office Visit [facility] [address] [place] [phone] Rachelle Lindsay 02/07/2025 11:15 AM EDT Office Visit [facility] [address] [place] [phone] Shell Fang MD [address] [place] [phone] documented as of this encounter Visit Diagnoses Not on filedocumented in this encounter Care Teams Skill Labor Relationship Specialty Start Date End Date Shell Fang MD [address] [place] [phone] PCP - General Family Medicine 07/21/18 documented as of this encounter
--- OUTSIDE RECORDS SUMMARY | 2024-12-24 19:55 | XMS_ITS | Clinical Summary ---
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 100 lozenge 024 Active Spacer/Aero-Holdi ng Chambers (OptiChamber Cyndi) misc 1 each every 4 (four) hours if needed (asthma). 1 each 024 Active furosemide (Lasix) 20 MG tabletIndications :Acute systolic congestive heart failure (CMS/HCC) Take 1 tablet (20 mg) by mouth in the morning. 30 tablet 11 024 2024 Active spironolactone (Aldactone) 25 MG tablet Take 1 tablet (25 mg) by mouth in the morning. 30 tablet 11 024 2024 Active atorvastatin (Lipitor) 40 MG tabletIndications :Mixed hyperlipidemia TAKE 1 TABLET BY MOUTH EVERY DAY IN THE MORNING 90 tablet 1 Active Additional Information Patient not taking.Reported on 11/30/2024 losartan (Cozaar) 50 MG tablet Take 1 tablet (50 mg) by mouth Once per day. 90 tablet 3 024 2024 Active FREESTYLE LITE test strip Use to test blood sugar 1x times daily 100 each 11 024 2024 Active Lancets misc Use to test blood sugar 1x times daily 100 each 11 Active Alcohol Swabs 70 % pads Use to test blood sugar 1x times daily 100 each Active Blood Glucose Monitoring Suppl (Framebench Hyden Lite) w/Device kit Use to test blood sugar 1x times daily 1 kit Active fluticasone-salme terol (Advair HFA) 230-21 MCG/ACT inhalerIndication s:Moderate asthma without complication, unspecified whether persistent TAKE 2 PUFFS BY MOUTH TWICE A DAY IN THE MORNING AND IN THE EVENING 12 g 3 Active Ventolin HFA 108 (90 Base) MCG/ACT inhalerIndication s:Uncomplicated asthma, unspecified asthma severity, unspecified whether persistent TAKE 2 PUFFS BY MOUTH EVERY 4 TO 6 HOURS NEEDED 18 g 5 Active tiotropium (Spiriva Respimat) 2.5 MCG/ACT inhaler Inhale 2 puffs Once per day. 4 each 11 024 2024 Active glimepiride (Amaryl) 1 MG tablet Take 1 tablet (1 mg) by mouth with breakfast and with evening meal. 60 tablet 3 024 2024 Active insulin glargine (Lantus) 100 UNIT/ML pen Inject 15 Units under the skin in the morning. Active B-D ULTRAFINE III SHORT PEN 31G X 8 MM misc Use four times a day as directed with insulin Active metoprolol succinate XL (Toprol-XL) 25 MG 24 hr tablet Take 1 tablet by mouth Once per day. Active chlorhexidine (Peridex) 0.12 % solution Use 15ml twice daily to swish the mouth ensuring it comes in contact with all tooth surfaces and gums. Do not swallow the rinse. 473 mL Active nicotine (Nicoderm CQ) 14 MG/24HR patch Place 1 patch on the skin 1 (one) time each day at the same time. 30 patch 025 2024 Active betamethasone valerate (Valisone) 0.1 % cream Apply topically if needed in the morning and at bedtime (dryness). 45 g 2 Active nicotine (Nicoderm CQ) 21 MG/24HR patch Place 1 patch on the skin 1 (one) time each day at the same time. 42 patch Active nicotine (Nicoderm CQ) 14 MG/24HR patch Place 1 patch on the skin 1 (one) time each day at the same time. 14 patch 025 2024 Active nicotine (Nicoderm CQ) 7 MG/24HR patch Place 1 patch on the skin 1 (one) time each day at the same time. 14 patch 025 2024 Active nicotine polacrilex (Commit) 4 MG lozenge Dissolve 1 lozenge (4 mg) in the mouth every 2 (two) hours if needed for smoking cessation. 100 lozenge 025 2024 Active clopidogrel (Plavix) 75 MG tabletIndications :Cerebrovascular accident (CVA) due to thrombosis of left middle cerebral artery (CMS/HCC) Take 1 tablet (75 mg) by mouth Once per day. 90 tablet 1 Active metFORMIN (Glucophage) 500 MG tablet Take 1 tablet (500 mg) by mouth with breakfast and with evening meal. 180 tablet 1 Active empagliflozin (Jardiance) 10 MG Take 1 tablet (10 mg) by mouth Once per day. 30 tablet 1 025 2025 Active naproxen (Naprosyn) 500 MG tabletIndications :Arthritis TAKE 1 TABLET BY MOUTH TWICE A DAY NEEDED FOR PAIN WITH FOOD 40 tablet 023 2024 Discontinued(T herapy completed) Acetaminophen Extra Strength 500 MG tablet TAKE 1 TABLET BY MOUTH EVERY 6 HOURS NEEDED FOR PAIN 120 tablet 024 2024 Discontinued clopidogrel (Plavix) 75 MG tabletIndications :Cerebrovascular accident (CVA) due to thrombosis of left middle cerebral artery (CMS/HCC) TAKE 1 TABLET (75 MG) BY MOUTH IN THE MORNING 90 tablet 1 024 2024 Discontinued(R eorder (will not trigger notification to Pharmacy)) metFORMIN (Glucophage) 500 MG tablet Take 1 tablet by mouth with breakfast and with evening meal. 024 2024 Discontinued(R eorder (will not trigger notification to Pharmacy)) empagliflozin (Jardiance) 10 MG Take 1 tablet (10 mg) by mouth Once per day. 30 tablet 11 024 2024 Discontinued(R eorder (will not trigger notification to Pharmacy)) acetaminophen (Tylenol 8 Hour Arthritis Pain) 650 MG ER tablet Take 1 tablet (650 mg) by mouth every 8 (eight) hours if needed for mild pain for up to 10 days. Do not crush, chew, or split. 60 tablet 025 2024 Active Problems Problem Noted Date Diagnosed Date Polyarthritis 12/07/2024 Assessment & Plan (12/07/2024 11:13 AM EST): Patient has significant swelling of elbow MCP, rule out inflammatory arthritis, gout? Ordered labs and FU results. Take Tylenol 650 TID PRN pain. Flexural eczema 12/07/2024 Assessment & Plan (12/07/2024 11:12 AM EST): Most likely due to cold, dry weather. Use OTC moisturizer plus steroid cream PRN. Dental abscess 11/19/2024 Assessment & Plan (11/19/2024 3:54 PM EST): Sp abs rx, he has appt at dental clinic on 11/30/23 Advised to rinse mouth daily with fluoride mouth wash and as directed by dentist. Re consult prn fever, worsening dental pain KATHLEEN (acute kidney injury) 11/19/2024 Assessment & Plan (11/19/2024 3:45 PM EST): Sp Dental abscess/ new onset DM Its improving, will order BMP and adjust meds if needed according to GFR Neck mass 10/29/2024 Assessment & Plan (11/06/2024 4:32 PM EST): Mass has significantly increased in size within few days and he's more symptomatic,. I told him to go to ED for further evaluation and ro neck abscess, he agreed with POC. I spoke with BRANDON Brownlee at [facility] for a soft sign out and she will fu when he arrives. He tells me he's able to drive to ED. Assessment & Plan (10/29/2024 12:17 PM EST): On left side, it seems to be a cervical lymphadenopathy, unclear if there is an abscess underneath or maybe form tooth infection? Unclear if he has an abscess vs soft tissue mass? Order CT scan neck and BMP Diabetes mellitus type 2 with complications 12/2023 Assessment & Plan (12/07/2024 1:04 PM EST): Better controlled. A1c FU at next visit. Lantus was recently increased to 8 units. Continue on metformin, Amaryl, and Jardiance. Counseled re more frequent low calorie/carb meals. Check fgstk once daily Encouraged physical activity as tolerated. FU in 3 months. Assessment & Plan (11/19/2024 3:50 PM EST): Uncontrolled. I went over the different types of insulin and since he doesn't have Novolin R, I will slowly increase Lantus to 6 then 10u in the [...] for cardiorenal protection, will adjust to GFR FU w me on 12/07 Declined nutrition referral. Assessment & Plan (11/06/2024 3:21 PM EST): Farxiga isn't covered by insurance. Will switch to Amaryl 1mg bid and fu next month. Assessment & Plan (10/29/2024 12:16 PM EST): New onset, I discussed with patient re new dx, treatment and potential complications including hypoglycemia and worsening of CV co morbidities, I gave him written infor re DM care. Counseled re more frequent low calorie/carb meals. Encouraged physical activity as tolerated. Start Farxiga 5mg due to hx CHF and CVA, will improve CV morbidity and mortality. Check fgstk 1x/d and fu with RN in 1-2w to check fgstks Uncomplicated asthma 10/29/2024 Assessment & Plan (10/29/2024 12:13 PM EST): Refills for meds sent Stage 3b chronic kidney disease 10/29/2024 Assessment & Plan (10/29/2024 12:23 PM EST): Likely related to [facility] uncontrolled DM, smoking, already existing CV disease. I will repeat BMP today, if GFR is worse, I will do neck US instead of a CT scan. Severe dental caries 09/26/2024 Non-restorable tooth 09/26/2024 Arthritis of elbow 07/05/2024 Arthritis of knee 07/05/2024 Assessment & Plan (11/30/2024 8:40 PM EST): Advised to take Tylenol prn, continue PT Assessment & Plan (07/05/2024 4:12 PM EDT): Agreed to start PT Take tylenol prn FU in 2-3m Right elbow pain 04/04/2024 Overview (04/04/2024): Xray elbow 04/03/24 : Mild ulnotrochlear and glenohumeral osteoarthritis Tendinosis of right shoulder 04/03/2024 Overview (04/04/2024): Xray 04/03/24 : AC joint DJD + subacromial spurring Assessment & Plan (07/05/2024 4:12 PM EDT): Improved with home based exercises Take tylenol prn and re consult prn. Assessment & Plan (04/03/2024 10:02 AM EDT): - reminded him to get Xrays - continue Tylenol TID - refer to PT Acute systolic congestive heart failure 01/06/20 Assessment & Plan (12/07/2024 1:03 PM EST): No S/S of CHF at this time. FU Cardiology. Continue on Lasix, Losartan, Spironolactone, and Metoprolol. Assessment & Plan (11/30/2024 8:39 PM EST): Doing better, he's fairly asymptomatic despite high BP. Advised to take all meds daily, including atorvastatin, metoprolol, losartan and lasix. FU BP w RN in 2-3w and w me in 6-8w Advised to quit smoking Assessment & Plan (07/05/2024 4:12 PM EDT): Clinically improving, he's off ARB x few weeks Advised to restart losartan as above. Continue diuretics and fu with cardiology ([facility]), needs to call to check on fu appt. Advised re importance of HTN control, quit smoking and ETOH Assessment & Plan (02/02/2024 10:59 AM EST): Seems to be improving, will obtain records for recent cardiac cath Continue spironolactone and medications as above for tighter control of HTN LDL goal is 70 Counseled to quit smoking and EtOH use. Assessment & Plan (01/06/2024 1:44 PM EST): Probably due to uncontrolled HTN Cont Lasix 20mg + spironolactone 25mg + losartan 50mg Dc telmisartan/HCTZ and diltiazem from previous medication regimen Start jardiance 10mg, will do PA due to cardioprotective effect Needs to schedule appointment w/ cardiology Counseled to quit smoking and EtOH Order labs prior to next appointment Vitamin D deficiency 01/04/2024 01/04/2024 Assessment & Plan (02/02/2024 10:56 AM EST): Pt was started on Vit D x 6 months Assessment & Plan (01/06/2024 1:42 PM EST): Recheck vit d levels Lumbar sprain 01/04/2024 01/04/2024 Knee pain 01/04/2024 01/04/2024 Episodic tension-type headache 01/04/2024 0 01/04/2024 Disorder of joint of spine 01/04/202401/04 Chronic low back pain 01/04/2024 01/04/2024 Acute low back pain 01/04/2024 01/04/2024 Carotid artery stenosis 01/04/2024 01/04/20 24 Allergic conjunctivitis 01/04/2024 01/04/20 24 Adjustment disorder with anxious mood 01/04/2024 01/04/2024 Pure hypercholesterolemia 01/04/20242023 HTN (hypertension) 12/19/2023 Assessment & Plan (12/07/2024 1:02 PM EST): Controlled. Compliant w/meds Continue Losartan + Metoprolol + Spironolactone + Lasix. Counseled re low salt diet/increase moderate physical activity. Check home BP BIW and prn CP/HOUSE/[facility] Non smoking patient. Follow up in 3 months. Assessment & Plan (11/30/2024 8:40 PM EST): Uncontrolled. Advised to quit smoking Take losartan + Lasix + Metoprolol daily and fu w RN in 2-3w then w me in 6-8w Assessment & Plan (10/29/2024 9:33 AM EST): Uncontrolled. Advised to restart losartan 50mg/d, dc Telmisartan/hctz Continue Metoprolol ER 25mg (per Cards) + Lasix 20mg + Spironolactone 25mg Fu with me in 1m Assessment & Plan (07/05/2024 4:10 PM EDT): Uncontrolled. Advised to restart losartan 50mg/d. Continue Metoprolol ER 25mg (per Cards) + Lasix 20mg + Spironolactone 25mg Fu with me in 2m with labs Advised to quit smoking/ETOH (beer) Assessment & Plan (04/03/2024 10:00 AM EDT): - fairly controlled today, discussed with pt importance of checking BP at home at least twice per week - continue Losartan, Lasix, Spironolactone - f/u in 3 months - Counseled re low salt diet/increase moderate physical activity. - Check home BP BIW and prn CP/HOUSE/[facility] Assessment & Plan (02/02/2024 10:58 AM EST): Not optimally controlled, pt will bring BP readings to next appointment Continue losartan 50 mg + lasix 20 mg + spironolactone 25 mg and fu with me in 6 wks Counseled to quit smoking and EtOH Counseled re low salt diet/increase moderate physical activity. Check home BP BIW and prn CP/HOUSE/[facility] Assessment & Plan (01/06/2024 1:41 PM EST): Controlled today, unfortunately pt has been overdosing inadvertently w/ medications Reconciliation done, will cont losartan 50mg + lasix 20mg + spirolactone, and check labs prior to next appointment FU BP w/ nurse in 1 wk and w/ me in 2-3 wks Continue to cut down smoking Chronic obstructive pulmonar y disease with acute exacerbation 12/19/2023 Assessment & Plan (01/06/2024 1:41 PM EST): Doing well on advair once /day + Spiriva Use albuterol PRN Continue to cut down smoking Tobacco dependence 12/19/2023 Assessment & Plan (04/03/2024 10:01 AM EDT): - not ready for nicotine replacement therapy - he wants to continue cutting down on smoking Assessment & Plan (02/02/2024 10:57 AM EST): Counseled to quit smoking, he hasn't used nicotine patch Reminded to use nicotine patch Hypercholesterolemia 12/19/2023 Assessment & Plan (01/06/2024 1:42 PM EST): Check lipid profile, LDL goal is 70 Cerebrovascular accident (CV A) due to thrombosis of left middle cerebral artery 12/19/2023 COPD (chronic obstructive pu lmonary disease) with chronic bronchitis 09/01/2018 01/04/2024 Assessment & Plan (12/07/2024 1:01 PM EST): Patient seems to be doing well on Spiriva. Use Albuterol PRN cough or SOB. I advised him to quit smoking. Prescription for nicotine patch sent to pharmacy. Pt will have Covid and Influenza vaccine today. Tobacco dependence syndrome 09/01/2018 02/0 05/2024 Mild intermittent asthma 07/21/2018 024 Alcohol dependence 07/21/2018 01/04/2024 Assessment & Plan (12/07/2024 11:14 AM EST): Counseled to cut down on alcohol intake including beer. I discussed AUD program but the patient is not interested at this time. Assessment & Plan (04/03/2024 10:01 AM EDT): - slowly cutting down for over a year - declined referral to AUD program - advised to continue cutting down on alcohol - f/u in 6 months Essential hypertension 07/21/2018 4 Encounters Date Type Department Care Team Description 12/24/2024 8:40 AM EST Office Visit [facility] [address] [place] [phone] Alfa Mcwilliams MD Essential hypertension (Primary Dx); Neck mass; Tobacco dependence; Cerebrovascular accident (CVA) due to thrombosis of left middle cerebral artery (CMS/HCC) 12/24/2024 Orders Only GENERIC EXTERNAL DATA DEPARTMENT Provider, Generic External Data 12/09/2024 Refill [facility] [address] [place] [phone] Clau Fang MD Cerebrovascular accident (CVA) due to thrombosis of left middle cerebral artery (CMS/HCC) 12/07/2024 9:45 AM EST Office Visit [facility] [address] [place] [address] Clau Fang MD 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) (Primary Dx); Primary hypertension; Polyarthritis; Flexural eczema; Acute systolic congestive heart failure (CMS/HCC); 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); Alcohol dependence with unspecified alcohol-induced disorder (CMS/HCC) 12/07/2024 Orders Only [facility] [address] [place] [phone] Clau Fang MD 12/07/2024 Travel 12/07/2024 Telephone [facility] [address] [place] [phone] Clau Fang MD insurance 12/06/[address] [phone] Pamela Jean [place] Chart prep 11/30/2024 2:00 PM EST Office Visit [facility] [address] [place] [phone] Rachelle Lindsay Dental calculus (Primary Dx); Dental plaque 11/29/2024 Patient Outreach [address] [phone] Clau Fang MD Pre-visit Planning (SDOH screening completed on 01/03/2024) 11/27/[address] [address] Clau Fang MD 11/27/[address] [address] Clau Fang MD Cerebrovascular accident (CVA) due to thrombosis of left middle cerebral artery (CMS/HCC) 11/26/2024 11:00 AM EST Clinical Support [address] [address] Fadumo Gallagher, insurance biller mellitus type 2 with complications ([facility]/HCC) 11/26/2024 Travel 11/22/[address] [phone] Clau Fang MD Cerebrovascular accident (CVA) due to thrombosis of left middle cerebral artery (CMS/HCC) 11/19/2024 9:40 AM EST Office Visit [facility] [address] [place] [phone] Clau Fang MD Diabetes mellitus type 2 with complications ([facility]/HCC) (Primary Dx); Dental abscess; KATHLEEN (acute kidney injury) (CMS/HCC) 11/19/2024 Telephone [facility] [address] [place] [phone] Stevenson Byrd, DDS 11/18/[address] [address] Clau Fang MD Cerebrovascular accident (CVA) due to thrombosis of left middle cerebral artery ([facility]/HCC) 11/16/[address] [phone] Lo Bowman, DDS Medication Question 11/16/[address] [address] Clau Fang MD FYI 11/06/2024 2:40 PM EST Office Visit [facility] [address] [place] [phone] Clau Fang MD Neck mass (Primary Dx); Diabetes mellitus type 2 with complications ([facility]/HCC) 11/06/2024 Orders Only [address] [address] Clau Fang MD Neck mass (Primary Dx) 11/05/[address] [address] Fadumo Gallagher, RADHA DM testing supplies 11/05/2024 Travel 10/30/[address] [address] Clau Fang MD Med Refill 10/29/2024 9:20 AM EST Office Visit [facility] [address] [place] [phone] Clau Fang MD Neck mass (Primary Dx); Primary hypertension; Diabetes mellitus type 2 with complications ([facility]); Moderate asthma without complication, unspecified whether persistent; Uncomplicated asthma, unspecified asthma severity, unspecified whether persistent; Stage 3b chronic kidney disease (CMS/HCC) 10/29/[address] [address] Clau Fang MD CRITICAL RESULT 10/29/2024 Travel 10/12/2024 1:00 PM EST Clinical Support [address] [phone] Marcia Coronel RN Essential hypertension 10/12/[address] [address] Marcia Coronel, RADHA BP nurse visit 10/12/2024 Travel 10/05/2024 10:30 AM EST Office Visit [address] [address] Clau Fang MD Primary hypertension (Primary Dx); Acute systolic congestive heart failure (CMS/HCC); Arthritis of knee 10/05/[address] [address] Marcia Coronel RN Results 10/05/2024 Travel 10/03/2024 Telephone [facility] [address] [place] [phone] Arnold Flores DDS 10/02/[address] [phone] Veronica Agarwal MA CHART PREP 09/26/2024 8:00 AM EDT Office Visit [facility] [address] [place] [phone] Arnold Flores DDS Severe dental caries (Primary Dx); Non-restorable tooth 09/26/2024 Patient Outreach [address] [address] Clau Fang MD Pre-visit Planning ([facility] screening completed on 01/03/2024) from Last 3 Months Immunizations Name Administration Dates Next Due Influenza injectable quadriv alent IIV4 with preservative 10/10/2019,09/01/2018 Influenza injectable quadrivalent preservative f ree 10/04/2022,08/25/2020 Influenza, IIV3, injectable 10/29/2015 Influenza, seasonal, injectable, preservative fr ee 12/07/2024 Moderna Covid-19 Vaccine 12+ 07/26/2022 Pfizer Covid-19 Vaccine 12+ 12/07/2024 Td (adult), 5 Lf tetanus tox oid, preservative free, adsorbed 06/03/2012 Tdap 05/28/2021,04/02/2015 Zoster, Recombinant 07/31/2021 Social History Tobacco Use Types Packs/Day Years [...] Orientation Straight 09/27/2022 10 :16 AM EDT Last Filed Vital Signs Vital Sign Reading Time Taken Comments Blood Pressure 163/88 12/24/2024 8:40 AM EST Pulse 92 12/24/2024 8:40 AM EST Temperature 36.8 ??C (98.3 ??F) 12/24/2024 8:40 AM ES T Respiratory Rate 17 12/24/2024 8:40 AM EST Oxygen Saturation 98% 12/24/2024 8:40 AM EST Inhaled Oxygen Concentration - - Weight 109 kg (239 lb 6.4 oz) 12/24/2024 8:40 AM EST Height 175.3 cm (5' 9 ) 12/07/2024 9:37 AM EST Body Mass Index 35.35 12/07/2024 9:37 AM EST Plan of Treatment Upcoming Encounters Date Type Department Care Team (Late st Contact Info) Description 01/24/2025 9:00 AM EST Office Visit [facility] [address] [place] [address] Rachelle Lindsay 01/31/2025 9:00 AM EST Office Visit [facility] [address] [place] [address] Rachelle Lindsay 02/07/2025 11:15 AM EDT Office Visit [facility] [address] [place], [place] [phone] Clau Fang MD [address] [place], [place] [phone] Health Maintenance Due Date Last Done Comments CT Colonography 1963 FIT DNA/Cologuard 1963 FIT 1963 FOBT 1963 Sigmoidoscopy 1963 Pneumococcal Vaccine: Pediatrics (0 to 5 Years) and At-Risk Patients (6 to 64 Years) (1 of 2 - PCV) 1969 Diabetes: Foot Exam 1973 Eye Exam 1973 Diabetes: Urine Protein Screening 1982 Hepatitis A Vaccines (1 of 2 - Risk 2-dose series) 1982 Colonoscopy 07/12/2020 07/12/2015 Colorectal Cancer Screening 07/12/2020 Zoster Vaccines (2 of 2) 09/25/2021 07/31/2021 RSV Patients and Patients Aged 60 years or older (1 - Risk 60-74 years 1-dose series) 2023 SDOH Screening 01/03/2025 01/03/2024 Depression Screening 01/06/2025 01/06/2024, 01/06/20 24 Diabetes: Hemoglobin A1C 02/17/2025 11/19/2024, 12/0 12/2023 Dental Oral Exam 05/31/2025 11/30/2024, 12/16/2010 Dental Prophylaxis 05/31/2025 11/30/2024 Alcohol/Substance Use Screening 07/05/2025 07/05/2024 Lipid Panel 10/05/2025 10/05/2024, 12/29, 12/24/2020 Dental X-Ray: Bitewings 12/01/2025 11/30/19, 01/18/2019, 12/16/2010 Tobacco Screening 12/24/2025 12/24/2024 Dental X-Ray: Full Mouth 12/01/2027 11/30/2024, 11/28 DTaP/Tdap/Td Vaccines (3 - Td or Tdap) 05/28/2031 05/28/2021, 04/02/2015, 06/03/2012 HIV Screening Completed 11/19/2024 COVID-19 Vaccine Completed 12/07/2024, , 04/03/2021, Additional history exists Hepatitis C Screening Completed 12/07/2024 Influenza Vaccine Completed 12/07/2024, , 08/25/2020, Additional history exists HIB Vaccines Aged Out No longer eligi ble based on patient's age to complete this topic HPV Vaccines Aged Out No longer eligi ble based on patient's age to complete this topic Hepatitis B Vaccines Aged Out No long er eligible based on patient's age to complete this topic IPV Vaccines Aged Out No longer eligi ble based on patient's age to complete this topic Meningococcal Vaccine Aged Out No juli mike eligible based on patient's age to complete this topic RSV under 20 months Aged Out No longe r eligible based on patient's age to complete this topic Rotavirus Vaccines Aged Out No longer eligible based on patient's age to complete this topic Procedures Procedure Name Priority Date/Time Associated Diagnosis Comments CT SOFT TISSUE NECK W CONTRAST Routine 12/24/2024 6:52 PM EST MONONUCLEOSIS TEST, QUALITATIVE Routine 12/24/2024 11:03 AM EST SED RATE BY MODIFIED WESTERGREN Routine 12/24/2024 11:03 AM EST C-REACTIVE PROTEIN Routine 12/24/2024 11 :03 AM EST MAGNESIUM Routine 12/24/2024 11:03 AM EST BASIC METABOLIC PANEL Routine 12/24/2024 11:03 AM EST HEPATIC FUNCTION PANEL Routine 11:03 AM EST CBC WITH AUTO DIFFERENTIAL Routine 12/24/2024 11:03 AM EST HEPATITIS B CORE ANTIBODY (IGM) Routine 12/07/2024 10:40 AM EST HEPATITIS PANEL, GENERAL Routine 12/07/2024 10:40 AM EST Polyarthritis CBC WITH AUTO DIFFERENTIAL Routine 12/07/2024 10:40 AM EST Polyarthritis URIC ACID Routine 12/07/2024 10:40 AM EST Polyarthritis RHEUMATOID FACTOR Routine 12/07/2024 10: 40 AM EST Polyarthritis C-REACTIVE PROTEIN Routine 12/07/2024 10 :40 AM EST Polyarthritis SED RATE BY MODIFIED WESTERGREN Routine 12/07/2024 10:40 AM EST Polyarthritis CLAU SCREEN, IFA, W/REFL TITER AND PATTERN Routine 12/07/2024 10:40 AM EST Polyarthritis POCT GLUCOSE Routine 12/07/2024 9:38 AM EST 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) ORAL HYGIENE INSTRUCTIONS Routine 11/30/2024 2:00 PM EST Dental calculus Dental plaque DIAGNOSTIC - DIAGNOSTIC IMAGING - INTRAORAL - COMPREHENSIVE SERIES OF RADIOGRAPHIC IMAGES Routine 11/30/2024 2:00 PM EST PROPHYLAXIS - ADULT Routine 11/30/2024 2 :00 PM EST Dental calculus Dental plaque ADJUNCTIVE GENERAL SERVICES - PROFESSIONAL VISITS - CASE PRESENTATION, SUBSEQUENT TO DETAILED AND EXTENSIVE TREATMENT PLANNING Routine 11/30/2024 2:00 PM EST PERIODIC ORAL EVALUATION - ESTABLISHED PATIENT Routine 11/30/2024 2:00 PM EST BASIC METABOLIC PANEL Routine 11/19/2024 10:53 AM EST 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) T4 (THYROXINE), TOTAL Routine 11/19/2024 10:53 AM EST Neck mass TSH Routine 11/19/2024 10:53 AM EST Neck mass T4, FREE Routine 11/19/2024 10:53 AM EST Neck mass T3, TOTAL Routine 11/19/2024 10:53 AM EST Neck mass T3, FREE Routine 11/19/2024 10:53 AM EST Neck mass SYPHILIS SCREEN Routine 11/19/2024 10:53 AM EST Neck mass T-SPOT(R).TB Routine 11/19/2024 10:53 AM EST Neck mass LD Routine 11/19/2024 10:53 AM EST Neck mass SED RATE BY MODIFIED WESTERGREN Routine 11/19/2024 10:53 AM EST Neck mass CBC WITH AUTO DIFFERENTIAL Routine 11/19/2024 10:53 AM EST Neck mass HIV 1/2 ANTIGEN/ANTIBODY, FOURTH GENERATION W/RFL Routine 11/19/2024 10:53 AM EST Neck mass POCT URINALYSIS DIPSTICK Routine 11/19/2024 9:58 AM EST 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) POCT GLYCATED HEMOGLOBIN, TOTAL Routine 11/19/2024 9:58 AM EST 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) POCT GLUCOSE Routine 11/19/2024 9:58 AM EST 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) CT CHEST W CONTRAST Routine 11/08/2024 1 1:[address] ABDOMEN PELVIS W CONTRAST Routine 11/08/2024 11:59 AM EST GLUCOSE, WHOLE BLOOD Routine 11/06/2024 9:45 PM EST Neck mass SODIUM W/O CREATININE, RANDOM URINE Routine 11/06/2024 8:11 PM EST Neck mass OSMOLALITY (U) Routine 11/06/2024 8:11 PM EST Neck mass URINALYSIS, COMPLETE, WITH REFLEX TO CULTURE Routine 11/06/2024 8:11 PM EST Neck mass GLUCOSE, WHOLE BLOOD Routine 11/06/2024 7:08 PM EST Neck mass VENOUS BLOOD GAS Routine 11/06/2024 6:23 PM EST Neck mass LACTIC ACID Routine 11/06/2024 6:15 PM EST Neck mass SED RATE BY MODIFIED WESTERGREN Routine 11/06/2024 6:14 PM EST Neck mass OSMOLALITY (SERUM) Routine 11/06/2024 6: 14 PM EST Neck mass BETA-HYDROXYBUTYRATE Routine 11/06/2024 6:14 PM EST Neck mass C-REACTIVE PROTEIN Routine 11/06/2024 6: 14 PM EST Neck mass CT SOFT TISSUE NECK WO CONTRAST Routine 11/06/2024 6:05 PM EST GLUCOSE, WHOLE BLOOD Routine 11/06/2024 6:01 PM EST Neck mass HEPATIC FUNCTION PANEL Routine 4:25 PM EST Neck mass BASIC METABOLIC PANEL Routine 11/06/2024 4:25 PM EST Neck mass CBC WITH AUTO DIFFERENTIAL Routine 11/06/2024 4:25 PM EST Neck mass US HEAD NECK SOFT TISSUE Urgent 11/01/2024 1:09 PM EST Neck mass POCT GLYCATED HEMOGLOBIN, TOTAL Routine 10/29/2024 11:13 AM EST 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) POCT GLUCOSE Routine 10/29/2024 11:13 AM EST 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) BASIC METABOLIC PANEL Routine 10/29/2024 10:23 AM EST Primary hypertension VITAMIN D,25-OH,TOTAL,IA Routine 10/05/2024 11:07 AM EST Arthritis of elbow COMPREHENSIVE METABOLIC PANEL Routine 10/05/2024 11:07 AM EST Primary hypertension LIPID PANEL WITH REFLEX TO DIRECT LDL Routine 10/05/2024 11:07 AM EST Primary hypertension ADJUNCTIVE GENERAL SERVICES - PROFESSIONAL VISITS - CASE PRESENTATION, SUBSEQUENT TO DETAILED AND EXTENSIVE TREATMENT PLANNING Routine 09/26/2024 8:00 AM EDT 16 EXTRACTION, ERUPTED TOOTH REQUIRING REMOVAL OF BONE AND/OR SECTIONING OF TOOTH, AND INCLUDING ELEVATION OF MUCOPERIOSTEAL FLAP IF INDICATED Routine 09/26/2024 8:00 AM EDT HM COLONOSCOPY Routine 07/12/2015 1:55 PM EDT from Last 3 Months or Most Recently Relevant to Health Maintenance Results * CT Soft Tissue Neck w/ Contrast (12/24/2024 6:52 PM EST) Anatomical Region Laterality Modality Head, Neck Computed Tomogra phy 12/24/2024 6:52 PM EST Narrative 12/24/2024 6:54 PM EST ? [facility] ?[address] ?[place] [address] ? CT Scan Report ? Signed ? Patient: Christian,Jace ?MR#: [id number] ?? [id number] ? : 1965 ?Acct:[id number] ? Age/Sex: 59 / M ?ADM Date: 12/24/24 ? Loc: HO.ED ? Attending Dr: ? Ordering Physician: Essie Espinosa ?? Date of Service: 12/24/24 ?? Procedure(s): CT soft tissue neck w IV con ?? Accession Number(s): [id number] ? cc: Clau Fang MD; Essie Espinosa ? Report Number: ?? [id number]: Total DLP = ??805.00 mGy-cm ? CLINICAL [...] OV> ?12/24/241852 ? DD/ 51 ? TD/TT: 12/24/24 1852 ? Premium Cancellation Clerk: ? Procedure Note Donotuseinterpreter, Image - 12/24/[address] [place] [address] [address] Scan Report Signed Patient: Jace GonzalesMR#: [id number] : 1965Acct:[id number] Age/Sex: 59 / MADM Date: 12/24/24 Loc: HO.ED Attending Dr: Ordering Physician: Essie Espinosa Date of Service: 12/24/24 Procedure(s): CT soft tissue neck w IV con Accession Number(s): [id number] cc: Clau Fang MD; Essie Espinosa Report Number: [id number]: Total DLP = 805.00 mGy-cm CLINICAL HISTORY: [...] in OV> 12/24/241852 DD/ 51 TD/TT: 12/24/241851 Premium Cancellation Clerk: [facility] External Provider IMG CT PROCEDURES Final Result * (ABNORMAL) CBC auto differential (12/24/2024 11:03 AM EST) Only the most recent of4 resultswithin the time period is included. White Blood Count 5.8 4.8 - 10.8 X10*3/uL [facility] Red Blood Count 4.12(L) 4.60 - 5.80 X10*6/uL [facility] Hemoglobin 12.1(L) 14.0 - 18.0 g/dl [facility] Hematocrit 36.6(L) 42.0 - 52.0 % [facility] Mean Corpuscular Volume 88.8 80.0 - 98.0 fL [facility] Mean Corpuscular Hemoglobin 29.4 27.0 - 33.0 pg [facility] Mean Corpuscular HGB Conc 33.1 31.0 - 36.0 g/dl [facility] Red Cell Distribution Width 14.0 11.0 - 16.0 % [facility] Platelet Count 286 160 - 400 X10*3/uL [facility] Mean Platelet Volume 8.4(L) 9.4 - 12.4 fL [facility] Neutrophils Percent Auto 58.9 45 - 73 % [facility] Imm Gran Pct Auto 0.2 0.0 - 0.4 % [facility] Lymphocytes Percent Auto 28.1 20 - 40 % [facility] Monocytes Percent Auto 9.3 2 - 11 % [facility] Eosinophils Percent Auto 2.6 0 - 4 % [facility] Basophils Percent Auto 0.9 0 - 2 % [facility] NRBC Pct Auto 0.0 0.0 - 0.2 /100WBC [facility] Neutrophils Absolute Auto 3.4 2.0 - 8.3 x10*3/uL [facility] Imm Gran Abs Auto 0.01 0.00 - 0.03 X10*3/uL [facility] Lymphocytes Absolute Auto 1.6 1.2 - 4.9 X10*3/uL [facility] Monocytes Absolute Auto 0.5 0.1 - 1.2 X10*3/uL [facility] Eosinophils Absolute Auto 0.2 0.0 - 0.4 X10*3/uL [facility] Basophils Absolute Auto 0.1 0.0 - 0.2 X10*3/uL [facility] NRBC Abs Auto 0.000 0.0 - 0.012 X10*3/uL [facility] 12/24/2024 11:0 3 AM EST 12/24/2024 11:06 AM EST Generic External Data Provider LAB BLOOD ORDERAB LES Final Result Performing Organization Address [facility]/ZIP Co de Phone Number [facility] [address] [place] [phone] [phone] * Mononucleosis Test, Qualitative (12/24/2024 11:03 AM EST) Pathologist [facility] Monotest Negative Negative [facility] 12/24/2024 11:0 3 AM EST 12/24/2024 11:06 AM EST Generic External Data Provider LAB BLOOD ORDERAB LES Final Result Performing Organization Address [facility] Co de Phone Number [facility] [address] [place] [phone] * (ABNORMAL) Sed Rate by Rosa M Ramires (12/24/2024 11:03 AM EST) Only the most recent of4 resultswithin the time period is included. Erythrocyte Sedimentation Rate 25(H) 0 - 15 MM/HR [facility] Comment:Patients with polycy themia and many hemoglobin abnormalitiesmay have depressed sed rates whereas patients with anemiamay have elevated sed rates. 12/24/2024 11:0 3 AM EST 12/24/2024 11:06 AM EST Generic External Data Provider LAB BLOOD ORDERAB LES Final Result Performing Organization Address [facility] Co de Phone Number [facility] [address] [place] [phone] * (ABNORMAL) C-reactive Protein (12/24/2024 11:03 AM EST) Only the most recent of3 resultswithin the time period is included. C Reactive Protein 1.54(H) < or = 0.50 mg/dL [facility] 12/24/2024 11:0 3 AM EST 12/24/2024 11:06 AM EST Generic External Data Provider LAB BLOOD ORDERAB LES Final Result Performing Organization Address [facility] de Phone Number [facility] [address] [place] [phone] * Magnesium (12/24/2024 11:03 AM EST) Magnesium 1.9 1.6 - 2.6 mg/dL [facility] 12/24/2024 11:0 3 AM EST 12/24/2024 11:06 AM EST Generic External Data Provider LAB BLOOD ORDERAB LES Final Result Performing Organization Address [facility] de Phone Number [facility] [address] [place] [phone] * (ABNORMAL) Hepatic Function Panel (12/24/2024 11:03 AM EST) Only the most recent of2 resultswithin the time period is included. Bilirubin, Total 0.6 0.0 - 1.0 mg/dL [facility] Bilirubin, Direct 0.2 0.0 - 0.5 mg/dL [facility] Aspartate Amino Transferase 18 5 - 37 U/L [facility] Alanine Aminotransferase 26 0 - 40 U/L [facility] Total Protein 7.9 6.5 - 8.0 g/dL [facility] Albumin Level 4.4 3.5 - 5.0 g/dL [facility] Alkaline Phosphatase 120(H) 39 - 117 U/L [facility] 12/24/2024 11:0 3 AM EST 12/24/2024 11:06 AM EST us Generic External Data Provider LAB BLOOD ORDERAB LES Final Result [facility] [address] [place] [phone] * (ABNORMAL) Basic Metabolic Panel (12/24/2024 11:03 AM EST) Only the most recent of4 resultswithin the time period is included. Sodium 140 135 - 145 mmol/L [facility] Potassium 4.0 3.3 - 5.1 mmol/L [facility] Chloride 108 96 - 108 mmol/L [facility] Carbon Dioxide 26 22 - 29 mmol/L [facility] Anion Gap 10(L) 12 - 20 [facility] Urea Nitrogen (BUN) 15 9 - 16 mg/dL [facility] Creatinine, Serum 0.99 0.5 - 1.4 mg/dL [facility] Creatinine Clr Calc Pharmacy 99.6 [facility] Comment:eGFR (calculated fro m the MDRD study equation) and eCrCl(calculated from the Cockcroft-Gault equation) are based ondifferent parameters and may not yield comparable results.If eCrCl result is absurd, please check patient'sheight/weight. Estimated Glomerular Filt Rate >60 [facility] Comment:Chronic Kidney Disea se: Estimated GFR < 60 mL/min/1.71n2Efnmmi Kidney Disease: Estimated GFR < 15 mL/min/1.73m2 Glucose 105 60 - 115 mg/dL [facility] Calcium 9.7 8.4 - 10.2 mg/dL [facility] 12/24/2024 11:0 3 AM EST 12/24/2024 11:06 AM EST Generic External Data Provider LAB BLOOD ORDERAB LES Final Result Performing Organization Address [facility] de Phone Number [facility] [address] [place] [phone] * Hepatitis Panel, General (12/07/2024 10:40 AM EST) Hepatitis A IgM Nonreactive Nonreactive [facility] Comment:IgM antibodies to HOUSE V not detected; does not exclude earlyacute or recovered HAV infection. ~Hepatitis B Surface Antibody REACTIVE Nonreactive [facility] Comment:REACTIVE: > 11.99 mI U/mL Hepatitis B Core Antibody Reactive Nonreactive [facility] Comment:Presumptive evidence of anti-HBc. Hepatitis C Antibody Nonreactive Nonreactive [facility] Comment:Antibodies to HCV no t detected; does not exclude early acuteHCV infection. Hepatitis B Surface Ag Negative Negative [facility] Blood 12/07/2024 10:4 0 AM EST 12/07/2024 11:38 AM EST Clau Fang MD LAB BLOOD ORDERABLES Fin al Result Performing Organization Address [facility] de Phone Number [facility] [address] [place] [phone] * Hepatitis B Core??Antibody (IgM) (12/07/2024 10:40 AM EST) Hepatitis B Core Antibody IgM NON-REACTI VE NON-REACTI VE [facility] Comment:For additional infor matamy, please refer tohttp://education.[employer]/faq/IWF915(This link is being provided for informational/educational purposes only.)THIS TEST WAS PERFORMED AT:[facility] [place] [phone] ABARCA MD 12/07/2024 10:4 0 AM EST 12/07/2024 11:38 AM EST Clau Fang MD LAB BLOOD ORDERABLES Fin al Result Performing Organization Address [facility]/ZIP Co de Phone Number [facility] [address] [place] [phone] * Rheumatoid Factor (12/07/2024 10:40 AM EST) Pathologist [facility] Rheumatoid Factor <13.0 <15.0 IU/mL [facility] Blood Venous blood specimen / Unknown 12/07/2024 10:40 AM EST 12/07/2024 11:38 AM EST Clau Fang MD LAB BLOOD ORDERABLES Fin al Result Performing Organization Address [facility] de Phone Number [facility] [address] [place] [phone] * CLAU Screen,IFA, with Reflex to Titer and Pattern (12/07/2024 10:40 AM EST) Anti Nuclear Antibody Screen NEGATIVE NEGATIVE [facility] Comment:CLAU IFA is a first l ine screen for detecting thepresence of up to approximately 150 autoantibodies invarious autoimmune diseases. A negative CLAU IFA resultsuggests an CLAU-associated autoimmune disease is notpresent at this time, but is not definitive. If thereis high clinical suspicion for Sjogren's syndrome,testing for anti-SS-A/Ro antibody should be considered.Anti-Dayana-1 antibody should be considered for clinicallysuspected inflammatory myopathies.AC-0: NegativeInternational Consensus on CLAU Patterns(https://doi.org/10.1515/mtca-3655-0820)For additional information, please refer tohttp://education.[employer]/faq/DFZ135(This link is being provided for informational/educational purposes only.)THIS TEST WAS PERFORMED AT:[facility] [place] [phone] ABARCA MD CLAU Titer TNP [facility] CLAU Pattern [facility] CLAU TITER 2 (REF LAB) [facility] CLAU Pattern 2 [facility] CLAU TITER 3 [facility] CLAU PATTERN 3 [facility] Blood Venous blood specimen / Unknown 12/07/2024 10:40 AM EST 12/07/2024 11:38 AM EST Clau Fang MD LAB BLOOD ORDERABLES Fin al Result Performing Organization Address [facility]/ZIP Co de Phone Number [facility] [address] [place] [phone] * Uric acid (12/07/2024 10:40 AM EST) Uric Acid 6.6 3.4 - 7.0 mg/dL [facility] Blood Venous blood specimen / Unknown 12/07/2024 10:40 AM EST 12/07/2024 11:38 AM EST Clau Fang MD LAB BLOOD ORDERABLES Fin al Result Performing Organization Address [facility]/ZIP Co de Phone Number [facility] [address] [place] [phone] * POCT Glucose (12/07/2024 9:38 AM EST) Only the most recent of3 resultswithin the time period is included. Glucose Blood, POC 113 60 - 200 mg/dL QC Media Lot # [id number] Lot# Expiration Date Blood Capillary blood specimen / Unknown 12/07/2024 9:38 AM EST Clau Fang MD POINT OF CARE TEST ENTER /EDIT ORDERABLES Final Result * Syphilis Screen (11/19/2024 10:53 AM EST) Syphilis Screen Nonreactive Nonreactive [facility] Blood 11/19/2024 10:5 3 AM EST 11/19/2024 1:46 PM EST Clau Fang MD LAB BLOOD ORDERABLES Fin al Result [facility] [address] [place] [phone] * T-SPOT??.TB (11/19/2024 10:53 AM EST) T Spot TB Invalid Negative [facility] Comment:The test result is i nvalid (not interpretable) due toa test control failure. Invalid results are uncommonand may be related to factors such as the immune statusof the patient, inappropriate blood storage conditions,delay in sample transport, or other technicaldifficulties. Retesting by collecting another sampleis recommended. If the test result remains invalid,consider the individual's epidemiological history,current medical status, and results of otherdiagnostic evaluations to help determine the TBinfection status of the patient.For additional information, please refer tohttp://education.[employer]/faq/FXW880(This link is being provided for informational/educational purposes only.)THIS TEST WAS PERFORMED AT:[employer] [id number] [place] [phone] STAPLES MD,PHD TS PANEL A [facility] Comment:NOTIFIED ANDI Stewart [facility] 11/26 AT 1243. TS PANEL B [facility] Comment:NOTIFIED ANDI DAWN M [facility] 11/26 AT 1243. Negative Control [facility] Comment:NOTIFIED ANDI FRO M [facility] 11/26 AT 1243. Positive Control [facility] Comment:NOTIFIED ANDI DAWN M [facility] 11/26 AT 1243. 11/19/2024 10:5 3 AM EST 11/19/2024 1:44 PM EST Clau Fang MD LAB BLOOD ORDERABLES Fin al Result Performing Organization Address [facility] Co de Phone Number [facility] [address] [place] [phone] * HIV-1/2 Antigen and Antibodies, Fourth Generation, with Reflexes (11/19/2024 10:53 AM EST) Pathologist [facility] HIV AB/AG Nonreactive Nonreactive [facility] Comment:HIV-1 p24 Ag and/or HIV-1/HIV-2 Ab not detected.A test result that is nonreactive does not exclude thepossibility of exposure to or infection with HIV-1 and/orHIV-2. Nonreactive results in this assay for individualswith prior exposure to HIV-1 and/or HIV-2 may be due toantigen and antibody levels that are below the limit ofdetection of this assay.[employer] HIV Ag/Ab Combo assay result andsupplemental assay results should be interpreted inconjunction with the patient's clinical presentation,history and other laboratory results. If the results areinconsistent with clinical evidence, additional testing issuggested to confirm the result. Blood Venous blood specimen / Unknown 11/19/2024 10:53 AM EST 11/19/2024 1:46 PM EST Clau Fang MD LAB BLOOD ORDERABLES Fin al Result Performing Organization Address [facility]/ZIP Co de Phone Number [facility] [address] [place] [phone] * T3, Free (11/19/2024 10:53 AM EST) T3, Free 3.6 2.3 - 4.2 pg/mL [facility] Comment:THIS TEST WAS PERFOR MED AT:[employer] [address] [id number] ABARCA MD Blood Venous blood specimen / Unknown 11/19/2024 10:53 AM EST 11/19/2024 1:46 PM EST Clau Fang MD LAB BLOOD ORDERABLES Fin al Result Performing Organization Address City/[facility]/ZIP Co de Phone Number [facility] [address] [place] [phone] * T3, Total (11/19/2024 10:53 AM EST) T3, Total 97 76 - 181 ng/dL [facility] Comment:THIS TEST WAS PERFOR MED AT:[facility] [place] [phone] ABARCA MD Blood Venous blood specimen / Unknown 11/19/2024 10:53 AM EST 11/19/2024 1:46 PM EST Clau Fang MD LAB BLOOD ORDERABLES Fin al Result Performing Organization Address [facility] Co de Phone Number [facility] [address] [place] [phone] * TSH (11/19/2024 10:53 AM EST) Thyroid Stimulating Hormone 0.68 0.32 - 4.0 uIU/mL [facility] Comment:TSH 3rd Generation ( [facility]) Blood Venous blood specimen / Unknown 11/19/2024 10:53 AM EST 11/19/2024 1:46 PM EST Clau Fang MD LAB BLOOD ORDERABLES Fin al Result Performing Organization Address [facility] Co de Phone Number [facility] [address] [place] [phone] * T4, Free (11/19/2024 10:53 AM EST) Free T4 (Free Thyroxine) 1.13 0.71 - 1.85 ng/dL [facility] Blood Venous blood specimen / Unknown 11/19/2024 10:53 AM EST 11/19/2024 1:46 PM EST Clau Fang MD LAB BLOOD ORDERABLES Fin al Result Performing Organization Address City/[facility] Co de Phone Number [facility] [address] [place] [phone] * T4 (Thyroxine), Total (11/19/2024 10:53 AM EST) T4 Thyroxine 7.4 4.5 - 12.0 ug/dL [facility] Blood Venous blood specimen / Unknown 11/19/2024 10:53 AM EST 11/19/2024 1:46 PM EST Clau Fang MD LAB BLOOD ORDERABLES Fin al Result Performing Organization Address [facility] Co de Phone Number [facility] [address] [place] [address] [phone] * (ABNORMAL) Lactate Dehydrogenase (LD) (11/19/2024 10:53 AM EST) Lactate Dehydrogenase 397(H) 118 - 273 U/L [facility] Blood Venous blood specimen / Unknown 11/19/2024 10:53 AM EST 11/19/2024 1:46 PM EST Clau Fang MD LAB BLOOD ORDERABLES Fin al Result Performing Organization Address [facility] Co de Phone Number [facility] [address] [place] [address] [phone] * (ABNORMAL) POCT A1C (11/19/2024 9:58 AM EST) Only the most recent of2 resultswithin the time period is included. Hemoglobin A1C 10.4(A) 4.0 - 6.0 % Blood 11/19/2024 9:58 AM EST us Clau Fang MD POINT OF CARE TEST ENTER /EDIT ORDERABLES Final Result * POCT urinalysis dipstick manually resulted (11/19/2024 9:58 AM EST) Color, UA Yellow Clarity, UA Clear Glucose, UA Negative Bilirubin, UA Negative Ketones, UA Negative Spec Grav, UA 1.010 Blood, UA Negative Negative, None Detected pH, UA 5.5 Protein, UA Negative Urobilinogen, UA 0.2 Leukocytes, UA Negative Negative, Rare, Trace Nitrite, UA Negative Negative, None Detected Urine 11/19/2024 9:58 AM EST us Clau Fang MD POINT OF CARE TEST ENTER /EDIT ORDERABLES Final Result * CT Abdomen Pelvis w/ Contrast (11/08/2024 11:59 AM EST) Anatomical Region Laterality Modality Body, Pelvis, Abdomen Computed T omography 11/08/2024 11:5 9 AM EST Narrative 11/08/2024 3:23 PM EST ? [facility] ?[address] ?[place] [address] ? CT Scan Report ? Signed ? Patient: Christian,Jace ?MR#: [id number] ?? [id number] ? : 1965 ?Acct:[id number] ? Age/Sex: 59 / M ?ADM Date: 11/06/24 ? Loc: HO.S3 ?344-1 ? Attending Dr: Reina Perkins MD ? Ordering Physician: Reina Perkins MD ?? Date of Service: 11/08/24 ?? Procedure(s): CT abdomen pelvis w IV con ?? Accession Number(s): [id number] ? cc: Reina Perkins MD; Clau Fang MD ? EXAMINATION: ?? CT ABDOMEN AND PELVIS WITH CONTRAST ? CLINICAL INFORMATION: ?? Lymphadenopathy ? COMPARISON: ?? None available. ? TECHNIQUE: ?? Multidetector volumetric images were obtained from the superior aspect ?? of the liver through the pubic symphysis following administration 85 mL ?? of Omnipaque 350 intravenous contrast. Sagittal and coronal reformatted ?? images were obtained on the technologist's workstation. ? Oral contrast: No ? This CT examination was performed using dose optimization techniques as ?? appropriate, variously including the following: ?? *Automated exposure control ?? *Adjustment of mA and/or kV according to patient size (this includes ?? techniques or standardized protocols for targeted exams where dose is ?? matched to indication/reason for exam; i.e. extremities or head) ?? *Use of iterative reconstruction technique ? DLP: ?? 568 mGy-cm ? FINDINGS: ?? LUNG BASES: The visualized lung bases are unremarkable. ? LIVER, GALLBLADDER, AND BILIARY TREE: The liver is normal in size, ?? shape, and attenuation. No focal hepatic lesion or biliary ductal ?? dilatation is present. Small dependent gallstones observed in the ?? gallbladder lumen. ? PANCREAS: Unremarkable. ? SPLEEN: Unremarkable. ? ADRENAL GLANDS: Unremarkable. ? KIDNEYS AND URETERS: No nephrolithiasis or hydronephrosis. Small ?? bilateral renal cysts, for which no further follow-up recommended. ? BLADDER: Unremarkable. ? GASTROINTESTINAL TRACT: Colonic diverticula without any inflammatory ?? changes. Distal ileum and appendix unremarkable. Small sliding type ?? hiatal hernia. No small bowel obstructive process or abnormal omental ?? thickening. ? ABDOMINAL WALL: Small bilateral fatty inguinal hernias. Small fatty ?? umbilical hernia. ? LYMPH NODES: Small periportal and retroperitoneal nodes. ? VASCULAR: Atherosclerotic changes. ? PELVIC VISCERA: Unremarkable. ? OSSEOUS STRUCTURES: Spondylitic change without any acute compression ?? fractures. Slight retrolisthesis L5-S1. Small sclerotic focus centrally ?? in the right iliac wing likely representing a small bone island. ? CT/CT abdomen pelvis w IV con ?? IMPRESSION: ?? No suspiciously enlarged lymphadenopathy. ? Small cholelithiasis. ? Other incidental findings as noted above. ? Fleischner guidelines were followed. ? Electronically signed by: ??Lizandro Kenyon MD ??11/08/2024 03:21 PM EST ?? RP ? Dictated By: ?Lizandro Kenyon ? Signed By: ?<Electronically signed by Lizandro Kenyon in OV> ?11/08/24 1521 ? DD/ 1159 ? TD/TT: 11/08/24 1210 ? Premium Cancellation Clerk: ? Procedure Note Donchristopher, Ayan - 11/09/[address] [address] [address] Scan Report Signed Patient: Kole Gonzales#: [id number] : 1965Acct:[id number] Age/Sex: 59 / MADM Date: 11/06/24 Loc: .S3 344-[address]: Reina Perkins MD Ordering Physician: Reina Perkins MD Date of Service: 11/08/24 Procedure(s): CT abdomen pelvis w IV con Accession Number(s): [id number] cc: Reina Perkins MD; Clau Fang MD EXAMINATION: CT ABDOMEN AND PELVIS WITH CONTRAST CLINICAL INFORMATION: Lymphadenopathy COMPARISON: None available. TECHNIQUE: Multidetector volumetric images were obtained from the superior aspect of the liver through the pubic symphysis following administration 85 mL of Omnipaque 350 intravenous contrast. Sagittal and coronal reformatted images were obtained on the technologist's workstation. Oral contrast: No This CT examination was performed using dose optimization techniques as appropriate, variously including the following: *Automated exposure control *Adjustment of mA and/or kV according to patient size (this includes techniques or standardized protocols for targeted exams where dose is matched to indication/reason for exam; i.e. extremities or head) *Use of iterative reconstruction technique DLP: 568 mGy-cm FINDINGS: LUNG BASES: The visualized lung bases are unremarkable. LIVER, GALLBLADDER, AND BILIARY TREE: The liver is normal in size, shape, and attenuation. No focal hepatic lesion or biliary ductal dilatation is present. Small dependent gallstones observed in the gallbladder lumen. PANCREAS: Unremarkable. SPLEEN: Unremarkable. ADRENAL GLANDS: Unremarkable. KIDNEYS AND URETERS: No nephrolithiasis or hydronephrosis. Small bilateral renal cysts, for which no further follow-up recommended. BLADDER: Unremarkable. GASTROINTESTINAL TRACT: Colonic diverticula without any inflammatory changes. Distal ileum and appendix unremarkable. Small sliding type hiatal hernia. No small bowel obstructive process or abnormal omental thickening. ABDOMINAL WALL: Small bilateral fatty inguinal hernias. Small fatty umbilical hernia. LYMPH NODES: Small periportal and retroperitoneal nodes. VASCULAR: Atherosclerotic changes. PELVIC VISCERA: Unremarkable. OSSEOUS STRUCTURES: Spondylitic change without any acute compression fractures. Slight retrolisthesis L5-S1. Small sclerotic focus centrally in the right iliac wing likely representing a small bone island. CT/CT abdomen pelvis w IV con IMPRESSION: No suspiciously enlarged lymphadenopathy. Small cholelithiasis. Other incidental findings as noted above. Fleischner guidelines were followed. Electronically signed by: Lizandro Kenyon MD 11/08/2024 03:21 PM EST RP Dictated By: Lizandro Kenyon Signed By: <Electronically signed by Lizandro Kenyon in OV> 11/08/24 1521 DD/ 1159 TD/TT: 11/08/24 1210 Premium Cancellation Clerk: [facility] External Provider IMG CT PROCEDURES Edited Result - Final * CT Chest w/ Contrast (11/08/2024 11:59 AM EST) Anatomical Region Laterality Modality Body, Chest Computed Tomogra phy 11/08/2024 11:5 9 AM EST Narrative 11/08/2024 4:47 PM EST ? [facility] ?[address] ?[place] [address] ? CT Scan Report ? Signed ? Patient: Jace Gonzales ?MR#: [id number] ?? [id number] ? : 1965 ?Acct:[id number] ? Age/Sex: 59 / M ?ADM Date: 12/10/24 ? Loc: HO.S3 ?344-1 ? Attending Dr: Reina Perkins MD ? Ordering Physician: Reina Perkins MD ?? Date of Service: 11/08/24 ?? Procedure(s): CT chest w IV con ?? Accession Number(s): [id number] ? cc: Reina Perkins MD; Clau Fang MD ? EXAMINATION: ?? CT CHEST WITH CONTRAST ? CLINICAL INFORMATION: ?? Cervical lymphadenopathy ? COMPARISON: ?? CT soft tissue neck from 11/06/2024 ? TECHNIQUE: ?? Multidetector volumetric CT imaging of the chest was obtained after the ?? administration of 85 mL of Omnipaque 350 intravenous contrast without ?? immediate adverse reactions. Axial MIP volume rendering provided. ?? Sagittal and coronal reformatted images were obtained. ? This CT examination was performed using dose optimization techniques as ?? appropriate, variously including the following: ?? *Automated exposure control ?? *Adjustment of mA and/or kV according to patient size (this includes ?? techniques or standardized protocols for targeted exams where dose is ?? matched to indication/reason for exam; i.e. extremities or head) ?? *Use of iterative reconstruction technique ? DLP: ?? 746 mGy-cm ? FINDINGS: ? LUNGS: The lungs are clear with no evidence of inflammation or ?? suspicious nodules. ??Subpleural calcified nodules seen in the left ?? lower lobe ? MEDIASTINUM: Left supraclavicular lymphadenopathy is partially ?? visualized. Please refer to CT soft tissue neck for further details. No ?? mediastinal or hilar lymphadenopathy. Heart is normal in size. ?? Pericardium is normal. Thoracic aorta is normal in caliber ? PLEURA: There is no pleural effusion. No pleural mass or thickening. ? AXILLA: No lymphadenopathy. ? UPPER ABDOMEN: Liver is decreased in density consistent with hepatic ?? steatosis. ? OSSEOUS STRUCTURES: Unremarkable. ? CT/CT chest w IV con ?? IMPRESSION: ?? 1. ??No acute process. No suspicious pulmonary nodules. ?? 2. ??Left supraclavicular lymphadenopathy is partially visualized. ?? 3. ??Hepatic steatosis. ? Electronically signed by: ??Tony Manzano MD ??11/08/2024 04:44 PM EST RP ? Dictated By: ?Tony Manzano MD ? Signed By: ?<Electronically signed by Tony Manzano MD in OV> ? 11/08/24 1644 ? DD/ 1159 ? TD/TT: 11/08/24 1210 ? Premium Cancellation Clerk: ? Procedure Note Donotdannyter, Image - 11/09/[address] [address] [address] Scan Report Signed Patient: Jace GonzalesMR#: [id number] : 1965Acct:[id number] Age/Sex: 59 / MADM Date: 11/06/24 Loc: .S3 344-[address]: Reina Perkins MD Ordering Physician: Reina Perkins MD Date of Service: 11/08/24 Procedure(s): CT chest w IV con Accession Number(s): [id number] cc: Reina Perkins MD; Clau Fang MD EXAMINATION: CT CHEST WITH CONTRAST CLINICAL INFORMATION: Cervical lymphadenopathy COMPARISON: CT soft tissue neck from 11/06/2024 TECHNIQUE: Multidetector volumetric CT imaging of the chest was obtained after the administration of 85 mL of Omnipaque 350 intravenous contrast without immediate adverse reactions. Axial MIP volume rendering provided. Sagittal and coronal reformatted images were obtained. This CT examination was performed using dose optimization techniques as appropriate, variously including the following: *Automated exposure control *Adjustment of mA and/or kV according to patient size (this includes techniques or standardized protocols for targeted exams where dose is matched to indication/reason for exam; i.e. extremities or head) *Use of iterative reconstruction technique DLP: 746 mGy-cm FINDINGS: LUNGS: The lungs are clear with no evidence of inflammation or suspicious nodules. Subpleural calcified nodules seen in the left lower lobe MEDIASTINUM: Left supraclavicular lymphadenopathy is partially visualized. Please refer to CT soft tissue neck for further details. No mediastinal or hilar lymphadenopathy. Heart is normal in size. Pericardium is normal. Thoracic aorta is normal in caliber PLEURA: There is no pleural effusion. No pleural mass or thickening. AXILLA: No lymphadenopathy. UPPER ABDOMEN: Liver is decreased in density consistent with hepatic steatosis. OSSEOUS STRUCTURES: Unremarkable. CT/CT chest w IV con IMPRESSION: 1. No acute process. No suspicious pulmonary nodules. 2. Left supraclavicular lymphadenopathy is partially visualized. 3. Hepatic steatosis. Electronically signed by: Tony Manzano MD 11/08/2024 04:44 PM EST Dictated By: Tony Manzano MD Signed By: <Electronically signed by Tony Manzano MD in OV> 11/08/24 1644 DD/ 1159 TD/TT: 11/08/24 1210 Premium Cancellation Clerk: [facility] External Provider IMG CT PROCEDURES Edited Result - Final * (ABNORMAL) Glucose, Whole Blood (11/06/2024 9:45 PM EST) Only the most recent of3 resultswithin the time period is included. Glucose, Whole Blood 365(HH) 60 - 115 mg/dL [facility] Comment:METER #: [id number] 11/06/2024 9:45 PM EST 11/06/2024 9:50 PM EST Generic External Data Provider LAB BLOOD ORDERAB LES Final Result [facility] [address] [place] [phone] * (ABNORMAL) Urinalysis, Complete, with Reflex to Culture (11/06/2024 8:11 PM EST) Color Urine Yellow [facility] Appearance Urine Clear [facility] PH 5.5 5.0 - 9.0 [facility] Glucose Urine UA >=1000(A) Negative mg/dL [facility] Urine Blood Negative Negative [facility] Specific [place] - Urine 1.025 1.005 - 1.025 [facility] Urine Protein Negative Neg-Trace mg/dL [facility] Urine Ketones Negative Negative mg/dL [facility] Nitrite Urine Negative Negative [facility] Leukocyte Esterase Urine Negative Negative [facility] RBC Urine 0-2 0 - 2 /HPF [facility] Urine WBC 0-5 0 - 5 /HPF [facility] Urine Squamous Epithelial Cell 0-2 0 - 2 /HPF [facility] Urine Bacteria None Seen None Seen [facility] Hyaline Casts, Urine 0-2 0 - 2 /LPF [facility] 11/06/2024 8:11 PM EST 11/06/2024 8:21 PM EST Narrative [facility] - 11/06/2024 9:56 PM EST [id number], Clean Catch us Generic External Data Provider LAB URINE ORDERAB LES Final Result Performing Organization Address [facility]/ZIP Co de Phone Number [facility] [address] [place] [phone] * Sodium Without creatinine, Random Urine (11/06/2024 8:11 PM EST) Sodium Urine Random 25.0 mmol/L [facility] 11/06/2024 8:11 PM EST 11/06/2024 8:21 PM EST us Generic External Data Provider LAB BLOOD ORDERAB LES Final Result Performing Organization Address [facility] Co de Phone Number [facility] [address] [place] [phone] * Osmolality, Urine (11/06/2024 8:11 PM EST) OSMOLALITY URINE 612 373 - 1,093 mosm/kg [facility] 11/06/2024 8:11 PM EST 11/06/2024 8:21 PM EST us Generic External Data Provider LAB URINE ORDERAB LES Final Result Performing Organization Address [facility] Co de Phone Number [facility] [address] [place] [phone] * VENOUS BLOOD GAS (11/06/2024 6:23 PM EST) VBG pH 7.36 7.32 - 7.43 [facility] Comment:METER #: [id number] additional_comment: Cb omoruna VBG PCO2 39 mmHg [facility] Comment:METER #: [id number] additional_comment: Cb omoruna VBG PO2 188 mmHg [facility] Comment:METER #: [id number] additional_comment: Cb omoruna VBG Base Excess -2.2 mmol/L [facility] Comment:METER #: [id number] additional_comment: Cb omoruna VBG HCO3 22 22 - 26 mmol/L [facility] Comment:METER #: [id number] additional_comment: Cb omoruna O2 Sat, Niko 100.0 % [facility] Comment:METER #: [id number] additional_comment: Cb omoruna 11/06/2024 6:23 PM EST 11/06/2024 6:27 PM EST us Generic External Data Provider LAB BLOOD ORDERAB LES Final Result Performing Organization Address City/[facility]/ZIP Co de Phone Number [facility] [address] [place] [phone] * Lactic Acid (11/06/2024 6:15 PM EST) Lactic Acid 0.8 0.5 - 2.0 mmol/L [facility] 11/06/2024 6:15 PM EST 11/06/2024 6:23 PM EST Generic External Data Provider LAB BLOOD ORDERAB LES Final Result Performing Organization Address [facility] Co de Phone Number [facility] [address] [place] [phone] * Beta-Hydroxybutyrate (11/06/2024 6:14 PM EST) Beta-Hydroxybut yrate 0.23 0.02 - 0.27 mmol/L [facility] 11/06/2024 6:14 PM EST 11/06/2024 6:23 PM EST us Generic External Data Provider LAB BLOOD ORDERAB LES Final Result Performing Organization Address [facility] de Phone Number [facility] [address] [place] [phone] * (ABNORMAL) Osmolality, Serum (11/06/2024 6:14 PM EST) Osmolality (Serum) 309(H) 281 - 305 mosm/kg [facility] 11/06/2024 6:14 PM EST 11/06/2024 6:23 PM EST us Generic External Data Provider LAB BLOOD ORDERAB LES Final Result Performing Organization Address [facility] de Phone Number [facility] [address] [place] [phone] * CT Soft Tissue Neck w/o Contrast (11/06/2024 6:05 PM EST) Anatomical Region Laterality Modality Head, Neck Computed Tomogra phy 11/06/2024 6:05 PM EST Narrative 11/06/2024 8:43 PM EST ? [facility] ?[address] ?[place] [address] ? CT Scan Report ? Signed ? Patient: Christian,Jace ?MR#: [id number] ?? [id number] ? : 1965 ?Acct:[id number] ? Age/Sex: 59 / M ?ADM Date: 12/10/24 ? Loc: HO.ED ? Attending Dr: ? Ordering Physician: Татьяна Mathis CNP ?? Date of Service: 11/06/24 ?? Procedure(s): CT soft tissue neck wo IV con ?? Accession Number(s): [id number] ? cc: Татьяна Mathis CNP; Clau Fang MD ? EXAMINATION: ?? CT SOFT TISSUE NECK WITHOUT CONTRAST ? CLINICAL INFORMATION: ?? Left-sided neck mass. Recent dental procedure. ? COMPARISON: ?? CTA head and neck from 08/07/2021 ? TECHNIQUE: ?? Multidetector helical imaging was performed in the axial plane without ?? intravenous contrast. Multiple axial reformats and coronal/sagittal ?? reconstructions were created the technologist workstation for review. ? This CT examination was performed using dose optimization techniques as ?? appropriate, variously including the following: ?? *Automated exposure control. ?? *Adjustment of mA and/or kV according to patient size (this includes ?? techniques or standardized protocols for targeted exams where dose is ?? matched to indication/reason for exam; i.e. extremities or head). ?? *Use of iterative reconstruction technique. ? DLP: ?? 790 mGy-cm ? FINDINGS: ?? No significant cutaneous thickening or subcutaneous inflammation. ? Heterogeneous left supraclavicular and left level Vb lymphadenopathy, ?? some of which appear centrally necrotic, measuring up to 2.9 cm. ?? Moderate surrounding fat stranding in this distribution. Moderate ?? prevertebral edema from C2-C5. ? No additional discrete fluid collection within the deep tissues of the ?? neck. The premaxillary, retromaxillary, pterygopalatine fossa, orbital ?? apical, parapharyngeal, and prelaryngeal adipose tissue is maintained. ?? Normal appearance of the parotid, submandibular, and thyroid glands. ?? Scattered subcentimeter lymph nodes bilaterally, none of which are ?? pathologically enlarged. No demonstrated focal lesion or abnormal ?? enhancement within the intrinsic tissues of the tongue or floor of ?? mouth. Normal mucosal contours of the pharynx and larynx. Normal ?? appearance of the hyoid bone, thyroid cartilage, or cartilaginous ?? trachea. The airways remains widely patent. No radiopaque foreign ?? bodies. ? The atlantooccipital and atlantoaxial articulations remain well ?? aligned. Mild reversal the normal cervical lordosis centered on C5-C6. ?? No evidence of acute fracture or subluxation of the cervical spine. The ?? vertebral body heights are maintained. Moderate degenerative disc ?? disease from C5-C7. Facet and uncovertebral joint arthropathy leads to ?? osseous encroachment on the neural foramina from C2-T1. ? The visualized portion of the skull base is without significant ?? abnormalities. Mild mucosal thickening of the paranasal sinuses. The ?? mastoid air cells and middle ear cavities are clear. Persistent socket ?? of the maxillary left 3rd molar. Additional mild multifocal odontogenic ?? enamel erosions and periapical lucencies. ? CT Upper Chest: ?? The visualized lung apices and upper mediastinum are within normal ?? limits. ? CT/CT soft tissue neck wo IV con ?? IMPRESSION: ?? Heterogeneous left supraclavicular and left level lymphadenopathy (some ?? of which appear centrally necrotic) measuring up to 2.9 cm. Moderate ?? prevertebral edema from C2-C5. No demonstrated discrete fluid ?? collection within the deep tissues of the neck. ? There is a persistent socket of the maxillary left 3rd molar, although ?? is not clear that the aforementioned abnormalities represent direct ?? sequela. ? The etiology of this overall picture is nonspecific and could represent ?? an underlying infectious/inflammatory process although metastatic ?? disease remains a consideration. No demonstrated additional discrete ?? drainable fluid collection. ? Electronically signed by: ??Christiano Winter DO ??11/06/2024 08:40 PM EST RP ? Dictated By: ?Alfa Winter DO ? Signed By: ?<Electronically signed by Alfa Winter DO in OV> ? 11/06/242039 ? DD/ 1805 ? TD/TT: 11/06/241821 ? Premium Cancellation Clerk: JL ? Procedure Note Ayan Obrien - 11/06/[address] [address] [address] Scan Report Signed Patient: Jace GonzalesMR#: [id number] : 1965Acct:[id number] Age/Sex: 59 / MADM Date: 11/06/24 Loc: HO.ED Attending Dr: Ordering Physician: Татьяна Mathis CNP Date of Service: 11/06/24 Procedure(s): CT soft tissue neck wo IV con Accession Number(s): [id number] cc: Татьяна Mathis CNP; Clau Fang MD EXAMINATION: CT SOFT TISSUE NECK WITHOUT CONTRAST CLINICAL INFORMATION: Left-sided neck mass. Recent dental procedure. COMPARISON: CTA head and neck from 08/07/2021 TECHNIQUE: Multidetector helical imaging was performed in the axial plane without intravenous contrast. Multiple axial reformats and coronal/sagittal reconstructions were created the technologist workstation for review. This CT examination was performed using dose optimization techniques as appropriate, variously including the following: *Automated exposure control. *Adjustment of mA and/or kV according to patient size (this includes techniques or standardized protocols for targeted exams where dose is matched to indication/reason for exam; i.e. extremities or head). *Use of iterative reconstruction technique. DLP: 790 mGy-cm FINDINGS: No significant cutaneous thickening or subcutaneous inflammation. Heterogeneous left supraclavicular and left level Vb lymphadenopathy, some of which appear centrally necrotic, measuring up to 2.9 cm. Moderate surrounding fat stranding in this distribution. Moderate prevertebral edema from C2-C5. No additional discrete fluid collection within the deep tissues of the neck. The premaxillary, retromaxillary, pterygopalatine fossa, orbital apical, parapharyngeal, and prelaryngeal adipose tissue is maintained. Normal appearance of the parotid, submandibular, and thyroid glands. Scattered subcentimeter lymph nodes bilaterally, none of which are pathologically enlarged. No demonstrated focal lesion or abnormal enhancement within the intrinsic tissues of the tongue or floor of mouth. Normal mucosal contours of the pharynx and larynx. Normal appearance of the hyoid bone, thyroid cartilage, or cartilaginous trachea. The airways remains widely patent. No radiopaque foreign bodies. The atlantooccipital and atlantoaxial articulations remain well aligned. Mild reversal the normal cervical lordosis centered on C5-C6. No evidence of acute fracture or subluxation of the cervical spine. The vertebral body heights are maintained. Moderate degenerative disc disease from C5-C7. Facet and uncovertebral joint arthropathy leads to osseous encroachment on the neural foramina from C2-T1. The visualized portion of the skull base is without significant abnormalities. Mild mucosal thickening of the paranasal sinuses. The mastoid air cells and middle ear cavities are clear. Persistent socket of the maxillary left 3rd molar. Additional mild multifocal odontogenic enamel erosions and periapical lucencies. CT Upper Chest: The visualized lung apices and upper mediastinum are within normal limits. CT/CT soft tissue neck wo IV con IMPRESSION: Heterogeneous left supraclavicular and left level lymphadenopathy (some of which appear centrally necrotic) measuring up to 2.9 cm. Moderate prevertebral edema from C2-C5. No demonstrated discrete fluid collection within the deep tissues of the neck. There is a persistent socket of the maxillary left 3rd molar, although is not clear that the aforementioned abnormalities represent direct sequela. The etiology of this overall picture is nonspecific and could represent an underlying infectious/inflammatory process although metastatic disease remains a consideration. No demonstrated additional discrete drainable fluid collection. Electronically signed by: Christiano Winter DO 11/06/2024 08:40 PM EST RP Dictated By: Alfa Winter DO Signed By: <Electronically signed by Alfa Winter DO in OV> 11/06/24 2040 DD/ 1805 TD/TT: 11/06/24 1822 Premium Cancellation Clerk: CHRIS [facility] External Provider IMG CT PROCEDURES Final Result * US Head Neck Soft Tissue (11/01/2024 1:09 PM EST) Anatomical Region Laterality Modality Head, Neck Ultrasound 11/01/2024 1:09 PM EST Narrative 11/02/2024 10:52 AM EST ? [facility] ?[address] ?[place] [address] ? Ultrasound Report ? Signed ? Patient: Christian,Jace ?MR#: [id number] ?? [id number] ? : 1965 ?Acct:[id number] ? Age/Sex: 59 / M ?ADM Date: 12/05/24 ? Loc: HO.US ? Attending Dr: Clau Fang MD ? Ordering Physician: Clau Fang MD ?? Date of Service: 11/01/24 ?? Procedure(s): US soft tiss head and/or neck ?? Accession Number(s): [id number] ? cc: Clau Fang MD ? EXAMINATION: ?? US SOFT TISSUE HEAD/NECK ? CLINICAL INFORMATION: ?? Left-sided neck/supraclavicular mass, rule out abscess. ?Other mass. ? COMPARISON: ?? None available. ? TECHNIQUE: ?? Linear transducer grayscale and color Doppler examination of the left ?? neck/supraclavicular area was performed in the region of a palpable ?? lump. Images were supplemented by color Doppler. ? FINDINGS: ? Examination of the left supraclavicular region of interest demonstrates ?? 2, somewhat pulliam-shaped, heterogeneously hypoechoic structures ?? demonstrating internal flow and probable compressed fatty dany. One of ?? these measures 2.0 x 2.0 x 2.9 cm, and the other measures 3.2 x 2.4 x ?? 2.3 cm. The findings are nonspecific. Differential diagnosis includes, ?? but is not limited to, adenopathy. Recommend clinical correlation. ? If further imaging is clinically desired, CT scan with contrast may be ?? of use. ? US/US soft tiss head and/or neck ?? IMPRESSION: ? Findings as above. ? Electronically signed by: ??Giovani Redd MD ??11/02/2024 10:49 AM EST RP ? Dictated By: ?Giovani Redd ? Signed By: ?<Electronically signed by Giovani Redd in OV> ?11/02/24 1049 ? DD/ 1309 ? TD/TT: 11/01/24 1315 ? Premium Cancellation Clerk: ? Procedure Note Micah, Image - 11/02/[address] [address] Ultrasound Report Signed Patient: Jace GonzalesMR#: [id number] : 1965Acct:[id number] Age/Sex: 59 / MADM Date: 11/01/24 Loc: HO.US Attending Dr: Clau Fang MD Ordering Physician: Clau Fang MD Date of Service: 11/01/24 Procedure(s): soft tiss head and/or neck Accession Number(s): [id number] cc: Clau Fang MD EXAMINATION: US SOFT TISSUE HEAD/NECK CLINICAL INFORMATION: Left-sided neck/supraclavicular mass, rule out abscess. ?Other mass. COMPARISON: None available. TECHNIQUE: Linear transducer grayscale and color Doppler examination of the left neck/supraclavicular area was performed in the region of a palpable lump. Images were supplemented by color Doppler. FINDINGS: Examination of the left supraclavicular region of interest demonstrates 2, somewhat pulliam-shaped, heterogeneously hypoechoic structures demonstrating internal flow and probable compressed fatty dany. One of these measures 2.0 x 2.0 x 2.9 cm, and the other measures 3.2 x 2.4 x 2.3 cm. The findings are nonspecific. Differential diagnosis includes, but is not limited to, adenopathy. Recommend clinical correlation. If further imaging is clinically desired, CT scan with contrast may be of use. US/US soft tiss head and/or neck IMPRESSION: Findings as above. Electronically signed by: Giovani Redd MD 11/02/2024 10:49 AM EST Dictated By: Giovani Redd Signed By: <Electronically signed by Giovain Redd in OV> 11/02/24 1049 DD/ 1309 TD/TT: 11/01/24 1315 Premium Cancellation Clerk: Clau Fang MD [facility] US PROCEDURES Edited Result - Final * (ABNORMAL) Vitamin D, 25-Hydroxy, Total, Immunoassay (10/05/2024 11:07 AM EST) Vitamin D 25-OH Total 20.8(L) >30 ng/mL [facility] Comment:Health Based Referen ce Values*< 20 ng/mL Qllchsayt84-96 ng/mL Insufficient> 30 ng/mL Sufficient*Mingo SPANGLER. N Engl J Med. 2007;357:266-280Care must be taken in interpreting Vitamin D results fromdifferent laboratories and methodologies. Published datademonstrated that results from patients undergoinghemodialysis may show a negative bias when tested withvarious automated 25-OH vitamin D assays when compared toLC-MS/MS.When testing samples from patients whose predominant form ofVitamin D is Vitamin D2, such as patients receiving VitaminD2 supplementation, results that are subtherapeutic shouldbe confirmed with another method such as LC-MS/MS. Blood 10/05/2024 11:0 7 AM EST 10/05/2024 1:22 PM EST Clau Fang MD LAB BLOOD ORDERABLES Fin al Result Performing Organization Address [facility] de Phone Number [facility] [address] [place] [phone] * (ABNORMAL) Lipid Panel with Reflex to Direct LDL (10/05/2024 11:07 AM EST) Triglycerides 168(H) <150 mg/dL [facility] Comment:Desirable Triglyceri de: less than 150 mg/dLBorderline High Triglyceride 150-199 mg/dLHigh Triglyceride: 200-499 mg/dLVery High Triglyceride: greater than or equal to 5OO mg/dL Cholesterol 146 <200 mg/dL [facility] Comment:Desirable Cholestero l: less than 200 mg/dLBorderline High Cholesterol: 200-239 mg/dLHigh Cholesterol: greater than 239 mg/dL LDL Cholesterol Calculated 81 <100 mg/dL [facility] Comment:Desirable LDL: less than 100 mg/dLNear Optimal/Above Optimal LDL: 110- 129 mg/dLBorderline High LDL: 130-159 mg/dLHigh LDL: 160-189 mg/dLVery High LDL: greater than or equal to 190 mg/dL HDL Cholesterol 32(L) >40 mg/dL [facility] Comment:Desirable HDL: great er than 40 mg/dL Note: This HDL assay may give artificially low results in patients with liver disease. Blood 10/05/2024 11:0 7 AM EST 10/05/2024 1:22 PM EST Clau Fang MD LAB BLOOD ORDERABLES Fin al Result Performing Organization Address [facility] Co de Phone Number [facility] [address] [place] [phone] * (ABNORMAL) Comprehensive Metabolic Panel (10/05/2024 11:07 AM EST) Sodium 137 135 - 145 mmol/L [facility] Potassium 4.6 3.3 - 5.1 mmol/L [facility] Chloride 102 96 - 108 mmol/L [facility] Carbon Dioxide 25 22 - 29 mmol/L [facility] Anion Gap 15 12 - 20 [facility] Urea Nitrogen (BUN) 27(H) 9 - 16 mg/dL [facility] Creatinine, Serum 1.49(H) 0.5 - 1.4 mg/dL [facility] Estimated Glomerular Filt Rate 48 [facility] Comment:NOTE: For -Am erican individuals, multiply the result by 1.210.Chronic Kidney Disease: Estimated GFR < 60 mL/min/1.28t8Twbbqo Kidney Disease: Estimated GFR < 15 mL/min/1.73m2 Glucose 196(H) 60 - 115 mg/dL [facility] Calcium 9.8 8.4 - 10.2 mg/dL [facility] Bilirubin, Total 0.8 0.0 - 1.0 mg/dL [facility] Aspartate Amino Transferase 31 5 - 37 U/L [facility] Alanine Aminotransferase 35 0 - 40 U/L [facility] Total Protein 8.0 6.5 - 8.0 g/dL [facility] Albumin Level 4.7 3.5 - 5.0 g/dL [facility] Alkaline Phosphatase 132(H) 39 - 117 U/L [facility] Blood Venous blood specimen / Unknown 10/05/2024 11:07 AM EST 10/05/2024 1:22 PM EST us Clau Fang MD LAB BLOOD ORDERABLES Fin al Result [facility] [address] [place] [phone] * Hm Colonoscopy (07/12/2015 1:55 PM EDT) Colonoscopy Normal Normal Narrative Cherie Infante - 07/12/2015 1:55 PM EDT Recommended 5 year follow up ( [facility]) us Historical Provider HEALTH MAINTENANCE Edited Result - Final from Last 3 Months or Most Recently Relevant to Health Maintenance Insurance HSN PARTIAL 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
--- OUTSIDE RECORDS SUMMARY | 2024-12-24 19:55 | XMS_ITS | Encounter Summary ---
Author Organization [employer] Address [address] [facility] [address] [place] [address] Care Team Providers Care Direct Sales Consultant Name Role Phone Shell Fang MD Primary Care Provider + Reason for Visit * Reason Comments Neck Pain Arm Pain Encounter Details Date Type Department Care Team (Late st Contact Info) Description 12/24/2024 8:40 AM EST Office Visit [facility] [address] [place] [phone] Alfa Mcwilliams MD [address] [place] [address] Essential hypertension (Primary Dx); Neck mass; Tobacco [...] 6.4 oz) 12/24/2024 8:40 AM EST Height - - Body Mass Index 35.35 12/07/2024 9:37 AM EST documented in this encounter Progress Notes * Alfa Mcwilliams MD - 12/24/2024 8:40 AM EST Subjective Patient ID: Jace Gonzales is a 59 y.o. male. HPI 1 week ago Jace noted recurrence of swelling in left side of neck, causes pain in right neck, similar to when sx 1st occurred 10/2024, found to have odontogenic infection of the left neck. Was admitted to [facility] 11/06-, treated with IV antibiotics, sent home on oral antibiotics. Was doing well until 1 week ago. States extractions of left lower molar is scheduled next month. No fever, chills, n/v. Lives alone. Smokes 1 PPD. 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 ([facility]) Chronic low back pain Acute low back pain Carotid artery stenosis Allergic conjunctivitis Alcohol dependence ([facility]) Adjustment disorder with anxious mood Essential hypertension Pure hypercholesterolemia Tobacco dependence syndrome Acute systolic congestive heart failure ([facility]) Tendinosis of right shoulder Right elbow pain Arthritis of elbow Arthritis of knee Severe dental caries Non-restorable tooth Neck mass Diabetes mellitus type 2 with complications ([facility]) Uncomplicated asthma Stage 3b chronic kidney disease ([facility]) Dental abscess KATHLEEN (acute kidney injury) ([facility]) Polyarthritis Flexural eczema The following portions of the chart were reviewed this encounter and updated as appropriate: Review of Systems Constitutional: Negative for fever. Respiratory: Negative for shortness of breath. Cardiovascular: Negative for chest pain. Gastrointestinal: Negative for abdominal pain. Musculoskeletal: Positive for neck pain. Skin: Negative for rash. Neurological: Negative for headaches. Objective Physical Exam Constitutional: Appearance: Normal appearance. HENT: Right Ear: Tympanic membrane, ear canal and external ear normal. Left Ear: Tympanic membrane, ear canal and external ear normal. Nose: Nose normal. Mouth/Throat: Mouth: Mucous membranes are moist. Pharynx: Oropharynx is clear. Eyes: Conjunctiva/sclera: Conjunctivae normal. Pupils: Pupils are equal, round, and reactive to light. Cardiovascular: Rate and Rhythm: Normal rate and regular rhythm. Heart sounds: No murmur heard. Pulmonary: Effort: Pulmonary effort is normal. Breath sounds: Normal breath sounds. Musculoskeletal: General: Normal range of motion. Cervical back: No tenderness. Lymphadenopathy: Cervical: Cervical adenopathy (tender left firm, mobile ?node) present. Skin: Findings: No rash. Neurological: Mental Status: He is alert. Gait: Gait is intact. Psychiatric: Mood and Affect: Mood normal. Behavior: Behavior normal. Procedures Assessment/Plan Diagnoses and all orders for this visit: Neck mass Recurrence of left cervicale adenopathy that 1st started 10/2024, found to be odontogenic neck infection. Referred back to ED now. Essential hypertension Prescribed home BP monitor. Reviewed BP parameters, given written BP log that includes BP parameters, to keep daily. Call if BP readings are elevated. Tobacco dependence Prescribed nicotine patches and lozenges. - clopidogrel (Plavix) 75 MG tablet; Take 1 tablet (75 mg) by mouth Once per day. Other orders - nicotine (Nicoderm CQ) 21 MG/24HR patch; Place 1 patch on the skin 1 (one) time each day at the same time. - nicotine (Nicoderm CQ) 14 MG/24HR patch; Place 1 patch on the skin 1 (one) time each day at the same time. - nicotine (Nicoderm CQ) 7 MG/24HR patch; Place 1 patch on the skin 1 (one) time each day at the same time. - nicotine polacrilex (Commit) 4 MG lozenge; Dissolve 1 lozenge (4 mg) in the mouth every 2 (two) hours if needed for smoking cessation. - metFORMIN (Glucophage) 500 MG tablet; Take 1 tablet (500 mg) by mouth with breakfast and with evening meal. - empagliflozin (Jardiance) 10 MG; Take 1 tablet (10 mg) by mouth Once per day. documented in this encounter Plan of Treatment Upcoming Encounters Date Type Department Care Team (Late st Contact Info) Description 01/24/2025 9:00 AM EST Office Visit [facility] [address] [place] [phone] Rachelle Lindsay 01/31/2025 9:00 AM EST Office Visit [facility] [address] [place] [phone] Rachelle Lindsay 02/07/2025 11:15 AM EDT Office Visit [facility] [address] [place] [phone] Shell Fang MD [address] [place] [phone] documented as of this encounter Visit Diagnoses Diagnosis Essential hypertension- Primary Unspecified essential hypertension Neck mass Swelling, mass, or lump in head and neck Tobacco dependence Tobacco use disorder Cerebrovascular accident (CVA) due to thrombosis of left middle cerebral artery (CMS/HCC) documented in this encounter Care Teams Direct Sales Consultant Relationship Specialty Start Date End Date Shell Fang MD [address] [place] [phone] PCP - General Family Medicine 07/21/18 documented as of this encounter
[2024-12-24 20:07] VITALS: BP 135/74; PULSE 72; RESP 18; TEMP 36.6; O2SAT 99
== END 2024-12-24 20:08 | disposition home or self-care (01) ==
PROVIDERS: Physician Assistant; Emergency Provider Emergency Medicine; PCP Internal Medicine
DX: R59.1 Generalized enlarged lymph nodes (principal); M54.2 Cervicalgia; E11.9 Type 2 diabetes mellitus without complications; I10 Essential (primary) hypertension; E78.5 Hyperlipidemia, unspecified; J45.909 Unspecified asthma, uncomplicated; Z79.84 Long term (current) use of oral hypoglycemic drugs; Z79.4 Long term (current) use of insulin; Z79.899 Other long term (current) drug therapy
CPT/HCPCS: 36415; 70491; 80048; 80076; 83735; 85025; 85652; 86140; 86308; 87040; 96365; 99284; J0295; Q9967

== ENCOUNTER → 2024-12-24 16:32 | Outpatient (BNV) | payer OTHER, SELFPAY | PROVIDERS: Emergency Provider Emergency Medicine; PCP Internal Medicine; Visit Provider Radiology Diagnostic Radiology | DX: R59.0 Localized enlarged lymph nodes (principal) | CPT/HCPCS: 70491 ==

== ENCOUNTER → 2025-01-10 10:00 | Outpatient (BNV) | payer OTHER, SELFPAY | PROVIDERS: PCP Internal Medicine; Referring Provider Surgery; Visit Provider Internal Medicine Medical Oncology | DX: R59.1 Generalized enlarged lymph nodes (principal) | CPT/HCPCS: 99203 ==

== ENCOUNTER 2025-01-24 10:19 | Outpatient (AMB) | payer OTHER, SELFPAY ==
--- NOTE | 2025-01-24 10:17 | MHC.OFFVIS ---
Vital Signs 01/24/25 10:32 Height 6 ft Weight 236 lb BMI 32.0 BP 133/69 Blood Pressure Location Lt brachial Position Sitting Pulse 82 Intake Visit Reasons: Lymph node issue Intake Note: Patient is seen in office for evaluation and treatment of lymphadenopathy of head and neck. 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 Required: No Accompanied by: Self / Same As Patient Allergies No Known Allergies [No Known Allergies*] Allergy (Verified 01/24/25 10:29) Medication List - Last Reconciled 01/24/25 by Estuardo Thomas MD albuterol sulfate 90 mcg/actuation 2 inhalations inhalation Q4-6H PRN aspirin 81 mg PO DAILY blood sugar diagnostic (FreeStyle Lite Strips) QID blood-glucose meter (FreeStyle Lite Meter kit) As directed clopidogrel 75 mg PO DAILY doxycycline monohydrate 100 mg PO BID empagliflozin (Jardiance) 10 mg PO DAILY furosemide 20 mg See Protocol PO DAILY insulin glargine 15 units (0.15 mL) subcut QAM insulin regular human (Novolin R FlexPen) See Protocol sliding scale doses subcut USEASDIRECTD lancets 4 times daily losartan 25 mg See Protocol PO DAILY metformin 500 mg PO BIDWMEAL metoprolol succinate ER 25 mg PO DAILY pen needle, diabetic (Pen Needle) As directed, QID spironolactone 25 mg See Protocol PO DAILY tiotropium bromide 2.5 mcg/actuation (Spiriva Respimat) 2 puffs inhalation DAILY vitamin B complex 1 cap PO DAILY HPI Comments Details: 59-year-old male patient presenting for evaluation of left supraclavicular lymphadenopathy. This has been present for several months in he was recently hospitalized for an oral infection in October 2024. Initial evaluation was felt to be reactive to the oral infection. He reports some pain when the lymph nodes are palpated. He also has symptoms extending down into his shoulder and arm. The symptoms seemed to increase with heavy activity such as while at work. He denies any fever or chills. A CT of soft tissue of the neck confirmed multiple enlarged left supraclavicular lymph nodes. He was evaluated by Dr. Gonsalves who has requested excision for diagnosis. He has had no previous biopsies of the lymph nodes. [facility] Medical History Uncontrolled type 2 diabetes mellitus with hyperglycemia Congestive heart failure Vitamin D deficiency Hypercholesteremia Uncomplicated alcohol dependence Essential hypertension Mild intermittent asthma in adult without complication Stenosis of carotid artery Adjustment disorder with anxious mood Episodic tension-type headache, not intractable Chronic bilateral low back pain without sciatica Acute bilateral low back pain without sciatica CVA (cerebrovascular accident) Allergic conjunctivitis of both eyes Acute pain of left knee Tobacco dependence COPD (chronic obstructive pulmonary disease) with chronic bronchitis Social History Household Members: None Housing: Apartment Do you presently have visiting nurse or other home services: No Alcohol intake: current Alcohol intake frequency: 3 or more drinks per day Alcohol type: hard liquor Comment: Pt oob and amb. ad mag, steady on feet Patient Tobacco Use Status: Current everyday Tobacco user Tobacco use type: Cigarette Current occupational status: employed Current occupation: [employer] Review of Systems Const All systems reviewed & are unremarkable except as noted in HPI and below Physical Exam Vital Signs: Last Vital Signs Pulse 82 01/24/25 10:32 BP 133/69 01/24/25 10:32 BMI result Body Mass Index 32.0 Const General: cooperative and no acute distress Nutritional Appearance: well nourished Orientation/consciousness: patient oriented x3 Limitations: no limitations HEENT Head: Yes normocephalic and Yes atraumatic Ears: hearing grossly normal bilaterally Neck Neck images: 1. Multiple enlarged lymph nodes palpable in the base of the left neck, tender to palpation; Mostly behind the sternocleidomastoid muscle. 2. Resp Effort & Inspection: normal respiratory effort, no audible wheezes, no cough and no respiratory distress Cardio Jugular venous distension: no JVD GI Inspection: Yes normal to inspection Skin Other: Warm, dry, no rash Neuro General: patient oriented x3 Extrem General: Yes no clubbing, cyanosis or edema Assessment & Plan Assessment & Plan (1) Lymphadenopathy of head and neck: Code(s): R59.1 - Generalized enlarged lymph nodes Category: Medical Plan 59-year-old male patient presenting with a prolonged history of left neck lymphadenopathy of unknown etiology. This was initially felt to be reactive to an oral infection but continues to cause symptoms despite oral antibiotics. He was evaluated by Dr. Gonsalves and an excisional biopsy is recommended. On examination he does have multiple enlarged lymph nodes at the base of the left neck and supraclavicular regions. I recommended a left neck lymph node excision as a short-stay surgery and after discussion of the procedure, risks, and alternatives, he consents to the surgery. Coding Level of Care Code New Pt Level 4 (82573) Diagnoses Lymphadenopathy of head and neck R59.1
[2025-01-24 10:32] VITALS: BP 133/69; PULSE 82; BMI 32.0
--- OUTSIDE RECORDS SUMMARY | 2025-01-24 11:59 | XMS_ITS | Encounter Summary ---
Author Organization [employer] Address [address] [facility] 7t [place] [address] Care Team Providers Care Supervisor Alum Plant Name Role Phone Shell Fang MD Primary Care Provider + Encounter Details Date Type Department Care Team (Latest Contact Info) Description 12/27/2024 Travel Social History Tobacco Use Types Packs/Day [...] Care Team (Late st Contact Info) Description 01/31/2025 9:00 AM EST Office Visit [facility] [address] [place] [address] Racehlle Lindsay 02/07/2025 11:15 AM EDT Office Visit [facility] MED[facility] [address] [place] [address] hSell Fang MD [address] [place] [address] documented as of this encounter Visit Diagnoses Not on filedocumented in this encounter Care Teams Supervisor Alum Plant Relationship Specialty Start Date End Date Shell Fang MD [address] [place] [phone] PCP - General Family Medicine 07/21/18 documented as of this encounter
--- OUTSIDE RECORDS SUMMARY | 2025-01-24 11:59 | XMS_ITS | Encounter Summary ---
Author Organization [employer] Address [address] [place] [phone] Care Team Providers Care Meat Slicer Name Role Phone Shell Fang MD Primary Care Provider + Reason for Referral * Consultation (Routine) - Authorized Specialty Diagnoses / Procedures Referred By Herbert katz Referred To Contact Otolaryngology Diagnoses Lymphadenopathy, supraclavicular Malissa Caldwell MD [address] [place] [phone] Phone: tel: fax: [facility] [address] Phone: tel: fax: Referral ID Status Reason Start Date Expiration Date Visits Requested Visits Authorized [id number] Authorized Specialty Services Required 12/30/2024 12/30/2025 1 1 Reason for Visit * Reason Comments Edema On neck Encounter Details Date Type Department Care Team (Latest Contact Info) Description 12/27/2024 3:15 PM EST Office Visit [facility] [address] [place] [address] [phone] Malissa Caldwell MD [address] [place], [place] [phone] Lymphadenopathy, supraclavicular (Primary Dx) Social History Tobacco Use Types Packs/Day Years [...] Sign Reading Time Taken Comments Blood Pressure 127/84 12/27/2024 3:05 PM EST Pulse 76 12/27/2024 3:05 PM EST Temperature 36.3 ??C (97.3 ??F) 12/27/2024 3:05 PM ES T Respiratory Rate 17 12/27/2024 3:05 PM EST Oxygen Saturation 99% 12/27/2024 3:05 PM EST Inhaled Oxygen Concentration - - Weight 109 kg (241 lb 3.2 oz) 12/27/2024 3:05 PM EST Height 175.3 cm (5' 9 ) 12/27/2024 3:05 PM EST Body Mass Index 35.62 12/27/2024 3:05 PM EST documented in this encounter Progress Notes * Malissa Caldwell MD - 12/27/2024 3:15 PM EST SUBJECTIVE: Jace Gonzales is a 59 y.o. year old male who presents for acute visit-- ER followup. Acute Concerns: He was seen in the ER at [facility] 12/24/24 for L sided neck swelling x 6 days. This problem had occurred the month prior as well. CT of neck showed No wall enhancing fluid collection to suggest the presence of an abscess. Persistent left supraclavicular lymphadenopathy with mild improvement. The largestlymph node currently measures 2 cm in short axis dimension. He ws given one dose of amp/sulbactam IV and discharged with Augmentin and doxycycline. He has followup with Heme/onc on 08 Jan 2025 and needs a referral to ENT as [facility] ENT does not take his insurance. He has no fever, chills, nausea, vomiting. Some fatigue. He has an appointment with [facility] dental of 20 Jan 2025. He needs a letter excusing him from work until cleared by Heme/onc. He has R elbow pain as well, consistent with epicondylitis. Will send [facility] for this, continue to use elbow straps that he has at home. Interim Updates: Latest Reference Range & Units 12/24/24 11:03 Glucose 60 - 115 mg/dL 105 Urea Nitrogen (BUN) 9 - 16 mg/dL 15 Creatinine, Serum 0.5 - 1.4 mg/dL 0.99 Sodium 135 - 145 mmol/L 140 Potassium 3.3 - 5.1 mmol/L 4.0 Chloride 96 - 108 mmol/L 108 Carbon Dioxide 22 - 29 mmol/L 26 Calcium 8.4 - 10.2 mg/dL 9.7 Albumin Level 3.5 - 5.0 g/dL 4.4 Bilirubin, Total 0.0 - 1.0 mg/dL 0.6 AST 5 - 37 U/L 18 ALT 0 - 40 U/L 26 Anion Gap 12 - 20 10 (L) Magnesium 1.6 - 2.6 mg/dL 1.9 Total Protein 6.5 - 8.0 g/dL 7.9 Red Blood Count 4.60 - 5.80 X10*6/uL 4.12 (L) Hemoglobin 14.0 - 18.0 g/dl 12.1 (L) Hematocrit 42.0 - 52.0 % 36.6 (L) Mean Corpuscular Volume 80.0 - 98.0 fL 88.8 Mean Corpuscular Hemoglobin 27.0 - 33.0 pg 29.4 Mean Corpuscular HGB Conc 31.0 - 36.0 g/dl 33.1 Red Cell Distribution Width 11.0 - 16.0 % 14.0 Platelet Count 160 - 400 X10*3/uL 286 Eosinophils Percent Auto 0 - 4 % 2.6 Lymphocytes Absolute Auto 1.2 - 4.9 X10*3/uL 1.6 Basophils Absolute Auto 0.0 - 0.2 X10*3/uL 0.1 Monocytes Absolute Auto 0.1 - 1.2 X10*3/uL 0.5 Neutrophils Absolute Auto 2.0 - 8.3 x10*3/uL 3.4 Neutrophils Percent Auto 45 - 73 % 58.9 Basophils Percent Auto 0 - 2 % 0.9 Eosinophils Absolute Auto 0.0 - 0.4 X10*3/uL 0.2 Lymphocytes Percent Auto 20 - 40 % 28.1 Monocytes Percent Auto 2 - 11 % 9.3 Imm Gran Abs Auto 0.00 - 0.03 X10*3/uL 0.01 Imm Gran Pct Auto 0.0 - 0.4 % 0.2 Alkaline Phosphatase 39 - 117 U/L 120 (H) Bilirubin, Direct 0.0 - 0.5 mg/dL 0.2 BLOOD CULTURE (FIRST) Rpt (P) C Reactive Protein < or = 0.50 mg/dL 1.54 (H) Creatinine Clr Calc Pharmacy 99.6 Erythrocyte Sedimentation Rate 0 - 15 MM/HR 25 (H) Estimated Glomerular Filt Rate >60 Mean Platelet Volume 9.4 - 12.4 fL 8.4 (L) Monotest Negative Negative NRBC Abs Auto 0.0 - 0.012 X10*3/uL 0.000 NRBC Pct Auto 0.0 - 0.2 /100WBC 0.0 White Blood Count 4.8 - 10.8 X10*3/uL 5.8 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) Chronic low back pain Acute low back pain Carotid artery stenosis Allergic conjunctivitis Alcohol dependence ([facility]/HCC) Adjustment disorder with anxious mood Essential hypertension Pure hypercholesterolemia Tobacco dependence syndrome Acute systolic congestive heart failure ([facility]/HCC) Tendinosis of right shoulder Right elbow pain Arthritis of elbow Arthritis of knee Severe dental caries Non-restorable tooth Neck mass Diabetes mellitus type 2 with complications ([facility]) Uncomplicated asthma Stage 3b chronic kidney disease ([facility]) Dental abscess KATHLEEN (acute kidney injury) ([facility]) Polyarthritis Flexural eczema Lymphadenopathy, supraclavicular History reviewed. No pertinent surgical history. No family history on file. Social History Social History Narrative Not on file Review of Systems Constitutional: Positive for activity change and fatigue. Negative for appetite change, chills, diaphoresis, fever and unexpected weight change. HENT: Positive for sore throat. Oral pain in L posterior tooth Respiratory: Negative. Cardiovascular: Negative. Gastrointestinal: Negative. Musculoskeletal: Positive for arthralgias. Skin: Negative. OBJECTIVE: Vitals: 12/27/24 1505 BP: 127/84 BP Location: Right arm Patient Position: Sitting BP Cuff Size: Adult Pulse: 76 Resp: 17 Temp: 97.3 ??F (36.3 ??C) TempSrc: Temporal SpO2: 99% Weight: 241 lb 3.2 oz (109 kg) Height: 5' 9 (1.753 m) Physical Exam Vitals and nursing note reviewed. Constitutional: Appearance: Normal appearance. He is normal weight. HENT: Head: Normocephalic and atraumatic. Right Ear: Tympanic membrane, ear canal and external ear normal. Left Ear: Tympanic membrane, ear canal and external ear normal. Nose: Nose normal. Mouth/Throat: Mouth: Mucous membranes are moist. Pharynx: Oropharynx is clear. Comments: Visible open socket in L posterior inferior jaw Poor dentition Neck: Comments: Supraclavicular LAD, L side, non-tender, no overlying erythema, no warmth, no drainage Cardiovascular: Rate and Rhythm: Normal rate and regular rhythm. Pulses: Normal pulses. Heart sounds: Normal heart sounds. Pulmonary: Effort: Pulmonary effort is normal. Breath sounds: Normal breath sounds. Musculoskeletal: Cervical back: Normal range of motion and neck supple. Skin: General: Skin is warm and dry. Capillary Refill: Capillary refill takes less than 2 seconds. Neurological: General: No focal deficit present. Mental Status: He is alert and oriented to person, place, and time. Psychiatric: Mood and Affect: Mood normal. Behavior: Behavior normal. ASSESSMENT/PLAN Problem List Items Addressed This Visit Lymphadenopathy, supraclavicular - Primary Relevant Orders Referral to ENT Follow Up: per PCP or sooner prn No Known Allergies Current Outpatient Medications: Alcohol Swabs 70 % pads, Use to test blood sugar 1x times daily, Disp: 100 each, Rfl: 0 atorvastatin (Lipitor) 40 MG tablet, TAKE 1 TABLET BY MOUTH EVERY DAY IN THE MORNING (Patient not taking: Reported on 11/30/2024), Disp: 90 tablet, Rfl: 1 B-D ULTRAFINE III SHORT PEN 31G X 8 MM misc, Use four times a day as directed with insulin (Patientnot taking: Reported on 11/30/2024), Disp: , Rfl: betamethasone valerate (Valisone) 0.1 % cream, Apply topically if needed in the morning and at bedtime (dryness)., Disp: 45 g, Rfl: 2 Blood Glucose Monitoring Suppl (FreeStyle Thurman Lite) w/Device kit, Use to test blood sugar 1x times daily, Disp: 1 kit, Rfl: 0 chlorhexidine (Peridex) 0.12 % solution, Use 15ml twice daily to swish the mouth ensuring it comes in contact with all tooth surfaces and gums. Do not swallow the rinse., Disp: 473 mL, Rfl: 0 clopidogrel (Plavix) 75 MG tablet, Take 1 tablet (75 mg) by mouth Once per day., Disp: 90 tablet, Rfl: 1 Diclofenac Sodium 1 % gel, Apply thin layer by topical route (quantity as directed on package insert) to elbow 3 times daily as needed., Disp: 50 g, Rfl: 3 empagliflozin (Jardiance) 10 MG, Take 1 tablet (10 mg) by mouth Once per day., Disp: 30 tablet, Rfl: 1 fluticasone-salmeterol (Advair HFA) 230-21 MCG/ACT inhaler, TAKE 2 PUFFS BY MOUTH TWICE A DAY IN THE MORNING AND IN THE EVENING, Disp: 12 g, Rfl: 3 FREESTYLE LITE test strip, Use to test blood sugar 1x times daily, Disp: 100 each, Rfl: 11 furosemide (Lasix) 20 MG tablet, Take 1 tablet (20 mg) by mouth in the morning., Disp: 30 tablet, Rfl: 11 glimepiride (Amaryl) 1 MG tablet, Take 1 tablet (1 mg) by mouth with breakfast and with evening meal., Disp: 60 tablet, Rfl: 3 insulin glargine (Lantus) 100 UNIT/ML pen, Inject 15 Units under the skin in the morning., Disp: , Rfl: Lancets misc, Use to test blood sugar 1x times daily, Disp: 100 each, Rfl: 11 losartan (Cozaar) 50 MG tablet, Take 1 tablet (50 mg) by mouth Once per day., Disp: 90 tablet, Rfl:3 metFORMIN (Glucophage) 500 MG tablet, Take 1 tablet (500 mg) by mouth with breakfast and with evening meal., Disp: 180 tablet, Rfl: 1 metoprolol succinate XL (Toprol-XL) 25 MG 24 hr tablet, Take 1 tablet by mouth Once per day., Disp:, Rfl: nicotine (Nicoderm CQ) 14 MG/24HR patch, Place 1 patch on the skin 1 (one) time each day at the same time., Disp: 30 patch, Rfl: 0 nicotine (Nicoderm CQ) 14 MG/24HR patch, Place 1 patch on the skin 1 (one) time each day at the same time., Disp: 14 patch, Rfl: 0 nicotine (Nicoderm CQ) 21 MG/24HR patch, Place 1 patch on the skin 1 (one) time each day at the same time., Disp: 42 patch, Rfl: 0 nicotine (Nicoderm CQ) 7 MG/24HR patch, Place 1 patch on the skin 1 (one) time each day at the sametime., Disp: 14 patch, Rfl: 0 nicotine polacrilex (Commit) 4 MG lozenge, Dissolve 1 lozenge (4 mg) in the mouth every 2 (two) hours if needed for smoking cessation., Disp: 100 lozenge, Rfl: 0 nicotine polacrilex (Commit) 4 MG lozenge, Dissolve 1 lozenge (4 mg) in the mouth every 2 (two) hours if needed for smoking cessation., Disp: 100 lozenge, Rfl: 0 Spacer/Aero-Holding Chambers (OptiChamber Cyndi) [facility], 1 each every 4 (four) hours if needed (asthma)., Disp: 1 each, Rfl: 0 spironolactone (Aldactone) 25 MG tablet, Take 1 tablet (25 mg) by mouth in the morning., Disp: 30 tablet, Rfl: 11 tiotropium (Spiriva Respimat) 2.5 MCG/ACT inhaler, Inhale 2 puffs Once per day., Disp: 4 each, Rfl:11 Ventolin HFA 108 (90 Base) MCG/ACT inhaler, TAKE 2 PUFFS BY MOUTH EVERY 4 TO 6 HOURS NEEDED, Disp: 18 g, Rfl: 5 documented in this encounter Plan of Treatment Upcoming Encounters Date Type Department Care Team (Late st Contact Info) Description 01/31/2025 9:00 AM EST Office Visit [facility] ADULT DENTAL [address] [place] [address] Rachelle Lindsay 02/07/2025 11:15 AM EDT Office Visit [facility] MED[facility]INE [address] [place] [phone] Shell Fang MD [address] [place] [address] Scheduled Referrals Name Type Priority Associated Diagnoses Orde r Schedule Referral to ENT Outpatient Referral Routine Lymphadenopathy, supraclavicular Expected: 12/30/2024 (Approximate), Expires: 12/30/2025 documented as of this encounter Visit Diagnoses Diagnosis Lymphadenopathy, supraclavicular- Primary documented in this encounter Care Teams Meat Slicer Relationship Specialty Start Date End Date Shell Fang MD [address] [place] [phone] PCP - General Family Medicine 07/21/18 documented as of this encounter
--- OUTSIDE RECORDS SUMMARY | 2025-01-24 11:59 | XMS_ITS | Encounter Summary ---
Author Organization [employer] Address [address] [place] [address] [address] [place] [address] Care Team Providers Care Energy Efficient Site Manager Name Role Phone Shell Fang MD Primary Care Provider + Reason for Visit * Reason Onset Date Comments Med Refill 02/03/2023 Encounter Details Date Type Department Care Team ([facility] st Contact Info) Description 02/03/2023 Telephone [facility] [address] [place], [place] [phone] Shell Fang MD [address] [place] [address] Med Refill Social History Tobacco Use Types [...] (90 Base) MCG/ACT inhaler Please sent to [facility]/pharmacy #[id number] - [place] - [address] [facility] documented in this encounter Plan of Treatment Upcoming Encounters Date Type Department Care Team (Late st Contact Info) Description 01/31/2025 9:00 AM EST Office Visit [facility] [address] [place] [address] Rachelle Lindsay 02/07/2025 11:15 AM EDT Office Visit [facility] [address] [place] [address] Shell Fang MD [address] [place] [address] documented as of this encounter Visit Diagnoses Not on filedocumented in this encounter Care Teams Energy Efficient Site Manager Relationship Specialty Start Date End Date Shell Fang MD [address] [place] [address] PCP - General Family Medicine 07/21/18 documented as of this encounter
--- OUTSIDE RECORDS SUMMARY | 2025-01-24 11:59 | XMS_ITS | Encounter Summary ---
Author Organization [employer] Address [address] [place] [address] 7 [place] [address] Care Team Providers Care Gerontological Nurse Practitioner Name Role Phone Shell Fang MD Primary Care Provider + Encounter Details Date Type Department Care Team (Late st Contact Info) Description 05/12/2023 Abstract [facility] [address] [place] [address] [phone] Shell Fang MD [address] [place] [address] [phone] Social History Tobacco Use Types Packs/Day Years [...] Description 01/31/2025 9:00 AM EST Office Visit [facility]ULT D[facility] [address] [place] [address] [phone] Rachelle Lindsay 02/07/2025 11:15 AM EDT Office Visit [facility] [address] [place] [address] [phone] Shell Fang MD [address] [place] [address] [phone] documented as of this encounter Procedures Procedure Name Priority Date/Time Associated Diagnosis Comments HM COLONOSCOPY Routine 07/12/2015 1:55 PM EDT documented in this encounter Results * Hm Colonoscopy (07/12/2015 1:55 PM EDT) Colonoscopy Normal Normal Narrative Cherie Infante - 07/12/2015 1:55 PM EDT Recommended 5 year follow up ( [facility]) us Historical Provider [facility] Edited Result - Final documented in this encounter Visit Diagnoses Not on filedocumented in this encounter Care Teams Gerontological Nurse Practitioner Relationship Specialty Start Date End Date Shell Fang MD [address] [place] [phone] PCP - General Family Medicine 07/21/18 documented as of this encounter
--- OUTSIDE RECORDS SUMMARY | 2025-01-24 11:59 | XMS_ITS | Encounter Summary ---
Author Organization [employer] Address [address] [facility] 7t [place] [address] Care Team Providers Care Gate Operator Name Role Phone Shell Fang MD Primary Care Provider + Reason for Visit * Reason Comments Med Refill Encounter Details Date Type Department Care Team ([facility] st Contact Info) Description 03/05/2024 Refill [facility] [address] [place], [place] [phone] Shell Fang MD [address] [place], [place] [phone] Mixed hyperlipidemia Social History Tobacco Use Types [...] t he electric, gas, oil or water [employer] threatened to shut off services in your [...] Description 01/31/2025 9:00 AM EST Office Visit [facility] ADULT DENTAL [address] [place] [phone] Rachelle Lindsay 02/07/2025 11:15 AM EDT Office Visit [facility] [address] [place] [address] Shell Fang MD [address] [place] [phone] documented as of this encounter Visit Diagnoses Diagnosis Mixed hyperlipidemia documented in this encounter Care Teams Gate Operator Relationship Specialty Start Date End Date Shell Fang MD [address] [place] [phone] PCP - General Family Medicine 07/21/18 documented as of this encounter
--- OUTSIDE RECORDS SUMMARY | 2025-01-24 11:59 | XMS_ITS | Encounter Summary ---
Author Organization [employer] Address [address] [facility] 7 [place] [address] Care Team Providers Care Texturing Machine Fixer Name Role Phone Shell Fang MD Primary Care Provider + Encounter Details Date Type Department Care Team (Late st Contact Info) Description 02/03/2023 Orders Only [facility] [address] [place], [place] [phone] Marija Carlson LPN Social History Tobacco Use [...] 01/31/2025 9:00 AM EST Office Visit [facility] ADULT DENTAL [address] [place] [address] Rachelle Lindsay 02/07/2025 11:15 AM EDT Office Visit [facility] [address] [place] [address] Shell Fang MD [address] [place], [place] [phone] documented as of this encounter Visit Diagnoses Not on filedocumented in this encounter Care Teams Texturing Machine Fixer Relationship Specialty Start Date End Date Shell Fang MD [address] [place] [address] [phone] PCP - General Family Medicine 07/21/18 documented as of this encounter
--- OUTSIDE RECORDS SUMMARY | 2025-01-24 11:59 | XMS_ITS | Encounter Summary ---
Author Organization [employer] Address [address] [facility] 7t [place] [address] Care Team Providers Care Chief Clerk Shelter Name Role Phone Shell Fang MD Primary Care Provider + Reason for Visit * Reason Onset Date Comments ER Follow-up 12/25/2024 Encounter Details Date Type Department Care Team ([facility] st Contact Info) Description 12/25/2024 Telephone [facility] MEDICINE [address] [place] [address] Shell Fang MD [address] [place] [address] ER Follow-up Social History Tobacco Use Types Packs/Day Years [...] t he electric, gas, oil or water [employer] threatened to shut off services in your [...] encounter Miscellaneous Notes * Telephone Encounter - Laura Alvarez RN - 12/25/2024 2:57 PM EST Called pt. To offer appt. No answer. Left message for pt. To call back [facility] nurses at [phone]. Pt. Needs fu appt. This week on red team. Called pt. Back appt made for 12/27/[address] Caldwell RE: 2cm lymphnode on neck * Telephone Encounter - Laura Alvarez RN - 12/25/2024 11:27 AM EST Date: 12/24 Hospital: [facility] Seen for: Swelling On Neck Symptomatic Yes Called pt. He states that he has a swelling /lump on right side of neck. Pt states he has had it onand off for a while. Pt. Went to [facility] ED on 12/24/24 and was DX with a mobile Lymph node on right side of neck near clavicle. Pt was told to see PCP and get referral to ENT. Pt. States his blood work came out good but that they want pt. Seen corinne to rule out Malignancy as largest lymph node measures 2cm large. Pt. Was ent home with Antibiotic Augmentin but, told to see his PCP as soon as possible. Pt. Denies any pain in area of node at present. I will call pt. At end of day to be able to put him in a sick on site slot for 12/27/24. Protocol Used: Lymph Nodes - Swollen (Adult) Protocol-Based Disposition: See in Office within the next few days. Positive Triage Question: * Large node 2 cm large present > 2 weeks * All higher-acuity triage questions were negative * Telephone Encounter - Rizwan Lagunas - 12/25/2024 10:15 AM EST Patient calling to report ED visit on : Date: 12/24 Hospital: [facility] Seen for: Swelling On Neck Symptomatic Yes *if yes message should go to Triage Patient advised will forward to team nurse for follow up Contact pt at [phone] documented in this encounter Plan of Treatment Upcoming Encounters Date Type Department Care Team (Late st Contact Info) Description 01/31/2025 9:00 AM EST Office Visit [facility] ADULT DENTAL [address] [place] [address] Rachelle Lindsay 02/07/2025 11:15 AM EDT Office Visit [facility] MED[facility] [address] [place] [address] Shell Fang MD [address] [place] [address] documented as of this encounter Visit Diagnoses Not on filedocumented in this encounter Care Teams Chief Clerk Shelter Relationship Specialty Start Date End Date Shell Fang MD [address] [place] [address] PCP - General Family Medicine 07/21/18 documented as of this encounter
--- OUTSIDE RECORDS SUMMARY | 2025-01-24 11:59 | XMS_ITS | Encounter Summary ---
Author Organization [employer] Address [address] [place] [address], [place] [address] Care Team Providers Care Partition Making Machine Operator Name Role Phone Shell Fang MD Primary Care Provider + Encounter Details Date Type Department Care Team (Late st Contact Info) Description 11/19/2022 Orders Only [facility] [address] [place] [address] Yanique Leigh LPN Social History Tobacco Use [...] AM EST Office Visit [facility] ADULT DENTAL [address] [place] [address] Rachelle Lindsay 02/07/2025 11:15 AM EDT Office Visit [facility] MED[facility] [address] [place] [address] Shell Fang MD [address] [place] [address] documented as of this encounter Visit Diagnoses Not on filedocumented in this encounter Care Teams Partition Making Machine Operator Relationship Specialty Start Date End Date Shell Fang MD [address] [place] [phone] PCP - General Family Medicine 07/21/18 documented as of this encounter
--- OUTSIDE RECORDS SUMMARY | 2025-01-24 11:59 | XMS_ITS | Encounter Summary ---
Author Organization [employer] Address [address] [facility] [address] [place] [address] Care Team Providers Care Cake Maker Name Role Phone Shell Fang MD Primary Care Provider + Encounter Details Date Type Department Care Team (Late st Contact Info) Description 04/03/2024 Orders Only [facility] [address] [place] [address] Katherin Patricia MA Effusion of right elbow [...] Description 01/31/2025 9:00 AM EST Office Visit [facility] [address] [place] [address] Rachelle Lindsay 02/07/2025 11:15 AM EDT Office Visit [facility] [address] [place] [address] Shell Fang MD [address] [place] [address] Scheduled Orders Name Type Priority Associated Diagnoses Orde r Schedule XR Elbow 3+ Views Right Imaging Routine Effusion of right elbow Expected: 04/03/2024, Expires: 04/03/2025 documented as of this encounter Visit Diagnoses Diagnosis Effusion of right elbow documented in this encounter Care Teams Cake Maker Relationship Specialty Start Date End Date Shell Fang MD [address] [place] [phone] PCP - General Family Medicine 07/21/18 documented as of this encounter
--- OUTSIDE RECORDS SUMMARY | 2025-01-24 12:00 | XMS_ITS | Encounter Summary ---
Author Organization [employer] Address [address] [facility] 7t [place] [address] Care Team Providers Care Problem Manager Name Role Phone Shell Fang MD Primary Care Provider + Reason for Visit * Reason Comments Med Refill Encounter Details Date Type Department Care Team ([facility] st Contact Info) Description 12/09/2024 Refill [facility] [address] [place], [place] [phone] Shell Fang MD [address] [place], [place] [phone] Cerebrovascular accident (CVA) due to thrombosis of [...] Description 01/31/2025 9:00 AM EST Office Visit [facility] [address] [place] [address] Rachelle Lindsay 02/07/2025 11:15 AM EDT Office Visit [facility] [address] [place] [phone] Shell Fang MD [address] [place] [address] documented as of this encounter Visit Diagnoses Diagnosis Cerebrovascular accident (CVA) due to thrombosis of left middle cerebral artery (CMS/HCC) documented in this encounter Care Teams Problem Manager Relationship Specialty Start Date End Date Shell Fang MD [address] [place] [phone] PCP - General Family Medicine 07/21/18 documented as of this encounter
--- OUTSIDE RECORDS SUMMARY | 2025-01-24 12:00 | XMS_ITS | Encounter Summary ---
Author Organization [employer] Address [address] [facility] 7t [place] [address] Care Team Providers Care Personal Investment Adviser Name Role Phone Shell Fang MD Primary Care Provider + Reason for Visit * Reason Onset Date Comments Med Refill 10/30/2024 Encounter Details Date Type Department Care Team ([facility] st Contact Info) Description 10/30/2024 Telephone [facility] [address] [place], [place] [phone] Shell Fang MD [address] [place] [address] Med Refill Social History Tobacco Use Types [...] 8:56 AM EST Medications were sent to [facility] #[id number] on 10/29/24. * Telephone Encounter - Alvino Nguyen - 10/30/2024 8:36 AM EST TC from pt requesting medication refill. 1- Medications needing refill : fluticasone-salmeterol (Advair HFA) 230-21 MCG/ACT inhaler 2-Ventolin HFA 108 (90 Base) MCG/ACT inhaler 3-tiotropium (Spiriva Respimat) 2.5 MCG/ACT inhaler To be sent to: [facility]/pharmacy #[id number] documented in this encounter Plan of Treatment Upcoming Encounters Date Type Department Care Team (Late st Contact Info) Description 01/31/2025 9:00 AM EST Office Visit [facility] [address] [place] [phone] Rachelle Lindsay 02/07/2025 11:15 AM EDT Office Visit [facility] [address] [place] [address] Shell Fang MD [address] [place] [phone] documented as of this encounter Visit Diagnoses Not on filedocumented in this encounter Care Teams Personal Investment Adviser Relationship Specialty Start Date End Date Shell Fang MD [address] [place] [phone] PCP - General Family Medicine 07/21/18 documented as of this encounter
--- OUTSIDE RECORDS SUMMARY | 2025-01-24 12:00 | XMS_ITS | Encounter Summary ---
Author Organization [employer] Address [address] [facility] 7t [place] [address] Care Team Providers Care Booking Supervisor Name Role Phone Shell Fang MD Primary Care Provider + Reason for Visit * Reason Onset Date Comments Medication Question 11/16/2024 Encounter Details Date Type Department Care Team ([facility] Contact Info) Description 11/16/2024 Telephone [facility] [address] [place] [address] Lo Bowman DDS [address] [place], [place] [phone] Medication Question Social History Tobacco Use Types [...] . 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 VM left and text sent aswell . documented in this encounter Plan of Treatment Upcoming Encounters Date Type Department Care Team (Late st Contact Info) Description 01/31/2025 9:00 AM EST Office Visit [facility] [address] [place] [address] Rachelle Lindsay 02/07/2025 11:15 AM EDT Office Visit [facility] [address] [place] [address] Shell Fang MD [address] [place] [address] documented as of this encounter Visit Diagnoses Not on filedocumented in this encounter Care Teams Booking Supervisor Relationship Specialty Start Date End Date Shell Fang MD [address] [place] [phone] PCP - General Family Medicine 07/21/18 documented as of this encounter
--- OUTSIDE RECORDS SUMMARY | 2025-01-24 12:00 | XMS_ITS | Encounter Summary ---
Author Organization [employer] Address [address] [facility] 7[address] [place] [address] Care Team Providers Care Want Ad Supervisor Name Role Phone Shell Fang MD Primary Care Provider + Encounter Details Date Type Department Care Team (Late st Contact Info) Description 02/08/2024 Orders Only [facility] [address] [place] [address] Alfa Mcwilliams MD [address] [place] [address] Social History Tobacco Use Types Packs/Day Years [...] Description 01/31/2025 9:00 AM EST Office Visit [facility] AD[facility] [address] [place] [address] Rachelle Lindsay 02/07/2025 11:15 AM EDT Office Visit [facility] [address] [place] [address] Shell Fang MD [address] [place] [phone] documented as of this encounter Visit Diagnoses Not on filedocumented in this encounter Care Teams Want Ad Supervisor Relationship Specialty Start Date End Date Shell Fang MD [address] [place] [address] PCP - General Family Medicine 07/21/18 documented as of this encounter
--- OUTSIDE RECORDS SUMMARY | 2025-01-24 12:00 | XMS_ITS | Clinical Summary ---
Author Organization [employer] Address [address] [place] [address] [address] [place] [address] Care Team Providers Care Director Environmental Name Role Phone Clau Fang MD Primary Care Provider + Allergies No known active allergies Medications nicotine polacrilex (Commit) 4 MG lozenge Dissolve 1 lozenge (4 mg) in the mouth every 2 (two) hours if needed for smoking cessation. 100 lozenge 12/19/19 24 Active Spacer/Aero-Holdin g Chambers (OptiChamber Cyndi) misc 1 each every 4 (four) hours if needed (asthma). 1 each 12/19/19 24 Active furosemide (Lasix) 20 MG tabletIndications: Acute systolic congestive heart failure (CMS/HCC) Take 1 tablet (20 mg) by mouth in the morning. 30 tablet 11 01/06/20 24 Active spironolactone (Aldactone) 25 MG tablet Take 1 tablet (25 mg) by mouth in the morning. 30 tablet 01/06/20 24 Active atorvastatin (Lipitor) 40 MG tabletIndications: Mixed hyperlipidemia TAKE 1 TABLET BY MOUTH EVERY DAY IN THE MORNING 90 tablet 1 08/13/20 24 Active Additional Information Patient not taking.Reported on 11/30/2024 losartan (Cozaar) 50 MG tablet Take 1 tablet (50 mg) by mouth Once per day. 90 tablet 3 10/29/20 24 025 Active FREESTYLE LITE test strip Use to test blood sugar 1x times daily 100 each 11 10/29/20 24 025 Active Lancets misc Use to test blood sugar 1x times daily 100 each 10/29/20 24 Active Alcohol Swabs 70 % pads Use to test blood sugar 1x times daily 100 each 10/29/20 24 Active Blood Glucose Monitoring Suppl (FreeStyle [place] Lite) w/Device kit Use to test blood sugar 1x times daily 1 kit 10/29/20 24 Active fluticasone-salmet audrey (Advair HFA) 230-21 MCG/ACT inhalerIndications :Moderate asthma without complication, unspecified whether persistent TAKE 2 PUFFS BY MOUTH TWICE A DAY IN THE MORNING AND IN THE EVENING 12 g 3 10/29/20 24 Active Ventolin HFA 108 (90 Base) MCG/ACT inhalerIndications :Uncomplicated asthma, unspecified asthma severity, unspecified whether persistent TAKE 2 PUFFS BY MOUTH EVERY 4 TO 6 HOURS NEEDED 18 g 5 10/29/20 24 Active tiotropium (Spiriva Respimat) 2.5 MCG/ACT inhaler Inhale 2 puffs Once per day. 4 each 11 10/29/20 24 025 Active glimepiride (Amaryl) 1 MG tablet Take 1 tablet (1 mg) by mouth with breakfast and with evening meal. 60 tablet 3 11/06/20 24 025 Active insulin glargine (Lantus) 100 UNIT/ML pen Inject 15 Units under the skin in the morning. 11/09/20 24 Active B-D ULTRAFINE III SHORT PEN 31G X 8 MM misc Use four times a day as directed with insulin 11/09/20 24 Active metoprolol succinate XL (Toprol-XL) 25 MG 24 hr tablet Take 1 tablet by mouth Once per day. 09/30/20 24 Active chlorhexidine (Peridex) 0.12 % solution Use 15ml twice daily to swish the mouth ensuring it comes in contact with all tooth surfaces and gums. Do not swallow the rinse. 473 mL 11/19/20 24 Active nicotine (Nicoderm CQ) 14 MG/24HR patch Place 1 patch on the skin 1 (one) time each day at the same time. 30 patch 12/07/19 25 Active betamethasone valerate (Valisone) 0.1 % cream Apply topically if needed in the morning and at bedtime (dryness). 45 g 2 12/07/19 25 Active nicotine (Nicoderm CQ) 21 MG/24HR patch Place 1 patch on the skin 1 (one) time each day at the same time. 42 patch 12/24/19 25 Active nicotine (Nicoderm CQ) 14 MG/24HR patch Place 1 patch on the skin 1 (one) time each day at the same time. 14 patch 12/24/19 25 025 Active nicotine (Nicoderm CQ) 7 MG/24HR patch Place 1 patch on the skin 1 (one) time each day at the same time. 14 patch 12/24/19 25 Active nicotine polacrilex (Commit) 4 MG lozenge Dissolve 1 lozenge (4 mg) in the mouth every 2 (two) hours if needed for smoking cessation. 100 lozenge 12/24/19 25 Active clopidogrel (Plavix) 75 MG tabletIndications: Cerebrovascular accident (CVA) due to thrombosis of left middle cerebral artery (CMS/HCC) Take 1 tablet (75 mg) by mouth Once per day. 90 tablet 1 12/24/19 25 Active metFORMIN (Glucophage) 500 MG tablet Take 1 tablet (500 mg) by mouth with breakfast and with evening meal. 180 tablet 1 12/24/19 25 Active empagliflozin (Jardiance) 10 MG Take 1 tablet (10 mg) by mouth Once per day. 30 tablet 1 12/24/19 25 026 Active Diclofenac Sodium 1 % gel Apply thin layer by topical route (quantity as directed on package insert) to elbow 3 times daily as needed. 50 g 3 12/27/19 25 Active Active Problems Problem Noted Date Diagnosed Date Lymphadenopathy, supraclavicular 12/30/2024 Polyarthritis 12/07/2024 Assessment & Plan (12/07/2024 11:13 [...] POC. I spoke with BRANDON Brownlee at [facility] for a soft sign out and [...] (10/29/2024 12:23 PM EST): Likely related to long-term uncontrolled DM, smoking, already existing CV disease. [...] above. Continue diuretics and fu with cardiology ([facility]), needs to call to check on fu [...] f/u in 6 months Essential hypertension 07/21/2018 Encounters Date Type Department Care Team Description 12/27/2024 3:15 PM EST Office Visit [facility] [address] [place] [phone] Malissa Caldwell MD Lymphadenopathy, supraclavicular (Primary Dx) 12/27/2024 Travel 12/25/2024 Telephone [facility] [address] [place] [phone] Clau Fang MD ER Follow-up 12/24/2024 8:40 AM EST Office Visit [facility] [address] [place] [phone] Alfa Mcwilliams MD Essential hypertension (Primary Dx); Neck mass; Tobacco dependence; Cerebrovascular accident (CVA) due to thrombosis of left middle cerebral artery (CMS/HCC) 12/24/2024 Orders Only GENERIC EXTERNAL DATA DEPARTMENT Provider, Generic External Data 12/09/2024 Refill [facility] [address] [place] [phone] Clau Fang MD Cerebrovascular accident (CVA) due to thrombosis of left middle cerebral artery (CMS/HCC) 12/07/2024 9:45 AM EST Office Visit [address] [address] Clau Fang MD 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) (Primary Dx); Primary hypertension; Polyarthritis; Flexural eczema; Acute systolic congestive heart failure (CMS/HCC); 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); Alcohol dependence with unspecified alcohol-induced disorder (CMS/HCC) 12/07/2024 Orders Only [facility] [address] [place] [phone] Clau Fang MD 12/07/2024 Travel 12/07/[address] [phone] Clau Fang MD insurance 12/06/[address] [phone] Pamela Jean MA Chart prep 11/30/2024 2:00 PM EST Office Visit [facility] [address] [place] [address] [phone] Rachelle Lindsay Dental calculus (Primary Dx); Dental plaque 11/29/2024 Patient Outreach [facility] [address] [place] [phone] Clau Fang MD Pre-visit Planning (SDOH screening completed on 01/03/2024) 11/27/2024 Telephone [facility] [address] [place] [address] Clau Fang MD 11/27/2024 Refill [facility] [address] [place] [address] Clau Fang MD Cerebrovascular accident (CVA) due to thrombosis of left middle cerebral artery ([facility]/HCC) 11/26/2024 11:00 AM EST Clinical Support [facility] [address] [place] [phone] Fadumo Gallagher, certified pharmacy technician mellitus type 2 with complications ([facility]) 11/26/2024 Travel 11/22/2024 Refill [facility] [address] [place] [phone] Clau Fang MD Cerebrovascular accident (CVA) due to thrombosis of left middle cerebral artery ([facility]/HCC) 11/19/2024 9:40 AM EST Office Visit [facility] [address] [place] [phone] Clau Fang MD Diabetes mellitus type 2 with complications ([facility]) (Primary Dx); Dental abscess; KATHLEEN (acute kidney injury) ([facility]) 11/19/2024 Telephone [facility] [address] [place] [phone] Stevenson Byrd, DDS 11/18/[address] [address] Clau Fang MD Cerebrovascular accident (CVA) due to thrombosis of left middle cerebral artery ([facility]) 11/16/2024 Telephone [facility] [address] [place] [phone] Lo Bowman, DDS Medication Question 11/16/[address] [phone] Clau Fang MD FYI 11/06/2024 2:40 PM EST Office Visit [facility] [address] [place] [phone] Clau Fang MD Neck mass (Primary Dx); 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) 11/06/2024 Orders Only [facility] [address] [place] [address] [phone] Clau Fang MD Neck mass (Primary Dx) 11/05/2024 Telephone [facility] [address] [place] [phone] Fadumo Gallagher RN DM testing supplies 11/05/2024 Travel 10/30/2024 Telephone [facility] [address] [place] [address] [phone] Clau Fang MD Med Refill 10/29/2024 9:20 AM EST Office Visit [facility] [address] [place] [address] [phone] Clau Fang MD Neck mass (Primary Dx); Primary hypertension; 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); Moderate asthma without complication, unspecified whether persistent; Uncomplicated asthma, unspecified asthma severity, unspecified whether persistent; Stage 3b chronic kidney disease (CMS/HCC) 10/29/2024 Telephone [facility] [address] [place] [address] [phone] Clau Fang MD CRITICAL RESULT 10/29/2024 Travel from Last 3 Months Immunizations Name Administration Dates Next Due Influenza injectable quadriv alent IIV4 with preservative 10/10/2019,09/01/2018 Influenza injectable quadrivalent preservative f ree 10/04/2022,08/25/2020 Influenza, IIV3, injectable 10/29/2015 Influenza, seasonal, injectable, preservative fr ee 12/07/2024 Moderna Covid-19 Vaccine 12+ 07/26/2022 Pfizer Covid-19 Vaccine 12/07/2024 Td (adult), 5 Lf tetanus tox [...] Mass Index 35.62 12/27/2024 3:05 PM EST Plan of Treatment Upcoming Encounters Date Type Department Care Team (Late st Contact Info) Description 01/31/2025 9:00 AM EST Office Visit [facility] [address] [place] [address] Rachelle Lindsay 02/07/2025 11:15 AM EDT Office Visit [facility] [address] [place] [phone] Clau Fang MD [address] [place] [address] Health Maintenance Due Date Last Done Comments CT Colonography 1963 FIT DNA/Cologuard 1965 FIT 1965 FOBT 1965 Sigmoidoscopy 1963 Diabetes: Foot Exam 1973 Eye Exam 1973 Diabetes: Urine Protein Screening 1982 Hepatitis A Vaccines (1 of 2 - Risk 2-dose series) 1982 Pneumococcal Vaccine: 50+ Years (1 of 2 - PCV) 1982 Colonoscopy 07/12/2020 07/12/2015 Colorectal Cancer Screening [...] 10/05/2024, 12/29, 12/24/2020 Dental X-Ray: Bitewings 12/01/2025 11/30/19 25, 01/18/2019, 12/16/2010 Tobacco Screening 12/27/2025 12/27/2024 Dental X-Ray: Full Mouth 12/01/2027 11/30/2024, 11/28 [...] W CONTRAST Routine 12/24/2024 6:52 PM EST BLOOD CULTURE (SECOND) Routine 12/24/2024 5:29 PM EST MONONUCLEOSIS TEST, QUALITATIVE Routine 12/24/2024 11:03 AM EST SED RATE BY MODIFIED WESTERGREN Routine 12/24/2024 11:03 AM EST C-REACTIVE PROTEIN Routine 12/24/2024 11 :03 AM EST MAGNESIUM Routine 12/24/2024 11:03 AM EST BASIC METABOLIC PANEL Routine 12/24/2024 11:03 AM EST HEPATIC FUNCTION PANEL Routine 12/24/2024 11:03 AM EST CBC WITH AUTO DIFFERENTIAL Routine 12/24/2024 11:03 AM EST BLOOD CULTURE (FIRST) Routine 12/24/2024 11:03 AM EST HEPATITIS B [...] 2:00 PM EST Dental calculus Dental plaque INTRAORAL - COMPLETE SERIES OF RADIOGRAPHIC IMAGES Routine 11/30/2024 2:00 PM EST PROPHYLAXIS - ADULT Routine 11/30/2024 2 :00 PM EST Dental calculus Dental plaque CASE PRESENTATION, DETAILED AND EXTENSIVE TREATMENT PLANNING Routine 11/30/2024 [...] EST Neck mass HEPATIC FUNCTION PANEL Routine 11/06/2024 4:25 PM EST Neck mass BASIC METABOLIC [...] Routine 10/29/2024 10:23 AM EST Primary hypertension LIPID PANEL WITH REFLEX TO DIRECT LDL Routine 10/05/2024 11:07 AM EST Primary hypertension HM COLONOSCOPY Routine 07/12/2015 1:55 PM EDT from Last 3 Months or Most Recently Relevant to Health Maintenance Results * CT Soft Tissue Neck w/ Contrast (12/24/2024 6:52 PM EST) Anatomical Region Laterality Modality Head, Neck Computed Tomogra phy 12/24/2024 6:5 2 PM EST Narrative 12/24/2024 6:54 PM EST ? [facility] ?[address] ?[place] [address] ? CT Scan Report ? Signed ? Patient: Jace Gonzales ?MR#: [id number] ?? [id number] ? : 1965 ?Acct:[id number] ? Age/Sex: 59 / M ?ADM Date: 12/24/24 ? Loc: HO.ED ? Attending Dr: ? Ordering Physician: Essie Espinosa ?? Date of Service: 12/24/24 ?? Procedure(s): CT soft tissue neck w IV con ?? Accession Number(s): [id number] ? cc: Clau Fang MD; Essie Espinosa ? Report Number: ?? [id number]: Total DLP = ??805.00 mGy-cm ? CLINICAL [...] electronically signed by: Dia Vyas DO on ?? 12/24/2024 18:52:40 ? Dictated By: ?Dia Vyas MD ? Signed By: ?<Electronically signed by Dia Vyas MD in OV> ?12/24/24 1853 ? DD/ 1852 ? TD/TT: 12/24/24 185 ? Railcar Foreman: ? Procedure Note Micah, Image - 12/24/[address] [address] [address] Scan Report Signed Patient: Jace GonzalesMR#: [id number] : 1965Acct:[id number] Age/Sex: 59 / MADM Date: 12/24/24 Loc: HO.ED Attending Dr: Ordering Physician: Essie Espinosa Date of Service: 12/24/24 Procedure(s): CT soft tissue neck w IV con Accession Number(s): [id number] cc: Clau Fang MD; Essie Espinosa Report Number: [id number]: Total DLP = 805.00 mGy-cm CLINICAL HISTORY: [...] in OV> 12/24/241852 DD/ 51 TD/TT: 12/24/241851 Railcar Foreman: [facility] External Provider IMG CT PROCEDURES Final Result * Blood Culture (Second) (12/24/2024 5:29 PM EST) Blood Venous blood specimen / Unknown 12/24/2024 5:29 PM EST 12/24/2024 5:33 PM EST Comment:Blood Narrative [facility] - 12/29/2024 7:33 PM EST Blood Culture (Second) No growth after 5 days. Specimen Source: Blood us Generic External Data Provider LAB MICROBIOLOGY - GENERAL ORDERABLES Final Result Performing Organization Address City/[facility]/ZIP Co de Phone Number [facility] [address] [place] [address] [phone] * Blood Culture (First) (12/24/2024 11:03 AM EST) Blood Venous blood specimen / Unknown 12/24/2024 11:03 AM EST 12/24/2024 11:06 AM EST Comment:Blood Narrative [facility] - 12/29/2024 1:06 PM EST Blood Culture (First) No growth after 5 days. Specimen Source: Blood Generic External Data Provider LAB MICROBIOLOGY - GENERAL ORDERABLES Final Result Performing Organization Address [facility] Co de Phone Number [facility] [address] [place] [address] [phone] * (ABNORMAL) CBC auto differential (12/24/2024 11:03 AM EST) Only the most recent of4 resultswithin the time period is included. White Blood Count 5.8 4.8 - 10.8 X10*3/uL [facility] Red Blood Count 4.12(L) 4.60 - 5.80 X10*6/uL [facility] Hemoglobin 12.1(L) 14.0 - 18.0 g/dl [facility] Hematocrit 36.6(L) 42.0 - 52.0 % [facility] Mean Corpuscular Volume 88.8 80.0 - 98.0 fL [facility] Mean Corpuscular Hemoglobin 29.4 27.0 - 33.0 pg [facility] Mean Corpuscular HGB Conc 33.1 31.0 - 36.0 g/dl [facility] Red Cell Distribution Width 14.0 11.0 - 16.0 % [facility] Platelet Count 286 160 - 400 X10*3/uL [facility] Mean Platelet Volume 8.4(L) 9.4 - 12.4 fL [facility] Neutrophils Percent Auto 58.9 45 - 73 % [facility] Imm Gran Pct Auto 0.2 0.0 - 0.4 % [facility] Lymphocytes Percent Auto 28.1 20 - 40 % [facility] Monocytes Percent Auto 9.3 2 - 11 % [facility] Eosinophils Percent Auto 2.6 0 - 4 % [facility] Basophils Percent Auto 0.9 0 - 2 % [facility] NRBC Pct Auto 0.0 0.0 - 0.2 /100WBC [facility] Neutrophils Absolute Auto 3.4 2.0 - 8.3 x10*3/uL [facility] Imm Gran Abs Auto 0.01 0.00 - 0.03 X10*3/uL [facility] Lymphocytes Absolute Auto 1.6 1.2 - 4.9 X10*3/uL [facility] Monocytes Absolute Auto 0.5 0.1 - 1.2 X10*3/uL [facility] Eosinophils Absolute Auto 0.2 0.0 - 0.4 X10*3/uL [facility] Basophils Absolute Auto 0.1 0.0 - 0.2 X10*3/uL [facility] NRBC Abs Auto 0.000 0.0 - 0.012 X10*3/uL [facility] 12/24/2024 11:0 3 AM EST 12/24/2024 11:06 AM EST us Generic External Data Provider LAB BLOOD ORDERAB LES Final Result Performing Organization Address City/[facility]/ZIP Co de Phone Number [facility] [address] [place] [address] [phone] * Mononucleosis Test, Qualitative (12/24/2024 11:03 AM EST) Monotest Negative Negative [facility] 12/24/2024 11:0 3 AM EST 12/24/2024 11:06 AM EST us Generic External Data Provider LAB BLOOD ORDERAB LES Final Result Performing Organization Address City/[facility]/ZIP Co de Phone Number [facility] [address] [place] [address] [phone] * (ABNORMAL) Sed Rate by Modified Westergren (12/24/2024 11:03 AM EST) Only the most recent of4 resultswithin the time period is included. Erythrocyte Sedimentation Rate 25(H) 0 - 15 MM/HR [facility] Comment:Patients with polycy themia and many hemoglobin abnormalitiesmay have depressed sed rates whereas patients with anemiamay have elevated sed rates. 12/24/2024 11:0 3 AM EST 12/24/2024 11:06 AM EST us Generic External Data Provider LAB BLOOD ORDERAB LES Final Result Performing Organization Address [facility] Co de Phone Number [facility] [address] [place] [phone] * (ABNORMAL) C-reactive Protein (12/24/2024 11:03 AM EST) Only the most recent of3 resultswithin the time period is included. C Reactive Protein 1.54(H) < or = 0.50 mg/dL [facility] 12/24/2024 11:0 3 AM EST 12/24/2024 11:06 AM EST us Generic External Data Provider LAB BLOOD ORDERAB LES Final Result Performing Organization Address [facility]/ZIP Co de Phone Number [facility] [address] [place] [phone] * Magnesium (12/24/2024 11:03 AM EST) Magnesium 1.9 1.6 - 2.6 mg/dL [facility] 12/24/2024 11:0 3 AM EST 12/24/2024 11:06 AM EST Generic External Data Provider LAB BLOOD ORDERAB LES Final Result Performing Organization Address [facility] de Phone Number [facility] [address] [place] [phone] * (ABNORMAL) Hepatic Function Panel (12/24/2024 11:03 AM EST) Only the most recent of2 resultswithin the time period is included. Pathologist [facility] Bilirubin, Total 0.6 0.0 - 1.0 mg/dL [facility] Bilirubin, Direct 0.2 0.0 - 0.5 mg/dL [facility] Aspartate Amino Transferase 18 5 - 37 U/L [facility] Alanine Aminotransferase 26 0 - 40 U/L [facility] Total Protein 7.9 6.5 - 8.0 g/dL [facility] Albumin Level 4.4 3.5 - 5.0 g/dL [facility] Alkaline Phosphatase 120(H) 39 - 117 U/L [facility] 12/24/2024 11:0 3 AM EST 12/24/2024 11:06 AM EST us Generic External Data Provider LAB BLOOD ORDERAB LES Final Result Performing Organization Address [facility] de Phone Number [facility] [address] [place] [phone] * (ABNORMAL) Basic Metabolic Panel (12/24/2024 11:03 AM EST) Only the most recent of4 resultswithin the time period is included. Pathologist [facility] Sodium 140 135 - 145 mmol/L [facility] Potassium 4.0 3.3 - 5.1 mmol/L [facility] Chloride 108 96 - 108 mmol/L [facility] Carbon Dioxide 26 22 - 29 mmol/L [facility] Anion Gap 10(L) 12 - 20 [facility] Urea Nitrogen (BUN) 15 9 - 16 mg/dL [facility] Creatinine, Serum 0.99 0.5 - 1.4 mg/dL [facility] Creatinine Clr Calc Pharmacy 99.6 [facility] Comment:eGFR (calculated fro m the MDRD study equation) and eCrCl(calculated from the Cockcroft-Gault equation) are based ondifferent parameters and may not yield comparable results.If eCrCl result is absurd, please check patient'sheight/weight. Estimated Glomerular Filt Rate >60 [facility] Comment:Chronic Kidney Disea se: Estimated GFR < 60 mL/min/1.64g7Bxocgn Kidney Disease: Estimated GFR < 15 mL/min/1.73m2 Glucose 105 60 - 115 mg/dL [facility] Calcium 9.7 8.4 - 10.2 mg/dL [facility] 12/24/2024 11:0 3 AM EST 12/24/2024 11:06 AM EST Generic External Data Provider LAB BLOOD ORDERAB LES Final Result Performing Organization Address [facility] Co de Phone Number [facility] [address] [place] [phone] * Hepatitis Panel, General (12/07/2024 10:40 AM EST) Hepatitis A IgM Nonreactive Nonreactive [facility] Comment:IgM antibodies to HOUSE V not detected; does not exclude earlyacute or recovered HAV infection. ~Hepatitis B Surface Antibody REACTIVE Nonreactive [facility] Comment:REACTIVE: > 11.99 mI U/mL Hepatitis B Core Antibody Reactive Nonreactive [facility] Comment:Presumptive evidence of anti-HBc. Hepatitis C Antibody Nonreactive Nonreactive [facility] Comment:Antibodies to HCV no t detected; does not exclude early acuteHCV infection. Hepatitis B Surface Ag Negative Negative [facility] Blood 12/07/2024 10:4 0 AM EST 12/07/2024 11:38 AM EST Clau Fang MD LAB BLOOD ORDERABLES Fin al Result Performing Organization Address [facility] Co de Phone Number [facility] [address] [place] [phone] * Hepatitis B Core??Antibody (IgM) (12/07/2024 10:40 AM EST) Hepatitis B Core Antibody IgM NON-REACTI VE NON-REACTI VE [facility] Comment:For additional infor trevon, please refer tohttp://education.Veodin/faq/KZC164(This link is being provided for informational/educational purposes only.)THIS TEST WAS PERFORMED AT:[facility] [place] [id number] ABARCA MD 12/07/2024 10:4 0 AM EST 12/07/2024 11:38 AM EST Clau Fang MD LAB BLOOD ORDERABLES Fin al Result Performing Organization Address [facility] Co de Phone Number [facility] [address] [place] [address] [phone] * Rheumatoid Factor (12/07/2024 10:40 AM EST) Pathologist [facility] Rheumatoid Factor <13.0 <15.0 IU/mL [facility] Blood Venous blood specimen / Unknown 12/07/2024 10:40 AM EST 12/07/2024 11:38 AM EST Clau Fang MD LAB BLOOD ORDERABLES Fin al Result Performing Organization Address [facility] Co de Phone Number [facility] [address] [place] [phone] * CLAU Screen,IFA, with Reflex to Titer and Pattern (12/07/2024 10:40 AM EST) Pathologist [facility] Anti Nuclear Antibody Screen NEGATIVE NEGATIVE [facility] Comment:CLAU IFA is a first l [...] clinicallysuspected inflammatory myopathies.AC-0: NegativeInternational Consensus on CLAU Patterns(https://doi.org/10.1515/cvns-5905-4866)For additional information, please refer tohttp://education.Egenera/faq/RRQ374(This link is being provided for informational/educational purposes only.)THIS TEST WAS PERFORMED AT:[facility] [place] [id number] ABARCA MD CLAU Titer TNP [facility] LABS CLA[facility] Pattern [facility] CLAU TITER 2 (REF LAB) [facility] CLAU Pattern 2 [facility] CLAU TITER 3 [facility] CLAU PATTERN 3 [facility] Blood Venous blood specimen / Unknown 12/07/2024 10:40 AM EST 12/07/2024 11:38 AM EST Clau Fang MD LAB BLOOD ORDERABLES Fin al Result Performing Organization Address City/[facility]/ZIP Co de Phone Number [facility] [address] [place] [address] [phone] * Uric acid (12/07/2024 10:40 AM EST) Uric Acid 6.6 3.4 - 7.0 mg/dL [facility] Blood Venous blood specimen / Unknown 12/07/2024 10:40 AM EST 12/07/2024 11:38 AM EST Clau Fang MD LAB BLOOD ORDERABLES Fin al Result Performing Organization Address [facility] Co de Phone Number [facility] [address] [place] [address] [phone] * POCT Glucose (12/07/2024 9:38 AM [...] * Syphilis Screen (11/19/2024 10:53 AM EST) Pathologist [facility] Syphilis Screen Nonreactive Nonreactive [facility] Blood 11/19/2024 10:5 3 AM EST 11/19/2024 1:46 PM EST Clau Fang MD LAB BLOOD ORDERABLES Fin al Result Performing Organization Address City/State/[facility] Co de Phone Number [facility] [address] [place] [phone] * T-SPOT??.TB (11/19/2024 10:53 AM EST) Pathologist [facility] T Spot TB Invalid Negative [facility] Comment:The test result is i nvalid [...] of the patient.For additional information, please refer tohttp://education.Veodin/faq/IZE223(This link is being provided for informational/educational purposes only.)THIS TEST WAS PERFORMED AT:[email or web address] [id number] [place] [address]QJXGXMICANDIE STAPLES MD,PHD TS PANEL A MNP [facility] Comment:NOTIFIED ANDI Stewart [facility] 11/26 AT 1243. TS PANEL B [facility] Comment:NOTIFIED ANDI Stewart [facility] 11/26 AT 1243. Negative Control [facility] Comment:NOTIFIED ANDI Stewart [facility] 11/26 AT 1243. Positive Control [facility] Comment:NOTIFIED ANDI Stewart [facility] 11/26 AT 1243. 11/19/2024 10:5 3 AM EST 11/19/2024 1:44 PM EST Clau Fang MD LAB BLOOD ORDERABLES Fin al Result Performing Organization Address [facility] Co de Phone Number [facility] [address] [place] [address] [phone] * HIV-1/2 Antigen and Antibodies, Fourth Generation, with Reflexes (11/19/2024 10:53 AM EST) [facility] Signature HIV AB/AG Nonreactive Nonreactive [facility] Comment:HIV-1 p24 Ag and/or HIV-1/HIV-2 Ab not detected.A test result that is nonreactive does not exclude thepossibility of exposure to or infection with HIV-1 and/orHIV-2. Nonreactive results in this assay for individualswith prior exposure to HIV-1 and/or HIV-2 may be due toantigen and antibody levels that are below the limit ofdetection of this assay.The [employer] HIV Ag/Ab Combo assay result andsupplemental assay results should be interpreted inconjunction with the patient's clinical presentation,history and other laboratory results. If the results areinconsistent with clinical evidence, additional testing issuggested to confirm the result. Blood Venous blood specimen / Unknown 11/19/2024 10:53 AM EST 11/19/2024 1:46 PM EST us Clau Fang MD LAB BLOOD ORDERABLES Fin al Result Performing Organization Address [facility] Co de Phone Number [facility] [address] [place] [phone] * T3, Free (11/19/2024 10:53 AM EST) T3, Free 3.6 2.3 - 4.2 pg/mL [facility] Comment:THIS TEST WAS PERFOR MED AT:[email or web address] [address] [id number] ABARCA MD Blood Venous blood specimen / Unknown 11/19/2024 10:53 AM EST 11/19/2024 1:46 PM EST Clau Fang MD LAB BLOOD ORDERABLES Fin al Result [facility] [address] [place] [address] [phone] * T3, Total (11/19/2024 10:53 AM EST) T3, Total 97 76 - 181 ng/dL [facility] Comment:THIS TEST WAS PERFOR MED AT:[email or web address] [address] [id number] ABARCA MD Blood Venous blood specimen / Unknown 11/19/2024 10:53 AM EST 11/19/2024 1:46 PM EST Clau Fang MD LAB BLOOD ORDERABLES Fin al Result [facility] [address] [place] [phone] * TSH (11/19/2024 10:53 AM EST) [facility] Thyroid Stimulating Hormone 0.68 0.32 - 4.0 uIU/mL [facility] Comment:TSH 3rd Generation ( [facility]) Blood Venous blood specimen / Unknown 11/19/2024 10:53 AM EST 11/19/2024 1:46 PM EST us Clau Fang MD LAB BLOOD ORDERABLES Fin al Result Performing Organization Address [facility] Co de Phone Number [facility] [address] [place] [address] [phone] * T4, Free (11/19/2024 10:53 AM EST) Free T4 (Free Thyroxine) 1.13 0.71 - 1.85 ng/dL [facility] Blood Venous blood specimen / Unknown 11/19/2024 10:53 AM EST 11/19/2024 1:46 PM EST Clau Fang MD LAB BLOOD ORDERABLES Fin al Result Performing Organization Address [facility] de Phone Number [facility] [address] [place] [address] [phone] * T4 (Thyroxine), Total (11/19/2024 10:53 AM EST) T4 Thyroxine 7.4 4.5 - 12.0 ug/dL [facility] Blood Venous blood specimen / Unknown 11/19/2024 10:53 AM EST 11/19/2024 1:46 PM EST Clau Fang MD LAB BLOOD ORDERABLES Fin al Result Performing Organization Address [facility] Co de Phone Number [facility] [address] [place] [address] [phone] * (ABNORMAL) Lactate Dehydrogenase (LD) (11/19/2024 10:53 AM EST) Lactate Dehydrogenase 397(H) 118 - 273 U/L [facility] Blood Venous blood specimen / Unknown 11/19/2024 10:53 AM EST 11/19/2024 1:46 PM EST Clau Fang MD LAB BLOOD ORDERABLES Fin al Result Performing Organization Address City/[facility] Co de Phone Number [facility] [address] [place] [phone] * (ABNORMAL) POCT A1C (11/19/2024 9:58 AM EST) Only the most recent of2 resultswithin the time period is included. Hemoglobin A1C 10.4(A) 4.0 - 6.0 % Blood 11/19/2024 9:58 AM EST Clau Fang MD POINT OF [...] None Detected Urine 11/19/2024 9:58 AM EST Clau Fang MD POINT OF CARE TEST ENTER /EDIT ORDERABLES Final Result * CT Abdomen Pelvis w/ Contrast (11/08/2024 11:59 AM EST) Anatomical Region Laterality Modality Body, Pelvis, Abdomen Computed T omography 11/08/2024 11:5 9 AM EST Narrative 11/08/2024 3:23 PM EST ? [facility] ?[place] [address] ? CT Scan Report ? Signed ? Patient: Christian,Jace ?MR#: [id number] ?? [id number] ? : 1965 ?Acct:[id number] ? Age/Sex: 59 / M ?ADM Date: 12/10/24 ? Loc: HO.S3 ?344-1 ? Attending Dr: Reina Perkins MD ? Ordering Physician: Reina Perkins MD ?? Date of Service: 11/08/24 ?? Procedure(s): CT abdomen pelvis w IV con ?? Accession Number(s): [id number] ? cc: Reina Perkins MD; Clau Fang [...] DD/ 1159 ? TD/TT: 11/08/24 1210 ? Railcar Foreman: ? Procedure Note Donchristopher, Image - 11/09/[address] [place] [address] [address] Scan Report Signed Patient: Jace GonzalesMR#: [id number] : 1965Acct:[id number] Age/Sex: 59 / MADM Date: 11/06/24 Loc: .S3 344-[address]: Reina Perkins MD Ordering Physician: Reina Perkins MD Date of Service: 11/08/24 Procedure(s): CT abdomen pelvis w IV con Accession Number(s): [id number] cc: Reina Perkins MD; Clau Fang MD [...] Lizandro Kenyon MD 11/08/2024 03:21 PM EST Dictated By: Lizandro Kenyon Signed By: <Electronically signed by Lizandro Kenyon in OV> 11/08/24 1521 DD/ 1159 TD/TT: 11/08/24 1210 Railcar Foreman: [facility] External Provider IMG CT PROCEDURES Edited Result - Final * CT Chest w/ Contrast (11/08/2024 11:59 AM EST) Anatomical Region Laterality Modality Body, Chest Computed Tomogra phy 11/08/2024 11:5 9 AM EST Narrative 11/08/2024 4:47 PM EST ? [place] [facility] ?[address] ?[place] [address] ? CT Scan Report ? Signed ? Patient: Christian,Jace ?MR#: [id number] ?? [id number] ? : 1965 ?Acct:[id number] ? Age/Sex: 59 / M ?ADM Date: 11/06/24 ? Loc: HO.S3 ?344-1 ? Attending Dr: Reina Perkins MD ? Ordering Physician: Reina Perkins MD ?? Date of Service: 11/08/24 ?? Procedure(s): CT chest w IV con ?? Accession Number(s): [id number] ? cc: Reina Perkins MD; Clau Fang [...] Manzano MD ??11/08/2024 04:44 PM EST RP ?? Workstation: [id number] ? Dictated By: ?Tony Manzano MD ? Signed By: ?<Electronically signed by Tony Manzano MD in OV> ? 11/08/24 1644 ? DD/ 1159 ? TD/TT: 11/08/24 1210 ? Railcar Foreman: ? Procedure Note Micah, Ayan - 11/09/[address] [place] [address] [address] Scan Report Signed Patient: Kole Gonzales#: [id number] : 1965Acct:[id number] Age/Sex: 59 / MADM Date: 11/06/24 [facility]: [facility] 344-[address]: Reina Perkins MD Ordering Physician: Reina Perkins MD Date of Service: 11/08/24 Procedure(s): CT chest w IV con Accession Number(s): [id number] cc: Reina Perkins MD; Clau Fang MD [...] Tony Manzano MD 11/08/2024 04:44 PM EST RP Dictated By: Tony Manzano MD Signed By: <Electronically signed by Tony Manzano MD in OV> 11/08/24 1644 DD/ 1159 TD/TT: 11/08/24 1210 Railcar Foreman: [facility] External Provider IMG CT PROCEDURES Edited Result - Final * (ABNORMAL) Glucose, Whole Blood (11/06/2024 9:45 PM EST) Only the most recent of3 resultswithin the time period is included. [facility] Signature Glucose, Whole Blood 365(HH) 60 - 115 mg/dL [facility] Comment:METER #: [id number] 11/06/2024 9:45 PM EST 11/06/2024 9:50 PM EST Generic External Data Provider LAB BLOOD ORDERAB LES Final Result [facility] [address] [place] [phone] * (ABNORMAL) Urinalysis, Complete, with Reflex to Culture (11/06/2024 8:11 PM EST) Color Urine Yellow [facility] Appearance Urine Clear [facility] PH 5.5 5.0 - 9.0 [facility] Glucose Urine UA >=1000(A) Negative mg/dL [facility] Urine Blood Negative Negative [facility] Specific [place] - Urine 1.025 1.005 - 1.025 [facility] Urine Protein Negative Neg-Trace mg/dL [facility] Urine Ketones Negative Negative mg/dL [facility] Nitrite Urine Negative Negative [facility] Leukocyte Esterase Urine Negative Negative [facility] RBC Urine 0-2 0 - 2 /HPF [facility] Urine WBC 0-5 0 - 5 /HPF [facility] Urine Squamous Epithelial Cell 0-2 0 - 2 /HPF [facility] Urine Bacteria None Seen None Seen [facility] Hyaline Casts, Urine 0-2 0 - 2 /LPF [facility] 11/06/2024 8:11 PM EST 11/06/2024 8:21 PM EST Narrative [facility] - 11/06/2024 9:56 PM EST [id number], Clean Catch us Generic External Data Provider LAB URINE ORDERAB LES Final Result Performing Organization Address [facility]/ZIP Co de Phone Number [facility] [address] [place] [address] [phone] * Sodium Without creatinine, Random Urine (11/06/2024 8:11 PM EST) Sodium Urine Random 25.0 mmol/L [facility] 11/06/2024 8:11 PM EST 11/06/2024 8:21 PM EST us Generic External Data Provider LAB BLOOD ORDERAB LES Final Result Performing Organization Address [facility] Co de Phone Number [facility] [address] [place] [address] [phone] * Osmolality, Urine (11/06/2024 8:11 PM EST) OSMOLALITY URINE 612 373 - 1,093 mosm/kg [facility] 11/06/2024 8:11 PM EST 11/06/2024 8:21 PM EST Generic External Data Provider LAB URINE ORDERAB LES Final Result Performing Organization Address [facility] Co de Phone Number [facility] [address] [place] [address] [phone] * VENOUS BLOOD GAS (11/06/2024 6:23 PM EST) VBG pH 7.36 7.32 - 7.43 [facility] Comment:METER #: [id number] additional_comment: Cb omoruna VBG PCO2 39 mmHg [facility] Comment:METER #: [id number] additional_comment: Cb omoruna VBG PO2 188 mmHg [facility] Comment:METER #: [id number] additional_comment: Cb omoruna VBG Base Excess -2.2 mmol/L [facility] Comment:METER #: [id number] additional_comment: Cb omoruna VBG HCO3 22 22 - 26 mmol/L [facility] Comment:METER #: [id number] additional_comment: Cb omoruna O2 Sat, Niko 100.0 % [facility] Comment:METER #: [id number] additional_comment: Cb omoruna 11/06/2024 6:23 PM EST 11/06/2024 6:27 PM EST us Generic External Data Provider LAB BLOOD ORDERAB LES Final Result Performing Organization Address [facility] Co de Phone Number [facility] [address] [place] [address] [phone] * Lactic Acid (11/06/2024 6:15 PM EST) Lactic Acid 0.8 0.5 - 2.0 mmol/L [facility] 11/06/2024 6:15 PM EST 11/06/2024 6:23 PM EST Generic External Data Provider LAB BLOOD ORDERAB LES Final Result Performing Organization Address [facility] de Phone Number [facility] [address] [place] [address] [phone] * Beta-Hydroxybutyrate (11/06/2024 6:14 PM EST) Beta-Hydroxybut yrate 0.23 0.02 - 0.27 mmol/L [facility] 11/06/2024 6:14 PM EST 11/06/2024 6:23 PM EST Generic External Data Provider LAB BLOOD ORDERAB LES Final Result Performing Organization Address [facility] Phone Number [facility] [address] [place] [address] [phone] * (ABNORMAL) Osmolality, Serum (11/06/2024 6:14 PM EST) Pathologist [facility] Osmolality (Serum) 309(H) 281 - 305 mosm/kg [facility] 11/06/2024 6:14 PM EST 11/06/2024 6:23 PM EST Generic External Data Provider LAB BLOOD ORDERAB LES Final Result Performing Organization Address [facility] Phone Number [facility] [address] [place] [address] [phone] * CT Soft Tissue Neck w/o Contrast (11/06/2024 6:05 PM EST) Anatomical Region Laterality Modality Head, Neck Computed Tomogra phy 11/06/2024 6:05 PM EST Narrative 11/06/2024 8:43 PM EST ? [facility] ?[address] ?[place] [address] ? CT Scan Report ? Signed ? Patient: Christian,Jace ?MR#: [id number] ?? [id number] ? : 1965 ?Acct:[id number] ? Age/Sex: 59 / M ?ADM Date: 12/10/24 ? Loc: HO.ED ? Attending Dr: ? Ordering Physician: Татьяна Mathis CNP ?? Date of Service: 11/06/24 ?? Procedure(s): CT soft tissue neck wo IV con ?? Accession Number(s): [id number] ? cc: Татьяна Mathis CNP; Clau Fang [...] ? 11/06/242039 ? DD/ 1805 ? TD/TT: 11/06/24 1822 ? Railcar Foreman: JL ? Procedure Note Ayan Obrien - 11/06/[address] [place] [address] CT Scan Report Signed Patient: Jace Gonzales#: [id number] : 1965Acct:[id number] Age/Sex: 59 / MADM Date: 11/06/24 Loc: HO.ED Attending Dr: Ordering Physician: Татьяна Mathis CNP Date of Service: 11/06/24 Procedure(s): CT soft tissue neck wo IV con Accession Number(s): [id number] cc: Татьяна Mathis CNP; Clau Fang MD [...] Christiano Winter DO 11/06/2024 08:40 PM EST Dictated By: Alfa Winter DO Signed By: <Electronically signed by Alfa Winter DO in OV> 11/06/242039 DD/ 1805 TD/TT: 11/06/24 1822 Railcar Foreman: CHRIS [facility] External Provider IMG CT PROCEDURES Final Result * US Head Neck Soft Tissue (11/01/2024 1:09 PM EST) Anatomical Region Laterality Modality Head, Neck Ultrasound 11/01/2024 1:09 PM EST Narrative 11/02/2024 10:52 AM EST ? [facility] ?[address] ?[place] [address] ? Ultrasound Report ? Signed ? Patient: Christian,Jace ?MR#: [id number] ?? [id number] ? : 1965 ?Acct:[id number] ? Age/Sex: 59 / M ?ADM Date: 12/05/24 ? Loc: HO.US ? Attending Dr: Clau Fang MD ? Ordering Physician: Clau Fang MD ?? Date of Service: 11/01/24 ?? Procedure(s): US soft tiss head and/or neck ?? Accession Number(s): [id number] ? cc: Clau Fang MD ? EXAMINATION: [...] DD/ 1309 ? TD/TT: 11/01/24 1315 ? Railcar Foreman: ? Procedure Note Ayan Obrien - 11/02/[address] [address] Ultrasound Report Signed Patient: Jace GonzalesMR#: [id number] : 1965Acct:[id number] Age/Sex: 59 / MADM Date: 11/01/24 Loc: HO.US Attending Dr: Clau Fang MD Ordering Physician: Clau Fang MD Date of Service: 11/01/24 Procedure(s): US soft tiss head and/or neck Accession Number(s): [id number] cc: Clau Fang MD EXAMINATION: US SOFT [...] Giovani Redd Signed By: <Electronically signed by Giovani Redd in OV> 11/02/24 1049 DD/ 1309 TD/TT: 11/01/24 1315 Railcar Foreman: us Clau Fang MD IMG US PROCEDURES Edited Result - Final * (ABNORMAL) Lipid Panel with Reflex to Direct LDL (10/05/2024 11:07 AM EST) Triglycerides 168(H) <150 mg/dL [facility] Comment:Desirable Triglyceri de: less than 150 mg/dLBorderline High Triglyceride 150-199 mg/dLHigh Triglyceride: 200-499 mg/dLVery High Triglyceride: greater than or equal to 5OO mg/dL Cholesterol 146 <200 mg/dL [facility] Comment:Desirable Cholestero l: less than 200 mg/dLBorderline High Cholesterol: 200-239 mg/dLHigh Cholesterol: greater than 239 mg/dL LDL Cholesterol Calculated 81 <100 mg/dL [facility] Comment:Desirable LDL: less than 100 mg/dLNear Optimal/Above Optimal LDL: 110- 129 mg/dLBorderline High LDL: 130-159 mg/dLHigh LDL: 160-189 mg/dLVery High LDL: greater than or equal to 190 mg/dL HDL Cholesterol 32(L) >40 mg/dL [facility] Comment:Desirable HDL: great er than 40 mg/dL Note: This HDL assay may give artificially low results in patients with liver disease. Blood 10/05/2024 11:0 7 AM EST 10/05/2024 1:22 PM EST Clau Fang MD LAB BLOOD ORDERABLES Fin al Result [facility] [address] [place] [phone] * Hm Colonoscopy (07/12/2015 1:55 PM EDT) Colonoscopy Normal Normal Narrative Cherie Infante - 07/12/2015 1:55 PM EDT Recommended 5 year follow up ( [facility]) Historical Provider HEALTH MAINTENANCE Edited Result - Final from Last 3 Months or Most Recently Relevant to Health Maintenance Insurance HSN PARTIAL [facility] - HSN PARTIAL (MEDICAID) Care Teams Director Environmental Relationship Specialty Start Date End Date Clau Fang MD [address] [place] [address] PCP - General Family Medicine 07/21/18
--- OUTSIDE RECORDS SUMMARY | 2025-01-24 12:00 | XMS_ITS | Encounter Summary ---
Author Organization [employer] Address [address] [facility] 7[address] [place] [address] Care Team Providers Care Mold Unloader Name Role Phone Shell Fang MD Primary Care Provider + Encounter Details Date Type Department Care Team (Late st Contact Info) Description 12/19/2023 Orders Only [facility] [address] [place] [phone] Alfa Mcwilliams MD [address] [place] [address] [phone] Hypertension, unspecified type (Primary Dx); Chronic obstructive [...] Description 01/31/2025 9:00 AM EST Office Visit [facility] [address] [place] [address] [phone] Rachelle Lindsay 02/07/2025 11:15 AM EDT Office Visit [facility] [address] [place] [phone] Shell Fang MD [address] [place] [address] [phone] documented as of this encounter Procedures Procedure Name Priority Date/Time Associated Diagnosis Comments B TYPE NATRIURETIC PEPTIDE (BNP) Routine 12/20/2023 9:33 AM EST Hypertension, unspecified type Chronic obstructive pulmonary disease with acute exacerbation (CMS/HCC) documented in this encounter Results * (ABNORMAL) B Type Natriuretic Peptide (BNP) (12/20/2023 9:33 AM EST) B Type Natriuretic Peptide 1,320(H) <100 pg/mL [facility] Comment:For those patients w ho are being treated with Natrecor(nesiritide, recombinant BNP), BNP testing should beperformed at least two hours post treatment in order toensure that only endogenous levels of BNP are detected. Blood Venous blood specimen / Unknown 12/20/2023 9:33 AM EST 12/20/2023 9:33 AM EST us Alfa Mcwilliams MD LAB BLOOD ORDERABLES Final Resul t [facility] [address] [place] [phone] documented in this encounter Visit Diagnoses Diagnosis Hypertension, unspecified type- Primary Chronic obstructive pulmonary disease with acute exacerbation (CMS/HCC) documented in this encounter Care Teams Mold Unloader Relationship Specialty Start Date End Date Shell Fang MD [address] [place] [phone] PCP - General Family Medicine 07/21/18 documented as of this encounter
--- OUTSIDE RECORDS SUMMARY | 2025-01-24 12:00 | XMS_ITS | Encounter Summary ---
Author Organization [employer] Address [address] [facility] [address] [place] [address] Care Team Providers Care Content Manager Name Role Phone Shell Fang MD Primary Care Provider + Reason for Visit * Reason Comments Med Refill Encounter Details Date Type Department Care Team ([facility] st Contact Info) Description 11/22/2024 Refill [facility] [address] [place], [place] [phone] Shell Fang MD [address] [place] [address] Cerebrovascular accident (CVA) due to thrombosis of [...] Description 01/31/2025 9:00 AM EST Office Visit [facility] [address] [place], [place] [phone] Rachelle Lindsay 02/07/2025 11:15 AM EDT Office Visit [facility] [address] [place] [address] [phone] Shell Fang MD [address] [place] [phone] documented as of this encounter Visit Diagnoses Diagnosis Cerebrovascular accident (CVA) due to thrombosis of left middle cerebral artery (CMS/HCC) documented in this encounter Care Teams Content Manager Relationship Specialty Start Date End Date Shell Fang MD [address] [place] [phone] PCP - General Family Medicine 07/21/18 documented as of this encounter
--- OUTSIDE RECORDS SUMMARY | 2025-01-24 12:00 | XMS_ITS | Encounter Summary ---
Author Organization [employer] Address [address] [place] [address] [address] [place] [address] Care Team Providers Care Engine Research Engineer Name Role Phone Shell Fang MD Primary Care Provider + Reason for Visit * Reason Comments Med Refill Encounter Details Date Type Department Care Team (Late st Contact Info) Description 06/29/2023 Refill [facility] [address] [place] [address] [phone] Marija Taylor DO [address] [place], [place] [phone] Uncomplicated asthma, unspecified asthma severity, unspecified whether [...] Description 01/31/2025 9:00 AM EST Office Visit [facility] [address] [place] [address] [phone] Rachelle Lindsay 02/07/2025 11:15 AM EDT Office Visit [facility] [address] [place] [address] [phone] Shell Fang MD [address] [place], [place] [phone] documented as of this encounter Visit Diagnoses Diagnosis Uncomplicated asthma, unspecified asthma severity, unspecified whether persistent documented in this encounter Care Teams Engine Research Engineer Relationship Specialty Start Date End Date Shell Fang MD [address] [place] [phone] PCP - General Family Medicine 07/21/18 documented as of this encounter
--- OUTSIDE RECORDS SUMMARY | 2025-01-24 12:00 | XMS_ITS | Encounter Summary ---
Author Organization [employer] Address [address] [facility] 7 [place] [address] Care Team Providers Care Audit Analyst Name Role Phone Shell Fang MD Primary Care Provider + Reason for Visit * Reason Comments Med Refill Encounter Details Date Type Department Care Team ([facility] st Contact Info) Description 11/27/2024 Refill [facility] [address] [place], [place] [phone] Shell Fang MD [address] [place] [address] Cerebrovascular accident (CVA) due to thrombosis of [...] Description 01/31/2025 9:00 AM EST Office Visit [facility] ADULT DENTAL [address], [place] [phone] Rachelle Lindsay 02/07/2025 11:15 AM EDT Office Visit [facility] [address] [place] [address] [phone] Shell Fang MD [address] [place] [phone] documented as of this encounter Visit Diagnoses Diagnosis Cerebrovascular accident (CVA) due to thrombosis of left middle cerebral artery (CMS/HCC) documented in this encounter Care Teams Audit Analyst Relationship Specialty Start Date End Date Shell Fang MD [address] [place] [phone] PCP - General Family Medicine 07/21/18 documented as of this encounter
--- OUTSIDE RECORDS SUMMARY | 2025-01-24 12:00 | XMS_ITS | Encounter Summary ---
Author Organization [employer] Address [address] [place] [address] 7 [place] [address] Care Team Providers Care Gas System Operator Name Role Phone Shell Fang MD Primary Care Provider + Encounter Details Date Type Department Care Team (Late st Contact Info) Description 06/20/2023 Orders Only [facility] [address] [place] [phone] Yanique Leigh LPN Social History Tobacco Use [...] Description 01/31/2025 9:00 AM EST Office Visit [facility] [address] [place] [phone] Rachelle Lindsay 02/07/2025 11:15 AM EDT Office Visit [facility] [address] [place] [phone] Shell Fang MD [address] [place] [address] [phone] documented as of this encounter Visit Diagnoses Not on filedocumented in this encounter Care Teams Gas System Operator Relationship Specialty Start Date End Date Shell Fang MD [address] [place] [address] [phone] PCP - General Family Medicine 07/21/18 documented as of this encounter
== END 2025-01-24 10:53 | disposition home or self-care (01) ==
PROVIDERS: PCP Internal Medicine; Visit Provider Surgery
DX: R59.1 Generalized enlarged lymph nodes (principal)
CPT/HCPCS: 99204

== ENCOUNTER → 2025-01-24 10:19 | Outpatient (BNVA) | payer OTHER, SELFPAY | PROVIDERS: PCP Internal Medicine; Visit Provider Surgery | DX: R59.1 Generalized enlarged lymph nodes (principal) | CPT/HCPCS: 99202 ==

== ENCOUNTER 2025-03-05 10:11 | Outpatient (REF) | payer OTHER, SELFPAY ==
--- NOTE | ~2025-03-05 | XR_ITS ---
EXAMINATION: XR LUMBOSACRAL SPINE CLINICAL INFORMATION: low back pain for 3-4 months COMPARISON: 08/23/2022, 03/09/2022. TECHNIQUE: Three views of the lumbosacral spine. FINDINGS: No scoliosis. Normal lordosis. No subluxations. No fracture, compression deformity, or suspicious bone lesion. Very mild multilevel disc space narrowing. This is most notable at L5-S1. There are bulky bridging ventral vertebral and disc osteophytes spanning T11-L1, both anteriorly and laterally. There is relative preservation of the intervening discs. Findings suggest underlying DISH. Normal facet alignment. Mild degenerative facet changes spanning L4-S1. The sacrum is intact. There is partial ankylosis of the SI joints. Soft tissues demonstrate minimal vascular calcifications. XR/XR lumbar spine 2-3V IMPRESSION: 1. No acute findings of the lumbar spine. 2. Bridging ventral and lateral vertebral/disc osteophyte spanning T11-L1, with relative preservation of disc spaces, findings suggesting underlying DISH. 3. Mild spondylosis most notable L4-S1. 4. Partial ankylosis of the SI joints. Correlate for underlying spondyloarthropathy. Electronically signed by: Sony Maria MD 03/05/2025 10:47 AM EDT
--- OUTSIDE RECORDS SUMMARY | 2025-03-05 11:55 | XMS_ITS | Encounter Summary ---
Author Organization [employer] Address [address] [facility] 7t [place] [address] Care Team Providers Care Processing Analyst Name Role Phone Shell Fang MD Primary Care Provider + Reason for Visit * Reason Comments Med Refill Encounter Details Date Type Department Care Team ([facility] st Contact Info) Description 03/05/2024 Refill [facility] MEDICINE 230 [place], [place] [phone] Shell Fang MD 230 [place], [place] [phone] Mixed hyperlipidemia Social History Tobacco Use Types [...] t he electric, gas, oil or water [employer] threatened to shut off services in your [...] Description 03/28/2025 9:00 AM EDT Office Visit [facility] ADULT DENTAL [address] [place] [address] Rachelle Lindsay 05/02/2025 9:00 AM EDT Office Visit [facility] MEDICINE [address] [place] [address] Shell Fang MD [address] [place] [phone] documented as of this encounter Visit Diagnoses Diagnosis Mixed hyperlipidemia documented in this encounter Care Teams Processing Analyst Relationship Specialty Start Date End Date Shell Fang MD [address] [place] [address] [phone] PCP - General Family Medicine 07/21/18 documented as of this encounter
--- OUTSIDE RECORDS SUMMARY | 2025-03-05 11:55 | XMS_ITS | Encounter Summary ---
Author Organization [employer] Address [address] [place] [address] [place], [place] [address] Care Team Providers Care Dipper Machine Operator Name Role Phone Shell Fang MD Primary Care Provider + Encounter Details Date Type Department Care Team (Late st Contact Info) Description 11/19/2022 Orders Only [facility] [address] [place] [address] Yanique Leigh LPN Social History Tobacco Use [...] 9:00 AM EDT Office Visit [facility] ADULT DENTAL [address] [place] [address] Rachelle Lindsay 05/02/2025 9:00 AM EDT Office Visit [facility] MEDICINE [address] [place] [address] Shell Fang MD [address] [place] [phone] documented as of this encounter Visit Diagnoses Not on filedocumented in this encounter Care Teams Dipper Machine Operator Relationship Specialty Start Date End Date Shell Fang MD [address] [place] [phone] PCP - General Family Medicine 07/21/18 documented as of this encounter
--- OUTSIDE RECORDS SUMMARY | 2025-03-05 11:55 | XMS_ITS | Encounter Summary ---
Author Organization [employer] Address [address] [place] [address] [address] [place] [address] Care Team Providers Care Cloth Measurer Machine Name Role Phone Shell Fang MD Primary Care Provider + Reason for Visit * Reason Onset Date Comments Med Refill 02/03/2023 Encounter Details Date Type Department Care Team ([facility] st Contact Info) Description 02/03/2023 Telephone [facility] MEDICINE [address] [place], [place] [phone] Shell Fang MD [address] [place] [address] Med Refill Social History Tobacco Use Types [...] (90 Base) MCG/ACT inhaler Please sent to [facility]/pharmacy #[id number] - [place] - [address] [facility] documented in this encounter Plan of Treatment Upcoming Encounters Date Type Department Care Team (Late st Contact Info) Description 03/28/2025 9:00 AM EDT Office Visit [facility] ADULT DENTAL [address] [place] [address] Rachelle Lindsay 05/02/2025 9:00 AM EDT Office Visit [facility] MEDICINE [address] [place] [address] Shell Fang MD [address] [place] [address] documented as of this encounter Visit Diagnoses Not on filedocumented in this encounter Care Teams Cloth Measurer Machine Relationship Specialty Start Date End Date Shell Fang MD [address] [place] [address] PCP - General Family Medicine 07/21/18 documented as of this encounter
--- OUTSIDE RECORDS SUMMARY | 2025-03-05 11:55 | XMS_ITS | Encounter Summary ---
Author Organization [employer] Address [address] [place] [address] [address] [place] [address] Care Team Providers Care Car Dropper Name Role Phone Shell Fang MD Primary Care Provider + Encounter Details Date Type Department Care Team (Late st Contact Info) Description 05/12/2023 Abstract [facility] MEDICINE [address] [place] [address] [phone] Shell Fang MD [address] [place] [address] [phone] Social History Tobacco Use Types Packs/Day Years [...] [facility] ADULT DENTAL [address] [place] [address] [phone] Rachelle Lindsay 05/02/2025 9:00 AM EDT Office Visit [facility] MEDICINE [address] [place] [address] [phone] Shell Fang MD [address] [place] [address] [phone] documented as of this encounter Procedures Procedure Name Priority Date/Time Associated Diagnosis Comments HM COLONOSCOPY Routine 07/12/2015 1:55 PM EDT documented in this encounter Results * Hm Colonoscopy (07/12/2015 1:55 PM EDT) Colonoscopy Normal Normal Narrative Cherie Infante - 07/12/2015 1:55 PM EDT Recommended 5 year follow up ( [facility]) us Historical Provider [facility] Edited Result - Final documented in this encounter Visit Diagnoses Not on filedocumented in this encounter Care Teams Car Dropper Relationship Specialty Start Date End Date Shell Fang MD [address] [place] [phone] PCP - General Family Medicine 07/21/18 documented as of this encounter
--- OUTSIDE RECORDS SUMMARY | 2025-03-05 11:55 | XMS_ITS | Encounter Summary ---
Author Organization [employer] Address [address] [facility] [address] [place] [address] Care Team Providers Care Mortgage Protection Specialist Name Role Phone Shell Fang MD Primary Care Provider + Encounter Details Date Type Department Care Team (Late st Contact Info) Description 02/03/2023 Orders Only [facility] MED & PEDS [address] [place], [place] [phone] Marija Carlson LPN Social History Tobacco Use [...] Description 03/28/2025 9:00 AM EDT Office Visit [facility] ADULT DENTAL [address] [place] [address] Rachelle Lindsay 05/02/2025 9:00 AM EDT Office Visit [facility] MEDICINE [address] [place] [address] Shell Fang MD [address] [place], [place] [phone] documented as of this encounter Visit Diagnoses Not on filedocumented in this encounter Care Teams Mortgage Protection Specialist Relationship Specialty Start Date End Date Shell Fang MD [address] [place] [address] [phone] PCP - General Family Medicine 07/21/18 documented as of this encounter
--- OUTSIDE RECORDS SUMMARY | 2025-03-05 11:56 | XMS_ITS | Encounter Summary ---
Author Organization [employer] Address [address] [facility] 7 [place] [address] Care Team Providers Care Tire Rebuilder Name Role Phone Shell Fang MD Primary Care Provider + Reason for Visit * Reason Comments Med Refill Encounter Details Date Type Department Care Team ([facility] st Contact Info) Description 11/27/2024 Refill [facility] MEDICINE [address] [place], [place] [phone] Shell Fang MD [address] [place] [address] Cerebrovascular accident (CVA) due to thrombosis of [...] Description 03/28/2025 9:00 AM EDT Office Visit [facility] ADULT DENTAL [address] [place], [place] [phone] Rachelle Lindsay 05/02/2025 9:00 AM EDT Office Visit [facility] MEDICINE [address] [place], [place] [phone] Shell Fang MD [address] [place] [phone] documented as of this encounter Visit Diagnoses Diagnosis Cerebrovascular accident (CVA) due to thrombosis of left middle cerebral artery (CMS/HCC) documented in this encounter Care Teams Tire Rebuilder Relationship Specialty Start Date End Date Shell Fang MD [address] [place] [phone] PCP - General Family Medicine 07/21/18 documented as of this encounter
--- OUTSIDE RECORDS SUMMARY | 2025-03-05 11:56 | XMS_ITS | Clinical Summary ---
Author Organization [employer] Address [address] [place] [address] 7[address] [place] [address] Care Team Providers Care Gas Leak Inspector Name Role Phone Clau Fang MD Primary [...] each Active Blood Glucose Monitoring Suppl (FreeStyle [place]i Lite) w/Device kit Use to test blood [...] per day. 30 tablet 025 2025 Active Diclofenac Sodium 1 % gel Apply thin layer by topical route (quantity as directed on package insert) to elbow 3 times daily as needed. 50 g 3 Active atorvastatin (Lipitor) 40 MG tabletIndications :Mixed hyperlipidemia TAKE 1 TABLET BY MOUTH EVERY DAY IN THE MORNING 90 tablet Active acetaminophen (Tylenol 8 Hour) 650 MG ER tabletIndications :Periodontal disease,Dental abscess Take 1 tablet (650 mg) by mouth every 8 (eight) hours if needed for mild pain. Do not crush, chew, or split. 30 tablet Active Fluticasone-Salme terol 500-50 MCG/ACT aerosol powderIndications :Moderate asthma without complication, unspecified whether persistent Take 1 Inhalation by mouth 2 times daily. 1 each 11 Active meloxicam (Mobic) 15 MG tablet Take 1 tablet (15 mg) by mouth Once per day. 30 tablet 025 2025 Active gabapentin (Neurontin) 300 MG capsule Take 1 capsule (300 mg) by mouth at bedtime. 30 capsule 3 025 2025 Active cyclobenzaprine (Flexeril) 10 MG tabletIndications :Acute bilateral low back pain without sciatica One tab po at bedtime prn pain of muscles, do not drive with medicaion 30 tablet Active fluticasone-salme terol (Advair HFA) 230-21 MCG/ACT [...] week after biopsy, advised to discuss with aerosol supervisor or bring FMLA papers. Will fu POP [...] POC. 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 [...] above. Continue diuretics and fu with cardiology ([facility]), needs to call to check on fu [...] heavy objects. He will discuss this with aerosol supervisor, he did not want me to provide a light duty letter as I have done in the past. He will fu with me after reaching out to his aerosol supervisor. Start Meloxicam daily + Gabapentin QHS, can take Tylenol prn. Knee pain 01/04/2024 01/04/2024 Episodic tension-type headache 01/04/2024 0 01/04/2024 Disorder of joint of spine 01/04/202401/04 Chronic low back pain 01/04/2024 01/04/2024 Acute low back pain 01/04/2024 01/04/2024 Assessment & Plan (03/05/2025 10:09 AM EDT): Likely musculoskeletal. Non-focal, normal motor exam without neurological deficits. No back pain red-flags: bowel/bladder incontinence, IVDU, urinary retention, saddle anesthesia, and significant motor deficits. -xray ordered -Recommend acetaminophen and muscle relaxer prn. Physical therapy referral offered. -Lifting precaution sand stretching reviewed. -ER precaution discussed. Carotid artery stenosis 01/04/2024 01/04/20 24 Allergic [...] Encounters Date Type Department Care Team Description 03/05/2025 10:00 AM EDT Office Visit [facility] [address] [place] [phone] Tessa Freeman MD Acute bilateral low back pain without sciatica (Primary Dx) 02/21/2025 Telephone [facility] [address] [place] [phone] Clau Fang MD Call Back Request 02/14/2025 10:00 AM EDT Office Visit [facility] [address] [place] [phone] Irvin Gonzáles, DMD 02/07/2025 11:15 AM EDT Office Visit [facility] [address] [place] [phone] Clau Fang MD Essential hypertension (Primary Dx); 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); Lymphadenopathy, supraclavicular; Lumbar sprain, subsequent encounter; Tendinosis of right shoulder 02/07/2025 Travel 02/07/2025 Refill [facility] [address] [place] [address] Clau Fang MD Moderate asthma without complication, unspecified whether persistent 02/04/2025 Telephone [facility] [address] [place] [address] Clau Fang MD Chart prep 01/31/2025 9:30 AM EST Office Visit [facility] [address] [place] [address] Arnold Flores DDS Periodontal disease (Primary Dx); Dental abscess 01/31/2025 9:00 AM EST Office Visit [facility] [address] [place] [address] Rachelle Lindsay Dental calculus (Primary Dx) 01/30/2025 Refill [facility] [address] [place] [address] Clau Fang MD Mixed hyperlipidemia 12/27/2024 3:15 PM EST Office Visit [facility] [address] [place] [phone] Malissa Caldwell MD Lymphadenopathy, supraclavicular (Primary Dx) 12/27/2024 Travel 12/25/2024 Telephone [facility] [address] [place] [address], [place] [address] Clau Fang MD ER Follow-up 12/24/2024 8:40 AM EST Office Visit [facility] [address] [place] [address] Alfa Mcwilliams MD Essential hypertension (Primary Dx); Neck mass; Tobacco dependence; Cerebrovascular accident (CVA) due to thrombosis of left middle cerebral artery (CMS/HCC) 12/24/2024 Orders Only GENERIC EXTERNAL DATA DEPARTMENT Provider, Generic External Data 12/09/2024 Refill [facility] [address] [place] [address] Clau Fang MD Cerebrovascular accident (CVA) due to thrombosis of left middle cerebral artery (CMS/HCC) 12/07/2024 9:45 AM EST Office Visit [facility] [address] [place] [phone] Clau Fang MD 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) (Primary Dx); Primary hypertension; Polyarthritis; Flexural eczema; Acute systolic congestive heart failure (CMS/[facility]); COPD (chronic obstructive pulmonary disease) with chronic bronchitis ([facility]); Alcohol dependence with unspecified alcohol-induced disorder ([facility]) 12/07/2024 Orders Only [facility] [address] [place] [address] Clau Fang MD 12/07/2024 Travel 12/07/2024 Telephone [facility] [address] [place] [address] Clau Fang MD insurance 12/06/2024 Telephone [facility] [address] [place], [place] [phone] Pamela Jean MA Chart prep from Last 3 Months Immunizations Name Administration [...] Sign Reading Time Taken Comments Blood Pressure 138/70 03/05/2025 10:01 AM EDT Pulse 84 03/05/2025 9:43 AM EDT Temperature 35.6 ??C (96.1 ??F) 03/05/2025 9:43 AM ED T Respiratory Rate 13 03/05/2025 9:43 AM EDT Oxygen Saturation 95% 03/05/2025 9:43 AM EDT Inhaled Oxygen Concentration - - Weight 111 kg (245 lb) 03/05/2025 9:43 AM EDT Height 175.3 cm (5' 9 ) 02/07/2025 10:55 AM EDT Body Mass Index 36.18 02/07/2025 10:55 AM EDT Plan of Treatment Upcoming Encounters Date Type Department Care Team (Late st Contact Info) Description 03/28/2025 9:00 AM EDT Office Visit [facility] [address] [place], [place] [phone] Rachelle Lindsay 05/02/2025 9:00 AM EDT Office Visit [facility] [address] [place] [address] Clau Fang MD [address] [place] [address] Health Maintenance Due Date Last Done Comments [...] 12/01/2025 11/30/19 25, 01/18/2019, 12/16/2010 Tobacco Screening 03/05/2026 03/05/2025 Dental X-Ray: Full Mouth 02/02/2028 025, 11/30/2024, [...] Procedure Name Priority Date/Time Associated Diagnosis Comments XR LUMBAR SPINE 2-3 VIEWS Routine 03/05/2025 10:11 AM EDT Acute bilateral low back pain without sciatica CASE PRESENTATION, DETAILED AND EXTENSIVE TREATMENT PLANNING [...] 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) PROPHYLAXIS - ADULT Routine 11/30/2024 2 :00 PM EST Dental calculus Dental plaque INTRAORAL - COMPLETE SERIES OF RADIOGRAPHIC IMAGES Routine 11/30/2024 2:00 PM EST PERIODIC ORAL EVALUATION - ESTABLISHED PATIENT Routine 11/30/2024 2:00 PM EST HIV 1/2 ANTIGEN/ANTIBODY, FOURTH GENERATION W/RFL Routine 11/19/2024 10:53 AM EST Neck mass LIPID PANEL WITH REFLEX TO DIRECT LDL Routine 10/05/2024 11:07 AM EST Primary hypertension HM COLONOSCOPY Routine 07/12/2015 1:55 PM EDT from Last 3 Months or Most Recently Relevant to Health Maintenance Results * XR Lumbar Spine 2-3 Views (03/05/2025 10:11 AM EDT) Anatomical Region Laterality Modality Spine, L-spine Radiographic Sandra ging 03/05/2025 10:1 1 AM EDT Narrative 03/05/2025 10:50 AM EDT ?[facility] ?[address] ?[place] [address] ?XRay Report ? Signed ? Patient: Jace Gonzales ?MR#: [id number] ?? [id number] ? : 1965 ?Acct:[id number] ? Age/Sex: 59 / M ?ADM Date: 03/05/25 ? Loc: HO.HHCX ? Attending Dr: Tessa Freeman MD ? Ordering Physician: Tessa Freeman MD ?? Date of Service: 03/05/25 ?? Procedure(s): XR lumbar spine 2-3V ?? Accession Number(s): [id number] ? cc: Tessa Freeman MD ? EXAMINATION: ?? XR LUMBOSACRAL SPINE ? CLINICAL INFORMATION: ?? low back pain for 3-4 months ? COMPARISON: ?? 08/23/2022, 03/09/2022. ? TECHNIQUE: ?? Three views of the lumbosacral spine. ? FINDINGS: ?? No scoliosis. Normal lordosis. No subluxations. ?? No fracture, compression deformity, or suspicious bone lesion. ?? Very mild multilevel disc space narrowing. This is most notable at ?? L5-S1. ?? There are bulky bridging ventral vertebral and disc osteophytes ?? spanning T11-L1, both anteriorly and laterally. There is relative ?? preservation of the intervening discs. Findings suggest underlying DISH. ?? Normal facet alignment. Mild degenerative facet changes spanning L4-S1. ? The sacrum is intact. There is partial ankylosis of the SI joints. ? Soft tissues demonstrate minimal vascular calcifications. ? XR/XR lumbar spine 2-3V ?? IMPRESSION: ?? 1. No acute findings of the lumbar spine. ?? 2. Bridging ventral and lateral vertebral/disc osteophyte spanning ?? T11-L1, with relative preservation of disc spaces, findings suggesting ?? underlying DISH. ?? 3. Mild spondylosis most notable L4-S1. ?? 4. Partial ankylosis of the SI joints. Correlate for underlying ?? spondyloarthropathy. ? Electronically signed by: ??Sony Maria MD ??03/05/2025 10:47 AM EDT RP ? Dictated By: ?Sony Maria MD ? Signed By: ?<Electronically signed by Sony Maria MD in OV> ?03/05/25 1047 ? DD/ 1011 ? TD/TT: 03/05/25 1020 ? Jigger Crown Pouncing Machine Operator: ? Procedure Note Micah, Image - 03/05/[address] [address] XRay Report Signed Patient: Jace GonzalesMR#: [id number] : 1965Acct:[id number] Age/Sex: 59 / MADM Date: 03/05/25 Loc: HO.HHCX Attending Dr: Tessa Freeman MD Ordering Physician: Tessa Freeman MD Date of Service: 03/05/25 Procedure(s): XR lumbar spine 2-3V Accession Number(s): [id number] cc: Tessa Freeman MD EXAMINATION: XR LUMBOSACRAL SPINE CLINICAL INFORMATION: low back pain for 3-4 months COMPARISON: 08/23/2022, 03/09/2022. TECHNIQUE: Three views of the lumbosacral spine. FINDINGS: No scoliosis. Normal lordosis. No subluxations. No fracture, compression deformity, or suspicious bone lesion. Very mild multilevel disc space narrowing. This is most notable at L5-S1. There are bulky bridging ventral vertebral and disc osteophytes spanning T11-L1, both anteriorly and laterally. There is relative preservation of the intervening discs. Findings suggest underlying DISH. Normal facet alignment. Mild degenerative facet changes spanning L4-S1. The sacrum is intact. There is partial ankylosis of the SI joints. Soft tissues demonstrate minimal vascular calcifications. XR/XR lumbar spine 2-3V IMPRESSION: 1. No acute findings of the lumbar spine. 2. Bridging ventral and lateral vertebral/disc osteophyte spanning T11-L1, with relative preservation of disc spaces, findings suggesting underlying DISH. 3. Mild spondylosis most notable L4-S1. 4. Partial ankylosis of the SI joints. Correlate for underlying spondyloarthropathy. Electronically signed by: Sony Maria MD 03/05/2025 10:47 AM EDT Dictated By: Sony Maria MD Signed By: <Electronically signed by Sony Maria MD in OV> 03/05/25 1047 DD/ 1011 TD/TT: 03/05/25 1020 Jigger Crown Pouncing Machine Operator: Tessa Freeman MD IMG XR PROCEDURES Final Re sult * (ABNORMAL) POCT HGB A1C (02/07/2025 11:01 AM EDT) [facility] Hemoglobin A1C 6.2(A) 4.0 - 6.0 % QC Media Lot # [id number] Lot# Expiration Date 98 Blood 02/07/2025 11:0 1 AM EDT Clau Fang MD POINT OF CARE TEST ENTER /EDIT ORDERABLES Final Result * POCT Glucose (02/07/2025 10:55 AM EDT) Only the most recent of2 resultswithin the time period is included. [facility] Glucose Blood, POC 140 60 - 200 mg/dL QC Media Lot # [id number] Lot# Expiration Date 82,625 Blood Capillary blood specimen / Unknown 02/07/2025 10:55 AM EDT us Clau Fang MD POINT OF CARE TEST ENTER /EDIT ORDERABLES Final Result * CT Soft Tissue Neck w/ Contrast (12/24/2024 6:52 PM EST) Anatomical Region Laterality Modality Head, Neck Computed Tomogra phy 12/24/2024 6:52 PM EST Narrative 12/24/2024 6:54 PM EST ? [facility] ?[address] ?[place] [address] ? CT Scan Report ? Signed ? Patient: Christian,Jace ?MR#: [id number] ?? [id number] ? : 1965 ?Acct:[id number] ? Age/Sex: 59 / M ?ADM Date: 12/24/24 ? Loc: HO.ED ? Attending Dr: ? Ordering Physician: Essie Espinosa ?? Date of Service: 12/24/24 ?? Procedure(s): CT soft tissue neck w IV con ?? Accession Number(s): [id number] ? cc: Clau Fang MD; Essie Espinosa ? Report Number: ?? [id number]: Total DLP = ??805.00 mGy-cm ? CLINICAL [...] has been electronically signed by: Dia Vyas, on ?? 12/24/2024 18:52:40 ? Dictated By: ?Dia Vyas MD ? Signed By: ?<Electronically signed by Dia Vyas MD in OV> ?12/24/24 1853 ? DD/ 1852 ? TD/TT: 12/24/241851 ? Jigger Crown Pouncing Machine Operator: ? Procedure Note Ayan Obrien - 12/24/[address] [place] [id number] [address] Scan Report Signed Patient: Jace GonzalesMR#: [id number] : 1965Acct:[id number] Age/Sex: 59 / MADM Date: 12/24/24 Loc: HO.ED Attending Dr: Ordering Physician: Essie Espinosa Date of Service: 12/24/24 Procedure(s): CT soft tissue neck w IV con Accession Number(s): [id number] cc: Clau Fang MD; Essie Espinosa Report Number: [id number]: Total DLP = 805.00 mGy-cm CLINICAL HISTORY: [...] in OV> 12/24/241852 DD/ 51 TD/TT: 12/24/241851 Jigger Crown Pouncing Machine Operator: [facility] External Provider IMG CT PROCEDURES Final Result * Blood Culture (Second) (12/24/2024 5:29 PM EST) Blood Venous blood specimen / Unknown 12/24/2024 5:29 PM EST 12/24/2024 5:33 PM EST Comment:Blood Narrative [facility] - 12/29/2024 7:33 PM EST Blood Culture (Second) No growth after 5 days. Specimen Source: Blood Generic External Data Provider LAB MICROBIOLOGY - GENERAL ORDERABLES Final Result [facility] [address] [place] [phone] * Blood Culture (First) (12/24/2024 11:03 AM EST) Blood Venous blood specimen / Unknown 12/24/2024 11:03 AM EST 12/24/2024 11:06 AM EST Comment:Blood Narrative [facility] - 12/29/2024 1:06 PM EST Blood Culture (First) No growth after 5 days. Specimen Source: Blood us Generic External Data Provider LAB MICROBIOLOGY - GENERAL ORDERABLES Final Result [facility] [address] [place] [address] [phone] * (ABNORMAL) CBC auto differential (12/24/2024 11:03 AM EST) Only the most recent of2 resultswithin the time period is included. White Blood Count 5.8 4.8 - 10.8 X10*3/uL [facility] Red Blood Count 4.12(L) 4.60 - 5.80 X10*6/uL [facility] Hemoglobin 12.1(L) 14.0 - 18.0 g/dl [facility] Hematocrit 36.6(L) 42.0 - 52.0 % [facility] Mean Corpuscular Volume 88.8 80.0 - 98.0 fL [facility] Mean Corpuscular Hemoglobin 29.4 27.0 - 33.0 pg [facility] Mean Corpuscular HGB Conc 33.1 31.0 - 36.0 g/dl [facility] Red Cell Distribution Width 14.0 11.0 - 16.0 % [facility] Platelet Count 286 160 - 400 X10*3/uL [facility] Mean Platelet Volume 8.4(L) 9.4 - 12.4 fL [facility] Neutrophils Percent Auto 58.9 45 - 73 % [facility] Imm Gran Pct Auto 0.2 0.0 - 0.4 % [facility] Lymphocytes Percent Auto 28.1 20 - 40 % [facility] Monocytes Percent Auto 9.3 2 - 11 % [facility] Eosinophils Percent Auto 2.6 0 - 4 % [facility] Basophils Percent Auto 0.9 0 - 2 % [facility] NRBC Pct Auto 0.0 0.0 - 0.2 /100WBC [facility] Neutrophils Absolute Auto 3.4 2.0 - 8.3 x10*3/uL [facility] Imm Gran Abs Auto 0.01 0.00 - 0.03 X10*3/uL [facility] Lymphocytes Absolute Auto 1.6 1.2 - 4.9 X10*3/uL [facility] Monocytes Absolute Auto 0.5 0.1 - 1.2 X10*3/uL [facility] Eosinophils Absolute Auto 0.2 0.0 - 0.4 X10*3/uL [facility] Basophils Absolute Auto 0.1 0.0 - 0.2 X10*3/uL [facility] NRBC Abs Auto 0.000 0.0 - 0.012 X10*3/uL [facility] 12/24/2024 11:0 3 AM EST 12/24/2024 11:06 AM EST Generic External Data Provider LAB BLOOD ORDERAB LES Final Result Performing Organization Address [facility]/ZIP Co de Phone Number [facility] [address] [place] [phone] * Mononucleosis Test, Qualitative (12/24/2024 11:03 AM EST) Pathologist [facility] Monotest Negative Negative [facility] 12/24/2024 11:0 3 AM EST 12/24/2024 11:06 AM EST Generic External Data Provider LAB BLOOD ORDERAB LES Final Result Performing Organization Address [facility] Co de Phone Number [facility] [address] [place] [phone] * (ABNORMAL) Sed Rate by Rosa M Ramires (12/24/2024 11:03 AM EST) Only the most recent of2 resultswithin the time period is included. Erythrocyte Sedimentation Rate 25(H) 0 - 15 MM/HR [facility] Comment:Patients with polycy themia and many hemoglobin abnormalitiesmay have depressed sed rates whereas patients with anemiamay have elevated sed rates. 12/24/2024 11:0 3 AM EST 12/24/2024 11:06 AM EST Generic External Data Provider LAB BLOOD ORDERAB LES Final Result Performing Organization Address [facility] Co de Phone Number [facility] [address] [place] [phone] * (ABNORMAL) C-reactive Protein (12/24/2024 11:03 AM EST) Only the most recent of2 resultswithin the time period is included. C Reactive Protein 1.54(H) < or = 0.50 mg/dL [facility] 12/24/2024 11:0 3 AM EST 12/24/2024 11:06 AM EST Generic External Data Provider LAB BLOOD ORDERAB LES Final Result Performing Organization Address [facility] de Phone Number [facility] [address] [place] [phone] * Magnesium (12/24/2024 11:03 AM EST) Magnesium 1.9 1.6 - 2.6 mg/dL [facility] 12/24/2024 11:0 3 AM EST 12/24/2024 11:06 AM EST Generic External Data Provider LAB BLOOD ORDERAB LES Final Result Performing Organization Address [facility] de Phone Number [facility] [address] [place] [phone] * (ABNORMAL) Hepatic Function Panel (12/24/2024 11:03 AM EST) Bilirubin, Total 0.6 0.0 - 1.0 mg/dL [facility] Bilirubin, Direct 0.2 0.0 - 0.5 mg/dL [facility] Aspartate Amino Transferase 18 5 - 37 U/L [facility] Alanine Aminotransferase 26 0 - 40 U/L [facility] Total Protein 7.9 6.5 - 8.0 g/dL [facility] Albumin Level 4.4 3.5 - 5.0 g/dL [facility] Alkaline Phosphatase 120(H) 39 - 117 U/L [facility] 12/24/2024 11:0 3 AM EST 12/24/2024 11:06 AM EST us Generic External Data Provider LAB BLOOD ORDERAB LES Final Result [facility] [address] [place] [phone] [phone] * (ABNORMAL) Basic Metabolic Panel (12/24/2024 11:03 AM EST) Sodium 140 135 - 145 mmol/L [facility] Potassium 4.0 3.3 - 5.1 mmol/L [facility] Chloride 108 96 - 108 mmol/L [facility] Carbon Dioxide 26 22 - 29 mmol/L [facility] Anion Gap 10(L) 12 - 20 [facility] Urea Nitrogen (BUN) 15 9 - 16 mg/dL [facility] Creatinine, Serum 0.99 0.5 - 1.4 mg/dL [facility] Creatinine Clr Calc Pharmacy 99.6 [facility] Comment:eGFR (calculated fro m the MDRD study equation) and eCrCl(calculated from the Cockcroft-Gault equation) are based ondifferent parameters and may not yield comparable results.If eCrCl result is absurd, please check patient'sheight/weight. Estimated Glomerular Filt Rate >60 [facility] Comment:Chronic Kidney Disea se: Estimated GFR < 60 mL/min/1.68p4Tyervy Kidney Disease: Estimated GFR < 15 mL/min/1.73m2 Glucose 105 60 - 115 mg/dL [facility] Calcium 9.7 8.4 - 10.2 mg/dL [facility] 12/24/2024 11:0 3 AM EST 12/24/2024 11:06 AM EST Generic External Data Provider LAB BLOOD ORDERAB LES Final Result Performing Organization Address [facility] de Phone Number [facility] [address] [place] [address] [phone] * Hepatitis Panel, General (12/07/2024 10:40 AM EST) Hepatitis A IgM Nonreactive Nonreactive [facility] Comment:IgM antibodies to HOUSE V not detected; does not exclude earlyacute or recovered HAV infection. ~Hepatitis B Surface Antibody REACTIVE Nonreactive [facility] Comment:REACTIVE: > 11.99 mI U/mL Hepatitis B Core Antibody Reactive Nonreactive [facility] Comment:Presumptive evidence of anti-HBc. Hepatitis C Antibody Nonreactive Nonreactive [facility] Comment:Antibodies to HCV no t detected; does not exclude early acuteHCV infection. Hepatitis B Surface Ag Negative Negative [facility] Blood 12/07/2024 10:4 0 AM EST 12/07/2024 11:38 AM EST Clau Fang MD LAB BLOOD ORDERABLES Fin al Result Performing Organization Address [facility] de Phone Number [facility] [address] [place] [phone] * Hepatitis B Core??Antibody (IgM) (12/07/2024 10:40 AM EST) Hepatitis B Core Antibody IgM NON-REACTI VE NON-REACTI VE [facility] Comment:For additional infor trevon, please refer [email or web address] I Like/faq/[email or web address](This link is being provided for informational/educational purposes only.)THIS TEST WAS PERFORMED AT:[facility] [place] [phone] ABARCA MD 12/07/2024 10:4 0 AM EST 12/07/2024 11:38 AM EST Clau Fang MD LAB BLOOD ORDERABLES Fin al Result Performing Organization Address City/[facility] Co de Phone Number [facility] [address] [place] [phone] * Rheumatoid Factor (12/07/2024 10:40 AM EST) Pathologist [facility] Rheumatoid Factor <13.0 <15.0 IU/mL [facility] Blood Venous blood specimen / Unknown 12/07/2024 10:40 AM EST 12/07/2024 11:38 AM EST Clau Fang MD LAB BLOOD ORDERABLES Fin al Result Performing Organization Address [facility] de Phone Number [facility] [address] [place] [phone] * CLAU Screen,IFA, with Reflex to Titer and Pattern (12/07/2024 10:40 AM EST) Pathologist [facility] Anti Nuclear Antibody Screen NEGATIVE NEGATIVE [facility] Comment:CLAU IFA is a first l ine screen for detecting thepresence of up to approximately 150 autoantibodies invarious autoimmune diseases. A negative LCAU IFA resultsuggests an CLAU-associated autoimmune disease is notpresent at this time, but is not definitive. If thereis high clinical suspicion for Sjogren's syndrome,testing for anti-SS-A/Ro antibody should be considered.Anti-Dayana-1 antibody should be considered for clinicallysuspected inflammatory myopathies.AC-0: NegativeInternational Consensus on CLAU Patterns(https://doi.org/10.1515/jlvf-[email or web address])For additional information, please refer tohttp://education.Fidelis/faq/GNP204(This link is being provided for informational/educational purposes only.)THIS TEST WAS PERFORMED AT:[facility] [place] [id number] ABARCA MD CLAU Titer TNP [facility] CLAU Pattern TNP [facility] CLAU TITER 2 (REF LAB) TNP [facility] CLAU Pattern 2 TNP [facility] CLAU TITER 3 TNP [facility] CLAU PATTERN 3 [facility] Blood Venous blood specimen / Unknown 12/07/2024 10:40 AM EST 12/07/2024 11:38 AM EST Clau Fang MD LAB BLOOD ORDERABLES Fin al Result Performing Organization Address City/[facility]/ZIP Co de Phone Number [facility] [address] [place] [phone] * Uric acid (12/07/2024 10:40 AM EST) Uric Acid 6.6 3.4 - 7.0 mg/dL [facility] Blood Venous blood specimen / Unknown 12/07/2024 10:40 AM EST 12/07/2024 11:38 AM EST Clau Fang MD LAB BLOOD ORDERABLES Fin al Result Performing Organization Address [facility] Co de Phone Number [facility] [address] [place] [phone] * HIV-1/2 Antigen and Antibodies, Fourth Generation, with Reflexes (11/19/2024 10:53 AM EST) HIV AB/AG Nonreactive Nonreactive [facility] Comment:HIV-1 p24 Ag and/or HIV-1/HIV-2 Ab not detected.A test result that is nonreactive does not exclude thepossibility of exposure to or infection with HIV-1 and/orHIV-2. Nonreactive results in this assay for individualswith prior exposure to HIV-1 and/or HIV-2 may be due toantigen and antibody levels that are below the limit ofdetection of this assay.The Readmill HIV Ag/Ab Combo assay result andsupplemental assay results should be interpreted inconjunction with the patient's clinical presentation,history and other laboratory results. If the results areinconsistent with clinical evidence, additional testing issuggested to confirm the result. Blood Venous blood specimen / Unknown 11/19/2024 10:53 AM EST 11/19/2024 1:46 PM EST us Clau Fang MD LAB BLOOD ORDERABLES Fin al Result Performing Organization Address [facility] Co de Phone Number [facility] [address] [place] [address] [phone] * (ABNORMAL) Lipid Panel with Reflex to Direct LDL (10/05/2024 11:07 AM EST) Triglycerides 168(H) <150 mg/dL [facility] Comment:Desirable Triglyceri de: less than 150 mg/dLBorderline High Triglyceride 150-199 mg/dLHigh Triglyceride: 200-499 mg/dLVery High Triglyceride: greater than or equal to 5OO mg/dL Cholesterol 146 <200 mg/dL [facility] Comment:Desirable Cholestero l: less than 200 mg/dLBorderline High Cholesterol: 200-239 mg/dLHigh Cholesterol: greater than 239 mg/dL LDL Cholesterol Calculated 81 <100 mg/dL [facility] Comment:Desirable LDL: less than 100 mg/dLNear Optimal/Above Optimal LDL: 110- 129 mg/dLBorderline High LDL: 130-159 mg/dLHigh LDL: 160-189 mg/dLVery High LDL: greater than or equal to 190 mg/dL HDL Cholesterol 32(L) >40 mg/dL [facility] Comment:Desirable HDL: great er than 40 mg/dL Note: This HDL assay may give artificially low results in patients with liver disease. Blood 10/05/2024 11:0 7 AM EST 10/05/2024 1:22 PM EST us Clau Fang MD LAB BLOOD ORDERABLES Fin al Result [facility] [address] [place] [phone] * Hm Colonoscopy (07/12/2015 1:55 PM EDT) Colonoscopy Normal Normal Narrative Cherie Infante - 07/12/2015 1:55 PM EDT Recommended 5 year follow up ( [facility]) us Historical Provider HEALTH MAINTENANCE Edited Result - Final from Last 3 Months or Most Recently Relevant to Health Maintenance Insurance HSN PARTIAL [facility] - HSN PARTIAL (MEDICAID) Care Teams Gas Leak Inspector Relationship Specialty Start Date End Date Clau Fang MD [address] [place] [phone] PCP - General Family Medicine 07/21/18
--- OUTSIDE RECORDS SUMMARY | 2025-03-05 11:56 | XMS_ITS | Encounter Summary ---
Author Organization [employer] Address [address] [place] [address] 7 [place] [address] Care Team Providers Care Blanchard Grinder Operator Name Role Phone Shell Fang MD Primary Care Provider + Encounter Details Date Type Department Care Team (Late st Contact Info) Description 06/20/2023 Orders Only [facility] [address] [place] [phone] Yanique Leigh LPN Social History Tobacco Use [...] Description 03/28/2025 9:00 AM EDT Office Visit [facility]ULT [facility] [address] [place] [address] Rachelle Lindsay 05/02/2025 9:00 AM EDT Office Visit [facility] [address] [place] [phone] Shell Fang MD [address] [place] [address] [phone] documented as of this encounter Visit Diagnoses Not on filedocumented in this encounter Care Teams Blanchard Grinder Operator Relationship Specialty Start Date End Date Shell Fang MD [address] [place] [phone] PCP - General Family Medicine 07/21/18 documented as of this encounter
--- OUTSIDE RECORDS SUMMARY | 2025-03-05 11:56 | XMS_ITS | Encounter Summary ---
Author Organization [employer] Address [address] [facility] 7t [place] [address] Care Team Providers Care Feed Manager Name Role Phone Shell Fang MD Primary Care Provider + Encounter Details Date Type Department Care Team (Late st Contact Info) Description 03/05/2025 10:00 AM EDT Office Visit [facility] [address] [place], [place] [phone] Tessa Freeman MD [address] [place] [address] Acute bilateral low back pain without sciatica (Primary Dx) Social History Tobacco Use Types [...] (245 lb) 03/05/2025 9:43 AM EDT Height - - Body Mass Index 36.18 02/07/2025 10:55 AM EDT documented in this encounter Progress Notes * Tessa Freeman MD - 03/05/2025 10:00 AM EDT Subjective Patient ID: Jace Gonzales is a 59 y.o. male with type 2 diabetes, hypertension, lymphadenopathy who presents to walk in clinic for blow back pain. Pt reports bilateral low back pain for several months. No recent injuries. He did have biopsy on lymph node 02/25/25, results are pending. NO radiation of back pain. He reports neck pain as well. He works in [employer]. No issues with urination or defecation. Review of Systems Constitutional: Negative for fever and unexpected weight change. Gastrointestinal: Negative for rectal pain. Genitourinary: Negative for difficulty urinating. Neurological: Negative for weakness and numbness. Objective Visit Vitals BP 138/70 Pulse 84 Temp 96.1 ??F (35.6 ??C) (Temporal) Resp 13 Body mass index is 36.18 kg/m??. Physical Exam Musculoskeletal: Lumbar back: Spasms and tenderness present. No swelling, edema, deformity, signs of trauma, lacerations or bony tenderness. No scoliosis. Problem List Items Addressed This Visit Acute low back pain - Primary Likely musculoskeletal. Non-focal, normal motor exam without neurological deficits. No back pain red-flags: bowel/bladder incontinence, IVDU, urinary retention, saddle anesthesia, and significant motor deficits. -xray ordered -Recommend acetaminophen and muscle relaxer prn. Physical therapy referral offered. -Lifting precaution sand stretching reviewed. -ER precaution discussed. Relevant Medications cyclobenzaprine (Flexeril) 10 MG tablet Other Relevant Orders XR Lumbar Spine 2-3 Views documented in this encounter Miscellaneous Notes * Assessment & Plan Note - Tessa Freeman MD - 03/05/2025 10:09 AM EDT Associated Problem(s): Acute low back pain Likely musculoskeletal. Non-focal, normal motor exam without neurological deficits. No back pain red-flags: bowel/bladder incontinence, IVDU, urinary retention, saddle anesthesia, and significant motor deficits. -xray ordered -Recommend acetaminophen and muscle relaxer prn. Physical therapy referral offered. -Lifting precaution sand stretching reviewed. -ER precaution discussed. documented in this encounter Plan of Treatment Upcoming Encounters Date Type Department Care Team (Late st Contact Info) Description 03/28/2025 9:00 AM EDT Office Visit [facility] [address] [place] [address] Rachelle Lindsay 05/02/2025 9:00 AM EDT Office Visit [facility] [address] [place] [address] Shell Fang MD [address] [place] [address] documented as of this encounter Procedures Procedure Name Priority Date/Time Associated Diagnosis Comments XR LUMBAR SPINE 2-3 VIEWS Routine 03/05/2025 10:11 AM EDT Acute bilateral low back pain without sciatica documented in this encounter Results * XR Lumbar Spine 2-3 Views (03/05/2025 10:11 AM EDT) Anatomical Region Laterality Modality Spine, L-spine Radiographic Sandra ging 03/05/2025 10:1 1 AM EDT Narrative 03/05/2025 10:50 AM EDT ?[facility] ?[address] ?[place] [address] ?XRay Report ? Signed ? Patient: Christian,Jace ?MR#: [id number] ?? [id number] ? : 1965 ?Acct:[id number] ? Age/Sex: 59 / M ?ADM Date: 03/05/25 ? Loc: HO.HHCX ? Attending Dr: Tessa Freeman MD ? Ordering Physician: Tessa Freeman MD ?? Date of Service: 03/05/25 ?? Procedure(s): XR lumbar spine 2-3V ?? Accession Number(s): [id number] ? cc: Tessa Freeman MD ? EXAMINATION: [...] AM EDT RP ? Dictated By: ?Sony Maira MD ? Signed By: ?<Electronically signed by Sony Maria MD in OV> ?03/05/25 1047 ? DD/ 1011 ? TD/TT: 03/05/25 1020 ? Wafer Line Worker: ? Procedure Note Donlmter, Image - 03/05/[address] [address] XRay Report Signed Patient: Jace GonzalesMR#: [id number] : 1965Acct:[id number] Age/Sex: 59 / MADM Date: 03/05/25 Loc: HO.HHCX Attending Dr: Tessa Freeman MD Ordering Physician: Tessa Freeman MD Date of Service: 03/05/25 Procedure(s): XR lumbar spine 2-3V Accession Number(s): [id number] cc: Tessa Freeman MD EXAMINATION: XR LUMBOSACRAL [...] 03/05/25 1047 DD/ 1011 TD/TT: 03/05/25 1020 Wafer Line Worker: us Tessa Freeman MD IMG XR PROCEDURES Final Re sult documented in this encounter Visit Diagnoses Diagnosis Acute bilateral low back pain without sciatica- Primary documented in this encounter Care Teams Feed Manager Relationship Specialty Start Date End Date Shell Fang MD [address] [place] [phone] PCP - General Family Medicine 07/21/18 documented as of this encounter
--- OUTSIDE RECORDS SUMMARY | 2025-03-05 11:56 | XMS_ITS | Encounter Summary ---
Author Organization [employer] Address [address] [facility] 7 [place] [address] Care Team Providers Care Relief Worker Name Role Phone Shell Fang MD Primary Care Provider + Reason for Visit * Reason Comments Med Refill Encounter Details Date Type Department Care Team ([facility] st Contact Info) Description 11/22/2024 Refill [facility] [address] [place], [place] [phone] Shell Fang MD [address] [place] [address] Cerebrovascular accident (CVA) due to thrombosis of [...] 9:00 AM EDT Office Visit [facility]ULT [facility] [address] [place], [place] [phone] Rachelle Lindsay 05/02/2025 9:00 AM EDT Office Visit [facility] [address] [place], [place] [phone] Shell Fang MD [address] [place] [phone] documented as of this encounter Visit Diagnoses Diagnosis Cerebrovascular accident (CVA) due to thrombosis of left middle cerebral artery (CMS/HCC) documented in this encounter Care Teams Relief Worker Relationship Specialty Start Date End Date Shell Fang MD [address] [place] [phone] PCP - General Family Medicine 07/21/18 documented as of this encounter
--- OUTSIDE RECORDS SUMMARY | 2025-03-05 11:56 | XMS_ITS | Encounter Summary ---
Author Organization [employer] Address [address] [facility] 7t [place] [address] Care Team Providers Care Hiv/Aids Care Nurse Name Role Phone Shell Fang MD Primary Care Provider + Reason for Visit * Reason Comments Med Refill Encounter Details Date Type Department Care Team ([facility] st Contact Info) Description 12/09/2024 Refill [facility] [address] [place], [place] [phone] Shell Fang MD [address] [place], [place] [phone] Cerebrovascular accident (CVA) due to thrombosis of [...] 9:00 AM EDT Office Visit [facility] ADULT D[facility] [address] [place] [address] Rachelle Lindsay 05/02/2025 9:00 AM EDT Office Visit [facility] [address] [place] [address] Shell Fang MD [address] [place] [phone] documented as of this encounter Visit Diagnoses Diagnosis Cerebrovascular accident (CVA) due to thrombosis of left middle cerebral artery (CMS/HCC) documented in this encounter Care Teams Hiv/Aids Care Nurse Relationship Specialty Start Date End Date Shell Fang MD [address] [place] [phone] PCP - General Family Medicine 07/21/18 documented as of this encounter
--- OUTSIDE RECORDS SUMMARY | 2025-03-05 11:56 | XMS_ITS | Encounter Summary ---
Author Organization [employer] Address [address] [facility] 7t [place] [address] Care Team Providers Care Clinical Trial Associate Name Role Phone Shell Fang MD Primary Care Provider + Encounter Details Date Type Department Care Team (Late st Contact Info) Description 04/03/2024 Orders Only [facility] [address] [place] [address] Katherin Patricia MA Effusion of right elbow [...] [facility] [address] [place] [address] Rachelle Lindsay 05/02/2025 9:00 AM EDT Office Visit [facility] [address] [place] [address] Shell Fang MD [address] [place] [address] Scheduled Orders Name Type Priority Associated Diagnoses Orde r Schedule XR Elbow 3+ Views Right Imaging Routine Effusion of right elbow Expected: 04/03/2024, Expires: 04/03/2025 documented as of this encounter Visit Diagnoses Diagnosis Effusion of right elbow documented in this encounter Care Teams Clinical Trial Associate Relationship Specialty Start Date End Date Shell Fang MD [address] [place] [phone] PCP - General Family Medicine 07/21/18 documented as of this encounter
--- OUTSIDE RECORDS SUMMARY | 2025-03-05 11:56 | XMS_ITS | Encounter Summary ---
Author Organization [employer] Address [address] [place] [address] 7 [place] [address] Care Team Providers Care Precinct Police Sergeant Name Role Phone Shell Fang MD Primary Care Provider + Reason for Visit * Reason Comments Med Refill Encounter Details Date Type Department Care Team (Late st Contact Info) Description 06/29/2023 Refill [facility] [address] [place] [address] [phone] Marija Taylor DO [address] [place], [place] [phone] Uncomplicated asthma, unspecified asthma severity, unspecified whether [...] Description 03/28/2025 9:00 AM EDT Office Visit [facility]ULT [facility] [address] [place], [place] [phone] Rachelle Lindsay 05/02/2025 9:00 AM EDT Office Visit [facility] [address] [place] [phone] Shell Fang MD [address] [place], [place] [phone] documented as of this encounter Visit Diagnoses Diagnosis Uncomplicated asthma, unspecified asthma severity, unspecified whether persistent documented in this encounter Care Teams Precinct Police Sergeant Relationship Specialty Start Date End Date Shell Fang MD [address] [place] [phone] PCP - General Family Medicine 07/21/18 documented as of this encounter
--- OUTSIDE RECORDS SUMMARY | 2025-03-05 11:56 | XMS_ITS | Encounter Summary ---
Author Organization [employer] Address [address] [facility] 7t [place] [address] Care Team Providers Care Farm Boss Name Role Phone Shell Fang MD Primary Care Provider + Reason for Visit * Reason Onset Date Comments Med Refill 10/30/2024 Encounter Details Date Type Department Care Team ([facility] st Contact Info) Description 10/30/2024 Telephone [facility] [address] [place], [place] [phone] Shell Fang MD [address] [place] [address] Med Refill Social History Tobacco Use Types [...] 8:56 AM EST Medications were sent to [facility][id number] on 10/29/24. * Telephone Encounter - Alvino Nguyen - 10/30/2024 8:36 AM EST TC from pt requesting medication refill. 1- Medications needing refill : fluticasone-salmeterol (Advair HFA) 230-21 MCG/ACT inhaler 2-Ventolin HFA 108 (90 Base) MCG/ACT inhaler 3-tiotropium (Spiriva Respimat) 2.5 MCG/ACT inhaler To be sent to: [facility]/pharmacy #[id number] documented in this encounter Plan of Treatment Upcoming Encounters Date Type Department Care Team (Late st Contact Info) Description 03/28/2025 9:00 AM EDT Office Visit [facility] [address] [place] [address] Rachelle Lindsay 05/02/2025 9:00 AM EDT Office Visit [facility] [address] [place] [address] Shell Fang MD [address] [place] [phone] documented as of this encounter Visit Diagnoses Not on filedocumented in this encounter Care Teams Farm Boss Relationship Specialty Start Date End Date Shell Fang MD [address] [place] [phone] PCP - General Family Medicine 07/21/18 documented as of this encounter
--- OUTSIDE RECORDS SUMMARY | 2025-03-05 11:56 | XMS_ITS | Encounter Summary ---
Author Organization [employer] Address [address] [facility] 7t [place] [address] Care Team Providers Care Export Freight Specialist Name Role Phone Shell Fang MD Primary Care Provider + Encounter Details Date Type Department Care Team (Late st Contact Info) Description 12/19/2023 Orders Only [facility] [address] [place] [phone] Alfa Mcwilliams MD [address] [place] [address] [phone] Hypertension, unspecified type (Primary Dx); Chronic obstructive [...] Description 03/28/2025 9:00 AM EDT Office Visit [facility] [address] [place] [address] [phone] Rachelle Lindsay 05/02/2025 9:00 AM EDT Office Visit [facility] [address] [place] [phone] Shell Fang MD [address] [place] [address] [phone] documented as of this encounter Procedures Procedure Name Priority Date/Time Associated Diagnosis Comments B TYPE NATRIURETIC PEPTIDE (BNP) Routine 12/20/2023 9:33 AM EST Hypertension, unspecified type Chronic obstructive pulmonary disease with acute exacerbation (CMS/HCC) documented in this encounter Results * (ABNORMAL) B Type Natriuretic Peptide (BNP) (12/20/2023 9:33 AM EST) B Type Natriuretic Peptide 1,320(H) <100 pg/mL [facility] Comment:For those patients w ho are being treated with Natrecor(nesiritide, recombinant BNP), BNP testing should beperformed at least two hours post treatment in order toensure that only endogenous levels of BNP are detected. Blood Venous blood specimen / Unknown 12/20/2023 9:33 AM EST 12/20/2023 9:33 AM EST us Alfa Mcwilliams MD LAB BLOOD ORDERABLES Final Resul t [facility] [address] [place] [address] [phone] documented in this encounter Visit Diagnoses Diagnosis Hypertension, unspecified type- Primary Chronic obstructive pulmonary disease with acute exacerbation (CMS/HCC) documented in this encounter Care Teams Export Freight Specialist Relationship Specialty Start Date End Date Shell Fang MD [address] [place] [phone] PCP - General Family Medicine 07/21/18 documented as of this encounter
--- OUTSIDE RECORDS SUMMARY | 2025-03-05 11:56 | XMS_ITS | Encounter Summary ---
Author Organization [employer] Address [address] [facility] 7t [place] [address] Care Team Providers Care Broadcast Engineer Name Role Phone Shell Fang MD Primary Care Provider + Encounter Details Date Type Department Care Team (Late st Contact Info) Description 02/08/[address] [facility] [address] [place] [address] Alfa Mcwilliams MD [address] [place] [address] Social History Tobacco Use Types Packs/Day Years [...] Description 03/28/2025 9:00 AM EDT Office Visit [facility] [address] [place] [address] Rachelle Lindsay 05/02/2025 9:00 AM EDT Office Visit [facility] [address] [place] [address] Shell Fang MD [address] [place] [address] documented as of this encounter Visit Diagnoses Not on filedocumented in this encounter Care Teams Broadcast Engineer Relationship Specialty Start Date End Date Shell Fang MD [address] [place] [address] PCP - General Family Medicine 07/21/18 documented as of this encounter
--- OUTSIDE RECORDS SUMMARY | 2025-03-05 11:56 | XMS_ITS | Encounter Summary ---
Author Organization [employer] Address [address] [facility] 7t [place] [address] Care Team Providers Care Rigging Worker Name Role Phone Shell Fang MD Primary Care Provider + Reason for Visit * Reason Onset Date Comments Medication Question 11/16/2024 Encounter Details Date Type Department Care Team ([facility] Contact Info) Description 11/16/[address] [facility] [address] [place] [address] Lo Bowman DDS [address] [place], [place] [phone] Medication Question Social History Tobacco Use Types [...] . Out reach call made to adult monitoring analyst- no bead picker . VM left and text sent aswell . documented in this encounter Plan of Treatment Upcoming Encounters Date Type Department Care Team (Late st Contact Info) Description 03/28/2025 9:00 AM EDT Office Visit [facility] [address] [place] [address] Rachelle Lindsay 05/02/2025 9:00 AM EDT Office Visit [facility] [address] [place] [address] Shell Fang MD [address] [place] [address] documented as of this encounter Visit Diagnoses Not on filedocumented in this encounter Care Teams Rigging Worker Relationship Specialty Start Date End Date Shell Fang MD [address] [place] [address] PCP - General Family Medicine 07/21/18 documented as of this encounter
== END 2025-03-05 10:12 | disposition home or self-care (01) ==
LOC: HO.HHCX 10:11
PROVIDERS: Visit Provider Family Medicine
DX: M54.50 Low back pain, unspecified (principal)
CPT/HCPCS: 72100

== ENCOUNTER → 2025-03-05 10:11 | Outpatient (BNV) | payer OTHER, SELFPAY | PROVIDERS: Visit Provider Radiology Diagnostic Radiology | DX: M25.78 Osteophyte, vertebrae (principal); M47.896 Other spondylosis, lumbar region | CPT/HCPCS: 72100 ==

== ENCOUNTER 2025-04-08 05:44 | Day surgery (SDC) | payer OTHER, SELFPAY ==
--- OUTSIDE RECORDS SUMMARY | 2025-02-28 12:47 | XMS_ITS | Encounter Summary ---
Author Organization [employer] Address [address] [facility] 7t [place] [address] Care Team Providers Care Budder Name Role Phone Shell Fang MD Primary Care Provider + Encounter Details Date Type Department Care Team (Late st Contact Info) Description 02/08/2024 Orders Only [facility] [address] [place] [address] Alfa Mcwilliams MD [address] [place] [address] Social History Tobacco Use Types Packs/Day Years [...] Care Team (Late st Contact Info) Description 03/28/2025 9:00 AM EDT Office Visit [facility] [address] [place] [address] Rachelle Lindsay 05/02/2025 9:00 AM EDT Office Visit [facility] [address] [place] [address] Shell Fang MD [address] [place] [phone] documented as of this encounter Visit Diagnoses Not on filedocumented in this encounter Care Teams Budder Relationship Specialty Start Date End Date Shell Fang MD [address] [place] [address] PCP - General Family Medicine 07/21/18 documented as of this encounter
--- OUTSIDE RECORDS SUMMARY | 2025-02-28 12:47 | XMS_ITS | Encounter Summary ---
Author Organization [employer] Address [address] [place] [address] 7 [place] [address] Care Team Providers Care Rice Farmworker Name Role Phone Shell Fang MD Primary Care Provider + Encounter Details Date Type Department Care Team (Late st Contact Info) Description 06/20/2023 Orders Only [facility] [address] [place] [address] [phone] Yanique Leigh LPN Social History Tobacco Use [...] Description 03/28/2025 9:00 AM EDT Office Visit [facility] [address] [place] [address] Rachelle Lindsay 05/02/2025 9:00 AM EDT Office Visit [facility] [address] [place] [phone] Shell Fang MD [address] [place] [address] [phone] documented as of this encounter Visit Diagnoses Not on filedocumented in this encounter Care Teams Rice Farmworker Relationship Specialty Start Date End Date Shell Fang MD [address] [place] [phone] PCP - General Family Medicine 07/21/18 documented as of this encounter
--- OUTSIDE RECORDS SUMMARY | 2025-02-28 12:47 | XMS_ITS | Encounter Summary ---
Author Organization [employer] Address [address] [place] [address] [place] [address] Care Team Providers Care Investment Officer Name Role Phone Shell Fang MD Primary Care Provider + Encounter Details Date Type Department Care Team (Late st Contact Info) Description 11/19/2022 Orders Only [facility] [address] [place] [address] Yanique Leigh LPN Social History Tobacco Use [...] Description 03/28/2025 9:00 AM EDT Office Visit [facility] [address] [place] [address] Rachelle Lindsay 05/02/2025 9:00 AM EDT Office Visit [facility] [address] [place] [address] Shell Fang MD [address] [place] [phone] documented as of this encounter Visit Diagnoses Not on filedocumented in this encounter Care Teams Investment Officer Relationship Specialty Start Date End Date Shell Fang MD [address] [place] [phone] PCP - General Family Medicine 07/21/18 documented as of this encounter
--- OUTSIDE RECORDS SUMMARY | 2025-02-28 12:47 | XMS_ITS | Encounter Summary ---
Author Organization [employer] Address [address] [facility] 7[address] [place] [address] Care Team Providers Care Ergonomics Technician Name Role Phone Shell Fang MD Primary Care Provider + Encounter Details Date Type Department Care Team (Late st Contact Info) Description 04/03/2024 Orders Only [facility] [address] [place] [address] Katherin Patricia MA Effusion of right elbow [...] Description 03/28/2025 9:00 AM EDT Office Visit [facility] [address] [place] [address] Rachelle Lindsay 05/02/2025 9:00 AM EDT Office Visit [facility] [address] [place] [address] Shell Fang MD [address] [place] [address] Scheduled Orders Name Type Priority Associated Diagnoses Orde r Schedule XR Elbow 3+ Views Right Imaging Routine Effusion of right elbow Expected: 04/03/2024, Expires: 04/03/2025 documented as of this encounter Visit Diagnoses Diagnosis Effusion of right elbow documented in this encounter Care Teams Ergonomics Technician Relationship Specialty Start Date End Date Shell Fang MD [address] [place] [phone] PCP - General Family Medicine 07/21/18 documented as of this encounter
--- OUTSIDE RECORDS SUMMARY | 2025-02-28 12:47 | XMS_ITS | Clinical Summary ---
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 30 tablet 11 Active spironolactone (Aldactone) 25 MG tablet Take 1 tablet (25 mg) by mouth in the morning. 30 tablet 024 Active losartan (Cozaar) 50 MG tablet Take 1 [...] 100 each Active Blood Glucose Monitoring Suppl (FreeStyle [place] Lite) w/Device kit Use to test blood sugar 1x times daily 1 kit Active Ventolin HFA 108 (90 Base) MCG/ACT [...] day at the same time. 30 patch Active betamethasone valerate (Valisone) 0.1 % cream Apply topically if needed in the morning and at bedtime (dryness). 45 g 2 025 Active nicotine (Nicoderm CQ) 21 MG/24HR patch Place 1 patch on the skin 1 (one) time each day at the same time. 42 patch 025 Active nicotine (Nicoderm CQ) 14 MG/24HR patch Place 1 patch on the skin 1 (one) time each day at the same time. 14 patch 025 Active nicotine (Nicoderm CQ) 7 MG/24HR patch Place 1 patch on the skin 1 (one) time each day at the same time. 14 patch Active nicotine polacrilex (Commit) 4 MG lozenge Dissolve 1 lozenge (4 mg) in the mouth every 2 (two) hours if needed for smoking cessation. 100 lozenge Active clopidogrel (Plavix) 75 MG tabletIndications :Cerebrovascular accident (CVA) due to thrombosis of left middle cerebral artery (CMS/HCC) Take 1 tablet (75 mg) by mouth Once per day. 90 tablet Active metFORMIN (Glucophage) 500 MG tablet Take 1 tablet (500 mg) by mouth with breakfast and with evening meal. 180 tablet Active empagliflozin (Jardiance) 10 MG Take 1 tablet (10 mg) by mouth Once per day. 30 tablet 1 025 2025 Active Diclofenac Sodium 1 % gel Apply thin layer by topical route (quantity as directed on package insert) to elbow 3 times daily as needed. 50 g 3 Active atorvastatin (Lipitor) 40 MG tabletIndications :Mixed hyperlipidemia TAKE 1 TABLET BY MOUTH EVERY DAY IN THE MORNING 90 tablet 1 Active acetaminophen (Tylenol 8 Hour) 650 MG ER tabletIndications :Periodontal disease,Dental abscess Take 1 tablet (650 mg) by mouth every 8 (eight) hours if needed for mild pain. Do not crush, chew, or split. 30 tablet Active Fluticasone-Salme terol 500-50 MCG/ACT aerosol powderIndications :Moderate asthma without complication, unspecified whether persistent Take 1 Inhalation by mouth 2 times daily. 1 each Active meloxicam (Mobic) 15 MG tablet Take 1 tablet (15 mg) by mouth Once per day. 30 tablet 025 2025 Active gabapentin (Neurontin) 300 MG capsule Take 1 capsule (300 mg) by mouth at bedtime. 30 capsule 3 025 2025 Active atorvastatin (Lipitor) 40 MG tabletIndications :Mixed hyperlipidemia TAKE 1 TABLET BY MOUTH EVERY DAY IN THE MORNING 90 tablet 1 024 2024 Discontinued fluticasone-salme terol (Advair HFA) 230-21 MCG/ACT inhalerIndication s:Moderate asthma without complication, unspecified whether persistent TAKE 2 PUFFS BY MOUTH TWICE A DAY IN THE MORNING AND IN THE EVENING 12 g 3 024 2024 Discontinued amoxicillin (Amoxil) 500 MG capsuleIndication s:Periodontal disease,Dental abscess Take 1 capsule (500 mg) by mouth every 8 (eight) hours for 7 days. 21 capsule 025 2024 Discontinued(T herapy completed) Active Problems Problem Noted Date Diagnosed Date Lymphadenopathy, supraclavicular 12/30/2024 Assessment & Plan (02/07/2025 1:00 PM EDT): Rule out malignancy, biopsy pending next week, will fu biopsy report. Pt may be out of work for at least 1 week after biopsy, advised to discuss with supervisor purification or bring FMLA papers. Will fu POP recommendations. Polyarthritis 12/07/2024 Assessment & Plan (12/07/2024 11:13 [...] POC. I spoke with BRANDON Brownlee at [facility] for a soft sign out and [...] 2 with complications 12/2023 Assessment & Plan (02/07/2025 12:59 PM EDT): Controlled. A1c is at goal. Continue on Lantus 8 units + Metformin + Jardiance + Amaryl, will fu in [address] biopsy and simplify med regiment. Counseled re more frequent low calorie/carb meals. Check fgstk x 1 daily. Encouraged physical activity as tolerated. FU in 3 months. 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 I will repeat BMP today, if GFR is worse, I will do neck US instead of a CT scan. 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 Fu with me in 2-3 months. Assessment & Plan (07/05/2024 4:12 PM EDT): [...] above. Continue diuretics and fu with cardiology ([facility]), needs to call to check on fu [...] vit d levels Lumbar sprain 01/04/2024 01/04/2024 Assessment & Plan (02/07/2025 12:56 PM EDT): Chronic, has advanced DDD of the spine, advised to cut down working hours, avoid bending over and lifting heavy objects. He will discuss this with supervisor purification, he did not want me to provide a light duty letter as I have done in the past. He will fu with me after reaching out to his supervisor purification. Start Meloxicam daily + Gabapentin QHS, can take Tylenol prn. Knee pain 01/04/2024 01/04/2024 Episodic tension-type headache [...] f/u in 6 months Essential hypertension 07/21/2018 Assessment & Plan (02/07/2025 12:50 PM EDT): Controlled. Compliant w/meds Continue Losartan + Metoprolol + Spironolactone + Lasix. Counseled re low salt diet/increase moderate physical activity. Check home BP BIW and prn CP/HOUSE/[facility] Non smoking patient. Follow up in 3 months. 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); Lymphadenopathy, supraclavicular; Lumbar sprain, subsequent encounter; Tendinosis of right shoulder 02/07/2025 Travel 02/07/2025 Refill [facility] [address] [place] [address] Clau Fang MD Moderate asthma without complication, unspecified whether persistent 02/04/2025 Telephone [facility] [address] [place] [address] Clau Fang MD Chart prep 01/31/2025 9:30 AM EST Office Visit [facility] [address] [place] [phone] Arnold Flores DDS Periodontal disease (Primary Dx); Dental abscess 01/31/2025 9:00 AM EST Office Visit [facility] [address] [place] [address] Rachelle Lindsay Dental calculus (Primary Dx) 01/30/2025 Refill [facility] [address] [place], [place] [address], [place] [address] Clau Fang MD Mixed hyperlipidemia 12/27/2024 3:15 PM EST Office Visit [facility] [address] [facility] [place] [address] Malissa Caldwell MD Lymphadenopathy, supraclavicular (Primary Dx) 12/27/2024 Travel 12/25/2024 Telephone [facility] [address] [place] [address] Clau Fang MD ER Follow-up 12/24/2024 8:40 AM EST Office Visit [facility] [address] [place] [address] Alfa Mcwilliams MD Essential hypertension (Primary Dx); Neck mass; Tobacco dependence; Cerebrovascular accident (CVA) due to thrombosis of left middle cerebral artery (CMS/HCC) 12/24/2024 Orders Only GENERIC EXTERNAL DATA DEPARTMENT Provider, Generic External Data 12/09/2024 Refill [facility] [place] [address] Clau Fang MD Cerebrovascular accident (CVA) due to thrombosis of left middle cerebral artery (CMS/HCC) 12/07/2024 9:45 AM EST Office Visit [facility] [address] [facility] [place] [address] Clau Fang MD 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) (Primary Dx); Primary hypertension; Polyarthritis; Flexural eczema; Acute systolic congestive heart failure (CMS/HCC); 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); Alcohol dependence with unspecified alcohol-induced disorder (CMS/HCC) 12/07/2024 Orders Only [facility] [place] [place] [address] Clau Fang MD 12/07/2024 Travel 12/07/[address] [address] Clau Fang MD insurance 12/06/[address] [phone] Pamela Jean [place] Chart prep 11/30/2024 2:00 PM EST Office Visit [facility] [address] [place], [place] [phone] Rachelle Lindsay Dental calculus (Primary Dx); Dental plaque from Last 3 Months Immunizations Name Administration Dates Next Due Influenza injectable quadriv alent IIV4 with preservative 10/10/2019,09/01/2018 Influenza injectable quadrivalent preservative f ree 10/04/2022,08/25/2020 Influenza, IIV3, injectable 10/29/2015 Influenza, seasonal, injectable, preservative fr ee 12/07/2024 Moderna Covid-19 Vaccine 12+ 07/26/2022 Pfizer Covid-19 Vaccine + 12/07/2024 Td (adult), 5 Lf tetanus tox [...] Sign Reading Time Taken Comments Blood Pressure 168/90 02/14/2025 9:49 AM EDT Pulse 76 02/07/2025 10:55 AM EDT Temperature 36.2 ??C (97.2 ??F) 02/07/2025 10:55 AM E DT Respiratory Rate 16 02/07/2025 10:55 AM EDT Oxygen Saturation 99% 12/27/2024 3:05 PM EST Inhaled Oxygen Concentration - - Weight 108 kg (238 lb 6 oz) 02/07/2025 10:55 AM EDT Height 175.3 cm (5' 9 ) 02/07/2025 10:55 AM EDT Body Mass Index 35.2 02/07/2025 10:55 AM EDT Plan of Treatment Upcoming Encounters Date Type Department Care Team (Late st Contact Info) Description 03/28/2025 9:00 AM EDT Office Visit [facility] [address] [place] [address] Rachelle Lindsay 05/02/2025 9:00 AM EDT Office Visit [facility] [address] [place] [address] Clau Fang MD [address] [place] [address] Health Maintenance Due Date Last Done Comments CT Colonography 1963 FIT DNA/Cologuard 1963 FIT 1965 FOBT 1965 Sigmoidoscopy 1963 Diabetes: Foot Exam 1973 Eye Exam 1973 Diabetes: Urine Protein Screening 1982 Pneumococcal Vaccine: 50+ Years (1 of 2 - PCV) 1982 Colonoscopy 07/12/2020 07/12/2015 Colorectal Cancer Screening 07/12/2020 Zoster Vaccines (2 of 2) 09/25/2021 07/31/2021 RSV Patients and Patients Aged 60 years or older (1 - Risk 60-74 years 1-dose series) 2023 SDOH Screening 01/03/2025 01/03/2024 Depression Screening 01/06/2025 01/06/2024, 01/06/20 24 Dental Oral Exam 05/31/2025 11/30/2024, 12/16/2010 Dental Prophylaxis 05/31/2025 11/30/2024 Alcohol/Substance Use Screening 07/05/2025 07/05/2024 Diabetes: Hemoglobin A1C 08/10/2025 025, 11/19/2024, 10/29/2024 Lipid Panel 10/05/2025 10/05/2024, 12/29, 12/24/2020 Dental X-Ray: Bitewings 12/01/2025 11/30/19 25, 01/18/2019, 12/16/2010 Tobacco Screening 02/14/2026 02/14/2025 Dental X-Ray: Full Mouth 02/02/2028 025, 11/30/2024, 12/16/2010 DTaP/Tdap/Td Vaccines (3 - Td or Tdap) [...] patient's age to complete this topic Hepatitis A Vaccines Aged Out No long er eligible [...] Procedure Name Priority Date/Time Associated Diagnosis Comments CASE PRESENTATION, DETAILED AND EXTENSIVE TREATMENT PLANNING Routine 02/14/2025 10:00 AM EDT 2 DO AMALGAM - 2 SURF, PRIMARY OR PERMANENT Routine 02/14/2025 10:00 AM EDT POCT GLYCATED HEMOGLOBIN, TOTAL Routine 02/07/2025 11:01 AM EDT 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) POCT GLUCOSE Routine 02/07/2025 10:55 AM EDT 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) CASE PRESENTATION, DETAILED AND EXTENSIVE TREATMENT PLANNING Routine 01/31/2025 9:30 AM EST PANORAMIC RADIOGRAPHIC IMAGE Routine 01/31/2025 9:30 AM EST 20 EXTRACTION, ERUPTED TOOTH OR EXPOSED ROOT (ELEVATION/FORCEPS REMOVAL) Routine 01/31/2025 9:30 AM EST 17 EXTRACTION, ERUPTED TOOTH OR EXPOSED ROOT (ELEVATION/FORCEPS REMOVAL) Routine 01/31/2025 9:30 AM EST ORAL HYGIENE INSTRUCTIONS Routine 01/31/2025 9:00 AM EST Dental calculus CASE PRESENTATION, DETAILED AND EXTENSIVE TREATMENT PLANNING Routine 01/31/2025 9:[address] SOFT TISSUE NECK W CONTRAST Routine [...] ESTABLISHED PATIENT Routine 11/30/2024 2:00 PM EST HIV 1/2 ANTIGEN/ANTIBODY, FOURTH GENERATION W/RFL Routine 11/19/2024 10:53 AM EST Neck mass LIPID PANEL WITH REFLEX TO DIRECT LDL Routine 10/05/2024 11:07 AM EST Primary hypertension HM COLONOSCOPY Routine 07/12/2015 1:55 PM EDT from Last 3 Months or Most Recently Relevant to Health Maintenance Results * (ABNORMAL) POCT HGB A1C (02/07/2025 11:01 AM EDT) Hemoglobin A1C 6.2(A) 4.0 - 6.0 % QC Media Lot # [id number] Lot# Expiration Date [id number] Blood 02/07/2025 11:0 1 AM EDT Clau Fang MD POINT OF CARE TEST ENTER /EDIT ORDERABLES Final Result * POCT Glucose (02/07/2025 10:55 AM EDT) Only the most recent of2 resultswithin the time period is included. Glucose Blood, POC 140 60 - 200 mg/dL QC Media Lot # [id number] Lot# Expiration Date [id number] Blood Capillary blood specimen / Unknown 02/07/2025 10:55 AM EDT Clau Fang MD POINT OF CARE TEST ENTER /EDIT ORDERABLES Final Result * CT Soft Tissue Neck w/ Contrast (12/24/2024 6:52 PM EST) Anatomical Region Laterality Modality Head, Neck Computed Tomogra phy 12/24/2024 6:52 PM EST Narrative 12/24/2024 6:54 PM EST ? [facility] ?[address] ?[place] [address] ? CT Scan Report ? Signed ? Patient: Christian,Jace ?MR#: [id number] ?? [id number] ? : 1965 ?Acct:[id number] ? Age/Sex: 59 / M ?ADM Date: 01/27/25 ? Loc: HO.ED ? Attending Dr: ? Ordering Physician: Essie Espinosa ?? Date of Service: 12/24/24 ?? Procedure(s): CT soft tissue neck w IV con ?? Accession Number(s): [id number] ? cc: Clau Fang MD; Essie Espinosa ? Report Number: ?? [id number]: Total DLP = ??805.00 mGy-cm ? CLINICAL [...] MD in OV> ?12/24/24 1853 ? DD/ 185 ? TD/TT: 12/24/24 185 ? Railway Signal Electrician: ? Procedure Note Micah, Image - 12/24/[address] [address] [address] Scan Report Signed Patient: Jace GonzalesMR#: [id number] : 1965Acct:[id number] Age/Sex: 59 / MADM Date: 12/24/24 Loc: HO.ED Attending Dr: Ordering Physician: Essie Espinosa Date of Service: 12/24/24 Procedure(s): CT soft tissue neck w IV con Accession Number(s): [id number] cc: Clau Fang MD; Essie Espinosa Report Number: [id number]: Total DLP = 805.00 mGy-cm CLINICAL HISTORY: [...] in OV> 12/24/241852 DD/ 51 TD/TT: 12/24/241851 Railway Signal Electrician: [facility] External Provider IMG CT PROCEDURES Final Result * Blood Culture (Second) (12/24/2024 5:29 PM EST) Blood Venous blood specimen / Unknown 12/24/2024 5:29 PM EST 12/24/2024 5:33 PM EST Comment:Blood Narrative [facility] - 12/29/2024 7:33 PM EST Blood Culture (Second) No growth after 5 days. Specimen Source: Blood Generic External Data Provider LAB MICROBIOLOGY - GENERAL ORDERABLES Final Result Performing Organization Address [facility]/ZIP Co de Phone Number [facility] [address] [place] [phone] * Blood Culture (First) (12/24/2024 11:03 AM EST) Blood Venous blood specimen / Unknown 12/24/2024 11:03 AM EST 12/24/2024 11:06 AM EST Comment:Blood [facility] - 12/29/2024 1:06 PM EST Blood Culture (First) No growth after 5 days. Specimen Source: Blood Generic External Data Provider LAB MICROBIOLOGY - GENERAL ORDERABLES Final Result Performing Organization Address City/[facility] Co de Phone Number [facility] [address] [place] [phone] * (ABNORMAL) CBC auto differential (12/24/2024 11:03 AM EST) Only the most recent of2 resultswithin the time period is included. White Blood Count 5.8 4.8 - 10.8 X10*3/uL [facility] Red Blood Count 4.12(L) 4.60 - 5.80 X10*6/uL [facility] Hemoglobin 12.1(L) 14.0 - 18.0 g/dl [facility] Hematocrit 36.6(L) 42.0 - 52.0 % [facility] Mean Corpuscular Volume 88.8 80.0 - 98.0 fL [facility] Mean Corpuscular Hemoglobin 29.4 27.0 - 33.0 pg [facility] Mean Corpuscular HGB Conc 33.1 31.0 - 36.0 g/dl [facility] Red Cell Distribution Width 14.0 11.0 - 16.0 % [facility] Platelet Count 286 160 - 400 X10*3/uL [facility] Mean Platelet Volume 8.4(L) 9.4 - 12.4 fL [facility] Neutrophils Percent Auto 58.9 45 - 73 % [facility] Imm Gran Pct Auto 0.2 0.0 - 0.4 % [facility] Lymphocytes Percent Auto 28.1 20 - 40 % [facility] Monocytes Percent Auto 9.3 2 - 11 % [facility] Eosinophils Percent Auto 2.6 0 - 4 % [facility] Basophils Percent Auto 0.9 0 - 2 % [facility] NRBC Pct Auto 0.0 0.0 - 0.2 /100WBC [facility] Neutrophils Absolute Auto 3.4 2.0 - 8.3 x10*3/uL [facility] Imm Gran Abs Auto 0.01 0.00 - 0.03 X10*3/uL [facility] Lymphocytes Absolute Auto 1.6 1.2 - 4.9 X10*3/uL [facility] Monocytes Absolute Auto 0.5 0.1 - 1.2 X10*3/uL [facility] Eosinophils Absolute Auto 0.2 0.0 - 0.4 X10*3/uL [facility] Basophils Absolute Auto 0.1 0.0 - 0.2 X10*3/uL [facility] NRBC Abs Auto 0.000 0.0 - 0.012 X10*3/uL [facility] 12/24/2024 11:0 3 AM EST 12/24/2024 11:06 AM EST us Generic External Data Provider LAB BLOOD ORDERAB LES Final Result [facility] [address] [place] [phone] * Mononucleosis Test, Qualitative (12/24/2024 11:03 AM EST) Monotest Negative Negative [facility] 12/24/2024 11:0 3 AM EST 12/24/2024 11:06 AM EST Generic External Data Provider LAB BLOOD ORDERAB LES Final Result Performing Organization Address [facility] de Phone Number [facility] [address] [place] [phone] * (ABNORMAL) Sed Rate by Modified Regisren (12/24/2024 11:03 AM EST) Only the most recent of2 resultswithin the time period is included. Erythrocyte Sedimentation Rate 25(H) 0 - 15 MM/HR [facility] Comment:Patients with polycy themia and many hemoglobin abnormalitiesmay have depressed sed rates whereas patients with anemiamay have elevated sed rates. 12/24/2024 11:0 3 AM EST 12/24/2024 11:06 AM EST Generic External Data Provider LAB BLOOD ORDERAB LES Final Result Performing Organization Address [facility] Co de Phone Number [facility] [address] [place] [phone] * (ABNORMAL) C-reactive Protein (12/24/2024 11:03 AM EST) Only the most recent of2 resultswithin the time period is included. C Reactive Protein 1.54(H) < or = 0.50 mg/dL [facility] 12/24/2024 11:0 3 AM EST 12/24/2024 11:06 AM EST Generic External Data Provider LAB BLOOD ORDERAB LES Final Result Performing Organization Address [facility]/ZIP Co de Phone Number [facility] [address] [place] [phone] * Magnesium (12/24/2024 11:03 AM EST) [facility] Magnesium 1.9 1.6 - 2.6 mg/dL [facility] 12/24/2024 11:0 3 AM EST 12/24/2024 11:06 AM EST Generic External Data Provider LAB BLOOD ORDERAB LES Final Result Performing Organization Address [facility] Co de Phone Number [facility] [address] [place] [phone] * (ABNORMAL) Hepatic Function Panel (12/24/2024 11:03 AM EST) [facility] Bilirubin, Total 0.6 0.0 - 1.0 mg/dL [facility] Bilirubin, Direct 0.2 0.0 - 0.5 mg/dL [facility] Aspartate Amino Transferase 18 5 - 37 U/L [facility] Alanine Aminotransferase 26 0 - 40 U/L [facility] Total Protein 7.9 6.5 - 8.0 g/dL [facility] Albumin Level 4.4 3.5 - 5.0 g/dL [facility] Alkaline Phosphatase 120(H) 39 - 117 U/L [facility] 12/24/2024 11:0 3 AM EST 12/24/2024 11:06 AM EST Generic External Data Provider LAB BLOOD ORDERAB LES Final Result Performing Organization Address [facility] Co de Phone Number [facility] [address] [place] [phone] * (ABNORMAL) Basic Metabolic Panel (12/24/2024 11:03 AM EST) [facility] Sodium 140 135 - 145 mmol/L [facility] Potassium 4.0 3.3 - 5.1 mmol/L [facility] Chloride 108 96 - 108 mmol/L [facility] Carbon Dioxide 26 22 - 29 mmol/L [facility] Anion Gap 10(L) 12 - 20 [facility] Urea Nitrogen (BUN) 15 9 - 16 mg/dL [facility] Creatinine, Serum 0.99 0.5 - 1.4 mg/dL [facility] Creatinine Clr Calc Pharmacy 99.6 [facility] Comment:eGFR (calculated fro m the MDRD study equation) and eCrCl(calculated from the Cockcroft-Gault equation) are based ondifferent parameters and may not yield comparable results.If eCrCl result is absurd, please check patient'sheight/weight. Estimated Glomerular Filt Rate >60 [facility] Comment:Chronic Kidney Disea se: Estimated GFR < 60 mL/min/[id number] Kidney Disease: Estimated GFR < 15 mL/min/1.73m2 Glucose 105 60 - 115 mg/dL [facility] Calcium 9.7 8.4 - 10.2 mg/dL [facility] 12/24/2024 11:0 3 AM EST 12/24/2024 11:06 AM EST us Generic External Data Provider LAB BLOOD ORDERAB LES Final Result [facility] [address] [place] [phone] * Hepatitis Panel, General (12/07/2024 10:40 AM EST) Hepatitis A IgM Nonreactive Nonreactive [facility] Comment:IgM antibodies to HOUSE V not detected; does not exclude earlyacute or recovered HAV infection. ~Hepatitis B Surface Antibody REACTIVE Nonreactive [facility] Comment:REACTIVE: > 11.99 mI U/mL Hepatitis B Core Antibody Reactive Nonreactive [facility] Comment:Presumptive evidence of anti-HBc. Hepatitis C Antibody Nonreactive Nonreactive [facility] Comment:Antibodies to HCV no t detected; does not exclude early acuteHCV infection. Hepatitis B Surface Ag Negative Negative [facility] Blood 12/07/2024 10:4 0 AM EST 12/07/2024 11:38 AM EST Clau Fang MD LAB BLOOD ORDERABLES Fin al Result Performing Organization Address [facility] Co de Phone Number [facility] [address] [place] [phone] * Hepatitis B Core??Antibody (IgM) (12/07/2024 10:40 AM EST) Hepatitis B Core Antibody IgM NON-REACTI VE NON-REACTI VE [facility] Comment:For additional infor matamy, please refer tohttp://education.ZipZap/faq/BHP017(This link is being provided for informational/educational purposes only.)THIS TEST WAS PERFORMED AT:[facility])[address] [place] [phone] ABARCA MD 12/07/2024 10:4 0 AM EST 12/07/2024 11:38 AM EST Clau Fang MD LAB BLOOD ORDERABLES Fin al Result Performing Organization Address [facility] de Phone Number [facility] [address] [place] [phone] * Rheumatoid Factor (12/07/2024 10:40 AM EST) Pathologist [facility] Rheumatoid Factor <13.0 <15.0 IU/mL [facility] Blood Venous blood specimen / Unknown 12/07/2024 10:40 AM EST 12/07/2024 11:38 AM EST Clau Fang MD LAB BLOOD ORDERABLES Fin al Result Performing Organization Address [facility] de Phone Number [facility] [address] [place] [phone] * CLAU Screen,IFA, with Reflex to Titer and Pattern (12/07/2024 10:40 AM EST) Anti Nuclear Antibody Screen NEGATIVE NEGATIVE [facility] Comment:CLAU IFA is a first [...] clinicallysuspected inflammatory myopathies.AC-0: NegativeInternational Consensus on CLAU Patterns(https://doi.org/10.1515/lgbf-4737-2171)For additional information, please refer tohttp://education.[employer]/faq/QRW033(This link is being provided for informational/educational purposes only.)THIS TEST WAS PERFORMED AT:[facility] ([place])[address] [place] [phone] ABARCA MD CLAU Titer [facility] CLAU Pattern [facility] CLAU TITER 2 (REF LAB) [facility] CLAU Pattern 2 [facility] CLAU TITER 3 [facility] CLAU PATTERN 3 [facility] Blood Venous blood specimen / Unknown 12/07/2024 10:40 AM EST 12/07/2024 11:38 AM EST us Clau Fang MD LAB BLOOD ORDERABLES Fin al Result [facility] [address] [place] [phone] * Uric acid (12/07/2024 10:40 AM EST) Uric Acid 6.6 3.4 - 7.0 mg/dL [facility] Blood Venous blood specimen / Unknown 12/07/2024 10:40 AM EST 12/07/2024 11:38 AM EST Clau Fang MD LAB BLOOD ORDERABLES Fin al Result Performing Organization Address [facility] Co de Phone Number [facility] [address] [place] [phone] * HIV-1/2 Antigen and Antibodies, Fourth Generation, with Reflexes (11/19/2024 10:53 AM EST) HIV AB/AG Nonreactive Nonreactive [facility] Comment:HIV-1 p24 Ag and/or HIV-1/HIV-2 Ab not detected.A test result that is nonreactive does not exclude thepossibility of exposure to or infection with HIV-1 and/orHIV-2. Nonreactive results in this assay for individualswith prior exposure to HIV-1 and/or HIV-2 may be due toantigen and antibody levels that are below the limit ofdetection of this assay.The [employer] HIV Ag/Ab Combo assay result andsupplemental assay results should be interpreted inconjunction with the patient's clinical presentation,history and other laboratory results. If the results areinconsistent with clinical evidence, additional testing issuggested to confirm the result. Blood Venous blood specimen / Unknown 11/19/2024 10:53 AM EST 11/19/2024 1:46 PM EST us Clau Fang MD LAB BLOOD ORDERABLES Fin al Result Performing Organization Address [facility] Co de Phone Number [facility] [address] [place] [phone] * (ABNORMAL) Lipid Panel with Reflex to Direct LDL (10/05/2024 11:07 AM EST) Triglycerides 168(H) <150 mg/dL [facility] Comment:Desirable Triglyceri de: less than 150 mg/dLBorderline High Triglyceride 150-199 mg/dLHigh Triglyceride: 200-499 mg/dLVery High Triglyceride: greater than or equal to 5OO mg/dL Cholesterol 146 <200 mg/dL [facility] Comment:Desirable Cholestero l: less than 200 mg/dLBorderline High Cholesterol: 200-239 mg/dLHigh Cholesterol: greater than 239 mg/dL LDL Cholesterol Calculated 81 <100 mg/dL [facility] Comment:Desirable LDL: less than 100 mg/dLNear Optimal/Above Optimal LDL: 110- 129 mg/dLBorderline High LDL: 130-159 mg/dLHigh LDL: 160-189 mg/dLVery High LDL: greater than or equal to 190 mg/dL HDL Cholesterol 32(L) >40 mg/dL [facility] Comment:Desirable HDL: great er than 40 mg/dL Note: This HDL assay may give artificially low results in patients with liver disease. Blood 10/05/2024 11:0 7 AM EST 10/05/2024 1:22 PM EST Clau Fang MD LAB BLOOD ORDERABLES Fin al Result [facility] [address] [place] [phone] * Hm Colonoscopy (07/12/2015 1:55 PM EDT) Colonoscopy Normal Normal Narrative Cherie Infante - 07/12/2015 1:55 PM EDT Recommended 5 year follow up ( [facility]) Historical Provider HEALTH MAINTENANCE Edited Result - Final from Last 3 Months or Most Recently Relevant to Health Maintenance Insurance HSN PARTIAL [facility] - HSN PARTIAL (MEDICAID) Care Teams Plug Cutter Relationship Specialty Start Date End Date Clau Fang MD [address] [place] [address] PCP - General Family Medicine 07/21/18
--- OUTSIDE RECORDS SUMMARY | 2025-02-28 12:47 | XMS_ITS | Encounter Summary ---
Author Organization [employer] Address [address] [facility] 7t [place] [address] Care Team Providers Care Zigzagger Name Role Phone Shell Fang MD Primary Care Provider + Reason for Visit * Reason Onset Date Comments Medication Question 11/16/2024 Encounter Details Date Type Department Care Team ([facility] Contact Info) Description 11/16/2024 Telephone [facility] MED[facility]INE [address] [place] [address] Lo Bowman DDS [address] [place], [place] [phone] Medication Question Social History Tobacco Use Types [...] . Out reach call made to adult global marketing operations manager- no supervisor picking crew . VM left and text sent aswell . documented in this encounter Plan of Treatment Upcoming Encounters Date Type Department Care Team (Late st Contact Info) Description 03/28/2025 9:00 AM EDT Office Visit [facility] ADULT DENTAL [address] [place] [address] Rachelle Lindsay 05/02/2025 9:00 AM EDT Office Visit [facility] MED[facility]INE [address] [place] [address] Shell Fang MD 230 [place] [address] documented as of this encounter Visit Diagnoses Not on filedocumented in this encounter Care Teams Zigzagger Relationship Specialty Start Date End Date Shell Fang MD [address] [place] [phone] PCP - General Family Medicine 07/21/18 documented as of this encounter
--- OUTSIDE RECORDS SUMMARY | 2025-02-28 12:47 | XMS_ITS | Encounter Summary ---
Author Organization [employer] Address [address] [place] [address] 7 [place] [address] Care Team Providers Care Police Lieutenant Patrol Name Role Phone Shell Fang MD Primary Care Provider + Encounter Details Date Type Department Care Team (Late st Contact Info) Description 05/12/2023 Abstract [facility] [address] [place] [address] [phone] Shell Fang MD [address] [place] [address] [phone] Social History Tobacco Use Types Packs/Day Years [...] EDT Office Visit [facility] ADULT DENTAL [address] [place] [address] [phone] Rachelle Lindsay 05/02/2025 9:00 AM EDT Office Visit [facility] [address] [place] [address] [phone] Shell Fang MD [address] [place] [address] [phone] documented as of this encounter Procedures Procedure Name Priority Date/Time Associated Diagnosis Comments HM COLONOSCOPY Routine 07/12/2015 1:55 PM EDT documented in this encounter Results * Hm Colonoscopy (07/12/2015 1:55 PM EDT) Colonoscopy Normal Normal Narrative Cherie Infante - 07/12/2015 1:55 PM EDT Recommended 5 year follow up ( [facility]) us Historical Provider [facility] Edited Result - Final documented in this encounter Visit Diagnoses Not on filedocumented in this encounter Care Teams Police Lieutenant Patrol Relationship Specialty Start Date End Date Shell Fang MD [address] [place] [phone] PCP - General Family Medicine 07/21/18 documented as of this encounter
--- OUTSIDE RECORDS SUMMARY | 2025-02-28 12:47 | XMS_ITS | Encounter Summary ---
Author Organization [employer] Address [address] [facility] 7t [place] [address] Care Team Providers Care Coal Bagger Name Role Phone Shell Fang MD Primary Care Provider + Reason for Visit * Reason Comments Med Refill Encounter Details Date Type Department Care Team ([facility] st Contact Info) Description 12/09/2024 Refill [facility] MEDICINE 230 [place], [place] [phone] Shell Fang MD 230 [place], [place] [phone] Cerebrovascular accident (CVA) due to thrombosis of [...] Description 03/28/2025 9:00 AM EDT Office Visit [facility] ADULT DENTAL [address] [place] [address] Rachelle Lindsay 05/02/2025 9:00 AM EDT Office Visit [facility] MEDICINE 230 [place] [address] Shell Fang MD [address] [place] [phone] documented as of this encounter Visit Diagnoses Diagnosis Cerebrovascular accident (CVA) due to thrombosis of left middle cerebral artery (CMS/HCC) documented in this encounter Care Teams Coal Bagger Relationship Specialty Start Date End Date Shell Fang MD [address] [place] [phone] PCP - General Family Medicine 07/21/18 documented as of this encounter
--- OUTSIDE RECORDS SUMMARY | 2025-02-28 12:47 | XMS_ITS | Encounter Summary ---
Author Organization [employer] Address [address] [facility] 7t [place] [address] Care Team Providers Care Inspector Floor Sub Assembly Name Role Phone Shell Fang MD Primary Care Provider + Encounter Details Date Type Department Care Team (Late st Contact Info) Description 12/19/2023 Orders Only [facility] [address] [place] [address] [phone] Alfa Mcwilliams MD [address] [place] [address] [phone] Hypertension, unspecified type (Primary Dx); Chronic obstructive [...] Description 03/28/2025 9:00 AM EDT Office Visit [facility] ADULT DENTAL [address] [place] [address] [phone] Rachelle Lindsay 05/02/2025 9:00 AM EDT Office Visit [facility] MED[facility]INE [address] [place] [phone] Shell Fang MD [address] [place] [address] [phone] documented as of this encounter Procedures Procedure Name Priority Date/Time Associated Diagnosis Comments B TYPE NATRIURETIC PEPTIDE (BNP) Routine 12/20/2023 9:33 AM EST Hypertension, unspecified type Chronic obstructive pulmonary disease with acute exacerbation (CMS/HCC) documented in this encounter Results * (ABNORMAL) B Type Natriuretic Peptide (BNP) (12/20/2023 9:33 AM EST) B Type Natriuretic Peptide 1,320(H) <100 pg/mL [facility] Comment:For those patients w ho are being treated with Natrecor(nesiritide, recombinant BNP), BNP testing should beperformed at least two hours post treatment in order toensure that only endogenous levels of BNP are detected. Blood Venous blood specimen / Unknown 12/20/2023 9:33 AM EST 12/20/2023 9:33 AM EST us Alfa Mcwilliams MD LAB BLOOD ORDERABLES Final Resul t [facility] [address] [place] [phone] [phone] documented in this encounter Visit Diagnoses Diagnosis Hypertension, unspecified type- Primary Chronic obstructive pulmonary disease with acute exacerbation (CMS/HCC) documented in this encounter Care Teams Inspector Floor Sub Assembly Relationship Specialty Start Date End Date Shell Fang MD [address] [place] [phone] PCP - General Family Medicine 07/21/18 documented as of this encounter
--- OUTSIDE RECORDS SUMMARY | 2025-02-28 12:47 | XMS_ITS | Encounter Summary ---
Author Organization [employer] Address [address] [place] [address] 7 [place] [address] Care Team Providers Care Tetryl Wringer Operator Name Role Phone Shell Fang MD Primary Care Provider + Reason for Visit * Reason Comments Med Refill Encounter Details Date Type Department Care Team (Late st Contact Info) Description 06/29/2023 Refill [facility] MEDICINE [address] [place] [address] [phone] Marija Taylor DO [address] [place], [place] [phone] Uncomplicated asthma, unspecified asthma severity, unspecified whether [...] Description 03/28/2025 9:00 AM EDT Office Visit [facility] ADULT DENTAL 230 [place], [place] [phone] Rachelle Lindsay 05/02/2025 9:00 AM EDT Office Visit [facility] MEDICINE 230 [place] [address] Shell Fang MD [address] [place], [place] [phone] documented as of this encounter Visit Diagnoses Diagnosis Uncomplicated asthma, unspecified asthma severity, unspecified whether persistent documented in this encounter Care Teams Tetryl Wringer Operator Relationship Specialty Start Date End Date Shell Fang MD [address] [place] [phone] PCP - General Family Medicine 07/21/18 documented as of this encounter
--- OUTSIDE RECORDS SUMMARY | 2025-02-28 12:47 | XMS_ITS | Encounter Summary ---
Author Organization [employer] Address [address] [facility] 7 [place] [address] Care Team Providers Care Power House Engineer Name Role Phone Shell Fang MD Primary Care Provider + Reason for Visit * Reason Comments Med Refill Encounter Details Date Type Department Care Team ([facility] st Contact Info) Description 11/27/2024 Refill [facility] MED[facility]INE [address] [place], [place] [phone] Shell Fang MD 230 [place] [address] Cerebrovascular accident (CVA) due to thrombosis of [...] Description 03/28/2025 9:00 AM EDT Office Visit [facility] ADULT DENTAL [address] [place], [place] [phone] Rachelle Lindsay 05/02/2025 9:00 AM EDT Office Visit [facility] [address] [place], [place] [phone] Shell Fang MD [address] [place] [phone] documented as of this encounter Visit Diagnoses Diagnosis Cerebrovascular accident (CVA) due to thrombosis of left middle cerebral artery (CMS/HCC) documented in this encounter Care Teams Power House Engineer Relationship Specialty Start Date End Date Shell Fang MD [address] [place] [phone] PCP - General Family Medicine 07/21/18 documented as of this encounter
--- OUTSIDE RECORDS SUMMARY | 2025-02-28 12:47 | XMS_ITS | Encounter Summary ---
Author Organization [employer] Address [address] [facility] 7t [place] [address] Care Team Providers Care Organic Preparation Analyst Name Role Phone Shell Fang MD Primary Care Provider + Reason for Visit * Reason Comments Med Refill Encounter Details Date Type Department Care Team ([facility] st Contact Info) Description 03/05/2024 Refill [facility] MEDICINE [address] [place], [place] [phone] Shell Fang MD 230 [place], [place] [phone] Mixed hyperlipidemia Social History Tobacco Use Types [...] t he electric, gas, oil or water [employer] threatened to shut off services in your [...] Description 03/28/2025 9:00 AM EDT Office Visit [facility] ADULT DENTAL [address] [place] [address] Rachelle Lindsay 05/02/2025 9:00 AM EDT Office Visit [facility] MEDICINE [address] [place] [address] Shell Fang MD [address] [place] [phone] documented as of this encounter Visit Diagnoses Diagnosis Mixed hyperlipidemia documented in this encounter Care Teams Organic Preparation Analyst Relationship Specialty Start Date End Date Shell Fang MD [address] [place] [address] [phone] PCP - General Family Medicine 07/21/18 documented as of this encounter
--- OUTSIDE RECORDS SUMMARY | 2025-02-28 12:47 | XMS_ITS | Encounter Summary ---
Author Organization [employer] Address [address] [facility] 7 [place] [address] Care Team Providers Care Website Project Manager Name Role Phone Shell Fang MD Primary Care Provider + Encounter Details Date Type Department Care Team (Late st Contact Info) Description 02/03/2023 Orders Only [facility] [address] [place], [place] [phone] Marija Carlson LPN Social History Tobacco Use [...] Description 03/28/2025 9:00 AM EDT Office Visit [facility] ADULT DENTAL [address] [place] [address] Rachelle Lindsay 05/02/2025 9:00 AM EDT Office Visit [facility] MEDICINE [address] [place] [address] Shell Fang MD 230 [place], [place] [phone] documented as of this encounter Visit Diagnoses Not on filedocumented in this encounter Care Teams Website Project Manager Relationship Specialty Start Date End Date Shell Fang MD [address] [place] [address] [phone] PCP - General Family Medicine 07/21/18 documented as of this encounter
--- OUTSIDE RECORDS SUMMARY | 2025-02-28 12:47 | XMS_ITS | Encounter Summary ---
Author Organization [employer] Address [address] [facility] 7 [place] [address] Care Team Providers Care Derrick Man Name Role Phone Shell Fang MD Primary Care Provider + Reason for Visit * Reason Comments Med Refill Encounter Details Date Type Department Care Team ([facility] st Contact Info) Description 11/22/2024 Refill [facility] MEDICINE 230 [place], [place] [phone] Shell Fang MD 230 [place] [address] Cerebrovascular accident (CVA) due to thrombosis of [...] Description 03/28/2025 9:00 AM EDT Office Visit [facility] ADULT DENTAL 230 [place], [place] [phone] Rachelle Lindsay 05/02/2025 9:00 AM EDT Office Visit [facility] MEDICINE 230 [place], [place] [phone] Shell Fang MD [address] [place] [phone] documented as of this encounter Visit Diagnoses Diagnosis Cerebrovascular accident (CVA) due to thrombosis of left middle cerebral artery (CMS/HCC) documented in this encounter Care Teams Derrick Man Relationship Specialty Start Date End Date Shell Fang MD [address] [place] [phone] PCP - General Family Medicine 07/21/18 documented as of this encounter
--- OUTSIDE RECORDS SUMMARY | 2025-02-28 12:47 | XMS_ITS | Encounter Summary ---
Author Organization [employer] Address [address] [place] [address] 7t [place] [address] Care Team Providers Care Elementary Tutor Name Role Phone Shell Fang MD Primary Care Provider + Reason for Visit * Reason Onset Date Comments Med Refill 02/03/2023 Encounter Details Date Type Department Care Team ([facility] st Contact Info) Description 02/03/[address] [facility] MEDICINE 230 [place], [place] [phone] Shell Fang MD 230 [place] [address] Med Refill Social History Tobacco Use Types [...] (90 Base) MCG/ACT inhaler Please sent to [facility]/pharmacy #[id number] - [place] - [address] [facility] documented in this encounter Plan of Treatment Upcoming Encounters Date Type Department Care Team (Late st Contact Info) Description 03/28/2025 9:00 AM EDT Office Visit [facility] ADULT DENTAL [address] [place] [address] Rachelle Lindsay 05/02/2025 9:00 AM EDT Office Visit [facility] MEDICINE [address] [place] [address] Shell Fang MD 230 [place] [address] documented as of this encounter Visit Diagnoses Not on filedocumented in this encounter Care Teams Elementary Tutor Relationship Specialty Start Date End Date Shell Fang MD [address] [place] [address] PCP - General Family Medicine 07/21/18 documented as of this encounter
--- OUTSIDE RECORDS SUMMARY | 2025-02-28 12:47 | XMS_ITS | Encounter Summary ---
Author Organization [employer] Address [address] [facility] 7t [place] [address] Care Team Providers Care Director Of Radiology Name Role Phone Shell Fang MD Primary Care Provider + Reason for Visit * Reason Onset Date Comments Med Refill 10/30/2024 Encounter Details Date Type Department Care Team ([facility] st Contact Info) Description 10/30/2024 Telephone [facility] MEDICINE 230 [place], [place] [phone] Shell Fang MD 230 [place] [address] Med Refill Social History Tobacco Use Types [...] 8:56 AM EST Medications were sent to [facility] #[id number] on 10/29/24. * Telephone Encounter - Alvino Nguyen - 10/30/2024 8:36 AM EST TC from pt requesting medication refill. 1- Medications needing refill : fluticasone-salmeterol (Advair HFA) 230-21 MCG/ACT inhaler 2-Ventolin HFA 108 (90 Base) MCG/ACT inhaler 3-tiotropium (Spiriva Respimat) 2.5 MCG/ACT inhaler To be sent to: [facility]/pharmacy #[id number] documented in this encounter Plan of Treatment Upcoming Encounters Date Type Department Care Team (Late st Contact Info) Description 03/28/2025 9:00 AM EDT Office Visit [facility] ADULT DENTAL [address] [place] [address] Rachelle Lindsay 05/02/2025 9:00 AM EDT Office Visit [facility] MEDICINE [address] [place] [address] Shell Fang MD [address] [place] [phone] documented as of this encounter Visit Diagnoses Not on filedocumented in this encounter Care Teams Director Of Radiology Relationship Specialty Start Date End Date Shell Fang MD [address] [place] [phone] PCP - General Family Medicine 07/21/18 documented as of this encounter
[2025-03-25 12:23] VITALS: BP 132/79; PULSE 105; RESP 18; O2SAT 97; BMI 32.4
--- NOTE | 2025-03-25 12:57 | HO.ANESPROP2 ---
HPI - Anesthesia Eval Consult details Narrative: 59yo M for Left Excision supraclavicular Lymph Node Follows [facility] Cardiology. Optimized per 01/2025 office visit. NICM (last EF 45-50%), HTN, CVA No CP. Mild [facility] with stairs - works on third floor carrying tools multiple times daily DM - unclear COPD/Asthma - rescue inhaler ~ 1 x daily CVA ?2023, plavix Carotid stenosis 0-49% bilat 2021 Smoker, ETOH few times weekly Anesthesia Pre-Procedure Meds Is the patient on any of the following meds?: GLP1/DPP4 PMFSH Active Problems Active Problems: All Active Problems Lymphadenopathy of head and neck (Acute) Odontogenic infection of jaw (Acute) Odontogenic infection of jaw (Acute) Cardiomyopathy (Acute) Left hand pain (Acute) Chronic pain syndrome (Acute) Low back pain (Acute) Sacroiliitis (Acute) Degenerative disc disease, lumbar (Acute) Sciatica (Acute) Low back pain (Acute) Stroke due to stenosis of left carotid artery (Acute) Past Medical History Medical History GERD (gastroesophageal reflux disease) Numbness Myocardial infarction Stage 3 chronic kidney disease Diabetes Arthritis Disorder of joint of spine Alcohol dependence Back pain Asthma Uncontrolled type 2 diabetes mellitus with hyperglycemia Congestive heart failure Vitamin D deficiency Hypercholesteremia Uncomplicated alcohol dependence Essential hypertension Mild intermittent asthma in adult without complication Stenosis of carotid artery Adjustment disorder with anxious mood Episodic tension-type headache, not intractable Chronic bilateral low back pain without sciatica Acute bilateral low back pain without sciatica CVA (cerebrovascular accident) Allergic conjunctivitis of both eyes Acute pain of left knee Tobacco dependence COPD (chronic obstructive pulmonary disease) with chronic bronchitis Family History Family history of problems with anesthesia: No Surgical History Surgical History Hx of cardiac catheterization History of surgery on upper extremity Hx of inguinal hernia repair H/O colonoscopy History of Problems with Anesthesia: No Social History Social History Household Members: None Housing: Apartment Are you a primary patient care provider to a significant other at home: No Do you presently have visiting nurse or other home services: No Alcohol intake: current Alcohol intake frequency: a few times a week Alcohol type: hard liquor Patient Tobacco Use Status: Current everyday Tobacco user Tobacco use type: Cigarette Cigarette Packs Per Day: 0.5 Cigarettes Per Day: 10.0 Current occupational status: employed Current occupation: [employer] Allergies Allergy/AdvReac Type Severity Reaction Status Date / Time lisinopril Allergy Angioedema Verified 03/26/25 07:01 Home Medications ?Medication ?Instructions ?Recorded ?Confirmed ?Last Taken ?Type clopidogrel 75 mg tablet 75 mg PO DAILY 09/15/21 03/25/25 11/06/24 History aspirin 81 mg tablet,delayed 81 mg PO DAILY 12/21/23 03/25/25 11/06/24 History release tiotropium bromide 2.5 2 puff inhalation DAILY 12/21/23 03/25/25 11/06/24 History mcg/actuation mist for inhalation (Spiriva Respimat) metoprolol succinate 25 mg 25 mg PO DAILY 11/06/24 03/26/25 Unknown History tablet,extended release 24 hr fluticasone propionate 230 2 puff inhalation DAILY 03/22/25 03/25/25 Unknown History mcg-salmeterol 21 mcg/actuation HFA inhaler (Advair HFA) atorvastatin 40 mg tablet 40 mg PO BEDTIME 03/26/25 03/26/25 Unknown History cyclobenzaprine 10 mg tablet 10 mg PO BEDTIME 03/26/25 03/26/25 Unknown History losartan 50 mg tablet 50 mg PO DAILY 03/26/25 03/26/25 Unknown History Exam Height,Weight and Vital Signs: Height 6 ft Weight 108.409 kg Last Vital Signs Pulse 105 H 03/25/25 12:23 Resp 18 03/25/25 12:23 BP 132/79 03/25/25 12:23 Pulse Ox 97 03/25/25 12:23 O2 Del Method Room Air 03/25/25 12:23 Pertinent Lab Results Pertinent Lab Results: Lab Results 03/25/25 Range/Units 13:21 WBC 4.7 L (4.8-10.8) X10*3/uL RBC 4.67 (4.60-5.80) X10*6/uL Hgb 13.5 L (14.0-18.0) g/dl Hct 40.1 L (42.0-52.0) % MCV 85.9 (80.0-98.0) fL MCH 28.9 (27.0-33.0) pg MCHC 33.7 (31.0-36.0) g/dl RDW 14.4 (11.0-16.0) % Plt Count 243 (160-400) X10*3/uL MPV 8.7 L (9.4-12.4) fL Absolute Nucleated RBC 0.000 (0.0-0.012) X10*3/uL Nucleated RBC % (auto) 0.0 (0.0-0.2) /100WBC Sodium 142 (135-145) mmol/L Potassium 4.4 (3.3-5.1) mmol/L Chloride 105 (96-108) mmol/L Carbon Dioxide 27 (22-29) mmol/L Anion Gap 14 (12-20) BUN 29 H (9-16) mg/dL Creatinine 1.31 (0.5-1.4) mg/dL Estim Creat Clear Calc 75.3 Estimated GFR 56 Random Glucose 86 (60-115) mg/dL Estimat Average Glucose 143 mg/dL Hemoglobin A1c % 6.6 H (<6.0) % Calcium 9.6 (8.4-10.2) mg/dL Total Bilirubin 0.3 (0.0-1.0) mg/dL AST 21 (5-37) U/L ALT 35 (0-40) U/L Alkaline Phosphatase 120 H (39-117) U/L Total Protein 8.0 (6.5-8.0) g/dL Albumin 4.8 (3.5-5.0) g/dL Narrative Narrative: EKG 01/2025 NSR @ [address] abnormality ECHO 2023 1. LV size nml. Mild conc LVH. Mild global hypokinesis of LV contractility. Overal LV sys function mildly impaired with EF 45-50%. Grade1 DD with impaired relaxation filling pattern. LA pressures nml. 2. LA size nml 3. RV nml in size with nml function 4. Mild to mod aortic regurg 5. No evidence of pulmo htn 6. No pericardial effusion Cardiac cath 01/2024 No obstructive CAD Nonischemic CMP Low LVEDP No significant gradient on pullbacl across aortic valve US carotid duplex BI 2021 IMPRESSION: 1. RIGHT: Minimal, non-hemodynamically significant stenosis of the proximal right internal carotid artery corresponding to a 0-49% stenosis by velocity criteria. 2. LEFT: Minimal, non-hemodynamically significant stenosis of the proximal left internal carotid artery corresponding to a 0-49% stenosis by velocity criteria. Large amount noncalcified plaque in the mid to distal internal carotid artery with normal velocities. The prior ultrasound demonstrated occlusion. Prior CTA demonstrated a string sign with critical stenosis. Given the discordant findings, further evaluation with CTA may be useful. Airway Mallampati Class: III TM Dist: >3cm Neck ROM: Full Loose/Missing/Broken Teeth: Yes (multiple missing throughout) Heart: RRR Lungs: CTAB Assessment and Plan Assessment Anesthesia Assessment: Anesthesia Plan Discussed, Smoking Cess. Discussed and PAT Visit Final Anesthetic Review Family History of Problems with Anesthesia: No History of Problems with Anesthesia: No
[2025-03-25 13:57] LABS: Hematocrit 40.1 % (42.0-52.0); Hemoglobin 13.5 g/dl (14.0-18.0); Mean Corpuscular HGB Conc 33.7 g/dl (31.0-36.0); Mean Corpuscular Hemoglobin 28.9 pg (27.0-33.0); Mean Corpuscular Volume 85.9 fL (80.0-98.0); Mean Platelet Volume 8.7 fL (9.4-12.4); Platelet Count 243 X10*3/uL (160-400); Red Blood Count 4.67 X10*6/uL (4.60-5.80); Red Cell Distribution Width 14.4 % (11.0-16.0); White Blood Count 4.7 X10*3/uL (4.8-10.8)
[2025-03-25 14:09] LABS: Estimated Average Glucose 143 mg/dL; Hemoglobin A1C 170.3125 umol/L; Hemoglobin A1c % 6.6 % (<6.0); Total Hemoglobin (HGBA1C) 3523.9524 umol/L
[2025-03-25 14:24] LABS: Alanine Aminotransferase 35 U/L (0-40); Albumin Level 4.8 g/dL (3.5-5.0); Alkaline Phosphatase 120 U/L (39-117); Anion Gap 14 (12-20); Aspartate Amino Transferase 21 U/L (5-37); Bilirubin Total 0.3 mg/dL (0.0-1.0); Blood Urea Nitrogen 29 mg/dL (9-16); Calcium 9.6 mg/dL (8.4-10.2); Carbon Dioxide 27 mmol/L (22-29); Chloride 105 mmol/L (96-108); Creatinine Clr Calc Pharmacy 75.3; Estimated Glomerular Filt Rate 56; Glucose Random 86 mg/dL (60-115); Potassium 4.4 mmol/L (3.3-5.1); Sodium 142 mmol/L (135-145)
[2025-04-08 06:25] VITALS: BP 143/79; PULSE 75; RESP 16; TEMP 36.7; O2SAT 99
[2025-04-08] MEDS: Albuterol Sulfate (0.083%) 2.5 MG/3 ML VIAL.NEB INHALE (06:34)
[2025-04-08] MEDS: Lactated Ringers 1,000 ML 50 ML IVCONT (06:35)
[2025-04-08 06:40] LABS: Glucose, Whole Blood 125 mg/dL (60-115)
--- NOTE | 2025-04-08 07:08 | HO.ANESPROP2 ---
[facility] Active Problems Active Problems: All Active Problems Lymphadenopathy of head and neck (Acute) Odontogenic infection of jaw (Acute) Odontogenic infection of jaw (Acute) Cardiomyopathy (Acute) Left hand pain (Acute) Chronic pain syndrome (Acute) Low back pain (Acute) Sacroiliitis (Acute) Degenerative disc disease, lumbar (Acute) Sciatica (Acute) Low back pain (Acute) Stroke due to stenosis of left carotid artery (Acute) Past Medical History Medical History GERD (gastroesophageal reflux disease) Numbness Myocardial infarction Stage 3 chronic kidney disease Diabetes Arthritis Disorder of joint of spine Alcohol dependence Back pain Asthma Uncontrolled type 2 diabetes mellitus with hyperglycemia Congestive heart failure Vitamin D deficiency Hypercholesteremia Uncomplicated alcohol dependence Essential hypertension Mild intermittent asthma in adult without complication Stenosis of carotid artery Adjustment disorder with anxious mood Episodic tension-type headache, not intractable Chronic bilateral low back pain without sciatica Acute bilateral low back pain without sciatica CVA (cerebrovascular accident) Allergic conjunctivitis of both eyes Acute pain of left knee Tobacco dependence COPD (chronic obstructive pulmonary disease) with chronic bronchitis Family History Family history of problems with anesthesia: No Surgical History Surgical History Hx of cardiac catheterization History of surgery on upper extremity Hx of inguinal hernia repair H/O colonoscopy History of Problems with Anesthesia: No Social History Social History Household Members: None Housing: Apartment Are you a primary career services coordinator to a significant other at home: No Do you presently have visiting nurse or other home services: No Alcohol intake: current Alcohol intake frequency: a few times a week Alcohol type: hard liquor Comment: Pt oob and amb. ad mag, steady on feet Patient Tobacco Use Status: Current everyday Tobacco user Tobacco use type: Cigarette Cigarette Packs Per Day: 0.5 Cigarettes Per Day: 10.0 Use of substances other than those prescribed or required for medical reasons: No Have you been hit, kicked, punched, or otherwise hurt by someone within the past year? If so, by whom?: No Are you DNR?: No Advance Directives: No Advance Directives Information Provided: Yes Advance Directives on File: No Poor oral hygiene: Yes Current occupational status: employed Current occupation: [employer] Allergies Allergy/AdvReac Type Severity Reaction Status Date / Time lisinopril Allergy Angioedema Verified 03/26/25 07:01 Active Medications: Current Medications Albuterol Sulfate (Albuterol Sulfate (0.083%) 2.5 Mg/3 Ml Vial.Neb) 2.5 mg INHALE ONCE PRN PRN Reason: Shortness of Breath/Wheezing Last Admin: 04/08/25 06:34 Dose: 2.5 mg Lactated Ringer's (Lr) 1,000 mls @ 50 mls/hr IVCONT .Q20H MOHAN Last Admin: 04/08/25 06:35 Dose: 50 mls/hr Home Medications ?Medication ?Instructions ?Recorded ?Confirmed ?Last Taken ?Type clopidogrel 75 mg tablet 75 mg PO DAILY 09/15/21 03/25/25 11/06/24 History aspirin 81 mg tablet,delayed 81 mg PO DAILY 12/21/23 03/25/25 11/06/24 History release tiotropium bromide 2.5 2 puff inhalation DAILY 12/21/23 03/25/25 11/06/24 History mcg/actuation mist for inhalation (Spiriva Respimat) metoprolol succinate 25 mg 25 mg PO DAILY 11/06/24 03/26/25 Unknown History tablet,extended release 24 hr fluticasone propionate 230 2 puff inhalation DAILY 03/22/25 03/25/25 Unknown History mcg-salmeterol 21 mcg/actuation HFA inhaler (Advair HFA) atorvastatin 40 mg tablet 40 mg PO BEDTIME 03/26/25 03/26/25 Unknown History cyclobenzaprine 10 mg tablet 10 mg PO BEDTIME 03/26/25 03/26/25 Unknown History losartan 50 mg tablet 50 mg PO DAILY 03/26/25 03/26/25 Unknown History Exam Height,Weight and Vital Signs: Height 6 ft Weight 108.409 kg Last Vital Signs Temp 98.0 F 04/08/25 06:25 Pulse 75 04/08/25 06:25 Resp 16 04/08/25 06:25 BP 143/79 H 04/08/25 06:25 Pulse Ox 99 04/08/25 06:25 O2 Del Method Room Air 04/08/25 06:25 Pertinent Lab Results Pertinent Lab Results: Laboratory Tests 03/25/25 04/08/25 13:21 06:37 WBC 4.7 L RBC 4.67 Hgb 13.5 L Hct 40.1 L MCV 85.9 MCH 28.9 MCHC 33.7 RDW 14.4 Plt Count 243 MPV 8.7 L Absolute Nucleated RBC 0.000 Nucleated RBC % (auto) 0.0 Sodium 142 Potassium 4.4 Chloride 105 Carbon Dioxide 27 Anion Gap 14 BUN 29 H Creatinine 1.31 Estim Creat Clear Calc 75.3 Estimated GFR 56 POC Glucose 125 H Random Glucose 86 Estimat Average Glucose 143 Hemoglobin A1c % 6.6 H Calcium 9.6 Total Bilirubin 0.3 AST 21 ALT 35 Alkaline Phosphatase 120 H Total Protein 8.0 Albumin 4.8 Airway Mallampati Class: II (denies having any loose teeth) TM Dist: >3cm Neck ROM: Full Heart: rrr Lungs: cta. received Albuterol this AM Assessment and Plan Final Anesthetic Review Family History of Problems with Anesthesia: No History of Problems with Anesthesia: No NPO: Yes ASA Class: III Final Preanesthetic Review: No Changes in Pt Med Stat, Meds/Allgs Chart Reviewed, Consent Obtained/Reviewed and Anes Risks/Benef Reviewed Patient Risk: Intermediate Procedure Risk: Low Anesthetic Plan Anesthetic Plan: GA, MAC: and Agree w/ Assess. and Plan Disposition: Standard PACU
--- NOTE | 2025-04-08 07:17 | MHC.SHP ---
Pre-Procedural Eval Section A - 24 Hr Update-Section A only Date of Service: 04/08/25 The patient is an INPATIENT: No Changes since office visit: Yes Patient answered all questions; No Cold of Flu in the past 2 weeks, No New Medical Problems and No Changes in Medication The patient has been examined within 24 hours of the surgical procedure. The History & Physical has been completed within 30 days and I have reviewed it.: No Section B - Complete if H&P > 30 days Chief Complaint: Generalized enlarged lymph nodes Details of Present Illness: Continued palpable lymph nodes left neck, with pain Relevant Family History (Specify if Yes): No Relevant Social History: Alcohol Use Present Medications: see Short Stay Collaborative assessment Medical History: Significant History (Cardiomyopathy, CVA, DJD) History of Previous Operations: No relevant previous surgery Allergies: Allergies Allergy/AdvReac Type Severity Reaction Status Date / Time lisinopril Allergy Angioedema Verified 03/26/25 07:01 Review of Systems Sugical H&P ROS: Negative: Constitution, Cardiovascular, Respiratory, Neurological, Hem-Onc, Allergic/Immunologic, Gastrointestinal, Genitourinary, Musculoskeletal and Integumentary Exam Surgical H&P Exam: Normal: HEENT, Normal: Heart, Normal: Lungs, Normal: Extremities, Normal: Abdomen and Normal: Skin Plan Diagnosis/Plan: Unchanged I have reviewed the history and physical and performed a pertinent physical examination on my patient. No changes have occurred unless specified. Time Spent With Patient Time: Total time managing care of this patient today ____ minutes.
--- NOTE | 2025-04-08 08:21 | W.PM.OPN ---
Operative Note Operative Note Date of Service: 04/08/25 Narrative: Preoperative diagnosis:Left supraclavicular lymphadenopathy Postoperative diagnosis: Same Procedure: Excision left supraclavicular lymph node Surgeon: Estuardo Thomas MD Knife Glazer: Ashwin Addison PA-C, MIRELA Gutierrez Anesthesia: General LMA Indications for procedure: 59-year-old male patient presenting with a persistently enlarged left cervical and supraclavicular lymphadenopathy presenting today for biopsy. Operative findings: Enlarged possibly reactive lymph node left supraclavicular region. Nodes were extremely friable without purulence. Specimen: Left supraclavicular lymph node Estimated blood loss: 2 mL Complications: None Procedure details: Patient was brought to the OR and placed in a supine position. After administering general anesthesia the patient's left neck was prepped with ChloraPrep and draped in a sterile fashion. A surgical time-out was called the consent confirmed. Patient received preoperative antibiotics and Venodyne boots were in place. Local anesthesia was infiltrated over the palpable lymph node in the supraclavicular region. A transverse incision was then made with a scalpel and carried out through subcutaneous tissue past platysmas muscle and up to the palpable lymph node. This was then grasped with a hemostat and dissected free from the surrounding fatty tissue. Hemostasis was assured at all times using electrocautery. The lesion was completely excised and sent to pathology for further examination. Hemostasis was again assured using electrocautery. Wounds were then irrigated with saline solution and suctioned dry. Platysmas muscle was then reapproximated using interrupted 3-0 Polysorb sutures. Dermis was reapproximated using interrupted 3-0 Polysorb sutures. Skin was closed using a running subcuticular 4-0 Polysorb suture. Sterile dressings consisting of Steri-Strips, 2 x 2 gauze and Tegaderm were then applied. The patient tolerated the procedure well. Sponge, instrument, and needle counts were reported as correct. The patient was transferred to PACU in stable condition.
[2025-04-08 08:36] VITALS: BP 134/71; PULSE 87; RESP 16; TEMP 36.8; O2SAT 97
[2025-04-08 08:41] VITALS: BP 137/75; PULSE 82; RESP 16; O2SAT 98
[2025-04-08 08:46] VITALS: BP 135/70; PULSE 84; RESP 16; O2SAT 98
[2025-04-08 08:51] VITALS: BP 145/81; PULSE 93; RESP 16; O2SAT 96
[2025-04-08 09:05] VITALS: BP 156/81; PULSE 80; RESP 16; TEMP 36.6; O2SAT 99
== END 2025-04-08 09:41 | disposition home or self-care (01) ==
PROVIDERS: Nurse Practitioner; PCP Internal Medicine; Visit Provider Surgery
PROC: (CPT 38500; principal; 2025-04-08 07:30)
DX: R59.1 Generalized enlarged lymph nodes (principal); M25.512 Pain in left shoulder; E11.65 Type 2 diabetes mellitus with hyperglycemia; I11.0 Hypertensive heart disease with heart failure; I50.9 Heart failure, unspecified; E78.00 Pure hypercholesterolemia, unspecified; J44.9 Chronic obstructive pulmonary disease, unspecified; J45.20 Mild intermittent asthma, uncomplicated; E55.9 Vitamin D deficiency, unspecified; Z86.73 Personal history of transient ischemic attack (TIA), and cerebral infarction without residual deficits; F17.210 Nicotine dependence, cigarettes, uncomplicated; Z79.84 Long term (current) use of oral hypoglycemic drugs; Z79.4 Long term (current) use of insulin; Z79.82 Long term (current) use of aspirin; Z79.899 Other long term (current) drug therapy; F10.20 Alcohol dependence, uncomplicated
CPT/HCPCS: 38525; 36415; 80053; 82947; 83036; 85027; 88305; 88341; 88342; 88365; J0690; J1100; J2003; J2250; J2405; J2704; J3010

== ENCOUNTER → 2025-04-08 05:44 | Outpatient (BNV) | payer OTHER, SELFPAY | PROVIDERS: PCP Internal Medicine; Visit Provider Surgery | DX: R59.0 Localized enlarged lymph nodes (principal) | CPT/HCPCS: 38510 ==

== ENCOUNTER 2025-04-30 14:30 | Outpatient (AMB) | payer OTHER, SELFPAY ==
--- NOTE | 2025-04-30 14:38 | A.OFFVIS_ITS ---
Vital Signs 3 04/30/25 14:46 Height 6 ft Weight 234 lb BMI 31.7 BP 121/70 Blood Pressure Location Lt brachial Position Sitting Pulse 111 H Intake Visit Reasons: s/p exc. left supraclavicular lymph node Intake Note: Patient is seen in office for post op assessment post excision left supraclavicular lymph node. Pt c/o:admits to itchy, swollen and discomfort in the area bother surgery:04/08/25 Rigger Up Required: No Accompanied by: Other Relationship Allergies lisinopril Allergy (Verified 03/26/25 07:01) Angioedema HPI Comments Details: 59-year-old male patient presenting for evaluation of left supraclavicular lymphadenopathy. This has been present for several months in he was recently hospitalized for an oral infection in October 2024. Initial evaluation was felt to be reactive to the oral infection. He reports some pain when the lymph nodes are palpated. He also has symptoms extending down into his shoulder and arm. The symptoms seemed to increase with heavy activity such as while at work. He denies any fever or chills. A CT of soft tissue of the neck confirmed multiple enlarged left supraclavicular lymph nodes. He was evaluated by Dr. Gonsalves who has requested excision for diagnosis. He has had no previous biopsies of the lymph nodes. He underwent excision of a left supraclavicular lymph node on 04/08/2025. Pathology revealed classical Hodgkin's lymphoma. Returns today to review the results. [facility] Medical History GERD (gastroesophageal reflux disease) Numbness Myocardial infarction Stage 3 chronic kidney disease Diabetes Arthritis Disorder of joint of spine Alcohol dependence Back pain Asthma Uncontrolled type 2 diabetes mellitus with hyperglycemia Congestive heart failure Vitamin D deficiency Hypercholesteremia Uncomplicated alcohol dependence Essential hypertension Mild intermittent asthma in adult without complication Stenosis of carotid artery Adjustment disorder with anxious mood Episodic tension-type headache, not intractable Chronic bilateral low back pain without sciatica Acute bilateral low back pain without sciatica CVA (cerebrovascular accident) Allergic conjunctivitis of both eyes Acute pain of left knee Tobacco dependence COPD (chronic obstructive pulmonary disease) with chronic bronchitis Surgical History H/O lymph node excision (04/08/25) Hx of cardiac catheterization History of surgery on upper extremity Hx of inguinal hernia repair H/O colonoscopy Social History Household Members: None Housing: Apartment Are you a primary medicare interviewer to a significant other at home: No Do you presently have visiting nurse or other home services: No Alcohol intake: current Alcohol intake frequency: a few times a week Alcohol type: hard liquor Patient Tobacco Use Status: Current everyday Tobacco user Tobacco use type: Cigarette Cigarette Packs Per Day: 0.5 Cigarettes Per Day: 10.0 Current occupational status: employed Current occupation: [employer] Physical Exam Vital Signs: Last Vital Signs Pulse 111 H 04/30/25 14:46 BP 121/70 04/30/25 14:46 BMI result Body Mass Index 31.7 Const General: no acute distress Nutritional Appearance: well nourished Orientation/consciousness: patient oriented x3 Limitations: no limitations Neck Other: Well-healed incision in the left supraclavicular region with slight swelling but no erythema. Neck images: 2 1. Resp Effort & Inspection: normal respiratory effort Skin Other: Warm and dry, no rash Neuro General: patient oriented x3 Extrem Other: No edema Assessment & Plan Assessment & Plan (1) Hodgkins lymphoma: Code(s): C81.90 - Hodgkin lymphoma, unspecified, unspecified site Category: Medical Qualifiers: Hodgkin lymphoma type: lymphocyte-rich Lymphoma site: neck Qualified Code(s): C81.41 - Lymphocyte-rich Hodgkin lymphoma, lymph nodes of head, face, and neck Plan 59-year-old male patient with a recently diagnosed classical Hodgkin's lymphoma, lymphocyte rich variant located in the left neck and supraclavicular region. Patient tolerated the procedure well and his wounds are healing nicely. I recommended he follow-up with Dr. Gonsalves for further management. Referral has been placed for follow-up evaluation. He should follow up in our office as needed. 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
[2025-04-30 14:46] VITALS: BP 121/70; PULSE 111; BMI 31.7
--- OUTSIDE RECORDS SUMMARY | 2025-04-30 16:20 | XMS_ITS | Encounter Summary ---
Author Organization [employer] Address [address] [place] [address] [address] [place] [address] Care Team Providers Care Quality Assurance Practice Manager Name Role Phone Shell Fang MD Primary Care Provider + Encounter Details Date Type Department Care Team (Late st Contact Info) Description 02/03/2023 Orders Only [facility] [address] [place], [place] [id number] Marija Carlson LPN Social History Tobacco Use [...] Care Team (Late st Contact Info) Description 05/02/2025 9:00 AM EDT Office Visit [facility] [address] [place] [address] Shell Fang MD [address] [place] [address] 07/15/2025 9:00 AM EDT Office Visit [facility] [address] [place] [address] Rachelle Lindsay documented as of this encounter Visit Diagnoses Not on filedocumented in this encounter Care Teams Quality Assurance Practice Manager Relationship Specialty Start Date End Date Shell Fang MD [address] [place] [id number] PCP - General Family Medicine 07/21/18 documented as of this encounter
== END 2025-04-30 14:50 | disposition home or self-care (01) ==
LOC: HO.HGS 14:31
PROVIDERS: PCP Internal Medicine; Visit Provider Surgery
DX: C81.41 Lymphocyte-rich Hodgkin lymphoma, lymph nodes of head, face, and neck (principal)
CPT/HCPCS: 99024

== ENCOUNTER → 2025-04-30 14:30 | Outpatient (BNVA) | payer OTHER, SELFPAY | PROVIDERS: PCP Internal Medicine; Visit Provider Surgery | DX: C81.41 Lymphocyte-rich Hodgkin lymphoma, lymph nodes of head, face, and neck (principal) | CPT/HCPCS: 99212 ==

== ENCOUNTER → 2025-06-05 09:30 | Outpatient (REF) | payer OTHER, SELFPAY ==
--- NOTE | 2025-06-05 09:32 | CA_ITS ---
Transthoracic Echocardiogram Patient (Last, First, Middle): Jace Gonzales, Gender: Male Date of : 1965 Age: 59 Procedure Date: 06/05/2025 Procedure Type: Transthoracic Echocardiogram Location: OP Height: 182.88 cm Weight: 107.05 kg BSA: 2.29 m2 Heart Rate: bpm BP: 121 / 70 mmHg Plant Safety Engineer: TASHA/GENARO Referring MD: Brianna Gonsalves MD Technical Instructor Course Developer: Dimas Hodges MD Symptoms: Assess baseline cardiac function before chemo Study Quality: Fair ECG Rhythm: Sinus Conclusions: - 1. Low normal LV ejection fraction 50-55% with impaired relaxation filling pattern 2. Mild aortic regurgitation 3. Upper limits of normal ascending aortic size 4. No gross pericardial effusion Findings Left Ventricle Normal left ventricular cavity size. There is mildly increased left ventricular wall thickness. The left ventricular systolic function is low normal. The visually estimated ejection fraction is between 50-55%. Spectral Doppler is indicative of an impaired relaxation filling pattern. E/E prime ratio is between 8 and 15 consistent with indeterminate filling pressures. Right Ventricle Normal right ventricular cavity size and systolic function. Atria The left atrium is normal in size. There is no evidence of interatrial shunt. The right atrium is normal in size. Aortic Valve There is no aortic valve stenosis. There is mild aortic valve regurgitation. Mitral Valve There is mild anterior mitral leaflet thickening. There is mild mitral annular calcification. There is trace mitral valve regurgitation. There is no mitral valve stenosis. Pulmonic Valve The pulmonic valve was not well visualized. There is trace pulmonic valve regurgitation. Tricuspid Valve Likely normal tricuspid valve structure and function. Tricuspid regurgitation envelope is inadequate for calculation of right ventricular systolic pressure. Indeterminate right atrial pressure. Great Vessels The pulmonary artery was not well visualized. There is mild dilatation of the ascending aorta measuring 3.60 cm. Venous The inferior vena cava was not well visualized. Pericardium/Pleural There is no evidence of pericardial effusion. Measurements 2D Linear Measurements RVIDd: 1.25 RVIDd Index: 0.55 IVSd: 1.30 0.6-0.9/0.6-1.0 cm LVIDd: 5.67 3.9-5.3/4.2-5.9 cm LVIDd Index: 2.48 2.4-3.2/2.2-3.1 cm/m2 LVIDs: 3.97 2.0-3.6 cm LVPWd: 1.22 0.7-1.1 cm Ao Root: 3.20 2.1-3.5 cm LA Diam: 4.50 2.7-3.8/3.0-4.0 cm LAIDs Index: 1.97 1.5-2.3 cm/m2 LV Mass: 340.91 67-162/88-224 g LV Mass Index: 148.87 43-95/49-115 g/m2 LVOT Diam: 2.40 3.0+(-)1.3 cm 2D Systolic Function EF 4C: 49.50 >55% EF 2C: 51.60 >55% EF BiP: 50.40 >55% Mitral Valve MV Pk E: 0.58 MV PK A: 0.88 MV Decel Time: 88.00 E/A: 0.70 E'Lateral: 6.85 E'Medial: 4.35 E/E' Med: 13.40 E/E' Lat: 8.50 PHT: 26.00 MVA PHT: 8.46 Decel [place]: 6.59 Aortic Valve AoV Pk Reji: 1.50 AoV Mn Reji: 1.01 AoV VTI: 0.27 AoV Pk Grad: 9.00 Aov Mn Grad: 5.00 NIKITA Cont.VTI: 3.53 AI Pk Reji: 4.93 AI [place]: 3.20 LVOT LVOT Pk Reji: 1.23 LVOT Mn Reji: 0.70 LVOT VTI: 0.21 LVOT Pk Grad: 6.00 LVOT Mn Grad: 2.00 LVOT Diam: 2.40 LVOT Area: 4.52 Diastolic Function MV Pk E: 0.58 MV Pk A: 0.88 E/A: 0.70 E'Medial: 4.35 E/E' Med: 13.40 E' Laterial: 6.85 E/E' Lat: 8.50 Right Ventricle TAPSE (mm): 33.00 TVS' Reji: 15.90 Great Vessels Aorta Ao Root-2D: 3.20 2.0-3.7 cm Ao Asc: 3.60 2.1-3.4 cm Ao Arch: 3.50 Pulmonary Valve PV Pk Reji: 1.21 Peak PV Grad: 6.00 Updated in Other Vendor System with Status of Final Dimas Hodges MD electronically signed on 06/05/2025 1:02:39 PM with status of Final
--- OUTSIDE RECORDS SUMMARY | 2025-06-05 09:56 | XMS_ITS | Clinical Summary ---
Author Organization [facility] Address [address] [place] [address] Phone Care Team Providers Care Bull Riveter Name Role Phone Unavailable Primary Care Provider Unavailabl e Encounters Date Type Department Care Team Description 05/22/2025 8:00 AM EDT - 05/22/2025 11:59 PM EDT Hospital Encounter [facility] PET Scan [address] [place] [address] Follicular lymphoma, unspecified, unspecified site (CMS/HCC V24, CMS/HCC V28) Discharge Disposition: Home or Self Care from Last 3 Months Social History Tobacco Use Types Packs/Day Years Used Date Smoking Tobacco: Never Assessed Sex and Gender Information Value Date Recorded Sex Assigned at Not on file Legal Sex Male 11:31 AM EDT Gender Identity Not on file Sexual Orientation Not on file Plan of Treatment Health Maintenance Due Date Last Done Comments Diabetes: Annual Foot Exam 1973 Diabetes: Annual Retina Eye Exam 1973 Hepatitis A Vaccines (1 of 2 - Risk 2-dose series) 1982 Pneumococcal Vaccine: 50+ Years (1 of 2 - PCV) 1982 Cholesterol Screening (Lipid Panel) 05/22/2025 Colorectal Cancer Screening: Colonoscopy 05/22/2025 Depression Screening 05/22/2025 Hepatitis C Screening 05/22/2025 Social Influencers of Health Screening 05/22/2025 Diabetes: Annual Urine Albumin-Creatinine Ratio (uACR) 05/23/2025 COVID-19 Vaccine (5 - Moderna risk season) 2025 12/07/2024, 07/26/2022, 04/03/2021, Additional history exists Influenza Vaccine (#1) 2025 , 10/04/2022, 08/25/2020, Additional history exists Diabetes: Blood Sugar Control Test (HGBA1C) 09/24/2025 03/25/2025 Diabetes: Annual GFR (Glomerular Filtration Rate) 03/25/2026 03/25/2025 Hypertension/CHF/CAD Annual BMP Blood Test 03/25/2026 03/25/2025 DTaP,Tdap,and Td Vaccines (4 - Td or Tdap) 05/28/2031 05/28/2021, 04/02/2015, 06/03/2012 HIV Screening Completed 11/19/2024 RSV Immunization Adult Patients Completed 05/02/2025 Zoster Vaccines Completed 05/02/2025, 07/31/2021 HIB Vaccines Aged Out No longer eligi [...] on patient's age to complete this topic MMR Vaccines Aged Out No longer eligi ble based on patient's age to complete this topic Meningococcal ACWY Vaccine Aged Out N o longer eligible based on patient's age to complete this topic Meningococcal B Vaccine Aged Out No l onger eligible based on patient's age to complete this topic RSV Immunization Patients Under 20 months Aged Out No longer eligible based on patient's age to complete this topic Varicella Vaccines Aged Out No longer eligible based on patient's age to complete this topic Procedures Procedure Name Priority Date/Time Associated Diagnosis Comments PET CT SKULL TO MID THIGH INITIAL Routine 05/22/2025 9:25 AM EDT Follicular lymphoma, unspecified, unspecified site ([facility] V24, [facility] V28) from Last 3 Months Results * PET CT Skull to Mid Thigh Initial (05/22/2025 9:25 AM EDT) Anatomical Region Laterality Modality Body Radiographic Sandra ging 05/28/2025 10:0 9 AM EDT Impressions 05/28/2025 11:19 AM EDT FDG avid left-sided cervical and supraclavicular lymphadenopathy suspicious for lymphomatous involvement. Please note: The CT was acquired at a low radiation dose settings. The images are of nondiagnostic quality and used solely for purposes of attenuation correction and slice localization for the PET scan. If a diagnostic CT study is desired it must be ordered separately. -------- FINAL REPORT -------- Dictated By: Milagro Cortes Dictated Date: 05/28/2025 10:09 ET Assigned Physician: Milagro Cortes Reviewed and Electronically Signed By: Milagro Cortes Signed Date: 05/28/2025 11:19 ET Workstation ID: [id number] Transcribed By: Self Edit Transcribed Date: 05/28/2025 10:09 ET Narrative 05/28/2025 11:19 AM EDT INDICATION: HODGKIN LYMPHOMA TECHNIQUE: FDG PET-CT imaging was performed from the skull bases through the thighs in a single acquisition with data set reconstructed in axial, coronal, and sagittal planes at the computer workstation with fused data from both the PET imaging study and attenuation correction CT. The CT portion of the examination was done strictly for attenuation correction and is not a true diagnostic CT examination. DLP: 633 mGy-cm Radiopharmaceutical: 11.0 mCi of F-18 FDG IV. Blood glucose: 119 mg/dl. COMPARISON: Correlation is made with outside CT of the chest October 2024 and of the neck November 2024 FINDINGS: SUV Max: Mediastinal Blood Pool: 3.4 Liver: 4.2 HEAD AND NECK: FDG avid left-sided cervical lymph nodes measuring up to SUV Max 10.9 and left-sided supraclavicular lymphadenopathy SUV max 9.5. THORAX: No abnormal FDG activity. For example, nonenlarged axillary lymph nodes SUV max 1.2 on the left and 1.8 on the right. Nonenlarged mediastinal lymph nodes without significant FDG activity. For example, right paratracheal SUV max 1.4 in anterior mediastinal SUV max 0.9. No significant hilar activity. Hiatal hernia. ABDOMEN/PELVIS: No significantly FDG avid abdominal or pelvic lymph nodes. For example, gastrohepatic and william hepatis/portacaval lymph nodes measuring up to SUV Max 2.2. Retroperitoneal lymph nodes measuring up to SUV Max 1.3. Right external iliac lymph node SUV max 1.7. Inguinal lymph nodes measuring up to SUV Max 1.7. Nonspecific bowel activity. For example, anal canal SUV max 7.6 as well as within the rectum, sigmoid colon and descending colon SUV max 12.9. No significant splenic activity SUV max 3.1. MUSCULOSKELETAL: Focal activity within the left infraspinatus muscle SUV max 4.4 either physiologic or representing muscle strain. Procedure Note Milagro Cortes MD - 05/28/2025 INDICATION: HODGKIN LYMPHOMA TECHNIQUE: FDG PET-CT imaging was performed from the skull bases throughthe thighs in a single acquisition with data set reconstructed in axial,coronal, and sagittal planes at the computer workstation with fused datafrom both the PET imaging study and attenuation correction CT. The CTportion of the examination was done strictly for attenuation correctionand is not a true diagnostic CT examination. DLP: 633 mGy-cm Radiopharmaceutical: 11.0 mCi of F-18 FDG IV. Blood glucose: 119 mg/dl. COMPARISON: Correlation is made with outside CT of the chest Octobernd of the neck November 2024 FINDINGS: SUV Max: Mediastinal Blood Pool: 3.4 Liver: 4.2 HEAD AND NECK: FDG avid left-sided cervical lymph nodes measuring up toSUV Max 10.9 and left-sided supraclavicular lymphadenopathy SUV max 9.5. THORAX: No abnormal FDG activity. For example, nonenlarged axillary lymphnodes SUV max 1.2 on the left and 1.8 on the right. Nonenlargedmediastinal lymph nodes without significant FDG activity. For example,right paratracheal SUV max 1.4 in anterior mediastinal SUV max 0.9. Nosignificant hilar activity. Hiatal hernia. ABDOMEN/PELVIS: No significantly FDG avid abdominal or pelvic lymph nodes.For example, gastrohepatic and william hepatis/portacaval lymph nodesmeasuring up to SUV Max 2.2. Retroperitoneal lymph nodes measuring up toSUV Max 1.3. Right external iliac lymph node SUV max 1.7. Inguinal lymphnodes measuring up to SUV Max 1.7. Nonspecific bowel activity. For example, anal canal SUV max 7.6 as wellas within the rectum, sigmoid colon and descending colon SUV max 12.9. No significant splenic activity SUV max 3.1. MUSCULOSKELETAL: Focal activity within the left infraspinatus muscle SUVmax 4.4 either physiologic or representing muscle strain. IMPRESSION: FDG avid left-sided cervical and supraclavicular lymphadenopathysuspicious for lymphomatous involvement. Please note: The CT was acquired at a low radiation dose settings. The images are ofnondiagnostic quality and used solely for purposes of attenuationcorrection and slice localization for the PET scan. If a diagnostic CTstudy is desired it must be ordered separately. -------- FINAL REPORT -------- Dictated By: Milagro Cortes Dictated Date: 05/28/2025 10:09 ET Assigned Physician: Milagro Cortes Reviewed and Electronically Signed By: Milagro Cortes Signed Date: 05/28/2025 11:19 ET Workstation ID: [id number] Transcribed By: Self Edit Transcribed Date: 05/28/2025 10:09 ET Susanne Gonsalves MD IM NM PROCEDURES Final Result from Last 3 Months Insurance [facility] PUBLIC PLANS
--- OUTSIDE RECORDS SUMMARY | 2025-06-05 09:56 | XMS_ITS | Encounter Summary ---
Author Organization [employer] Address [address] [place] [address] [address] [place] [address] Care Team Providers Care Printed Circuit Board Panels Trimmer Name Role Phone Shell Fang MD Primary Care Provider + Encounter Details Date Type Department Care Team (Late st Contact Info) Description 02/03/2023 Orders Only [facility] CHC MED & PEDS [address] [place] [address] Marija Carlson LPN Social History Tobacco Use [...] Care Team (Late st Contact Info) Description 08/15/2025 11:15 AM EDT Office Visit [facility] MEDICINE [address] [place] [address] Shell Fang MD [address] [place] [address] documented as of this encounter Visit Diagnoses Not on filedocumented in this encounter Care Teams Printed Circuit Board Panels Trimmer Relationship Specialty Start Date End Date Shell Fang MD [address] [place] [address] PCP - General Family Medicine 07/21/18 documented as of this encounter
== END ==
LOC: HO.CARD 09:30
PROVIDERS: PCP Internal Medicine; Visit Provider Internal Medicine Medical Oncology
DX: C81.90 Hodgkin lymphoma, unspecified, unspecified site (principal)
CPT/HCPCS: 93306

== ENCOUNTER → 2025-06-05 09:32 | Outpatient (BNV) | payer OTHER, SELFPAY | PROVIDERS: PCP Internal Medicine; Visit Provider Internal Medicine Cardiovascular Disease | DX: Z13.6 Encounter for screening for cardiovascular disorders (principal) | CPT/HCPCS: 93306 ==

== ENCOUNTER 2025-06-12 07:12 | Outpatient (REF) | payer OTHER, SELFPAY ==
--- OUTSIDE RECORDS SUMMARY | 2025-06-12 07:15 | XMS_ITS | Clinical Summary ---
Author Organization [facility] Address [address] [place] [address] Phone Care Team Providers Care Reimbursement Counselor Name Role Phone Unavailable Primary Care Provider Unavailabl e Encounters Date Type Department Care Team Description 05/22/2025 8:00 AM EDT - 05/22/2025 11:59 PM EDT Hospital Encounter [facility] PET Scan [address] [place] [address] Follicular lymphoma, unspecified, unspecified site [...] AM EDT Follicular lymphoma, unspecified, unspecified site ([facility] V24, [facility] V28) from Last 3 Months Results * [...] Dictated Date: 05/28/2025 10:09 ET Assigned Physician: Milagor Cortes Reviewed and Electronically Signed By: Milagro Cortes Signed Date: 05/28/2025 11:19 ET Workstation ID: [id number] Transcribed By: Self Edit Transcribed Date: 05/28/2025 [...] Signed Date: 05/28/2025 11:19 ET Workstation ID: [id number] Transcribed By: Self Edit Transcribed Date: 05/28/2025 10:09 ET Susanne Gonsalves MD IM NM PROCEDURES Final Result from Last 3 Months Insurance [facility] PUBLIC PLANS
--- NOTE | 2025-06-12 08:00 | PFT_ITS ---
Flows: FEV1: 76 % of predicted at 2.86 L FVC: 84 % of predicted at 4.13 L FEV1/FVC: 69 % Bronchodilator response: Present Volumes: Total lung capacity: 79 % of predicted at 6.11 L Residual volume: 82 % of predicted at 1.98 L Slow vital capacity: 77 % of predicted at 4.13 L Expiratory reserve volume: 31 % of predicted at 0.45 L Diffusion capacity: Mildly decreased, corrects to normal after adjustment for alveolar ventilation. Impression: Combined moderate obstructive and restrictive ventilatory defects with positive bronchodilator response. Decreased expiratory reserve volume suggests extrathoracic restriction likely secondary to abdominal obesity. Decreased diffusion capacity suggests emphysema. MTDD
[2025-06-12 10:56] VITALS: PULSE 84; RESP 16; O2SAT 97
== END 2025-06-12 07:13 | disposition home or self-care (01) ==
LOC: HO.RESP 07:12
PROVIDERS: PCP Internal Medicine; Visit Provider Internal Medicine Medical Oncology
DX: C81.90 Hodgkin lymphoma, unspecified, unspecified site (principal)
CPT/HCPCS: 94010; 94640; 94727; 94729

== ENCOUNTER 2025-06-24 11:09 | Day surgery (SDC) | payer OTHER, SELFPAY ==
--- OUTSIDE RECORDS SUMMARY | 2025-06-13 08:39 | XMS_ITS | Clinical Summary ---
Author Organization [facility] Address [address] [place] [address] Phone Care Team Providers Care Front End Mechanic Name Role Phone Unavailable Primary Care Provider Unavailabl e Encounters Date Type Department Care Team Description 05/22/2025 8:00 AM EDT - 05/22/2025 11:59 PM EDT Hospital Encounter [facility] PET Scan [address] [place] [address] Follicular lymphoma, unspecified, unspecified site [...] AM EDT Follicular lymphoma, unspecified, unspecified site ([facility] V24, [facility] V28) from Last 3 Months Results * [...] Signed Date: 05/28/2025 11:19 ET Workstation ID: [id number] Transcribed By: Self Edit Transcribed Date: 05/28/2025 [...] Signed Date: 05/28/2025 11:19 ET Workstation ID: [id number] Transcribed By: Self Edit Transcribed Date: 05/28/2025 10:09 ET Susanne Gonsalves MD IM NM PROCEDURES Final Result from Last 3 Months Insurance [facility] PUBLIC PLANS
--- OUTSIDE RECORDS SUMMARY | 2025-06-13 08:39 | XMS_ITS | Encounter Summary ---
Author Organization [employer] Address [address] [place] [address] [address] [place] [address] Care Team Providers Care Art Appraiser Name Role Phone Shell Fang MD Primary Care Provider + Encounter Details Date Type Department Care Team (Late st Contact Info) Description 02/03/2023 Orders Only [facility] CHC MED & PEDS [address] [place] [address] Marija Carlson LPN Social History Tobacco Use [...] Description 08/15/2025 11:15 AM EDT Office Visit [facility] MEDICINE [address] [place] [address] Shell Fang MD [address] [place] [address] documented as of this encounter Visit Diagnoses Not on filedocumented in this encounter Care Teams Art Appraiser Relationship Specialty Start Date End Date Shell Fang MD [address] [place] [address] PCP - General Family Medicine 07/21/18 documented as of this encounter
[2025-06-24] VITALS (20 sets, daily range): BP systolic 135–175; BP diastolic 71–90; PULSE 70–87; RESP 14–22; TEMP 36.4–36.6; O2SAT 97–100; BMI 31.7
--- NOTE | ~2025-06-24 | IR_ITS ---
PROCEDURE: IR INSERTION OF TUNNEL CATHETER CLINICAL INFORMATION: Lymphoma. Needs IV access for oncologic treatment COMPARISON: None. TECHNIQUE: Following explaining ultrasound and fluoroscopy-guided placement of right Port-A-Cath procedure, benefits and risk, a written consent was obtained. Patient was placed supine on angiography table and preliminary ultrasound imaging was obtained through the right neck. An optimal site was selected and marked on the skin. The marked site was cleaned and draped in usual sterile manner. 1% lidocaine was inserted at puncture site along the right neck. Under sterile ultrasound guidance a singlewall needle was advanced and right jugular vein just above the clavicle was punctured. After observing venous return a thin guidewire was advanced through the needle, needle withdrawn and the guidewire was anchored to the drape with hemostat. Approximately 1 gauze length away from the right jugular puncture along the right anterior chest wall one percent lidocaine was administered. A simple dissection was performed and a small pocket was created from blunt dissection. 1% lidocaine was injected from the right and chest wall incision subcutaneous the all the way to the right neck incision. A tunneler attached to the catheter was bluntly tunneled from the right anterior chest wall incision to the right jugular incision and entire catheter was pulled through it. The port was contacted connected to the catheter and was inserted in the right chest wall pocket. A 5 [place] dilator was inserted over the wire in the right jugular vein and wire removed. A 0.035 long guidewire was inserted through the 5 [place] dilator into the IVC and the dilator removed. A 6 [place] dilator with peel-away sheath was inserted over the guidewire and the guidewire and dilator was removed. A 6.6 [place] tunneled catheter was then inserted through the peel-away sheath while the peel-away sheath was removed and the catheter was held in position. The tip of the Port-A-Cath without lies in the mid to distal SVC on fluoroscopy in good position. The Port-A-Cath was flushed with saline and subsequent heparin. Subcuticular absorbable sutures were placed inside along the right anterior chest wall incision and incision site was closed. Subsequently the incision was closed with Steri-Strips. Absorbable sutures were also placed along the right jugular incision site and the incision was closed. Sterile dressing applied post procedure. Patient tolerated procedure extremely well. Conscious sedation was utilized for approximately 45 minutes during the procedure and patient monitored by IR nurse and IR physician. All elements of maximal sterile barrier technique followed including use of cap, mask, sterile gown, sterile gloves, a sterile full body drape and hand hygiene. Also followed skin preparation with 2% chlorhexidine for cutaneous antisepsis, and sterile ultrasound preparation with sterile gel and probe cover when applicable. FINDINGS: On preliminary ultrasound imaging there is a widely patent right jugular vein. Images were obtained for documentation. A 6.6 [place] 25 cm long tunneled Port-A-Cath was placed with its tip in the mid to distal SVC. A single image was obtained for documentation. IR/IR us guide venous access IMPRESSION: Successful ultrasound and fluoroscopy-guided placement of a right Port-A-Cath. Fluoroscopy time: 0.4 minutes. Dose: 4.3 mCi. Sedation: 45 minutes Electronically signed by: Jeffrey Truong MD 06/25/2025 08:29 AM EDT
--- NOTE | ~2025-06-24 | IR_ITS ---
PROCEDURE: IR INSERTION OF TUNNEL CATHETER CLINICAL INFORMATION: Lymphoma. Needs IV access for oncologic treatment COMPARISON: None. TECHNIQUE: Following explaining ultrasound and fluoroscopy-guided placement of right Port-A-Cath procedure, benefits and risk, a written consent was obtained. Patient was placed supine on angiography table and preliminary ultrasound imaging was obtained through the right neck. An optimal site was selected and marked on the skin. The marked site was cleaned and draped in usual sterile manner. 1% lidocaine was inserted at puncture site along the right neck. Under sterile ultrasound guidance a singlewall needle was advanced and right jugular vein just above the clavicle was punctured. After observing venous return a thin guidewire was advanced through the needle, needle withdrawn and the guidewire was anchored to the drape with hemostat. Approximately 1 gauze length away from the right jugular puncture along the right anterior chest wall one percent lidocaine was administered. A simple dissection was performed and a small pocket was created from blunt dissection. 1% lidocaine was injected from the right and chest wall incision subcutaneous the all the way to the right neck incision. A tunneler attached to the catheter was bluntly tunneled from the right anterior chest wall incision to the right jugular incision and entire catheter was pulled through it. The port was contacted connected to the catheter and was inserted in the right chest wall pocket. A 5 [place] dilator was inserted over the wire in the right jugular vein and wire removed. A 0.035 long guidewire was inserted through the 5 [place] dilator into the IVC and the dilator removed. A 6 [place] dilator with peel-away sheath was inserted over the guidewire and the guidewire and dilator was removed. A 6.6 [place] tunneled catheter was then inserted through the peel-away sheath while the peel-away sheath was removed and the catheter was held in position. The tip of the Port-A-Cath without lies in the mid to distal SVC on fluoroscopy in good position. The Port-A-Cath was flushed with saline and subsequent heparin. Subcuticular absorbable sutures were placed inside along the right anterior chest wall incision and incision site was closed. Subsequently the incision was closed with Steri-Strips. Absorbable sutures were also placed along the right jugular incision site and the incision was closed. Sterile dressing applied post procedure. Patient tolerated procedure extremely well. Conscious sedation was utilized for approximately 45 minutes during the procedure and patient monitored by IR nurse and IR physician. All elements of maximal sterile barrier technique followed including use of cap, mask, sterile gown, sterile gloves, a sterile full body drape and hand hygiene. Also followed skin preparation with 2% chlorhexidine for cutaneous antisepsis, and sterile ultrasound preparation with sterile gel and probe cover when applicable. FINDINGS: On preliminary ultrasound imaging there is a widely patent right jugular vein. Images were obtained for documentation. A 6.6 [place] 25 cm long tunneled Port-A-Cath was placed with its tip in the mid to distal SVC. A single image was obtained for documentation. IR/IR cvc insert tunnel w prt/candy spreader IMPRESSION: Successful ultrasound and fluoroscopy-guided placement of a right Port-A-Cath. Fluoroscopy time: 0.4 minutes. Dose: 4.3 mCi. Sedation: 45 minutes Electronically signed by: Jeffrey Truong MD 06/25/2025 08:29 AM EDT
[2025-06-24 11:50] LABS: Glucose, Whole Blood 127 mg/dL (60-115)
[2025-06-24 12:15] LABS: INTERNATIONAL NORM RATIO 1.0 (0.9-1.1); Prothrombin Time 12.0 SEC (10.9-12.4)
[2025-06-24 12:18] LABS: Partial Thromboplastin Time 29.3 SEC (26.0-36.8)
== END 2025-06-24 16:42 | disposition home or self-care (01) ==
PROVIDERS: Radiology Diagnostic Radiology; PCP Internal Medicine; Visit Provider Internal Medicine Medical Oncology
DX: Z45.2 Encounter for adjustment and management of vascular access device (principal); C81.90 Hodgkin lymphoma, unspecified, unspecified site; I13.0 Hypertensive heart and chronic kidney disease with heart failure and stage 1 through stage 4 chronic kidney disease, or unspecified chronic kidney disease; I50.9 Heart failure, unspecified; N18.30 Chronic kidney disease, stage 3 unspecified; E11.22 Type 2 diabetes mellitus with diabetic chronic kidney disease; E11.65 Type 2 diabetes mellitus with hyperglycemia; I25.2 Old myocardial infarction; J44.9 Chronic obstructive pulmonary disease, unspecified; J45.20 Mild intermittent asthma, uncomplicated; Z86.73 Personal history of transient ischemic attack (TIA), and cerebral infarction without residual deficits; Z79.82 Long term (current) use of aspirin; Z79.84 Long term (current) use of oral hypoglycemic drugs; Z79.899 Other long term (current) drug therapy; Z79.51 Long term (current) use of inhaled steroids; Z88.8 Allergy status to other drugs, medicaments and biological substances; F17.210 Nicotine dependence, cigarettes, uncomplicated
CPT/HCPCS: 36415; 36561; 76937; 82947; 85610; 85730; 99152; 99153; C1769; C1788; J0690; J1642; J1644; J2003; J2250; J3010

== ENCOUNTER → 2025-06-24 13:00 | Outpatient (BNV) | payer OTHER, SELFPAY | PROVIDERS: PCP Internal Medicine; Visit Provider Radiology Diagnostic Radiology | DX: C85.90 Non-Hodgkin lymphoma, unspecified, unspecified site (principal); Z45.2 Encounter for adjustment and management of vascular access device | CPT/HCPCS: 36561; 76937; 77001; 99152 ==

== ENCOUNTER 2025-10-28 09:23 | Outpatient (REF) | payer OTHER, SELFPAY ==
[2025-10-28 09:38] LABS: MANUAL DIFF FLAG NO
[2025-10-28 09:41] LABS: Hematocrit 36.3 % (42.0-52.0); Hemoglobin 11.9 g/dl (14.0-18.0); Imm Gran Abs Auto 0.15 X10*3/uL (0.00-0.03); Imm Gran Pct Auto 1.5 % (0.0-0.4); Lymphocytes Absolute Auto 0.9 X10*3/uL (1.2-4.9); Mean Corpuscular HGB Conc 32.8 g/dl (31.0-36.0); Mean Corpuscular Hemoglobin 30.7 pg (27.0-33.0); Mean Corpuscular Volume 93.8 fL (80.0-98.0); NRBC Abs Auto 0.030 X10*3/uL (0.0-0.012); NRBC Pct Auto 0.3 /100WBC (0.0-0.2); Platelet Count 187 X10*3/uL (160-400); Red Blood Count 3.87 X10*6/uL (4.60-5.80); White Blood Count 10.0 X10*3/uL (4.8-10.8)
[2025-10-28 09:59] LABS: Alanine Aminotransferase 27 U/L (0-40); Albumin Level 4.7 g/dL (3.5-5.0); Alkaline Phosphatase 88 U/L (39-117); Anion Gap 14 (12-20); Aspartate Amino Transferase 16 U/L (5-37); Blood Urea Nitrogen 27 mg/dL (9-16); Calcium 9.4 mg/dL (8.4-10.2); Carbon Dioxide 20 mmol/L (22-29); Chloride 109 mmol/L (96-108); Estimated Glomerular Filt Rate > 60; Potassium 3.9 mmol/L (3.3-5.1); Sodium 139 mmol/L (135-145); Total Protein 7.0 g/dL (6.5-8.0)
--- OUTSIDE RECORDS SUMMARY | 2025-10-28 11:04 | XMS_ITS | Clinical Summary ---
Author Organization [employer] Address [address] [place] [address] [address] [place] [address] Care Team Providers Care Human Service Coordinator Name Role Phone Shell Fang MD Primary Care Provider + Allergies Active Allergy Reactions Criticality Noted Date Comments Lisinopril-Hydrochlorothiazide Swelling 01/31 Medications Spacer/Aero-Holdin g Chambers (OptiChamber Cyndi) misc 1 each every 4 (four) hours if needed (asthma). 1 each 12/19/19 24 Active furosemide (Lasix) 20 MG tabletIndications: Acute systolic congestive heart failure (HCC) Take 1 tablet (20 mg) by mouth in the morning. 30 tablet 11 01/06/20 24 Active spironolactone (Aldactone) 25 MG tablet Take 1 tablet (25 mg) by mouth in the morning. 30 tablet 11 01/06/20 24 Active FREESTYLE LITE test strip Use to test blood sugar 1x times daily 100 each 11 10/29/20 24 025 Active Alcohol Swabs 70 % pads Use to test blood sugar 1x times daily 100 each 10/29/20 24 Active Blood Glucose Monitoring Suppl (FreeStyle Saunemin Lite) w/Device kit Use to test blood sugar 1x times daily 1 kit 10/29/20 24 Active metoprolol succinate XL (Toprol-XL) 25 MG 24 hr tablet Take 1 tablet by mouth Once per day. 09/30/20 24 Active chlorhexidine (Peridex) 0.12 % solution Use 15ml twice daily to swish the mouth ensuring it comes in contact with all tooth surfaces and gums. Do not swallow the rinse. 473 mL 11/19/20 24 Active betamethasone valerate (Valisone) 0.1 % cream Apply topically if needed in the morning and at bedtime (dryness). 45 g 2 12/07/19 25 Active Diclofenac Sodium 1 % gel Apply thin layer by topical route (quantity as directed on package insert) to elbow 3 times daily as needed. 50 g 3 12/27/19 25 Active acetaminophen (Tylenol 8 Hour) 650 MG ER tabletIndications: Periodontal disease,Dental abscess Take 1 tablet (650 mg) by mouth every 8 (eight) hours if needed for mild pain. Do not crush, chew, or split. 30 tablet 02/01/20 25 Active Fluticasone-Salmet audrey 500-50 MCG/ACT aerosol powderIndications: Moderate asthma without complication, unspecified whether persistent Take 1 Inhalation by mouth 2 times daily. 1 each 02/08/20 25 Active meloxicam (Mobic) 15 MG tablet Take 1 tablet (15 mg) by mouth Once per day. 30 tablet 02/08/20 25 Active gabapentin (Neurontin) 300 MG capsule Take 1 capsule (300 mg) by mouth at bedtime. 30 capsule 3 02/08/20 25 Active buPROPion XL (Wellbutrin XL) 150 MG 24 hr tabletIndications: Tobacco dependence Take 1 tablet (150 mg) by mouth in the morning. Do not crush, chew, or split. 30 tablet 05/02/20 25 Active aspirin 81 MG EC tablet Take 1 tablet (81 mg) by mouth Once per day. 30 tablet 05/02/20 25 Active empagliflozin (Jardiance) 10 MG Take 1 tablet (10 mg) by mouth Once per day. 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 90 tablet 1 07/03/20 25 Active atorvastatin (Lipitor) 40 MG tabletIndications: Mixed hyperlipidemia TAKE 1 TABLET BY MOUTH EVERY DAY IN THE MORNING 90 tablet 07/24/20 25 Active albuterol (Ventolin HFA) 108 (90 Base) MCG/ACT inhalerIndications :Uncomplicated asthma, unspecified asthma severity, unspecified whether persistent TAKE 2 PUFFS BY MOUTH EVERY 4 TO 6 HOURS NEEDED 18 g 5 08/02/20 25 Active losartan (Cozaar) 100 MG tablet Take 1 tablet (100 mg) by mouth Once per day. 90 tablet 3 08/15/20 25 026 Active insulin lispro (HumaLOG KWIKPEN) 100 UNIT/ML injection Apply subcutaneous TID AC meals according to sliding scale: 150-200: 2U /201-250: 4U /251-300:6U /301-350: 8U 351-400:10U/ Greater than 400: 12 U and call PCP 1 each 3 08/16/20 25 Active insulin glargine (Lantus SoloStar) 100 UNIT/ML pen Inject 16 Units under the skin in the morning. 14.4 mL 3 09/02/20 25 Active nicotine polacrilex (Nicorette) 4 MG gum Chew 1 each (4 mg) if needed for smoking cessation. 100 each 3 09/02/20 25 Active tiotropium (Spiriva Respimat) 2.5 MCG/ACT inhaler Inhale 2 puffs Once per day. 4 each 11 09/02/20 25 Active insulin syringe-needle U-100 (BD Insulin Syringe Ultrafine) 31G X 5/16 0.3 mL misc Use 4x/d as instructed 120 each 11 09/02/20 25 Active Active Problems Problem Noted Date Diagnosed Date Hodgkin lymphoma 12/30/2024 Overview (08/15/2025): Left supraclavicular adenopathy. Biopsy from 04/08/2025 revealed: Classical Hodgkin lymphoma. Lymphocyte rich variant. PET scan from 05/22/2025 revealed: FDG avid left-sided cervical and supraclavicular lymphadenopathy suspicious for lymphomatous involvement. Started on ABVD on 06/27 (Dr. Gonsalves) Assessment & Plan (10/28/2025 8:44 AM EST): Patient has classic Hodgkin's lymphoma, lymphocyte rich variant. He seems to to be tolerating ABVD chemotherapy well, he will continue to follow- up with Dr. Gonsalves. Encouraged to remain hydrated and to have smaller fraction meals including Glucerna at least 3 cans/day to keep up with calories and hydration. Advised to call for influenza and COVID immunization as soon as possible or to get it at earliest convenience at the closest pharmacy. Follow-up with me in 3 months Assessment & Plan (05/02/2025 10:11 AM EDT): >>ASSESSMENT AND PLAN FOR LYMPHADENOPATHY, SUPRACLAVICULAR WRITTEN ON 02/07/2025 1:00 PM BY RENATA SCHROEDER Rule out malignancy, biopsy pending next week, will fu biopsy report. Pt may be out of work for at least 1 week after biopsy, advised to discuss with endless track vehicle supervisor or bring FMLA papers. Will fu POP recommendations. Assessment & Plan (05/02/2025 3:22 PM EDT): Is apparently limited only to 1 side above the diaphragm (supraclavicular, CT scan of abdomen and chest on 10/2024 did not show any LN). I will call Dr. Healy to see if we can go ahead with ordering some of the imaging for restaging including PET scan. I extensively discussed with patient about the nature of the disease and the need for treatment that involve chemotherapy agents. We also discussed importance of quitting smoking and drinking alcohol to which he agreed to start using nicotine gums but declined referral to smoking cessation groups. He also agree to be referred to AUD programs. We discussed importance of rest, adequate nutrition hydration and he will complete his immunizations (second Shingrix dose + RSV) Follow-up with in 2 weeks Polyarthritis 12/07/2024 Assessment & Plan (12/07/2024 11:13 [...] POC. I spoke with BRANDON Brownlee at [facility] for a soft sign out and [...] 2 with complications 12/2023 Assessment & Plan (10/28/2025 8:43 AM EST): Uncontrolled, I will re-start him on Humalog sliding scale and continue metformin and Jardiance. Follow-up in 4 weeks, we will determine the need to restart him on Lantus. Counseled re more frequent low calorie/carb meals. Encouraged physical activity as tolerated. Assessment & Plan (09/02/2025 10:47 AM EDT): Uncontrolled. Increase Lantus to 16 U/D+ Humalog (I called the pharmacy and they will have it ready for him again this afternoon). Continue Jardiance and metformin. He will call back as needed if blood sugars continue above 300 in 2 weeks Refer to ophthalmology He declined influenza or COVID immunization, advised to follow-up with oncology for immunization episode as possible. Foot examination Today, no DM neuropathy. Assessment & Plan (05/02/2025 10:01 AM EDT): It seems to be controlled despite him being off Lantus and Amaryl (he is probably taking it few days a week as he still has tablets from 01/04/2025 Rx ). He will continue on metformin and Jardiance. Follow-up A1c in 6 weeks, he will call as needed if blood sugars are consistently above 200s or he has any symptoms of polydipsia or polyuria. Counseled regarding more frequent and low calorie/carb meals Encouraged physical activity as tolerated and p.o. 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 [...] above. Continue diuretics and fu with cardiology ([facility]), needs to call to check [...] heavy objects. He will discuss this with endless track vehicle supervisor, he did not want me to provide a light duty letter as I have done in the past. He will fu with me after reaching out to his endless track vehicle supervisor. Start Meloxicam daily + Gabapentin QHS, [...] 01/04/2024 01/04/20 24 Allergic conjunctivitis 01/04/2024 01/04/20 Adjustment disorder with anxious mood 01/04/2024 01/04/2024 Pure hypercholesterolemia 01/04/20242023 HTN (hypertension) 12/19/2023 Assessment & Plan (05/02/2025 10:00 AM EDT): Controlled. Compliant w/meds Continue Losartan + Metoprolol + Spironolactone + Lasix. Counseled re low salt diet/increase moderate physical activity. Check home BP BIW and prn CP/HOUSE/[facility] Counseled to quit smoking Follow up in 3 months. Assessment & Plan (12/07/2024 1:02 PM EST): [...] obstructive pulmonar y disease with acute exacerbation (CMS/HCC) 12/19/2023 Assessment & Plan (01/06/2024 1:41 PM EST): Doing well on advair once /day + Spiriva Use albuterol PRN Continue to cut down smoking Tobacco dependence 12/19/2023 Assessment & Plan (05/02/2025 10:06 AM EDT): Smokes half a pack per day, agreed to start on Wellbutrin and nicotine gum as needed Follow-up with me in 6 weeks Declined referral to smoking cessation groups or acupuncture Assessment & Plan (04/03/2024 10:01 AM EDT): [...] obstructive pu lmonary disease) with chronic bronchitis ([facility]/HCC) 09/01/2018 01/04/2024 Assessment & Plan (12/07/2024 1:01 PM EST): Patient seems to be doing well on Spiriva. Use Albuterol PRN cough or SOB. I advised him to quit smoking. Prescription for nicotine patch sent to pharmacy. Pt will have Covid and Influenza vaccine today. Tobacco dependence syndrome 09/01/2018 02/0 05/2024 Mild intermittent asthma 07/21/2018 024 Alcohol dependence 07/21/2018 01/04/2024 Assessment & Plan (05/02/2025 10:05 AM EDT): He has cut down significantly but continues to drink daily, we had an extensive discussion about the importance of quitting alcohol especially with the upcoming chemotherapy treatment. He will continue to cut down on his own, he agreed to talk with AUD program staff, he is not sure about starting the medications. Assessment & Plan (12/07/2024 11:14 AM EST): [...] Encounters Date Type Department Care Team Description 10/28/2025 Orders Only GENERIC EXTERNAL DATA DEPARTMENT Provider, Generic External Data 09/02/2025 10:30 AM EDT Office Visit 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 [address] [place] [phone] Shell Fang MD 08/15/2025 Travel 08/14/[address] [address] Shell Fang MD Chart Prep 08/12/[address] [phone] Shell Fang MD televisit 08/07/2025 Patient Outreach [address] [address] Shell Fang MD Pre-visit Planning ([facility] screening completed on 04/23/2025) 08/02/[address] [facility] [address] [place] [phone] Shell Fang MD Uncomplicated asthma, unspecified asthma severity, unspecified whether persistent 08/01/[address] [facility] [address] [place] [address] Shell Fang MD Uncomplicated asthma, unspecified asthma severity, unspecified whether persistent 07/31/[address] [facility] [address] [place] [address] Marija Taylor DO Uncomplicated asthma, unspecified asthma severity, unspecified whether persistent from Last 3 Months Immunizations Immunization Administration Dates Next Due Influenza injectable quadriv [...] drink = 0.6 oz pur e alcohol) Depression Answer Date Recorded Patient Health Questionnaire-9 Score 5 08/15/2025 Patient Health Questionnaire-9 Score 5 08/15/2025 Last PHQ-9: Questionnaire Data Not on file 0 08/15/2025 Housing Stability Answer Date Recorded What is your housing situation today? I have merrill freeman 04/23/[address] you li ve. Do you have problems with any of the following? None of the above 04/23/2025 Food Insecurity Answer Date Recorded Within the past 12 months, y ou worried that your food would run out before you got money to buy more: Never True 04/23/2025 Within the past 12 months,th e food you bought just didn't last and you didn't have enough money to get more: Never True Transportation Answer Date Recorded In the past 12 months, has l ack of transportation kept you from medical appts, meetings, work or from getting things needed for daily living? No 04/23/2025 Utilities Answer Date Recorded In the past 12 months, has t he electric, gas, oil or water company threatened to shut off services in your home? No 04/23/2025 Depression Answer Date Recorded Patient Health Questionnaire-2 Score 1 08/15/2025 Internet Access Answer Date Recorded Internet Access Q1 No 04/23/2025 Internet Access Q2 I cannot afford it 04/23/2025 Sex and Gender Information Value Date Recorded Sex Assigned at Male 09/27/2022 10:16 AM EDT Legal Sex Male 10:16 AM EDT Gender Identity Male 09/27/2022 10:16 AM EDT Sexual Orientation Straight 09/27/2022 10 :16 AM EDT Last Filed Vital Signs Vital Sign Reading Time Taken Comments Blood Pressure 140/72 09/02/2025 10:11 AM EDT Pulse 100 09/02/2025 10:11 AM EDT Temperature 36.6 C (97.9 F) 09/02/2025 10:11 AM EDT Respiratory Rate 16 09/02/2025 10:11 AM EDT Oxygen Saturation 95% 03/05/2025 9:43 AM EDT Inhaled Oxygen Concentration - - Weight 110 kg (242 lb 9.6 oz) 09/02/2025 10:11 A M EDT Height 182.9 cm (6') 09/02/2025 10:11 AM EDT Body Mass Index 32.9 09/02/2025 10:11 AM EDT Plan of Treatment Upcoming Encounters Date Type Department Care Team (Late st Contact Info) Description 11/06/2025 10:00 AM EST Office Visit [facility] [address] [place] [address] Shell Fang MD [address] [place] [address] Health Maintenance Due Date Last Done Comments CT Colonography 1963 FIT DNA/Cologuard 1963 FIT 1963 FOBT 1963 Sigmoidoscopy 1963 Eye Exam 1973 Diabetes: Urine Protein Screening 1982 Pneumococcal Vaccine: 50+ Years (1 of 2 - PCV) 1982 Colonoscopy 07/12/2020 07/12/2015 Colorectal Cancer Screening 07/12/2020 Dental Oral Exam 05/31/2025 11/30/2024, 12/16/2010 Dental Prophylaxis 05/31/2025 11/30/2024 COVID-19 Vaccine ( season) 2025 12/07/2024, 07/26/2022, 04/03/2021, Additional history exists Influenza Vaccine (#1) 2025 , 10/04/2022, 08/25/2020, Additional history exists Lipid Panel 10/05/2025 10/05/2024, 12/29, 12/24/2020 Dental X-Ray: Bitewings 12/01/2025 11/30/19 25, 01/18/2019, 12/16/2010 Diabetes: Hemoglobin A1C 12/03/2025 025, 03/25/2025, 02/07/2025, Additional history exists SDOH Screening 04/23/2026 04/23/2025 Alcohol/Substance Use Screening 08/15/2026 08/15/2025 Depression Screening 08/15/2026 08/15/2025, 08/15/20 Disability Screening 08/15/2026 08/15/2025 Diabetes: Foot Exam 09/02/2026 09/02/2025, 09/02/2025, 09/02/2025, Additional history exists Tobacco Screening 09/02/2026 09/02/2025 Dental X-Ray: Full Mouth 02/02/2028 025, 11/30/2024, 12/16/2010 DTaP/Tdap/Td Vaccines (3 - Td or Tdap) 05/28/2031 05/28/2021, 04/02/2015, 06/03/2012 HIV Screening Completed 11/19/2024 Hepatitis C Screening Completed 12/07/2024 RSV Patients and Patients Aged 60 years or older Completed 05/02/2025 Zoster Vaccines Completed 05/02/2025, 07/31/2021 [...] on patient's age to complete this topic Goals Goal Patient Goal Type Associated Problems Recent Progress Patient-Stated? Author Help patients manage their type 2 diabetes Care Plan Help patients manage their type 2 diabetes Shell Medina MD Weekly blood pressure task Care Plan Weekly blood pressure task Shell Medina MD Help patients manage their type 2 diabetes Care Plan Help patients manage their type 2 diabetes Shell Medina MD Patient has chronic kidney disease Care Plan Patient has chronic kidney disease Shell Medina MD Weekly blood pressure task Care Plan Weekly blood pressure task Shell Medina MD Patient has chronic kidney disease Care Plan Patient has chronic kidney disease Shell Medina MD Procedures Procedure Name Priority Date/Time Associated Diagnosis Comments LD Routine 10/28/2025 9:36 AM EST COMPREHENSIVE METABOLIC PANEL Routine 10/28/2025 9:36 AM EST CBC WITH AUTO DIFFERENTIAL Routine 10/28/2025 9:36 AM EST POCT GLYCATED HEMOGLOBIN, TOTAL Routine 09/02/2025 10:15 AM EDT Diabetes mellitus type 2 with complications (HCC) POCT GLUCOSE Routine 09/02/2025 10:13 AM EDT Diabetes mellitus type 2 with complications (HCC) PANORAMIC RADIOGRAPHIC IMAGE Routine 01/31/2025 9:30 AM EST HEPATITIS PANEL, GENERAL Routine 12/07/2024 10:40 AM EST Polyarthritis PROPHYLAXIS - ADULT Routine 11/30/2024 2 :00 [...] Relevant to Health Maintenance Results * (ABNORMAL) CBC auto differential (10/28/2025 9:36 AM EST) White Blood Count 10.0 4.8 - 10.8 X10*3/uL [facility] Red Blood Count 3.87(L) 4.60 - 5.80 X10*6/uL [facility] Hemoglobin 11.9(L) 14.0 - 18.0 g/dl [facility] Hematocrit 36.3(L) 42.0 - 52.0 % [facility] Mean Corpuscular Volume 93.8 80.0 - 98.0 fL [facility] Mean Corpuscular Hemoglobin 30.7 27.0 - 33.0 pg [facility] Mean Corpuscular HGB Conc 32.8 31.0 - 36.0 g/dl [facility] Red Cell Distribution Width 16.5(H) 11.0 - 16.0 % [facility] Platelet Count 187 160 - 400 X10*3/uL [facility] Mean Platelet Volume 9.0(L) 9.4 - 12.4 fL [facility] Neutrophils Percent Auto 80.9(H) 45 - 73 % [facility] Imm Gran Pct Auto 1.5(H) 0.0 - 0.4 % [facility] Lymphocytes Percent Auto 9.4(L) 20 - 40 % [facility] Monocytes Percent Auto 8.0 2 - 11 % [facility] Eosinophils Percent Auto 0.1 0 - 4 % [facility] Basophils Percent Auto 0.1 0 - 2 % [facility] NRBC Pct Auto 0.3(H) 0.0 - 0.2 /100WBC [facility] Neutrophils Absolute Auto 8.1 2.0 - 8.3 x10*3/uL [facility] Imm Gran Abs Auto 0.15(H) 0.00 - 0.03 X10*3/uL [facility] Lymphocytes Absolute Auto 0.9(L) 1.2 - 4.9 X10*3/uL [facility] Monocytes Absolute Auto 0.8 0.1 - 1.2 X10*3/uL [facility] Eosinophils Absolute Auto 0.0 0.0 - 0.4 X10*3/uL [facility] Basophils Absolute Auto 0.0 0.0 - 0.2 X10*3/uL [facility] NRBC Abs Auto 0.030(H) 0.0 - 0.012 X10*3/uL [facility] 10/28/2025 9:36 AM EST 10/28/2025 9:36 AM EST us Generic External Data Provider LAB BLOOD ORDERAB LES Final Result Performing Organization Address City/[facility]/ZIP Co de Phone Number [facility] [address] [place] [phone] * Lactate Dehydrogenase (LD) (10/28/2025 9:36 AM EST) Lactate Dehydrogenase 232 118 - 273 U/L [facility] 10/28/2025 9:36 AM EST 10/28/2025 9:36 AM EST us Generic External Data Provider LAB BLOOD ORDERAB LES Final Result Performing Organization Address City/[facility]/ZIP Co de Phone Number [facility] [address] [place] [address] [phone] * (ABNORMAL) Comprehensive Metabolic Panel (10/28/2025 9:36 AM EST) Sodium 139 135 - 145 mmol/L [facility] Potassium 3.9 3.3 - 5.1 mmol/L [facility] Chloride 109(H) 96 - 108 mmol/L [facility] Carbon Dioxide 20(L) 22 - 29 mmol/L [facility] Anion Gap 14 12 - 20 [facility] Urea Nitrogen (BUN) 27(H) 9 - 16 mg/dL [facility] Creatinine, Serum 1.01 0.5 - 1.4 mg/dL [facility] Estimated Glomerular Filt Rate >60 [facility] Comment:Chronic Kidney Disea se: Estimated GFR < 60 mL/min/[id number] Kidney Disease: Estimated GFR < 15 mL/min/1.73m2 Glucose 129(H) 60 - 115 mg/dL [facility] Calcium 9.4 8.4 - 10.2 mg/dL [facility] Bilirubin, Total 0.7 0.0 - 1.0 mg/dL [facility] Aspartate Amino Transferase 16 5 - 37 U/L [facility] Alanine Aminotransferase 27 0 - 40 U/L [facility] Total Protein 7.0 6.5 - 8.0 g/dL [facility] Albumin Level 4.7 3.5 - 5.0 g/dL [facility] Alkaline Phosphatase 88 39 - 117 U/L [facility] 10/28/2025 9:36 AM EST 10/28/2025 9:36 AM EST us Generic External Data Provider LAB BLOOD ORDERAB LES Final Result [facility] [address] [place] [address] [phone] * (ABNORMAL) POCT Hgb A1c (09/02/2025 10:15 AM EDT) Hemoglobin A1C 9.1(A) 4.0 - 5.7 % QC Media Lot # [id number] Lot# Expiration Date Blood 09/02/2025 10:1 5 AM EDT Shell Fang MD POINT OF CARE TEST ENTER /EDIT ORDERABLES Final Result * POCT Glucose (09/02/2025 10:13 AM EDT) Glucose Blood, POC 166 60 - 200 mg/dL QC Media Lot # [id number] Lot# Expiration Date Blood Capillary blood specimen / Unknown 09/02/2025 10:13 AM EDT Shell Fang MD POINT OF CARE TEST ENTER /EDIT ORDERABLES Final Result * Hepatitis Panel, General (12/07/2024 10:40 AM EST) Hepatitis A IgM Nonreactive Nonreactive [facility] Comment:IgM antibodies to HOUSE V not detected; does not exclude earlyacute or recovered HAV infection. ~Hepatitis B Surface Antibody REACTIVE Nonreactive [facility] Comment:REACTIVE: > 11.99 mI U/mL Hepatitis B Core Antibody Reactive Nonreactive [facility] Comment:Presumptive evidence of anti-HBc. Hepatitis C Antibody Nonreactive Nonreactive [facility] Comment:Antibodies to HCV no t detected; does not exclude early acuteHCV infection. Hepatitis B Surface Ag Negative Negative [facility] Blood 12/07/2024 10:4 0 AM EST 12/07/2024 11:38 AM EST Shell Fang MD LAB BLOOD ORDERABLES Fin al Result [facility] [address] [place] [phone] [phone] * HIV-1/2 Antigen and Antibodies, Fourth Generation, with Reflexes (11/19/2024 10:53 AM EST) HIV AB/AG Nonreactive Nonreactive [facility] Comment:HIV-1 p24 Ag and/or HIV-1/HIV-2 Ab not detected.A test result that is nonreactive does not exclude thepossibility of exposure to or infection with HIV-1 and/orHIV-2. Nonreactive results in this assay for individualswith prior exposure to HIV-1 and/or HIV-2 may be due toantigen and antibody levels that are below the limit ofdetection of this assay.The [employer] HIV Ag/Ab Combo assay result andsupplemental assay results should be interpreted inconjunction with the patient's clinical presentation,history and other laboratory results. If the results areinconsistent with clinical evidence, additional testing issuggested to confirm the result. Blood Venous blood specimen / Unknown 11/19/2024 10:53 AM EST 11/19/2024 1:46 PM EST us Shell Fang MD LAB BLOOD ORDERABLES Fin al Result [facility] [address] [place] [phone] * (ABNORMAL) Lipid Panel with Reflex to Direct LDL (10/05/2024 11:07 AM EST) Triglycerides 168(H) <150 mg/dL [facility] Comment:Desirable Triglyceri de: less than 150 mg/dLBorderline High Triglyceride 150-199 mg/dLHigh Triglyceride: 200-499 mg/dLVery High Triglyceride: greater than or equal to 5OO mg/dL Cholesterol 146 <200 mg/dL [facility] Comment:Desirable Cholestero l: less than 200 mg/dLBorderline High Cholesterol: 200-239 mg/dLHigh Cholesterol: greater than 239 mg/dL LDL Cholesterol Calculated 81 <100 mg/dL [facility] Comment:Desirable LDL: less than 100 mg/dLNear Optimal/Above Optimal LDL: 110- 129 mg/dLBorderline High LDL: 130-159 mg/dLHigh LDL: 160-189 mg/dLVery High LDL: greater than or equal to 190 mg/dL HDL Cholesterol 32(L) >40 mg/dL [facility] Comment:Desirable HDL: great er than 40 mg/dL Note: This HDL assay may give artificially low results in patients with liver disease. Blood 10/05/2024 11:0 7 AM EST 10/05/2024 1:22 PM EST us Shell Fang MD LAB BLOOD ORDERABLES Fin al Result [facility] [address] [place] [address] [phone] * Hm Colonoscopy (07/12/2015 1:55 PM EDT) Colonoscopy Normal Normal Narrative Cherie Infante - 07/12/2015 1:55 PM EDT Recommended 5 year follow up ( [facility]) Historical Provider HEALTH MAINTENANCE Edited Result - Final from Last 3 Months or Most Recently Relevant to Health Maintenance Additional Health Concerns Active Problems Noted Date Diagnosed Date Help patients manage their type 2 diabetes 10/28 Weekly blood pressure task 10/28/2025 Help patients manage their type 2 diabetes 10/28 Patient has chronic kidney disease 10/28/2025 Weekly blood pressure task 10/28/2025 Patient has chronic kidney disease 10/28/2025 Insurance HSN PARTIAL [facility] - HSN PARTIAL (MEDICAID) Care Teams Human Service Coordinator Relationship Specialty Start Date End Date Shell Fang MD [address] [place] [address] PCP - General Family Medicine 07/21/18
--- OUTSIDE RECORDS SUMMARY | 2025-10-28 11:04 | XMS_ITS | Encounter Summary ---
Author Organization [employer] Address 75 [facility] 7 [place] [address] Care Team Providers Care Pattern Data Operator Name Role Phone Shell Fang MD Primary Care Provider + Reason for Visit * Reason Comments Med Refill Encounter Details Date Type Department Care Team (Late st Contact Info) Description 04/26/2025 Refill [facility] MEDICINE [address] [place] [address] Shell Fang MD [address] [place] [address] Social History Tobacco Use Types Packs/Day Years [...] Recorded Patient Health Questionnaire-2 Score 0 01/06/2024 Internet Access Answer Date Recorded Internet Access [...] Description 11/06/2025 10:00 AM EST Office Visit [facility] MEDICINE [address] [place] [address] [phone] Shell Fang MD [address] [place] [phone] documented as of this encounter Visit Diagnoses Not on filedocumented in this encounter Care Teams Pattern Data Operator Relationship Specialty Start Date End Date Shell Fang MD [address] [place] [address] [phone] PCP - General Family Medicine 07/21/18 documented as of this encounter
--- OUTSIDE RECORDS SUMMARY | 2025-10-28 11:04 | XMS_ITS | Encounter Summary ---
Author Organization [employer] Address [address] [place] [address] [place], [place] [address] Care Team Providers Care Home Agent Name Role Phone Shell Fang MD Primary Care Provider + Encounter Details Date Type Department Care Team (Late st Contact Info) Description 11/19/2022 Orders Only [facility] [address] [place] [address] Yanique Leigh LPN Social History Tobacco Use [...] Description 11/06/2025 10:00 AM EST Office Visit [facility] MEDICINE [address] [place] [phone] Shell Fang MD [address] [place] [address] documented as of this encounter Visit Diagnoses Not on filedocumented in this encounter Care Teams Home Agent Relationship Specialty Start Date End Date Shell Fang MD [address] [place] [phone] PCP - General Family Medicine 07/21/18 documented as of this encounter
--- OUTSIDE RECORDS SUMMARY | 2025-10-28 11:04 | XMS_ITS | Encounter Summary ---
Author Organization [employer] Address 75 [facility] 7t [place] [address] Care Team Providers Care Shirt Presser Name Role Phone Shell Fang MD Primary Care Provider + Reason for Visit * Reason Comments Med Change Request Encounter Details Date Type Department Care Team ([facility] st Contact Info) Description 08/01/2025 Refill [facility] MED[facility]INE [address] [place] [address] Shell Fang MD [address] [place] [address] Uncomplicated asthma, unspecified asthma severity, unspecified whether [...] Description 11/06/2025 10:00 AM EST Office Visit [facility] MED[facility] [address] [place] [phone] Shell Fang MD [address] [place] [phone] documented as of this encounter Visit Diagnoses Diagnosis Uncomplicated asthma, unspecified asthma severity, unspecified whether persistent documented in this encounter Care Teams Shirt Presser Relationship Specialty Start Date End Date Shell Fang MD [address] [place] [phone] PCP - General Family Medicine 07/21/18 documented as of this encounter
--- OUTSIDE RECORDS SUMMARY | 2025-10-28 11:04 | XMS_ITS | Clinical Summary ---
Author Organization [facility] Address [address] [place] [address] Phone Care Team Providers Care Service Plumber Name Role Phone Unavailable Primary Care Provider Unavailabl e Encounters Date Type Department Care Team Description 09/04/2025 2:30 PM EDT - 09/04/2025 11:59 PM EDT Hospital Encounter [facility] PET Scan [address] [place] [address] Discharge Disposition: Home or Self Care from Last 3 Months Social History Tobacco Use Types Packs/Day Years Used Date Smoking Tobacco: Never Assessed Sex and Gender Information Value Date Recorded Sex Assigned at Not on file Legal Sex Male 11:31 AM EDT Gender Identity Not on file Sexual Orientation Not on file Plan of Treatment Health Maintenance Due Date Last Done Comments Colorectal Cancer Screening: Colonoscopy 1963 Diabetes: Annual Foot Exam 1973 Diabetes: Annual Retina Eye Exam 1973 Hepatitis A Vaccines (1 of 2 - Risk 2-dose series) 1982 Pneumococcal Vaccine: 50+ Years (1 of 2 - PCV) 1982 Depression Screening 11/28/2024 Cholesterol Screening (Lipid Panel) 05/22/2025 Hepatitis C Screening 05/22/2025 Social Influencers of Health Screening 05/22/2025 Diabetes: Annual Urine Albumin-Creatinine Ratio (uACR) 05/23/2025 COVID-19 Vaccine ( season) 2025 12/07/2024, 07/26/2022, 04/03/2021, Additional history exists Influenza Vaccine (#1) 2025 , 10/04/2022, 08/25/2020, Additional history exists Diabetes: Blood Sugar Control Test (HGBA1C) 03/03/2026 09/02/2025, 03/25/2025 Diabetes: Annual GFR (Glomerular Filtration Rate) [...] Comments PET CT SKULL TO MID THIGH SUBSEQUENT Routine 09/04/2025 4:52 PM EDT Hodgkin lymphoma ([facility] V24, [facility] V28) from Last 3 Months Results * PET CT Skull to Mid Thigh Subsequent (09/04/2025 4:52 PM EDT) Anatomical Region Laterality Modality Body Radiographic Sandra ging 09/11/2025 4:05 PM EDT Impressions 09/11/2025 4:17 PM EDT Almost complete metabolic response with mild residual activity within left supraclavicular node. -------- FINAL REPORT -------- Dictated By: Sima Mario Dictated Date: 09/11/2025 16:05 ET Assigned Physician: Sima Mario Reviewed and Electronically Signed By: Sima Mario Signed Date: 09/11/2025 16:17 ET Workstation ID: [id number] Transcribed By: Self Edit Transcribed Date: 09/11/2025 16:05 ET Narrative 09/11/2025 4:17 PM EDT History: Hodgkin's lymphoma, subsequent treatment strategy Comparison: PET/CT from May 22, 2025 Radiopharmaceutical: 13.5 mCi of F-18 FDG IV given 50 minutes prior to imaging. Blood glucose: 125 mg/dl. CT Dose: 933 DLP (mGy-cm) Routine body FDG PET-CT imaging was performed from the skull base to the mid thighs and reconstructed in axial, coronal, and sagittal planes at the computer workstation with fused data from both the PET imaging study and attenuation correction CT. The CT portion of the examination was done strictly for attenuation correction and is not a true diagnostic CT examination. PET 5-point scale (Deauville Criteria) Mediastinum uptake SUV max = 3.3 Liver uptake SUV max = 4.4 Score 2 - Uptake less or equal to mediastinum. FINDINGS: HEAD AND NECK: Resolved FDG avid left-sided cervical lymphadenopathy. Mild residual activity within the left-sided supraclavicular node with SUV max of 2.2. THORAX: No abnormal activity. ABDOMEN/PELVIS: No abnormal activity. MUSCULOSKELETAL: No abnormal activity. Physiological activity noted along bilateral shoulder musculature. Procedure Note iSma Mario MD - 09/11/2025 History: Hodgkin's lymphoma, subsequent treatment strategy Comparison: PET/CT from May 22, 2025 Radiopharmaceutical: 13.5 mCi of F-18 FDG IV given 50 minutes prior toimaging. Blood glucose: 125 mg/dl. CT Dose: 933 DLP (mGy-cm) Routine body FDG PET-CT imaging was performed from the skull base to themid thighs and reconstructed in axial, coronal, and sagittal planes at theCube Biotechputer workstation with fused data from both the PET imaging study andattenuation correction CT. The CT portion of the examination was donestrictly for attenuation correction and is not a true diagnostic CTexamination. PET 5-point scale (Deauville Criteria) Mediastinum uptake SUV max = 3.3 Liver uptake SUV max = 4.4 Score 2 - Uptake less or equal to mediastinum. FINDINGS: HEAD AND NECK: Resolved FDG avid left-sided cervical lymphadenopathy. Mildresidual activity within the left-sided supraclavicular node with SUV maxof 2.2. THORAX: No abnormal activity. ABDOMEN/PELVIS: No abnormal activity. MUSCULOSKELETAL: No abnormal activity. Physiological activity noted alongbilateral shoulder musculature. IMPRESSION: Almost complete metabolic response with mild residual activity within leftsupraclavicular node. -------- FINAL REPORT -------- Dictated By: Sima Mario Dictated Date: 09/11/2025 16:05 ET Assigned Physician: Sima Mario Reviewed and Electronically Signed By: Sima Mario Signed Date: 09/11/2025 16:17 ET Workstation ID: [id number] Transcribed By: Self Edit Transcribed Date: 09/11/2025 16:05 ET Susanne Gonsalves MD [facility] Final Result from Last 3 Months Insurance [facility] [employer]
--- OUTSIDE RECORDS SUMMARY | 2025-10-28 11:04 | XMS_ITS | Encounter Summary ---
Author Organization [employer] Address 75 [facility] 7t [place] [address] Care Team Providers Care Rectangular Tank Cooper Name Role Phone Shell Fang MD Primary Care Provider + Encounter Details Date Type Department Care Team (Late st Contact Info) Description 02/08/2024 Orders Only [facility] [address] [place] [address] Alfa Mcwilliams MD [address] [place] [address] Social History Tobacco Use Types Packs/Day Years [...] Description 11/06/2025 10:00 AM EST Office Visit [facility] [address] [place] [address] Shell Fang MD [address] [place] [address] documented as of this encounter Visit Diagnoses Not on filedocumented in this encounter Care Teams Rectangular Tank Cooper Relationship Specialty Start Date End Date Shell Fang MD [address] [place] [address] PCP - General Family Medicine 07/21/18 documented as of this encounter
--- OUTSIDE RECORDS SUMMARY | 2025-10-28 11:04 | XMS_ITS | Encounter Summary ---
Author Organization [employer] Address [address] [place] [address] 7 [place] [address] Care Team Providers Care Radio Time Buyer Name Role Phone Shell Fang MD Primary Care Provider + Encounter Details Date Type Department Care Team (Late st Contact Info) Description 05/12/2023 Abstract [facility] MEDICINE [address] [place] [address] [phone] Shell Fang MD [address] [place] [address] [phone] Social History Tobacco Use Types Packs/Day Years [...] Description 11/06/2025 10:00 AM EST Office Visit [facility] MEDICINE [address] [place] [address] [phone] Shell Fang MD [address] [place] [address] [phone] documented as of this encounter Procedures Procedure Name Priority Date/Time Associated Diagnosis Comments COLONOSCOPY Routine 07/12/2015 1:55 PM EDT documented in this encounter Results * Hm Colonoscopy (07/12/2015 1:55 PM EDT) Colonoscopy Normal Normal Narrative Arelis, Cherie - 07/12/2015 1:55 PM EDT Recommended 5 year follow up ( [facility]) us Historical Provider HEALTH MAINTENANCE Edited Result - Final documented in this encounter Visit Diagnoses Not on filedocumented in this encounter Care Teams Radio Time Buyer Relationship Specialty Start Date End Date Shell Fang MD [address] [place] [phone] PCP - General Family Medicine 07/21/18 documented as of this encounter
--- OUTSIDE RECORDS SUMMARY | 2025-10-28 11:04 | XMS_ITS | Encounter Summary ---
Author Organization [employer] Address [address] [place] [address] Care Team Providers Care Secret Service Agent Name Role Phone Shell Fang MD Primary Care Provider + Reason for Visit * Reason Comments Med Refill Encounter Details Date Type Department Care Team (Late st Contact Info) Description 06/29/2023 Refill [facility] MEDICINE [address] [place] [phone] Marija Taylor DO [address] [place], [place] [phone] Uncomplicated asthma, unspecified asthma severity, unspecified whether [...] Description 11/06/2025 10:00 AM EST Office Visit [facility] MEDICINE [address] [place] [phone] Shell Fang MD [address] [place] [address] [phone] documented as of this encounter Visit Diagnoses Diagnosis Uncomplicated asthma, unspecified asthma severity, unspecified whether persistent documented in this encounter Care Teams Secret Service Agent Relationship Specialty Start Date End Date Shell Fang MD [address] [place] [phone] PCP - General Family Medicine 07/21/18 documented as of this encounter
--- OUTSIDE RECORDS SUMMARY | 2025-10-28 11:04 | XMS_ITS | Encounter Summary ---
Author Organization [employer] Address [address] [place] [address] 7 [place] [address] Care Team Providers Care Human Resources Manager Name Role Phone Shell Fang MD Primary Care Provider + Encounter Details Date Type Department Care Team (Late st Contact Info) Description 02/03/2023 Orders Only [facility] [place] [address] [place] [address] Marija Carlson LPN Social History Tobacco Use [...] Description 11/06/2025 10:00 AM EST Office Visit [facility] MEDICINE [address] [place] [address] Shell Fang MD [address] [place] [address] documented as of this encounter Visit Diagnoses Not on filedocumented in this encounter Care Teams Human Resources Manager Relationship Specialty Start Date End Date Shell Fang MD [address] [place] [address] PCP - General Family Medicine 07/21/18 documented as of this encounter
--- OUTSIDE RECORDS SUMMARY | 2025-10-28 11:04 | XMS_ITS | Encounter Summary ---
Author Organization [employer] Address [address] [place] [address] 7 [place] [address] Care Team Providers Care Hydraulic Auto Jack Mechanic Name Role Phone Shell Fang MD Primary Care Provider + Reason for Visit * Reason Comments Med Refill Encounter Details Date Type Department Care Team (Late st Contact Info) Description 11/27/2024 Refill [facility] [address] [place], [place] [phone] Shell Fang MD [address] [place] [address] Cerebrovascular accident (CVA) due to thrombosis of [...] Description 11/06/2025 10:00 AM EST Office Visit [facility] [address] [place], [place] [phone] Shell Fang MD [address] [place] [address] [phone] documented as of this encounter Visit Diagnoses Diagnosis Cerebrovascular accident (CVA) due to thrombosis of left middle cerebral artery (HCC) documented in this encounter Care Teams Hydraulic Auto Jack Mechanic Relationship Specialty Start Date End Date Shell Fang MD [address] [place] [address] [phone] PCP - General Family Medicine 07/21/18 documented as of this encounter
--- OUTSIDE RECORDS SUMMARY | 2025-10-28 11:04 | XMS_ITS | Encounter Summary ---
Author Organization [email or web address] Address [address] [place] [address] 7 [place] [address] Care Team Providers Care Fly Setter Name Role Phone Shell Fang MD Primary Care Provider + Reason for Visit * Reason Comments Med Refill Encounter Details Date Type Department Care Team (Late st Contact Info) Description 11/22/2024 Refill [facility] MEDICINE [address] [place], [place] [phone] Shell Fang MD [address] [place] [address] Cerebrovascular accident (CVA) due to thrombosis of [...] Description 11/06/2025 10:00 AM EST Office Visit [facility] MEDICINE [address] [place], [place] [phone] Shell Fang MD [address] [place] [address] [phone] documented as of this encounter Visit Diagnoses Diagnosis Cerebrovascular accident (CVA) due to thrombosis of left middle cerebral artery (HCC) documented in this encounter Care Teams Fly Setter Relationship Specialty Start Date End Date Shell Fang MD [address] [place] [address] [phone] PCP - General Family Medicine 07/21/18 documented as of this encounter
--- OUTSIDE RECORDS SUMMARY | 2025-10-28 11:04 | XMS_ITS | Encounter Summary ---
Author Organization [employer] Address 75 [facility] 7 [place] [address] Care Team Providers Care Final Assembly Inspector Name Role Phone Shell Fang MD Primary Care Provider + Reason for Visit * Reason Comments Med Refill Encounter Details Date Type Department Care Team (Late st Contact Info) Description 12/09/2024 Refill [facility] MEDICINE [address] [place], [place] [phone] Shell Fang MD [address] [place] [address] Cerebrovascular accident (CVA) due to thrombosis of [...] Description 11/06/2025 10:00 AM EST Office Visit [facility] MEDICINE [address] [place], [place] [phone] Shell Fang MD [address] [place] [address] [phone] documented as of this encounter Visit Diagnoses Diagnosis Cerebrovascular accident (CVA) due to thrombosis of left middle cerebral artery (HCC) documented in this encounter Care Teams Final Assembly Inspector Relationship Specialty Start Date End Date Shell Fang MD [address] [place] [address] [phone] PCP - General Family Medicine 07/21/18 documented as of this encounter
--- OUTSIDE RECORDS SUMMARY | 2025-10-28 11:04 | XMS_ITS | Encounter Summary ---
Author Organization [employer] Address 75 [facility] 7t [place] [address] Care Team Providers Care Diesel Electrician Name Role Phone Shell Fang MD Primary Care Provider + Encounter Details Date Type Department Care Team (Late st Contact Info) Description 04/03/2024 Orders Only [facility] [address] [place] [address] Katherin Patricia MA Effusion of right elbow [...] EST Office Visit [facility] [address] [place] [address] Shell Fang MD [address] [place] [address] Scheduled Orders Name Type Priority Associated Diagnoses Orde r Schedule XR Elbow 3+ Views Right Imaging Routine Effusion of right elbow Expected: 04/03/2024, Expires: 04/03/2025 documented as of this encounter Visit Diagnoses Diagnosis Effusion of right elbow documented in this encounter Care Teams Diesel Electrician Relationship Specialty Start Date End Date Shell Fang MD [address] [place] [phone] PCP - General Family Medicine 07/21/18 documented as of this encounter
--- OUTSIDE RECORDS SUMMARY | 2025-10-28 11:04 | XMS_ITS | Encounter Summary ---
Author Organization [employer] Address [address] [place] [address] 7 [place] [address] Care Team Providers Care Balance Wheel Screw Hole Tapper Name Role Phone Shell Fang MD Primary Care Provider + Encounter Details Date Type Department Care Team (Late st Contact Info) Description 12/19/2023 Orders Only [facility] [address] [place] [address] [phone] Alfa Mcwilliams MD [address] [place] [address] [phone] Hypertension, unspecified type (Primary Dx); Chronic obstructive [...] Description 11/06/2025 10:00 AM EST Office Visit [facility] [address] [place] [address] [phone] Shell Fang MD [address] [place] [address] [phone] documented as of this encounter Procedures Procedure Name Priority Date/Time Associated Diagnosis Comments B TYPE NATRIURETIC PEPTIDE (BNP) Routine 12/20/2023 9:33 AM EST Hypertension, unspecified type Chronic obstructive pulmonary disease with acute exacerbation (CMS/HCC) documented in this encounter Results * (ABNORMAL) B Type Natriuretic Peptide (BNP) (12/20/2023 9:33 AM EST) B Type Natriuretic Peptide 1,320(H) <100 pg/mL [facility] Comment:For those patients w ho are being treated with Natrecor(nesiritide, recombinant BNP), BNP testing should beperformed at least two hours post treatment in order toensure that only endogenous levels of BNP are detected. Blood Venous blood specimen / Unknown 12/20/2023 9:33 AM EST 12/20/2023 9:33 AM EST us Alfa Mcwilliams MD LAB BLOOD ORDERABLES Final Resul t [facility] [address] [place] [address] [phone] documented in this encounter Visit Diagnoses Diagnosis Hypertension, unspecified type- Primary Chronic obstructive pulmonary disease with acute exacerbation (CMS/HCC) (HCC) documented in this encounter Care Teams Balance Wheel Screw Hole Tapper Relationship Specialty Start Date End Date Shell Fang MD [address] [place] [phone] PCP - General Family Medicine 07/21/18 documented as of this encounter
--- OUTSIDE RECORDS SUMMARY | 2025-10-28 11:04 | XMS_ITS | Encounter Summary ---
Author Organization [employer] Address [address] [place] [address] 7 [place] [address] Care Team Providers Care Cloth Presser Name Role Phone Shell Fang MD Primary Care Provider + Encounter Details Date Type Department Care Team (Late st Contact Info) Description 06/20/2023 Orders Only [facility] MEDICINE [address] [place] [phone] Yanique Leigh LPN Social History Tobacco Use [...] Description 11/06/2025 10:00 AM EST Office Visit [facility] MEDICINE [address] [place] [phone] Shell Fang MD [address] [place] [phone] documented as of this encounter Visit Diagnoses Not on filedocumented in this encounter Care Teams Cloth Presser Relationship Specialty Start Date End Date Shell Fang MD [address] [place] [phone] PCP - General Family Medicine 07/21/18 documented as of this encounter
--- OUTSIDE RECORDS SUMMARY | 2025-10-28 11:04 | XMS_ITS | Encounter Summary ---
Author Organization [employer] Address [address] [place] [address] 7 [place] [address] Care Team Providers Care Record Clerk Name Role Phone Shell Fang MD Primary Care Provider + Reason for Visit * Reason Onset Date Comments Med Refill 02/03/2023 Encounter Details Date Type Department Care Team ([facility] st Contact Info) Description 02/03/2023 Telephone [facility] MEDICINE [address] [place], [place] [phone] Shell Fang MD [address] [place] [address] Med Refill Social History Tobacco Use Types [...] awaiting approval. * Telephone Encounter - Kimber Higginbotham Sanchez - 02/03/2023 4:07 PM EST Tc elizabeth t requesting status med refill on Ventolin HFA 108 (90 Base) MCG/ACT inhaler Please sent to [facility]/pharmacy #[id number] - [place] - [address] [facility] documented in this encounter Plan of Treatment Upcoming Encounters Date Type Department Care Team (Late st Contact Info) Description 11/06/2025 10:00 AM EST Office Visit [facility] MEDICINE [address] [place] [address] Shell Fang MD [address] [place] [address] documented as of this encounter Visit Diagnoses Not on filedocumented in this encounter Care Teams Record Clerk Relationship Specialty Start Date End Date Shell Fang MD [address] [place] [phone] PCP - General Family Medicine 07/21/18 documented as of this encounter
--- OUTSIDE RECORDS SUMMARY | 2025-10-28 11:04 | XMS_ITS | Encounter Summary ---
Author Organization [employer] Address [address] [facility] 7 [place] [address] Care Team Providers Care Polisher Hand Name Role Phone Shell Fang MD Primary Care Provider + Reason for Visit * Reason Comments Med Refill Encounter Details Date Type Department Care Team (Late st Contact Info) Description 03/05/2024 Refill [facility] MEDICINE [address] [place], [place] [phone] Shell Fang MD 230 [place], [place] [phone] Mixed hyperlipidemia Social History Tobacco Use Types [...] Description 11/06/2025 10:00 AM EST Office Visit [facility] MEDICINE [address] [place] [phone] Shell Fang MD [address] [place] [address] documented as of this encounter Visit Diagnoses Diagnosis Mixed hyperlipidemia documented in this encounter Care Teams Polisher Hand Relationship Specialty Start Date End Date Shell Fang MD [address] [place] [phone] PCP - General Family Medicine 07/21/18 documented as of this encounter
--- OUTSIDE RECORDS SUMMARY | 2025-10-28 11:05 | XMS_ITS | Encounter Summary ---
Author Organization [employer] Address [address] [facility] 7 [place] [address] Care Team Providers Care Manager Of Revenue Name Role Phone Shell Fang MD Primary Care Provider + Encounter Details Date Type Department Care Team (Late st Contact Info) Description 10/28/2025 Orders Only GENERIC EXTERNAL DATA [...] Visit [facility] MEDICINE [address] [place], [place] [phone] Shell Fang MD [address] [place] [address] documented as of this encounter Goals Goal Patient Goal Type Associated Problems Recent Progress Patient-Stated? Author Help patients manage their type 2 diabetes Care Plan Help patients manage their type 2 diabetes Shell Medina MD Weekly blood pressure task Care Plan Weekly blood pressure task No Shell Fang MD Help patients manage their type 2 diabetes Care Plan Help patients manage their type 2 diabetes Shell Medina MD Patient has chronic kidney disease Care Plan Patient has chronic kidney disease Shell Medina MD Weekly blood pressure task Care Plan Weekly blood pressure task Shell Medina MD Patient has chronic kidney disease Care Plan Patient has chronic kidney disease No Shell Fang MD documented as of this encounter Procedures Procedure Name Priority Date/Time Associated Diagnosis Comments CBC WITH AUTO DIFFERENTIAL Routine 10/28/2025 9:36 AM EST LD Routine 10/28/2025 9:36 AM EST COMPREHENSIVE METABOLIC PANEL Routine 10/28/2025 9:36 AM EST documented in this encounter Results * Lactate Dehydrogenase (LD) (10/28/2025 9:36 AM EST) Lactate Dehydrogenase 232 118 - 273 U/L [facility] 10/28/2025 9:36 AM EST 10/28/2025 9:36 AM EST us Generic External Data Provider LAB BLOOD ORDERAB LES Final Result [facility] [address] [place] [address] [phone] * (ABNORMAL) Comprehensive Metabolic Panel (10/28/2025 9:36 AM EST) Sodium 139 135 - 145 mmol/L [facility] Potassium 3.9 3.3 - 5.1 mmol/L [facility] Chloride 109(H) 96 - 108 mmol/L [facility] Carbon Dioxide 20(L) 22 - 29 mmol/L [facility] Anion Gap 14 12 - 20 [facility] Urea Nitrogen (BUN) 27(H) 9 - 16 mg/dL [facility] Creatinine, Serum 1.01 0.5 - 1.4 mg/dL [facility] Estimated Glomerular Filt Rate >60 [facility] Comment:Chronic Kidney Disea se: Estimated GFR < 60 mL/min/[id number] Kidney Disease: Estimated GFR < 15 mL/min/1.73m2 Glucose 129(H) 60 - 115 mg/dL [facility] Calcium 9.4 8.4 - 10.2 mg/dL [facility] Bilirubin, Total 0.7 0.0 - 1.0 mg/dL [facility] Aspartate Amino Transferase 16 5 - 37 U/L [facility] Alanine Aminotransferase 27 0 - 40 U/L [facility] Total Protein 7.0 6.5 - 8.0 g/dL [facility] Albumin Level 4.7 3.5 - 5.0 g/dL [facility] Alkaline Phosphatase 88 39 - 117 U/L [facility] 10/28/2025 9:36 AM EST 10/28/2025 9:36 AM EST us Generic External Data Provider LAB BLOOD ORDERAB LES Final Result [facility] [address] [place] [address] [phone] * (ABNORMAL) CBC auto differential (10/28/2025 9:36 AM EST) White Blood Count 10.0 4.8 - 10.8 X10*3/uL [facility] Red Blood Count 3.87(L) 4.60 - 5.80 X10*6/uL [facility] Hemoglobin 11.9(L) 14.0 - 18.0 g/dl [facility] Hematocrit 36.3(L) 42.0 - 52.0 % [facility] Mean Corpuscular Volume 93.8 80.0 - 98.0 fL [facility] Mean Corpuscular Hemoglobin 30.7 27.0 - 33.0 pg [facility] Mean Corpuscular HGB Conc 32.8 31.0 - 36.0 g/dl [facility] Red Cell Distribution Width 16.5(H) 11.0 - 16.0 % [facility] Platelet Count 187 160 - 400 X10*3/uL [facility] Mean Platelet Volume 9.0(L) 9.4 - 12.4 fL [facility] Neutrophils Percent Auto 80.9(H) 45 - 73 % [facility] Imm Gran Pct Auto 1.5(H) 0.0 - 0.4 % [facility] Lymphocytes Percent Auto 9.4(L) 20 - 40 % [facility] Monocytes Percent Auto 8.0 2 - 11 % [facility] Eosinophils Percent Auto 0.1 0 - 4 % [facility] Basophils Percent Auto 0.1 0 - 2 % [facility] NRBC Pct Auto 0.3(H) 0.0 - 0.2 /100WBC [facility] Neutrophils Absolute Auto 8.1 2.0 - 8.3 x10*3/uL [facility] Imm Gran Abs Auto 0.15(H) 0.00 - 0.03 X10*3/uL [facility] Lymphocytes Absolute Auto 0.9(L) 1.2 - 4.9 X10*3/uL [facility] Monocytes Absolute Auto 0.8 0.1 - 1.2 X10*3/uL [facility] Eosinophils Absolute Auto 0.0 0.0 - 0.4 X10*3/uL [facility] Basophils Absolute Auto 0.0 0.0 - 0.2 X10*3/uL [facility] NRBC Abs Auto 0.030(H) 0.0 - 0.012 X10*3/uL [facility] 10/28/2025 9:36 AM EST 10/28/2025 9:36 AM EST us Generic External Data Provider LAB BLOOD ORDERAB LES Final Result [facility] [address] [place] [phone] [phone] documented in this encounter Visit Diagnoses Not on filedocumented in this encounter Additional Health Concerns Active Problems Noted Date Diagnosed Date Help patients manage their type 2 diabetes 10/28 Weekly blood pressure task 10/28/2025 Help patients manage their type 2 diabetes 10/28 Patient has chronic kidney disease 10/28/2025 Weekly blood pressure task 10/28/2025 Patient has chronic kidney disease 10/28/2025 Assessment Noted Time PHQ-9 Depression Total Score: 5 08/15/20 25 10:58 AM EDT documented as of this encounter Care Teams Manager Of Revenue Relationship Specialty Start Date End Date Shell Fang MD [address] [place] [address] PCP - General Family Medicine 07/21/18 documented as of this encounter
--- OUTSIDE RECORDS SUMMARY | 2025-10-28 11:05 | XMS_ITS | Encounter Summary ---
Author Organization [employer] Address [address] [facility] 7 [place] [address] Care Team Providers Care Control Operator Flow Coat Name Role Phone Shell Fang MD Primary Care Provider + Reason for Visit * Reason Onset Date Comments Med Refill 10/30/2024 Encounter Details Date Type Department Care Team ([facility] st Contact Info) Description 10/30/2024 Telephone [facility] MEDICINE 230 [place], [place] [phone] Shell Fang MD 230 [place], [place] [phone] Med Refill Social History Tobacco Use Types [...] 8:56 AM EST Medications were sent to [facility] #[id number] on 10/29/24. * Telephone Encounter - Alvino Nguyen - 10/30/2024 8:36 AM EST TC from pt requesting medication refill. 1- Medications needing refill : fluticasone-salmeterol (Advair HFA) 230-21 MCG/ACT inhaler 2-Ventolin HFA 108 (90 Base) MCG/ACT inhaler 3-tiotropium (Spiriva Respimat) 2.5 MCG/ACT inhaler To be sent to: [facility]/pharmacy #[id number] documented in this encounter Plan of Treatment Upcoming Encounters Date Type Department Care Team (Late st Contact Info) Description 11/06/2025 10:00 AM EST Office Visit [facility] MEDICINE [address] [place] [address] [phone] Shell Fang MD [address] [place] [phone] documented as of this encounter Visit Diagnoses Not on filedocumented in this encounter Care Teams Control Operator Flow Coat Relationship Specialty Start Date End Date Shell Fang MD [address] [place] [address] [phone] PCP - General Family Medicine 07/21/18 documented as of this encounter
== END 2025-10-28 09:24 | disposition home or self-care (01) ==
LOC: HO.LAB 09:23
PROVIDERS: PCP Internal Medicine; Visit Provider Internal Medicine Medical Oncology
DX: C81.90 Hodgkin lymphoma, unspecified, unspecified site (principal)
CPT/HCPCS: 36415; 80053; 83615; 85025

== ENCOUNTER 2025-11-05 13:19 | Outpatient (REF) | payer OTHER, SELFPAY ==
--- NOTE | ~2025-11-05 | CT_ITS ---
EXAMINATION: CT SOFT TISSUE NECK WITHOUT AND WITH CONTRAST CLINICAL INFORMATION: Follow-up Hodgkin's lymphoma the supraclavicular region. COMPARISON: 12/24/2024. 11/06/2024. TECHNIQUE: Before and after the intravenous administration of 60 mL of Omnipaque 350 intravenous contrast helical imaging of the neck was performed in the axial plane with generation of coronal and sagittal reformatted images. This CT examination was performed using dose optimization techniques as appropriate, variously including the following: *Automated exposure control *Adjustment of mA and/or kV according to patient size (this includes techniques or standardized protocols for targeted exams where dose is matched to indication/reason for exam; i.e. extremities or head) *Use of iterative reconstruction technique FINDINGS: Significant improvement in previously seen pathologic lymphadenopathy in the left supraclavicular region. For example, the largest, a subclavicular lymph level VB node currently measures 10 x 18 mm in axial plane, previously measuring 19 x 30 mm (series 6, image 97). A left supraclavicular level 4A node just adjacent to the left internal jugular vein measures 7 mm in short axis, previously measuring 15 mm. (Series 6, image 81). An additional left supraclavicular level VB lymph node just adjacent to the left internal jugular vein currently measures 12 x 15 mm in axial plane, previously 13 x 21 mm. (Series 6, image 93). No worsening or new lymphadenopathy is present within the neck. Thyroid gland is normal in CT appearance. The tongue, tongue base, floor of mouth, mucosal space, epiglottis, soft palate, tonsillar pillar soft tissues, aryepiglottic folds, larynx, and subglottic trachea appear normal. No casing cleaner space abnormality. The parapharyngeal fat planes are undisturbed. No retropharyngeal abnormality. The salivary glands are normal in appearance aside from mild fatty change. 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 There is reconstitution of enhancement in the intracranial ophthalmic segment. The jugular veins are patent. The larynx appears normal. The subglottic trachea appears normal. The cervical esophagus appears normal. Imaged intracranial contents demonstrates stable encephalomalacia in the left frontal lobe, presumably from prior infarct or trauma. There is otherwise no mass effect, edema, or abnormal enhancement present. Cortical and dural venous sinuses appear patent. The globes and orbital contents appear normal. The paranasal sinuses, mastoids, and tympanic spaces are normally aerated. No suspicious bony abnormalities. Mild to moderate degenerative changes in the cervical spine, most notable at 5 6 and C6-7. Imaged lung apices are clear bilaterally. Mild subpleural scarring is present in both anterior upper lobes. This may be treatment-related change. No abnormality of the superior mediastinal structures. CT/CT soft tissue neck wo/w IVcon IMPRESSION: 1. Significant improvement in left supraclavicular level 5B and level 4A lymphadenopathy as described. 2. No new masses or abnormal lymph nodes present. 3. 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 4. Old infarct left frontal lobe, unchanged. Electronically signed by: Sony Maria MD 11/05/2025 02:48 PM [facility]
[2025-11-05] MEDS: iohexoL 350 MG/ML 100 ML INFUS..BTL 60 ML IV (14:18)
--- OUTSIDE RECORDS SUMMARY | 2025-11-05 18:28 | XMS_ITS | Encounter Summary ---
Author Organization [employer] Address [address] [facility] 7 [place] [address] Care Team Providers Care Water Carter Name Role Phone Shell Fang MD Primary Care Provider + Reason for Visit * Reason Comments Med Refill Encounter Details Date Type Department Care Team (Late st Contact Info) Description 03/05/2024 Refill [facility] MEDICINE [address] [place], [place] [phone] Shell Fang MD [address] [place], [place] [phone] Mixed hyperlipidemia Social History Tobacco Use Types [...] Description 11/06/2025 10:00 AM EST Office Visit [facility] MEDICINE [address] [place] [phone] Shell Fang MD [address] [place] [address] documented as of this encounter Visit Diagnoses Diagnosis Mixed hyperlipidemia documented in this encounter Care Teams Water Carter Relationship Specialty Start Date End Date Shell Fang MD [address] [place] [phone] PCP - General Family Medicine 07/21/18 documented as of this encounter
--- OUTSIDE RECORDS SUMMARY | 2025-11-05 18:34 | XMS_ITS | Encounter Summary ---
Author Organization [employer] Address [address] [facility] 7 [place] [address] Care Team Providers Care Director Of Early Childhood Education Name Role Phone Shell Fang MD Primary Care Provider + Reason for Visit * Reason Comments Med Refill Encounter Details Date Type Department Care Team (Late st Contact Info) Description 04/26/2025 Refill [facility] MEDICINE [address] [place] [address] Shell Fang MD [address] [place] [address] Social History Tobacco Use Types Packs/Day Years [...] Description 11/06/2025 10:00 AM EST Office Visit [facility] MEDICINE [address] [place] [address] [phone] Shell Fang MD [address] [place] [address] documented as of this encounter Visit Diagnoses Not on filedocumented in this encounter Care Teams Director Of Early Childhood Education Relationship Specialty Start Date End Date Shell Fang MD [address] [place] [address] [phone] PCP - General Family Medicine 07/21/18 documented as of this encounter
--- OUTSIDE RECORDS SUMMARY | 2025-11-05 18:35 | XMS_ITS | Encounter Summary ---
Author Organization [employer] Address [address] [place] [address] [address] [place] [address] Care Team Providers Care Weather Teacher Name Role Phone Shell Fang MD Primary Care Provider + Encounter Details Date Type Department Care Team (Late st Contact Info) Description 02/03/2023 Orders Only [facility] MED & PEDS [address] [place] [address] Marija Carlson LPN Social History Tobacco Use [...] Office Visit [facility] MEDICINE [address] [place] [address] Shell Fang MD [address] [place] [address] documented as of this encounter Visit Diagnoses Not on filedocumented in this encounter Care Teams Weather Teacher Relationship Specialty Start Date End Date Shell Fang MD [address] [place] [address] PCP - General Family Medicine 07/21/18 documented as of this encounter
--- OUTSIDE RECORDS SUMMARY | 2025-11-05 18:35 | XMS_ITS | Encounter Summary ---
Author Organization [employer] Address [address] [place] [address] 7 [place] [address] Care Team Providers Care Librarian Specialist Name Role Phone Shell Fang MD Primary Care Provider + Encounter Details Date Type Department Care Team (Late st Contact Info) Description 05/12/2023 Abstract [facility] MEDICINE [address] [place] [address] [phone] Shell Fang MD [address] [place] [address] [phone] Social History Tobacco Use Types Packs/Day Years [...] 10:00 AM EST Office Visit [facility] MEDICINE [address] [place] [address] [phone] Shell Fang MD [address] [place] [address] [phone] documented as of this encounter Procedures Procedure Name Priority Date/Time Associated Diagnosis Comments COLONOSCOPY Routine 07/12/2015 1:55 PM EDT documented in this encounter Results * Hm Colonoscopy (07/12/2015 1:55 PM EDT) Colonoscopy Normal Normal Narrative Arelis, Cherie - 07/12/2015 1:55 PM EDT Recommended 5 year follow up ( [facility]) us Historical Provider HEALTH MAINTENANCE Edited Result - Final documented in this encounter Visit Diagnoses Not on filedocumented in this encounter Care Teams Librarian Specialist Relationship Specialty Start Date End Date Shell Fang MD [address] [place] [phone] PCP - General Family Medicine 07/21/18 documented as of this encounter
--- OUTSIDE RECORDS SUMMARY | 2025-11-05 18:35 | XMS_ITS | Encounter Summary ---
Author Organization [employer] Address 75 [facility] 7t [place] [address] Care Team Providers Care Last Pattern Grader Name Role Phone Shell Fang MD Primary Care Provider + Reason for Visit * Reason Comments Med Refill Encounter Details Date Type Department Care Team (Late st Contact Info) Description 11/01/2025 Refill [facility] MEDICINE 230 [place] [address] Lora York MD [address] [place] [phone] Mixed hyperlipidemia Social History Tobacco Use Types [...] Description 11/06/2025 10:00 AM EST Office Visit [facility] MEDICINE [address] [place] [address] Shell Fang MD [address] [place] [address] documented as of this encounter Goals Goal [...] Care Plan Weekly blood pressure task No Lucero Faustin Weekly blood pressure task Care Plan Weekly blood pressure task No Lucero Faustin Patient has chronic kidney disease Care Plan Patient has chronic kidney disease No Lucero Faustin Patient has chronic kidney disease Care Plan Patient has chronic kidney disease No Lucero Faustin documented as of this encounter Visit Diagnoses Diagnosis Mixed hyperlipidemia documented in this encounter Additional Health Concerns Active Problems Noted Date Diagnosed Date Help patients manage their type 2 diabetes 10/28 Weekly blood pressure task 10/28/2025 Help patients manage their type 2 diabetes 10/28 Patient has chronic kidney disease 10/28/2025 Weekly blood pressure task 10/28/2025 Patient has chronic kidney disease 10/28/2025 Weekly blood pressure task 10/30/2025 Weekly blood pressure task 10/30/2025 Patient has chronic kidney disease 10/30/2025 Patient has chronic kidney disease 10/30/2025 Assessment Noted Time PHQ-9 Depression Total Score: 5 08/15/20 25 10:58 AM EDT documented as of this encounter Care Teams Last Pattern Grader Relationship Specialty Start Date End Date Shell Fang MD [address] [place] [phone] PCP - General Family Medicine 07/21/18 documented as of this encounter
--- OUTSIDE RECORDS SUMMARY | 2025-11-05 18:35 | XMS_ITS | Encounter Summary ---
Author Organization [employer] Address [address] [place] [address] 7 [place] [address] Care Team Providers Care Yarrow Gatherer Name Role Phone Shell Fang MD Primary Care Provider + Reason for Visit * Reason Onset Date Comments Med Refill 02/03/2023 Encounter Details Date Type Department Care Team ([facility] st Contact Info) Description 02/03/2023 Telephone [facility] MEDICINE [address] [place], [place] [phone] Shell Fang MD [address] [place] [phone] Med Refill Social History Tobacco Use Types [...] (90 Base) MCG/ACT inhaler Please sent to [facility]/pharmacy #[id number] - [place] - [address] [facility] documented in this encounter Plan of Treatment Upcoming Encounters Date Type Department Care Team (Late st Contact Info) Description 11/06/2025 10:00 AM EST Office Visit [facility] MEDICINE [address] [place] [address] Shell Fang MD [address] [place] [address] documented as of this encounter Visit Diagnoses Not on filedocumented in this encounter Care Teams Yarrow Gatherer Relationship Specialty Start Date End Date Shell Fang MD [address] [place] [phone] PCP - General Family Medicine 07/21/18 documented as of this encounter
--- OUTSIDE RECORDS SUMMARY | 2025-11-05 18:36 | XMS_ITS | Encounter Summary ---
Author Organization [employer] Address [address] [place] [address] Care Team Providers Care Ivory Polisher Name Role Phone Shell Fang MD Primary Care Provider + Reason for Visit * Reason Comments Med Refill Encounter Details Date Type Department Care Team (Late st Contact Info) Description 06/29/2023 Refill [facility] MEDICINE [address] [place] [phone] Marija Taylor DO 230 [place], [place] [phone] Uncomplicated asthma, unspecified asthma severity, unspecified whether [...] Description 11/06/2025 10:00 AM EST Office Visit [facility] MEDICINE [address] [place] [phone] Shell Fang MD [address] [place] [address] [phone] documented as of this encounter Visit Diagnoses Diagnosis Uncomplicated asthma, unspecified asthma severity, unspecified whether persistent documented in this encounter Care Teams Ivory Polisher Relationship Specialty Start Date End Date Shell Fang MD [address] [place] [phone] PCP - General Family Medicine 07/21/18 documented as of this encounter
--- OUTSIDE RECORDS SUMMARY | 2025-11-05 18:36 | XMS_ITS | Clinical Summary ---
Author Organization [employer] Address [address] [facility] [address] [place] [address] Care Team Providers Care Bee Worker Name Role Phone Shell Fang MD Primary Care Provider + Allergies Active Allergy Reactions Criticality Noted Date Comments Lisinopril-Hydrochlorothiazide Swelling 01/31 Medications Spacer/Aero-Holdi ng Chambers (OptiChamber Cyndi) misc 1 each every 4 (four) hours if needed (asthma). 1 each 024 Active furosemide (Lasix) 20 MG tabletIndications :Acute systolic congestive heart failure (HCC) Take 1 tablet (20 mg) by mouth in the morning. 30 tablet 11 Active spironolactone (Aldactone) 25 MG tablet Take 1 tablet (25 mg) by mouth in the morning. 30 tablet 11 Active Alcohol Swabs 70 % pads Use to test blood sugar 1x times daily 100 each Active Blood Glucose Monitoring Suppl (FreeStyle [place] Lite) w/Device kit Use to test blood sugar 1x times daily 1 kit Active metoprolol succinate XL (Toprol-XL) 25 MG 24 hr tablet Take 1 tablet by mouth Once per day. Active chlorhexidine (Peridex) 0.12 % solution Use 15ml twice daily to swish the mouth ensuring it comes in contact with all tooth surfaces and gums. Do not swallow the rinse. 473 mL Active betamethasone valerate (Valisone) 0.1 % cream Apply topically if needed in the morning and at bedtime (dryness). 45 g 2 025 Active Diclofenac Sodium 1 % gel Apply thin layer by topical route (quantity as directed on package insert) to elbow 3 times daily as needed. 50 g 3 Active acetaminophen (Tylenol 8 Hour) 650 MG [...] by mouth at bedtime. 30 capsule 3 2025 Active buPROPion XL (Wellbutrin XL) 150 MG 24 hr tabletIndications :Tobacco dependence Take 1 tablet (150 mg) by mouth in the morning. Do not crush, chew, or split. 30 tablet 025 2025 Active aspirin 81 MG EC tablet Take 1 tablet (81 mg) by mouth Once per day. 30 tablet 025 2025 Active empagliflozin (Jardiance) 10 MG Take 1 tablet (10 mg) by mouth Once per day. 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 90 tablet 1 Active albuterol (Ventolin HFA) 108 (90 Base) MCG/ACT inhalerIndication s:Uncomplicated asthma, unspecified asthma severity, unspecified whether persistent TAKE 2 PUFFS BY MOUTH EVERY 4 TO 6 HOURS NEEDED 18 g 5 Active losartan (Cozaar) 100 MG tablet Take 1 tablet (100 mg) by mouth Once per day. 90 tablet 3 025 2025 Active insulin lispro (HumaLOG KWIKPEN) 100 UNIT/ML injection Apply subcutaneous TID AC meals according to sliding scale: 150-200: 2U /201-250: 4U /251-300:6U /301-350: 8U 351-400:10U/ Greater than 400: 12 U and call PCP 1 each 3 Active insulin glargine (Lantus SoloStar) 100 UNIT/ML pen Inject 16 Units under the skin in the morning. 14.4 mL 3 Active nicotine polacrilex (Nicorette) 4 MG gum Chew 1 each (4 mg) if needed for smoking cessation. 100 each 3 Active tiotropium (Spiriva Respimat) 2.5 MCG/ACT inhaler Inhale 2 puffs Once per day. 4 each 11 025 2025 Active insulin syringe-needle U-100 (BD Insulin Syringe Ultrafine) 31G X 5/16 0.3 mL misc Use 4x/d as instructed 120 each 11 025 2025 Active atorvastatin (Lipitor) 40 MG tabletIndications :Mixed hyperlipidemia TAKE 1 TABLET BY MOUTH EVERY DAY IN THE MORNING 90 tablet Active FREESTYLE LITE test strip Use to test blood sugar 1x times daily 100 each 11 024 2024 atorvastatin (Lipitor) 40 MG tabletIndications :Mixed hyperlipidemia TAKE 1 TABLET BY MOUTH EVERY DAY IN THE MORNING 90 tablet 025 2024 Discontinued Active Problems Problem Noted Date Diagnosed Date [...] week after biopsy, advised to discuss with tumbling and rolling supervisor or bring FMLA papers. Will fu [...] POC. I spoke with BRANDON Brownlee at [facility] for a soft sign out and [...] (10/29/2024 12:23 PM EST): Likely related to fdc uncontrolled DM, smoking, already existing CV disease. [...] heavy objects. He will discuss this with tumbling and rolling supervisor, he did not want me to provide a light duty letter as I have done in the past. He will fu with me after reaching out to his tumbling and rolling supervisor. Start Meloxicam daily + Gabapentin QHS, [...] obstructive pu lmonary disease) with chronic bronchitis ([facility]) 09/01/2018 01/04/2024 Assessment & Plan (12/07/2024 1:01 [...] Encounters Date Type Department Care Team Description 11/05/2025 Telephone [facility] [address] [place] [phone] Shell Fang MD chart prep 11/01/2025 Refill [facility] [address] [place] [phone] Lora York MD Mixed hyperlipidemia 10/30/2025 Patient Outreach [facility] [address] [place], [place] [phone] Shell Fang MD Pre-visit Planning ([facility] unable to reach) 10/28/2025 Orders Only GENERIC EXTERNAL DATA DEPARTMENT Provider, Generic External Data 09/02/2025 10:30 AM EDT Office Visit [facility] [address] [place] [phone] Shell Fang MD Diabetes mellitus type 2 with complications (HCC) 09/02/2025 Travel 08/29/2025 Telephone [facility] [address] [place] [address] [phone] Shell Fang MD Appointment 08/15/2025 11:15 AM EDT Telemedicine [facility] [address] [place] [phone] Shell Fang MD 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) (Primary Dx); 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) 08/15/2025 Refill [facility] [address] [place] [address] [phone] Shell Fang MD 08/15/2025 Travel 08/14/2025 Telephone [facility] [address] [place] [address] [place] [phone] Shell Fang MD Chart Prep 08/12/2025 Telephone [facility] [address] [place], [place] [phone] Shell Fang MD televisit 08/07/2025 Patient Outreach [facility] [address] [place] [address] Shell Fang MD Pre-visit Planning ([facility] screening completed on 04/23/2025) from Last 3 Months Immunizations Immunization Administration Dates Next Due Influenza injectable quadriv alent IIV4 with preservative 10/10/2019,09/01/2018 Influenza injectable quadrivalent preservative f ree 10/04/2022,08/25/2020 Influenza, IIV3, injectable 10/29/2015 Influenza, seasonal, injectable, preservative fr ee 12/07/2024 Moderna Covid-19 Vaccine 12+ 07/26/2022 Pfizer Covid-19 Vaccine 12+ 12/07/2024 RSV Bivalent 05/02/2025 Td (adult), 5 Lf tetanus tox oid, preservative free, adsorbed 06/03/2012 Tdap 05/28/2021,04/02/2015 Zoster, Recombinant 05/02/2025,07/31/2021 Social History Tobacco Use Types Packs/Day Years [...] your housing situation today? I have merrill pete 04/23/[address] you li [...] Description 11/06/2025 10:00 AM EST Office Visit [facility] [address] [place], [place] [phone] Shell Fang MD [address] [place], [place] [phone] Health Maintenance Due Date Last Done Comments [...] 08/15/2026 08/15/2025 Depression Screening 08/15/2026 08/15/2025, 08/15/20 25 Disability Screening 08/15/2026 08/15/2025 Diabetes: Foot Exam [...] blood pressure task No Shell Fang MD Patient has chronic kidney disease Care [...] has chronic kidney disease No Lucero Faustin Weekly blood pressure task Care Plan Weekly blood pressure task No Erum yesLeidy [place] Weekly blood pressure task Care Plan Weekly blood pressure task No Erum yes, GREGORY Forbes Patient has chronic kidney disease Care Plan Patient has chronic kidney disease No Erum yesLeidy [place] Patient has chronic kidney disease Care Plan Patient has chronic kidney disease No Erum yes, GREGORY Forbes Weekly blood pressure task Care Plan Weekly blood pressure task No David-Re yes, GREGORY Forbes Weekly blood pressure task Care Plan Weekly blood pressure task No David-Re yes, GREGORY Forbes Patient has chronic kidney disease Care Plan Patient has chronic kidney disease No David-Re yes, GREGORY Forbes Patient has chronic kidney disease Care Plan Patient has chronic kidney disease No David-Re yes, GREGORY Forbes Procedures Procedure Name Priority Date/Time Associated Diagnosis Comments CT SOFT TISSUE NECK W AND WO CONTRAST Routine 11/05/2025 1:50 PM EST LD Routine 10/28/2025 9:36 AM EST [...] Results * CT Soft Tissue Neck w/ and w/o Contrast (11/05/2025 1:50 PM EST) Anatomical Region Laterality Modality Head, Neck Computed Tomogra phy 11/05/2025 1:50 PM EST Narrative 11/05/2025 2:51 PM EST [place] [address] CT Scan Report Signed Patient: Jace Gonzales MR#: [id number] : 1965 Acct:[id number] Age/Sex: 60 / M ADM Date: 11/05/25 Loc: HO.CT Attending Dr: Brianna Gonsalves MD Ordering Physician: Brianna Gonsalves MD Date of Service: 11/05/25 Procedure(s): CT soft tissue neck wo/w IVcon Accession Number(s): [id number] cc: Tessa Freeman MD; Brianna Gonsalves MD Report Number: [id number]: Total DLP = 728.00 mGy-cm Reason for Exam: Follow-up:Hodgkin'slymphoma L supraclavicular area EXAMINATION: CT SOFT TISSUE NECK WITHOUT AND WITH CONTRAST CLINICAL INFORMATION: Follow-up Hodgkin's lymphoma the supraclavicular region. COMPARISON: 12/24/2024. 11/06/2024. TECHNIQUE: Before and after the intravenous administration of 60 mL of Omnipaque 350 intravenous contrast helical imaging of the neck was performed in the axial plane with generation of coronal and sagittal reformatted images. This CT examination was performed using dose optimization techniques as appropriate, variously including the following: *Automated exposure control *Adjustment of mA and/or kV according to patient size (this includes techniques or standardized protocols for targeted exams where dose is matched to indication/reason for exam; i.e. extremities or head) *Use of iterative reconstruction technique FINDINGS: Significant improvement in previously seen pathologic lymphadenopathy in the left supraclavicular region. For example, the largest, a subclavicular lymph level VB node currently measures 10 x 18 mm in axial plane, previously measuring 19 x 30 mm (series 6, image 97). A left supraclavicular level 4A node just adjacent to the left internal jugular vein measures 7 mm in short axis, previously measuring 15 mm. (Series 6, image 81). An additional left supraclavicular level VB lymph node just adjacent to the left internal jugular vein currently measures 12 x 15 mm in axial plane, previously 13 x 21 mm. (Series 6, image 93). No worsening or new lymphadenopathy is present within the neck. Thyroid gland is normal in CT appearance. The tongue, tongue base, floor of mouth, mucosal space, epiglottis, soft palate, tonsillar pillar soft tissues, aryepiglottic folds, larynx, and subglottic trachea appear normal. No community administrator space abnormality. The parapharyngeal fat planes are undisturbed. No retropharyngeal abnormality. The salivary glands are normal in appearance aside from mild fatty change. 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 There is reconstitution of enhancement in the intracranial ophthalmic segment. The jugular veins are patent. The larynx appears normal. The subglottic trachea appears normal. The cervical esophagus appears normal. Imaged intracranial contents demonstrates stable encephalomalacia in the left frontal lobe, presumably from prior infarct or trauma. There is otherwise no mass effect, edema, or abnormal enhancement present. Cortical and dural venous sinuses appear patent. The globes and orbital contents appear normal. The paranasal sinuses, mastoids, and tympanic spaces are normally aerated. No suspicious bony abnormalities. Mild to moderate degenerative changes in the cervical spine, most notable at 5 6 and C6-7. Imaged lung apices are clear bilaterally. Mild subpleural scarring is present in both anterior upper lobes. This may be treatment-related change. No abnormality of the superior mediastinal structures. CT/CT soft tissue neck wo/w IVcon IMPRESSION: 1. Significant improvement in left supraclavicular level 5B and level 4A lymphadenopathy as described. 2. No new masses or abnormal lymph nodes present. 3. 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 4. Old infarct left frontal lobe, unchanged. Electronically signed by: Sony Maria MD 11/05/2025 02:48 PM [facility] Dictated By: Sony Maria MD Signed By: <Electronically signed by Sony Maria MD in OV> 11/05/25 1448 DD/ 1350 TD/TT: 11/05/25 1419 [employer]: Procedure Note Donotuseinterpreter, Image - 11/05/[address] [address] [address] Scan Report Signed Patient: Kole Gonzales#: [id number] : 1965Acct:[id number] Age/Sex: 60 / MADM Date: 11/05/25 Loc: HO.CT Attending Dr: Brianna Gonsalves MD Ordering Physician: Brianna Gonsalves MD Date of Service: 11/05/25 Procedure(s): CT soft tissue neck wo/w IVcon Accession Number(s): [id number] cc: Tessa Freeman MD; Brianna Gonsalves MD Report Number: [id number]: Total DLP = 728.00 mGy-cm Reason for Exam: Follow-up:Hodgkin'slymphoma L supraclavicular area EXAMINATION: CT SOFT TISSUE NECK WITHOUT AND WITH CONTRAST CLINICAL INFORMATION: Follow-up Hodgkin's lymphoma the supraclavicular region. COMPARISON: 12/24/2024. 11/06/2024. TECHNIQUE: Before and after the intravenous administration of 60 mL of Omnipaque 350 intravenous contrast helical imaging of the neck was performed in the axial plane with generation of coronal and sagittal reformatted images. This CT examination was performed using dose optimization techniques as appropriate, variously including the following: *Automated exposure control *Adjustment of mA and/or kV according to patient size (this includes techniques or standardized protocols for targeted exams where dose is matched to indication/reason for exam; i.e. extremities or head) *Use of iterative reconstruction technique FINDINGS: Significant improvement in previously seen pathologic lymphadenopathy in the left supraclavicular region. For example, the largest, a subclavicular lymph level VB node currently measures 10 x 18 mm in axial plane, previously measuring 19 x 30 mm (series 6, image 97). A left supraclavicular level 4A node just adjacent to the left internal jugular vein measures 7 mm in short axis, previously measuring 15 mm. (Series 6, image 81). An additional left supraclavicular level VB lymph node just adjacent to the left internal jugular vein currently measures 12 x 15 mm in axial plane, previously 13 x 21 mm. (Series 6, image 93). No worsening or new lymphadenopathy is present within the neck. Thyroid gland is normal in CT appearance. The tongue, tongue base, floor of mouth, mucosal space, epiglottis, soft palate, tonsillar pillar soft tissues, aryepiglottic folds, larynx, and subglottic trachea appear normal. No community administrator space abnormality. The parapharyngeal fat planes are undisturbed. No retropharyngeal abnormality. The salivary glands are normal in appearance aside from mild fatty change. 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 There is reconstitution of enhancement in the intracranial ophthalmic segment. The jugular veins are patent. The larynx appears normal. The subglottic trachea appears normal. The cervical esophagus appears normal. Imaged intracranial contents demonstrates stable encephalomalacia in the left frontal lobe, presumably from prior infarct or trauma. There is otherwise no mass effect, edema, or abnormal enhancement present. Cortical and dural venous sinuses appear patent. The globes and orbital contents appear normal. The paranasal sinuses, mastoids, and tympanic spaces are normally aerated. No suspicious bony abnormalities. Mild to moderate degenerative changes in the cervical spine, most notable at 5 6 and C6-7. Imaged lung apices are clear bilaterally. Mild subpleural scarring is present in both anterior upper lobes. This may be treatment-related change. No abnormality of the superior mediastinal structures. CT/CT soft tissue neck wo/w IVcon IMPRESSION: 1. Significant improvement in left supraclavicular level 5B and level 4A lymphadenopathy as described. 2. No new masses or abnormal lymph nodes present. 3. 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 4. Old infarct left frontal lobe, unchanged. Electronically signed by: Sony Maria MD 11/05/2025 02:48 PM [facility] Dictated By: Sony Maria MD Signed By: <Electronically signed by Sony Maria MD in OV> 11/05/25 1448 DD/ 1350 TD/TT: 11/05/25 1419 [employer] Processor: [facility] External Provider IMG CT PROCEDURES Final Result * (ABNORMAL) CBC auto differential (10/28/2025 9:36 AM EST) White Blood Count 10.0 4.8 - 10.8 X10*3/uL [facility] Red Blood Count 3.87(L) 4.60 - 5.80 X10*6/uL [facility] Hemoglobin 11.9(L) 14.0 - 18.0 g/dl [facility] Hematocrit 36.3(L) 42.0 - 52.0 % [facility] Mean Corpuscular Volume 93.8 80.0 - 98.0 fL [facility] Mean Corpuscular Hemoglobin 30.7 27.0 - 33.0 pg [facility] Mean Corpuscular HGB Conc 32.8 31.0 - 36.0 g/dl [facility] Red Cell Distribution Width 16.5(H) 11.0 - 16.0 % [facility] Platelet Count 187 160 - 400 X10*3/uL [facility] Mean Platelet Volume 9.0(L) 9.4 - 12.4 fL [facility] Neutrophils Percent Auto 80.9(H) 45 - 73 % [facility] Imm Gran Pct Auto 1.5(H) 0.0 - 0.4 % [facility] Lymphocytes Percent Auto 9.4(L) 20 - 40 % [facility] Monocytes Percent Auto 8.0 2 - 11 % [facility] Eosinophils Percent Auto 0.1 0 - 4 % [facility] Basophils Percent Auto 0.1 0 - 2 % [facility] NRBC Pct Auto 0.3(H) 0.0 - 0.2 /100WBC [facility] Neutrophils Absolute Auto 8.1 2.0 - 8.3 x10*3/uL [facility] Imm Gran Abs Auto 0.15(H) 0.00 - 0.03 X10*3/uL [facility] Lymphocytes Absolute Auto 0.9(L) 1.2 - 4.9 X10*3/uL [facility] Monocytes Absolute Auto 0.8 0.1 - 1.2 X10*3/uL [facility] Eosinophils Absolute Auto 0.0 0.0 - 0.4 X10*3/uL [facility] Basophils Absolute Auto 0.0 0.0 - 0.2 X10*3/uL [facility] NRBC Abs Auto 0.030(H) 0.0 - 0.012 X10*3/uL [facility] 10/28/2025 9:36 AM EST 10/28/2025 9:36 AM EST Generic External Data Provider LAB BLOOD ORDERAB LES Final Result Performing Organization Address [facility]/ZIP Co de Phone Number [facility] [address] [place] [phone] * Lactate Dehydrogenase (LD) (10/28/2025 9:36 AM EST) Pathologist [facility] Lactate Dehydrogenase 232 118 - 273 U/L [facility] 10/28/2025 9:36 AM EST 10/28/2025 9:36 AM EST Generic External Data Provider LAB BLOOD ORDERAB LES Final Result Performing Organization Address [facility] Phone Number [facility] [address] [place] [phone] * (ABNORMAL) Comprehensive Metabolic Panel (10/28/2025 9:36 AM EST) Sodium 139 135 - 145 mmol/L [facility] Potassium 3.9 3.3 - 5.1 mmol/L [facility] Chloride 109(H) 96 - 108 mmol/L [facility] Carbon Dioxide 20(L) 22 - 29 mmol/L [facility] Anion Gap 14 12 - 20 [facility] Urea Nitrogen (BUN) 27(H) 9 - 16 mg/dL [facility] Creatinine, Serum 1.01 0.5 - 1.4 mg/dL [facility] Estimated Glomerular Filt Rate >60 [facility] Comment:Chronic Kidney Disea se: Estimated GFR < 60 mL/min/1.71u7Hykvrx Kidney Disease: Estimated GFR < 15 mL/min/1.73m2 Glucose 129(H) 60 - 115 mg/dL [facility] Calcium 9.4 8.4 - 10.2 mg/dL [facility] Bilirubin, Total 0.7 0.0 - 1.0 mg/dL [facility] Aspartate Amino Transferase 16 5 - 37 U/L [facility] Alanine Aminotransferase 27 0 - 40 U/L [facility] Total Protein 7.0 6.5 - 8.0 g/dL [facility] Albumin Level 4.7 3.5 - 5.0 g/dL [facility] Alkaline Phosphatase 88 39 - 117 U/L [facility] 10/28/2025 9:36 AM EST 10/28/2025 9:36 AM EST us Generic External Data Provider LAB BLOOD ORDERAB LES Final Result [facility] [address] [place] [address] [phone] * (ABNORMAL) POCT Hgb A1c (09/02/2025 10:15 AM EDT) Hemoglobin A1C 9.1(A) 4.0 - 5.7 % QC Media Lot # [id number] Lot# Expiration Date 5,[id number] Blood 09/02/2025 10:1 5 AM EDT us Shell Fang MD POINT OF CARE TEST ENTER /EDIT ORDERABLES Final Result * POCT Glucose (09/02/2025 10:13 AM EDT) Glucose Blood, POC 166 60 - 200 mg/dL QC Media Lot # [id number] Lot# Expiration Date [id number] Blood Capillary blood specimen / Unknown 09/02/2025 10:13 AM EDT Shell Fang MD POINT OF CARE TEST ENTER /EDIT ORDERABLES Final Result * Hepatitis Panel, General (12/07/2024 10:40 AM EST) Hepatitis A IgM Nonreactive Nonreactive [facility] Comment:IgM antibodies to HOUSE V not detected; does not exclude earlyacute or recovered HAV infection. ~Hepatitis B Surface Antibody REACTIVE Nonreactive [facility] Comment:REACTIVE: > 11.99 mI U/mL Hepatitis B Core Antibody Reactive Nonreactive [facility] Comment:Presumptive evidence of anti-HBc. Hepatitis C Antibody Nonreactive Nonreactive [facility] Comment:Antibodies to HCV no t detected; does not exclude early acuteHCV infection. Hepatitis B Surface Ag Negative Negative [facility] Blood 12/07/2024 10:4 0 AM EST 12/07/2024 11:38 AM EST Shell Fang MD LAB BLOOD ORDERABLES Fin al Result [facility] [address] [place] [phone] * HIV-1/2 Antigen and Antibodies, Fourth Generation, with Reflexes (11/19/2024 10:53 AM EST) HIV AB/AG Nonreactive Nonreactive [facility] Comment:HIV-1 p24 Ag and/or HIV-1/HIV-2 Ab not detected.A test result that is nonreactive does not exclude thepossibility of exposure to or infection with HIV-1 and/orHIV-2. Nonreactive results in this assay for individualswith prior exposure to HIV-1 and/or HIV-2 may be due toantigen and antibody levels that are below the limit ofdetection of this assay.The [employer] HIV Ag/Ab Combo assay result andsupplemental assay results should be interpreted inconjunction with the patient's clinical presentation,history and other laboratory results. If the results areinconsistent with clinical evidence, additional testing issuggested to confirm the result. Blood Venous blood specimen / Unknown 11/19/2024 10:53 AM EST 11/19/2024 1:46 PM EST Shell Fang MD LAB BLOOD ORDERABLES Fin al Result Performing Organization Address [facility] Co de Phone Number [facility] [address] [place] [phone] * (ABNORMAL) Lipid Panel with Reflex to Direct LDL (10/05/2024 11:07 AM EST) Triglycerides 168(H) <150 mg/dL [facility] Comment:Desirable Triglyceri de: less than 150 mg/dLBorderline High Triglyceride 150-199 mg/dLHigh Triglyceride: 200-499 mg/dLVery High Triglyceride: greater than or equal to 5OO mg/dL Cholesterol 146 <200 mg/dL [facility] Comment:Desirable Cholestero l: less than 200 mg/dLBorderline High Cholesterol: 200-239 mg/dLHigh Cholesterol: greater than 239 mg/dL LDL Cholesterol Calculated 81 <100 mg/dL [facility] Comment:Desirable LDL: less than 100 mg/dLNear Optimal/Above Optimal LDL: 110- 129 mg/dLBorderline High LDL: 130-159 mg/dLHigh LDL: 160-189 mg/dLVery High LDL: greater than or equal to 190 mg/dL HDL Cholesterol 32(L) >40 mg/dL [facility] Comment:Desirable HDL: great er than 40 mg/dL Note: This HDL assay may give artificially low results in patients with liver disease. Blood 10/05/2024 11:0 7 AM EST 10/05/2024 1:22 PM EST Shell Fang MD LAB BLOOD ORDERABLES Fin al Result Performing Organization Address [facility]/ZIP Co de Phone Number [facility] [address] [place] [address] [phone] * Hm Colonoscopy (07/12/2015 1:55 PM EDT) Colonoscopy Normal Normal Narrative Cherie Infante - 07/12/2015 1:55 PM EDT Recommended 5 year follow up ( [facility]) us Historical Provider HEALTH MAINTENANCE Edited [...] 10/30/2025 Patient has chronic kidney disease 10/30/2025 Weekly blood pressure task 11/05/2025 Weekly blood pressure task 11/05/2025 Patient has chronic kidney disease 11/05/2025 Patient has chronic kidney disease 11/05/2025 Weekly blood pressure task 11/05/2025 Weekly blood pressure task 11/05/2025 Patient has chronic kidney disease 11/05/2025 Patient has chronic kidney disease 11/05/2025 Insurance [facility] - [facility] PARTIAL (MEDICAID) Care Teams Bee Worker Relationship Specialty Start Date End Date Shell Fang MD [address] [place] [phone] PCP - General Family Medicine 07/21/18
--- OUTSIDE RECORDS SUMMARY | 2025-11-05 18:36 | XMS_ITS | Encounter Summary ---
Author Organization [employer] Address [address] [place] [address] 7 [place] [address] Care Team Providers Care Supervisor Finish End Name Role Phone Shell Fang MD Primary Care Provider + Reason for Visit * Reason Comments Med Refill Encounter Details Date Type Department Care Team (Late st Contact Info) Description 11/22/2024 Refill [facility] [address] [place], [place] [phone] Shell Fang MD [address] [place] [address] Cerebrovascular accident (CVA) due to thrombosis of [...] Description 11/06/2025 10:00 AM EST Office Visit [facility] [address] [place], [place] [phone] Shell Fang MD [address] [place] [address] [phone] documented as of this encounter Visit Diagnoses Diagnosis Cerebrovascular accident (CVA) due to thrombosis of left middle cerebral artery (HCC) documented in this encounter Care Teams Supervisor Finish End Relationship Specialty Start Date End Date Shell Fang MD [address] [place] [address] [phone] PCP - General Family Medicine 07/21/18 documented as of this encounter
--- OUTSIDE RECORDS SUMMARY | 2025-11-05 18:36 | XMS_ITS | Encounter Summary ---
Author Organization [employer] Address [address] [place] [address] 7 [place] [address] Care Team Providers Care Stiff Straw Hat Washer Name Role Phone Shell Fang MD Primary Care Provider + Reason for Visit * Reason Comments Med Refill Encounter Details Date Type Department Care Team (Late st Contact Info) Description 11/27/2024 Refill [facility] [address] [place], [place] [phone] Shell Fang MD [address] [place] [address] Cerebrovascular accident (CVA) due to thrombosis of [...] 11/06/2025 10:00 AM EST Office Visit [facility] [address] [place], [place] [phone] Shell Fang MD [address] [place] [address] [phone] documented as of this encounter Visit Diagnoses Diagnosis Cerebrovascular accident (CVA) due to thrombosis of left middle cerebral artery (HCC) documented in this encounter Care Teams Stiff Straw Hat Washer Relationship Specialty Start Date End Date Shell Fang MD [address] [place] [address] [phone] PCP - General Family Medicine 07/21/18 documented as of this encounter
--- OUTSIDE RECORDS SUMMARY | 2025-11-05 18:36 | XMS_ITS | Clinical Summary ---
Author Organization [facility] Address [address] [place] [address] Phone Care Team Providers Care Custom Grinder Name Role Phone Unavailable Primary Care Provider Unavailabl e Encounters Date Type Department Care Team Description 09/04/2025 2:30 PM EDT - 09/04/2025 11:59 PM EDT Hospital Encounter [facility] PET Scan [address] [place] [address] Discharge Disposition: Home or Self [...] Routine 09/04/2025 4:52 PM EDT Hodgkin lymphoma ([facility] V24, [facility] V28) from Last 3 Months Results * [...] Signed Date: 09/11/2025 16:17 ET Workstation ID: [id number] Transcribed By: Self Edit Transcribed Date: 09/11/2025 [...] noted along bilateral shoulder musculature. Procedure Note Sima Mario MD - 09/11/2025 History: Hodgkin's lymphoma, subsequent treatment strategy Comparison: PET/CT from May 22, 2025 Radiopharmaceutical: 13.5 mCi of F-18 FDG IV given 50 minutes prior toimaging. Blood glucose: 125 mg/dl. CT Dose: 933 DLP (mGy-cm) Routine body FDG PET-CT imaging was performed from the skull base to themid thighs and reconstructed in axial, coronal, and sagittal planes at the[employer] workstation with fused data from both the [...] Signed Date: 09/11/2025 16:17 ET Workstation ID: [id number] Transcribed By: Self Edit Transcribed Date: 09/11/2025 16:05 ET Susanne Gonsalves MD [facility] PROCEDURES Final Result from Last 3 Months Insurance [facility] [employer]
--- OUTSIDE RECORDS SUMMARY | 2025-11-05 18:36 | XMS_ITS | Encounter Summary ---
Author Organization [employer] Address [address] [place] [address] [address], [place] [address] Care Team Providers Care Zoology Professor Name Role Phone Shell Fang MD Primary Care Provider + Encounter Details Date Type Department Care Team (Late st Contact Info) Description 11/19/2022 Orders Only [facility] [address] [place] [address] Yanique Leigh LPN Social History Tobacco Use [...] Description 11/06/2025 10:00 AM EST Office Visit [facility] [address] [place] [phone] Shell Fang MD [address] [place] [address] documented as of this encounter Visit Diagnoses Not on filedocumented in this encounter Care Teams Zoology Professor Relationship Specialty Start Date End Date Shell Fang MD [address] [place] [phone] PCP - General Family Medicine 07/21/18 documented as of this encounter
--- OUTSIDE RECORDS SUMMARY | 2025-11-05 18:36 | XMS_ITS | Encounter Summary ---
Author Organization [employer] Address [address] [facility] [address] [place] [address] Care Team Providers Care Shader And Toner Name Role Phone Shell Fang MD Primary Care Provider + Reason for Visit * Reason Onset Date Comments Med Refill 10/30/2024 Encounter Details Date Type Department Care Team ([facility] st Contact Info) Description 10/30/2024 Telephone [facility] [address] [place], [place] [phone] Shell Fang MD [address] [place], [place] [phone] Med Refill Social History Tobacco Use Types [...] 8:56 AM EST Medications were sent to [facility] #[id number] on 10/29/24. * Telephone Encounter - Alvino Nguyen - 10/30/2024 8:36 AM EST TC from pt requesting medication refill. 1- Medications needing refill : fluticasone-salmeterol (Advair HFA) 230-21 MCG/ACT inhaler 2-Ventolin HFA 108 (90 Base) MCG/ACT inhaler 3-tiotropium (Spiriva Respimat) 2.5 MCG/ACT inhaler To be sent to: [facility]/pharmacy #[id number] documented in this encounter Plan of Treatment Upcoming Encounters Date Type Department Care Team (Late st Contact Info) Description 11/06/2025 10:00 AM EST Office Visit [facility] [address] [place] [address] [phone] Shell Fang MD [address] [place] [phone] documented as of this encounter Visit Diagnoses Not on filedocumented in this encounter Care Teams Shader And Toner Relationship Specialty Start Date End Date Shell Fang MD [address] [place] [address] [phone] PCP - General Family Medicine 07/21/18 documented as of this encounter
--- OUTSIDE RECORDS SUMMARY | 2025-11-05 18:36 | XMS_ITS | Encounter Summary ---
Author Organization [employer] Address [address] [place] [address] [address] [place] [address] Care Team Providers Care Cotton Ginner Helper Name Role Phone Shell Fang MD Primary Care Provider + Encounter Details Date Type Department Care Team (Late st Contact Info) Description 06/20/2023 Orders Only [facility] [address] [place] [phone] Yanique Leigh LPN Social History Tobacco Use [...] 10:00 AM EST Office Visit [facility] [address] [place] [phone] Shell Fang MD [address] [place] [phone] documented as of this encounter Visit Diagnoses Not on filedocumented in this encounter Care Teams Cotton Ginner Helper Relationship Specialty Start Date End Date Shell Fang MD [address] [place] [phone] PCP - General Family Medicine 07/21/18 documented as of this encounter
--- OUTSIDE RECORDS SUMMARY | 2025-11-05 18:36 | XMS_ITS | Encounter Summary ---
Author Organization [employer] Address [address] [place] [address] [address] [place] [address] Care Team Providers Care Social Media Designer Name Role Phone Shell Fang MD Primary Care Provider + Reason for Visit * Reason Onset Date Comments chart prep 11/05/2025 Encounter Details Date Type Department Care Team ([facility] st Contact Info) Description 11/05/2025 Telephone [facility] [address] [place], [place] [phone] Shell Fang MD [address] [place] [address] chart prep Social History Tobacco Use Types Packs/Day [...] encounter Miscellaneous Notes * Telephone Encounter - Leidy Acuna MA - 11/05/2025 2:07 PM EST Chart Prep Labs: done Images: done Referrals: appointment pending Vaccines due: Covid, Flu, and PCV20 Screenings: eye exam Overdue care gaps: Glucose, PHQ-9, and GERARD-7 documented in this encounter Plan of Treatment Upcoming Encounters Date Type Department Care Team (Late st Contact Info) Description 11/06/2025 10:00 AM EST Office Visit [facility] [address] [place] [phone] Shell Fang MD [address] [place] [address] documented as of this encounter Goals Goal [...] chronic kidney disease No Shell Fang MD Weekly blood pressure task Care Plan Weekly blood pressure task No Lucero Faustin Weekly blood pressure task Care Plan Weekly blood pressure task No Ramin, Lucero Patient has chronic kidney disease Care Plan Patient has chronic kidney disease No Ramin Lucero Patient has chronic kidney disease Care Plan Patient has chronic kidney disease No RaminElisha irelandilet Weekly blood pressure task Care Plan Weekly blood pressure task No David-Re yes, Leidy [place] Weekly blood pressure task Care Plan Weekly blood pressure task No David-Re yes, Leidy [place] Patient has chronic kidney disease Care Plan Patient has chronic kidney disease No David-Re yes, Leidy, [place] Patient has chronic kidney disease Care Plan Patient has chronic kidney disease No David-Re yes, Leidy [place] Weekly blood pressure task Care Plan Weekly blood pressure task No David-Re yes, Leidy [place] Weekly blood pressure task Care Plan Weekly blood pressure task No David-Re yes, Leidy, [place] Patient has chronic kidney disease Care Plan Patient has chronic kidney disease No David-Re yes, Leidy [place] Patient has chronic kidney disease Care Plan Patient has chronic kidney disease No David-Re yes, Leidy, [place] documented as of this encounter Visit Diagnoses [...] 11/05/2025 Patient has chronic kidney disease 11/05/2025 Assessment Noted Time PHQ-9 Depression Total Score: 5 08/15/20 25 10:58 AM EDT documented as of this encounter Care Teams Social Media Designer Relationship Specialty Start Date End Date Shell Fang MD [address] [place] [phone] PCP - General Family Medicine 07/21/18 documented as of this encounter
--- OUTSIDE RECORDS SUMMARY | 2025-11-05 18:36 | XMS_ITS | Encounter Summary ---
Author Organization [employer] Address [address] [place] [address] 7 [place] [address] Care Team Providers Care Brand Strategy Manager Name Role Phone Shell Fang MD Primary Care Provider + Encounter Details Date Type Department Care Team (Late st Contact Info) Description 12/19/2023 Orders Only [facility] [address] [place] [address] [phone] Alfa Mcwilliams MD [address] [place] [address] [phone] Hypertension, unspecified type (Primary Dx); Chronic obstructive [...] Description 11/06/2025 10:00 AM EST Office Visit [facility] [address] [place] [address] [phone] Shell Fang MD [address] [place] [address] [phone] documented as of this encounter Procedures Procedure Name Priority Date/Time Associated Diagnosis Comments B TYPE NATRIURETIC PEPTIDE (BNP) Routine 12/20/2023 9:33 AM EST Hypertension, unspecified type Chronic obstructive pulmonary disease with acute exacerbation (CMS/HCC) documented in this encounter Results * (ABNORMAL) B Type Natriuretic Peptide (BNP) (12/20/2023 9:33 AM EST) B Type Natriuretic Peptide 1,320(H) <100 pg/mL [facility] Comment:For those patients w ho are being treated with Natrecor(nesiritide, recombinant BNP), BNP testing should beperformed at least two hours post treatment in order toensure that only endogenous levels of BNP are detected. Blood Venous blood specimen / Unknown 12/20/2023 9:33 AM EST 12/20/2023 9:33 AM EST us Alfa Mcwilliams MD LAB BLOOD ORDERABLES Final Resul t [facility] [address] [place] [phone] documented in this encounter Visit Diagnoses Diagnosis Hypertension, unspecified type- Primary Chronic obstructive pulmonary disease with acute exacerbation (CMS/HCC) (HCC) documented in this encounter Care Teams Brand Strategy Manager Relationship Specialty Start Date End Date Shell Fang MD [address] [place] [phone] PCP - General Family Medicine 07/21/18 documented as of this encounter
== END 2025-11-05 13:20 | disposition home or self-care (01) ==
LOC: HO.CT 13:19
PROVIDERS: PCP Family Medicine; Visit Provider Internal Medicine Medical Oncology
DX: C81.90 Hodgkin lymphoma, unspecified, unspecified site (principal)
CPT/HCPCS: 70492; Q9967

== ENCOUNTER → 2025-11-05 13:21 | Outpatient (BNV) | payer OTHER, SELFPAY | PROVIDERS: PCP Family Medicine; Visit Provider Radiology Diagnostic Radiology | DX: C81.91 Hodgkin lymphoma, unspecified, lymph nodes of head, face, and neck (principal); R59.0 Localized enlarged lymph nodes; I65.22 Occlusion and stenosis of left carotid artery | CPT/HCPCS: 70492 ==